=== PATIENT | male | born 1945 | race Caucasian/White ===

== ENCOUNTER → 2018-02-02 08:18 | Outpatient (CLI) | payer MEDICARE, SELFPAY ==
[2018-02-02 09:08] LABS: International Normalized Ratio 1.4
== END ==
PROVIDERS: Family Provider Internal Medicine; PCP Internal Medicine; Visit Provider Internal Medicine
DX: Z51.81 Encounter for therapeutic drug level monitoring (principal); Z79.01 Long term (current) use of anticoagulants
CPT/HCPCS: 85610

== ENCOUNTER 2018-06-13 05:01 | Emergency (ER) | payer MEDICARE, SELFPAY ==
[2018-06-13 05:02] VITALS: BP 161/75; PULSE 83; RESP 17; TEMP 36.6; O2SAT 91; BMI 34.9
[2018-06-13] MEDS: diazePAM 5 MG Tablet PO (05:38)
--- NOTE | 2018-06-13 05:38 | ED.VIS.GEN ---
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 They gave him morphine 5 mg, it helped some with the pain when it occurs but he is still having spasms. They are across his low back, bilaterally. There is no radiation down his legs. He has had tingling in both legs intermittently, not tonight. No bowel or bladder dysfunction or saddle anesthesias. No weakness in his legs or falls. No recent injuries. He states that it has been off and on this past day, just worse tonight, and there was no clear etiologic event that caused him to get worse. No recent illnesses otherwise. No abdominal pain. No nausea/vomiting. - Past Medical History (1) Benign essential hypertension Status: Chronic (2) Dyslipidemia Status: Chronic (3) Hemochromatosis Status: Chronic (4) History of DVT of lower extremity Status: Chronic (5) History of coronary artery stent placement Status: Chronic (6) History of pulmonary embolism Status: Chronic (7) Hx of CABG Status: Chronic Comment: 1995 Past Medical History - Allergies and Home Meds Allergies/Adverse Reactions: Allergies Penicillins Allergy (Verified 06/13/18 05:05) Hives celecoxib [From Celebrex] Adverse Reaction (Verified 06/13/18 05:05) Chest tightness nitroglycerin [From Nitrostat] Adverse Reaction (Verified 12/18/15 11:59) Other Primary Care Physician: Maria Mccoy MD [Primary Care Provider] - Lives: Spouse/ Significant Other Smoking Status: Never smoker Review of Systems General: Denies: Chills, Fever, Sweats Eyes: Denies: Visual changes - bilaterally, Diplopia Cardiovascular: Denies: Chest pain, Palpitations Respiratory: Denies: Dyspnea, Cough Gastrointestinal: Denies: Abdominal pain, Nausea, Vomiting, Diarrhea Genitourinary: Denies: Dysuria, Hematuria, Frequency Musculoskeletal: Reports: Back pain. Denies: Neck pain, Extremity Pain Neurological: Reports: Parasthesia - off and on, not now. Denies: Headache, Weakness, Numbness Physical Exam Vital Signs/Narrative: Vital Signs Temp Pulse Resp BP Pulse Ox 06/13/18 05:02 97.9 F 83 17 161/75 H 91 Inital Vital Signs reviewed: Yes General: Well nourished, Well developed Head: Normocephalic, Atraumatic Abdomen: Soft, Nontender, Nondistended, Normal bowel sounds Back: - - tender in bilat lumbar paraspinal musculature, triggering spasms. Negative for: Spinal tenderness Extremities: Nontender, No edema Neurological: Alert, Oriented x3, Cranial nerves II-XII grossly intact, Normal Strength, Normal Sensation, - - hyporeflexic BLE, symmetric. downgoing toes bilat. no clonus. Psychological: Normal affect Diagnostic/Tx/Re-eval - Medical Decision Making Patient was treated with oral Valium 5 mg and since he had an IV and had received morphine from EMS, Norflex 30 mg IV. On reevaluation, he was able to rollover and move around in bed, feeling much better although the spasms were present, much less prominent. He was able to stand with nursing assistance, and walk back and forth to and from the door of the room, although he did have some painful spasms, was able to do so. He and are comfortable going home with a prescription and advised to follow-up or return if worse. I do not think any further testing is indicated emergently at this time. ED Disposition - Plan for ED Patient: Disposition: Home or Assisted Living Chief Complaint: Back Diagnosis: Spasm of lumbar paraspinous muscle Instructions: ED Spasm Back No Trauma Prescriptions: Diazepam [Valium] 5 mg PO Q8 PRN 4 Days #12 tab PRN Reason: Muscle Spasm Referrals: Maria Mccoy MD [Primary Care Provider] - 3-5 Days if not improving
[2018-06-13] MEDS: Orphenadrine 60 MG/2 ML Ampul 30 MG IV (05:39)
[2018-06-13 07:24] VITALS: BP 135/81; PULSE 72; RESP 15; O2SAT 97
== END 2018-06-13 07:25 | disposition home or self-care (01) ==
PROVIDERS: Emergency Provider Emergency Medicine; Family Provider Internal Medicine; PCP Internal Medicine
DX: M62.830 Muscle spasm of back (principal); M54.5 Low back pain; I10 Essential (primary) hypertension; Z86.718 Personal history of other venous thrombosis and embolism; Z86.711 Personal history of pulmonary embolism; Z95.1 Presence of aortocoronary bypass graft; Z79.01 Long term (current) use of anticoagulants; Z79.899 Other long term (current) drug therapy
CPT/HCPCS: 96374; 99285

== ENCOUNTER 2018-11-19 17:24 | Observation (INO) | payer MEDICARE, SELFPAY ==
[2018-11-19] VITALS (14 sets, daily range): BP systolic 120–184; BP diastolic 42–90; PULSE 59–74; RESP 12–20; TEMP 36.6–36.8; O2SAT 90–98; BMI 33.3; BMI 33.4; BMI 32.3
--- NOTE | 2018-11-19 18:11 | EKG12_ITS ---
Test Reason : SOB Blood Pressure : / mmHG Vent. Rate : 065 BPM Atrial Rate : 065 BPM P-R Int : 150 ms QRS Dur : 086 ms QT Int : 418 ms P-R-T Axes : 038 045 078 degrees QTc Int : 434 ms Normal sinus rhythm Nonspecific ST abnormality Abnormal ECG Confirmed by DANO BLACKMON, CARLEE ([id number]), photography editor BLAYNE BRICE ([id number]) on 11/22/2018 10:53:29 AM Referred By: Tristan Clancy Confirmed By:CARLEE MATSON MD
--- NOTE | 2018-11-19 18:14 | ED.DCSUM_ITS ---
- ER Visit Summary Date of Service: 11/19/18 Chief Complaint: Shortness of breath History of Present Illness: The patient is a 73 M presenting with shortness of breath. Patient states it started yesterday. He has had shortness of breath and chest pain which is worsened with exertion. He has had a productive cough. He denies fever. He has chills. He states this is worsened with exertion and has a pulse ox monitor at home. It has been in the high 70s with ambulation. He does not have home O2. History of hypertension, pulmonary fibrosis, coronary disease. History of PE, he has an IVC filter and is on Coumadin. He is on prednisone. Physical Examination: Vitals are stable. Patient is afebrile. Alert no acute distress. HEENT exam is unremarkable. Neck is supple. Lungs are diminished bilaterally. Heart is regular rate and rhythm. Abdomen is soft nontender nondistended. Extremities are unremarkable. Skin is warm and dry. No focal neurologic deficit. Remainder of exam is unremarkable. Emergency Department Course and Treatment: Patient is given albuterol, Atrovent aerosols. He was given aspirin. EKG is sinus rate of 65 with no acute ischemic changes. Chest x-ray shows no acute process. CBC, chemistries unremarkable. Troponin is negative. INR 3.2. Influenza negative. With ambulation his pulse ox dropped to 87% on room air. He does not have home O2 available. Discussed with the hospitalist for admission. Disposition: Admission Impression: Dyspnea, pulmonary fibrosis, hypoxia, chest pain This note was generated with [employer] dictation software. It may contain incorrect words, spelling, and punctuation that were not noted in review of the chart prior to signing ED Disposition - Plan for ED Patient: Referrals: Maria Mccoy MD [Primary Care Provider] -
[2018-11-19] MEDS: Ipratropium/Albuterol Sulfate 3 ML AMPUL.NEB INHALATION ×2 (18:24→22:45)
--- NOTE | 2018-11-19 18:27 | RAD_ITS ---
STUDY: X-RAY CHEST REASON FOR EXAM: Male, 73 years old. Worsening shortness of breath TECHNIQUE: Single AP portable view of the chest. COMPARISON: 2010 FINDINGS: EKG leads overlie the chest There are interstitial fibrotic changes of the lungs. There may be superimposed interstitial edema as well but there are no recent studies available for comparison. There is no demonstrated pleural abnormality. Sternal cerclage wires and vascular clips are present from a prior sternotomy and coronary artery bypass graft procedure (CABG). Normal mediastinum and denise. Normal visualized pulmonary arteries. Normal visualized aortic arch and descending thoracic aorta. Normal visualized thoracic spine. Normal visualized ribs, clavicles, and shoulders. There is no demonstrated abnormality of the visualized soft tissue structures of the upper abdomen. RAD/Chest 1 View (Portable) IMPRESSION: Degenerative changes, as described above. No demonstrated acute cardiopulmonary process. Electronically Signed: Maxx Raza MD at 19:11 EDT , Service support ,
[2018-11-19 18:32] LABS: Absolute Lymphocyte Count 2.55 X10^3/ul (0.83-4.51); Absolute Neutrophil Count 5.8 X10^3/uL (2.0-7.7); Basophil# 0.04 X10^3/uL; Basophil% 0.4 % (0-1); Eosinophil# 0.06 X10^3/uL; Eosinophils% 0.7 % (0-5); Hematocrit 34.6 % (40-54); Hemoglobin 10.4 g/dl (13.0-16.5); Lymphocyte # 2.55 X10^3/ul (4.0); Lymphocyte % 28.2 % (19-41); Mean Corp Hgb Conc 30.1 g/gl (32-36); Mean Corpuscular Hgb 24.8 pg (27.0-32.0); Mean Corpuscular Volume 82.4 fL (80-94); Mean Platelet Vol. 9.6 fl (6.2-12.0); Monocyte# 0.58 X10^3/uL; Monocyte% 6.4 % (0-10); Neutrophil # 5.79 X10^3/uL (2.7-7.7); Neutrophil % 64.1 % (47-70); Platelet Count 332 K/mm3 (150-450); RBC Distribution Width CV 17.2 % (11.6-14.6); RBC Distribution Width SD 52.4 fl (35.1-43.9)
[2018-11-19 18:33] LABS: POSITIVE COUNT NO; POSITIVE DIFFERENTIAL NO; POSITIVE MORPHOLOGY NO
[2018-11-19 18:44] LABS: International Normalized Ratio 3.2; Prothrombin Time (Protime)PT. 33.1 SECONDS (11.7-14.9)
[2018-11-19 18:50] LABS: Anion Gap 6 (5-15); BUN 12 mg/dL (7-18); BUN/Creat Ratio 12.3 RATIO (10-20); Calcium,Total 8.4 mg/dL (8.5-10.1); Chloride 106 mmol/L (98-107); Creatinine, Serum 0.97 mg/dL (0.70-1.30); EST Glomerular Filtration Rate 80 mL/min (>60); Est Glom Filt Rate - Afr Amer 97 mL/min (>60); Estimated Creatinine Clearance 61.21 ml/min; Glucose 93 mg/dL (74-106); Potassium 3.9 mmol/L (3.5-5.1); Sodium Level 139 mmol/L (136-145)
--- NOTE | 2018-11-19 19:25 | PCM.HP.STD ---
Problem List (1) Acute hypoxemic respiratory failure Status: Acute (2) Idiopathic pulmonary fibrosis Status: Acute History of Present Illness Date of Admission: 11/19/18 Chief Complaint: shortness of breath The patient is a 73 year old M with a significant history of DVT and PE status post IVC filter and on Coumadin therapy; idiopathic pulmonary fibrosis on pirfenidone and prednisone; CAD status post CABG; and GERD who presented with a 2-day history of progressively worsening shortness of breath. Reportedly his shortness of breath started at [employer] when he smelt strong perfume from somebody. The next day to at his office he again smelt a strong perfume also worsen his symptoms. Associated with her symptoms is a chest tightness for which reason he was given aspirin 325 mg at emergency department. He is not on home oxygen but he has a home pulse oximeter. At home his oxygen saturation was in the 70s with ambulation. At the emergency department his oxygen was 87% on ambulation. Past Medical History Past Medical History (Chronic Problems): Chronic Problems History of coronary artery stent placement (Chronic) History of pulmonary embolism (Chronic) Hx of CABG (Chronic) 1996 Hemochromatosis (Chronic) Dyslipidemia (Chronic) History of DVT of lower extremity (Chronic) Benign essential hypertension (Chronic) On anticoagulant therapy (Chronic) Allergies Penicillins Allergy (Verified 11/19/18 17:29) Hives celecoxib [From Celebrex] Adverse Reaction (Verified 11/19/18 17:29) Chest tightness nitroglycerin [From Nitrostat] Adverse Reaction (Verified 11/19/18 17:29) Other Home Medications: Ambulatory Orders Medication Instructions Recorded Prednisone 10 mg PO DAILY 04/06/17 Warfarin [Coumadin ([facility])] 7.5 mg PO DAILY 04/06/17 Ascorbic Acid 500 mg PO DAILY 11/19/18 Aspirin [Aspirin, Baby] 81 mg PO DAILY@0800 11/19/18 Benzonatate 100 mg PO DAILY 11/19/18 Fish Oil/Borage/Flax/Om3,6,9 1 1,200 mg PO DAILY 11/19/18 [[place] 3-6-9 1,200 mg Softgel] Flaxseed Oil 1,000 mg PO DAILY 11/19/18 Multivitamin with Minerals 1 tab PO DAILY 11/19/18 [Multiple Vitamin] Pantoprazole Sodium [Protonix] 40 mg PO DAILY 11/19/18 Pirfenidone [Esbriet] 801 mg PO TID 11/19/18 Verapamil HCl [Verapamil ER] 180 mg PO DAILY 11/19/18 Surgical History: coronary bypass surgery, - - IVC filter placement Lives: Spouse/ Significant Other Smoking Status: Former smoker Alcohol: None - *Family History Maternal History Items: Diabetes Paternal History Items: Diabetes, Heart Disease Review of Systems Constitutional: Denies: Chills, Fever, Weight Change HEENT: Denies: Head Aches, Sinus Congestion, Sinus Drainage Cardiovascular: Reports: Chest Tightness. Denies: Chest Pain, Palpitations Respiratory: Reports: Cough - Chronic, Shortness of Breath, Sputum production - grayish sputum, Chronic Gastrointestinal: Denies: Abdominal Pain, Nausea, Vomiting Genitourinary: Denies: Dysuria Musculoskeletal: Denies: Joint Pain, Joint Tenderness Skin: Denies: Rash, Wounds Neurological: Denies: Numbness, Tingling, Focal weakness Psychiatric: Denies: Anxiety, Depression, Homicidal Ideations, Suicidal Ideations Hematologic/ Lymphatic: Denies: Easy Bruising, Easy Bleeding VTE Information - Inpt Only VTE Present on Admission: Yes - History of DVT and PE. VTE Mechan Device Prophylaxis: None VTE Pharm Prophylaxis ordered?: No Reason prophylaxis not ordered:: Treatment Not Indicated - On Coumadin for history of DVT and PE. Coumadin continued with adjustment. Patient Problems: Active and Suspected Problems Acute hypoxemic respiratory failure (Acute) Idiopathic pulmonary fibrosis (Acute) - Physical Exam General: Alert, Oriented x3, Cooperative HEENT: Atraumatic, PERRLA, EOMI, Normocephalic Neck: Supple, Trachea Midline Lungs: Clear to auscultation, Normal air movement Cardiovascular: Regular rate, No murmurs Abdomen: Bowel Sounds Present, Soft, Non Tender Extremities: No edema, Capillary Refill Less than 3 Seconds Skin: No rashes, No breakdown Musculoskeletal: No Tenderness to Palpation of Joints or Extremities Neurological: Neuro grossly intact Psych/Mental Status: Normal Affect, Appropriate Vital Signs Temp Pulse Resp BP Pulse Ox 98.3 F 72 18 138/86 H 94 11/19/18 17:26 11/19/18 18:24 11/19/18 18:24 11/19/18 18:07 11/19/18 18:07 Oxygen Delivery Method Room Air Weight: 93.8 kg Body Mass Index (BMI) 33.3 Microbiology Past 72 Hours 11/19/18 18:25 Influenza Types A,B Direct FA (ARYA) - Final Mucosa - Nasopharyngeal Laboratory Tests Past 24 Hrs 11/19/18 11/19/18 11/19/18 18:22 18:22 18:22 WBC 9.0 RBC 4.20 L Hgb 10.4 L Hct 34.6 L MCV 82.4 MCH 24.8 L MCHC 30.1 L RDW 17.2 H RDW Differential 52.4 H Plt Count 332 MPV 9.6 Immature Gran % (Auto) 0.200 Neut % (Auto) 64.1 Lymph % (Auto) 28.2 [place] % (Auto) 6.4 Eos % (Auto) 0.7 Baso % (Auto) 0.4 Absolute Neuts (auto) 5.8 Absolute Lymphs (auto) 2.55 Total Counted Not Reportable PT 33.1 H INR 3.2 Sodium 139 Potassium 3.9 Chloride 106 Carbon Dioxide 27.0 Anion Gap 6 BUN 12 Creatinine 0.97 Estim Creat Clear Calc 61.21 Est GFR (MDRD) Af Amer 97 Est GFR (MDRD) Non-Af 80 BUN/Creatinine Ratio 12.3 Glucose 93 Calcium 8.4 L Troponin I < 0.015 Assessment/Plan All Active Problems Acute hypoxemic respiratory failure (Acute) Idiopathic pulmonary fibrosis (Acute) The patient is a 73 year old M with a significant history of DVT and PE status post IVC filter and on Coumadin therapy; idiopathic pulmonary fibrosis on pirfenidone and prednisone; CAD status post CABG; and GERD who presented with a 2-day history of progressively worsening shortness of breath associated with chest tightness. Acute hypoxemic respiratory failure Likely from a flare of his idiopathic pulmonary fibrosis Rapid influenza screen was unremarkable. Comprehensive respiratory pathogen panel. Consider 6 minutes walking test. Scheduled DuoNeb and albuterol. Consider discussed the case with pulmonology. History of DVT and PE with IVC filter On admission his INR was 3.2. He is on daily Coumadin 7.5 mg. Will order Coumadin 7 mg x1 Repeat INR. Dose Coumadin per INR Hypertension On presentation his blood pressure was not within goal. He had highest systolic blood pressure of 184. And highest diastolic blood pressure of 90. Patient on verapamil. But he is unsure why he is on verapamil. He thinks that he takes verapamil for some dysrhythmia or pulmonary embolism. Verapamil continued As needed hydralazine ordered. Trend blood pressure and adjust blood pressure medication. CAD status post CABG Aspirin continued DVT Prophylaxis Patient with supratherapeutic INR. We will dose adjust his Coumadin which he takes for DVT and PE.. Code Visit OBSV E&M: 92254 Initial observation care L3
[2018-11-19] MEDS: Aspirin 325 MG Tablet PO (19:37)
--- NOTE | 2018-11-19 20:21 | ED.RN ---
sepsis eval discontinued per dr mann order.
[2018-11-20 02:45] VITALS: BP 94/51; PULSE 74; RESP 16; TEMP 36.4; O2SAT 94
[2018-11-20 04:37] LABS: International Normalized Ratio 3.2; Prothrombin Time (Protime)PT. 32.6 SECONDS (11.7-14.9)
[2018-11-20 07:09] VITALS: PULSE 75; RESP 18; O2SAT 93
[2018-11-20] MEDS: Ipratropium/Albuterol Sulfate 3 ML AMPUL.NEB INHALATION ×2 (07:09→11:12)
[2018-11-20 08:00] VITALS: BP 149/72; PULSE 76; RESP 20; TEMP 36.7; O2SAT 93; O2SAT 96; O2SAT 97
[2018-11-20 09:11] VITALS: BP 137/85; PULSE 85; RESP 18; TEMP 36.6; O2SAT 95
[2018-11-20] MEDS: Ascorbic Acid 500 MG Tablet PO (09:20)
[2018-11-20] MEDS: predniSONE 10 MG Tablet PO (09:20)
[2018-11-20] MEDS: Verapamil SR 180 MG CAPSULE PO (09:20)
[2018-11-20] MEDS: Pantoprazole Sodium 40 MG Tablet PO (09:20)
[2018-11-20] MEDS: Omega-3 Acid Ethyl Esters 1 GM Capsule PO (09:20)
[2018-11-20] MEDS: Aspirin 81 MG TAB.CHEW PO (09:20)
[2018-11-20] MEDS: Multivitamins,Ther W-Minerals Tablet 1 TABLET PO (09:20)
[2018-11-20] MEDS: 0.9% NaCl Peripheral Flush Adult/Peds IV (09:24)
[2018-11-20 11:12] VITALS: PULSE 78; RESP 16
[2018-11-20 11:35] VITALS: BP 131/78; PULSE 78; RESP 18; TEMP 36.6; O2SAT 96
--- NOTE | 2018-11-20 11:35 | DCINST_ITS ---
- Discharge Diagnoses Current Active Problems: Current Active and Chronic Problems Acute hypoxemic respiratory failure (Acute) Idiopathic pulmonary fibrosis (Acute) You will use the following diet at home:: Cardiac Your food should be the consistency of: Regular Your liquids should be the consistency of: Regular/Thin Discharge Activity: Return to Normal Activity Weight Bearing Status: Weight bearing as tolerated Call your doctor if you observe: Shortness of breath Instructions: Pulmonary Fibrosis Allergies/Adverse Reactions: Allergies Penicillins Allergy (Verified 11/19/18 17:29) Hives celecoxib [From Celebrex] Adverse Reaction (Verified 11/19/18 17:29) Chest tightness nitroglycerin [From Nitrostat] Adverse Reaction (Verified 11/19/18 20:05) severe migraine Medications to take at Discharge Prednisone 10 mg PO DAILY 04/06/17 Warfarin [Coumadin] 7.5 mg PO DAILY 04/06/17 Ascorbic Acid 500 mg PO DAILY 11/19/18 Aspirin [Aspirin, Baby] 81 mg PO DAILY@0800 11/19/18 Benzonatate 100 mg PO DAILY 11/19/18 Fish Oil/Borage/Flax/Om3,6,9 1 [[place] 3-6-9 1,200 mg Softgel] 1,200 mg PO DAILY 11/19/18 Flaxseed Oil 1,000 mg PO DAILY 11/19/18 Multivitamin with Minerals [Multiple Vitamin] 1 tab PO DAILY 11/19/18 Pantoprazole Sodium [Protonix] 40 mg PO DAILY 11/19/18 Pirfenidone [Esbriet] 801 mg PO TID 11/19/18 Verapamil HCl [Verapamil ER] 180 mg PO DAILY 11/19/18 Primary Care Physician: Maria Mccoy MD [Primary Care Provider] - Please follow up with your Primary Care Physician in: ONE WEEK Test Results: Test results from this visit will be discussed in further detail at your follow- up appointment, if applicable. When: f/u with your geropsychologist in one week Proposed Discharge Date: 11/20/18
--- NOTE | 2018-11-20 11:35 | PCM.DC.SUM ---
Discharge Date and Diagnosis Date of Admission: 11/19/18 Date of Discharge: 11/20/18 - Primary Discharge Diagnosis Active and Suspected Problems Acute hypoxemic respiratory failure (Acute) Idiopathic pulmonary fibrosis (Acute) - Secondary Discharge Diagnosis Chronic Problems History of coronary artery stent placement (Chronic) History of pulmonary embolism (Chronic) Hx of CABG (Chronic) 1995 Hemochromatosis (Chronic) Dyslipidemia (Chronic) History of DVT of lower extremity (Chronic) Benign essential hypertension (Chronic) On anticoagulant therapy (Chronic) Hospital Course and Treatment Imaging Results: Diagnostic Data Chest X-Ray 11/19/18 18:27 IMPRESSION: Degenerative changes, as described above. No demonstrated acute cardiopulmonary process. Electronically Signed: Maxx Raza MD at 19:11 EDT , Service support , Operations: None Procedures: None Summary of Care Provided: The patient is a 73 year old M with a PMH of DVT and PE s/p IVC filter and idiopathic pulmonary fibrosis, and CAD s/p CABG as well as GERD. Admitted with a complaint of a 2-day history of progressively worsening shortness of breath which has started a charge when he inhaled a strong perfume on someone. The next day in his office he also inhaled strong perfume and this worsened his symptoms. His oxygenation was in the 70s with ambulation at home and so he decided coming to the ED. In the ED his oxygenation was 87%. INR was therapeutic when he came in and EKG showed no acute ST changes. Blood pressure was also elevated when he came in. Upon enzymes they were all negative and symptoms resolved. He was managed for possible flareup with idiopathic pulmonary fibrosis. Symptoms did not recur throughout his admission and he felt totally fine. Troponin x 3 were negative. He was saturating at 96% on room air. He remained stable and was discharged home on 11/20/2018. His follow-up with his primary care doctor and field sales specialist in 1 week. Patient seen and examined prior to discharge. He had no complaints and felt well. Review of systems otherwise negative. Labs and vitals reviewed. Review of systems is otherwise negative. Home medications reviewed and reconciled. o/e: Vital Signs Height 5 ft 6 in Weight: 200 lb Weight in Pounds 200.0 lbs Pulse Ox [AMBULATING on Room 93 Air] Pulse Ox 96 Temperature 97.9 F Pulse Rate 78 Respiratory Rate 18 Blood Pressure 131/78 Blood Pressure Position Sitting General: Alert, Oriented x3, Cooperative HEENT: Atraumatic, PERRLA, EOMI, Normocephalic Neck: Supple, Trachea Midline Lungs: Clear to auscultation, Normal air movement Cardiovascular: Regular rate, No murmurs, normal S1 and S2, no murmurs Abdomen: Bowel Sounds Present, Soft, Non Tender Extremities: No edema, Capillary Refill Less than 3 Seconds Skin: No rashes, No breakdown Musculoskeletal: No Tenderness to Palpation of Joints or Extremities Neurological: Neuro grossly intact Psych/Mental Status: Normal Affect, Appropriate Plan as above. - Physical Exam Vital Signs Temp Pulse Resp BP Pulse Ox 98 F 85 18 137/85 H 95 11/20/18 09:11 11/20/18 09:11 11/20/18 09:11 11/20/18 09:11 11/20/18 09:11 Oxygen Delivery Method Room Air Weight: 200 lb Body Mass Index (BMI) 32.3 Intake and Output for Last 24 Hours 11/18/18 11/19/18 11/20/18 23:59 23:59 23:59 Intake Total 220 / 220 90 / 90 Balance 220 / 220 90 / 90 Microbiology Past 72 Hours 11/19/18 18:25 Respiratory Panel (PCR) - Final Mucosa - Nasopharyngeal 11/19/18 18:25 Influenza Types A,B Direct FA (ARYA) - Final Mucosa - Nasopharyngeal Laboratory Tests Past 24 Hrs 11/19/18 11/19/18 11/19/18 18:22 18:22 18:22 WBC 9.0 RBC 4.20 L Hgb 10.4 L Hct 34.6 L MCV 82.4 MCH 24.8 L MCHC 30.1 L RDW 17.2 H RDW Differential 52.4 H Plt Count 332 MPV 9.6 Immature Gran % (Auto) 0.200 Neut % (Auto) 64.1 Lymph % (Auto) 28.2 [place] % (Auto) 6.4 Eos % (Auto) 0.7 Baso % (Auto) 0.4 Absolute Neuts (auto) 5.8 Absolute Lymphs (auto) 2.55 Total Counted Not Reportable PT 33.1 H INR 3.2 Sodium 139 Potassium 3.9 Chloride 106 Carbon Dioxide 27.0 Anion Gap 6 BUN 12 Creatinine 0.97 Estim Creat Clear Calc 61.21 Est GFR (MDRD) Af Amer 97 Est GFR (MDRD) Non-Af 80 BUN/Creatinine Ratio 12.3 Glucose 93 Calcium 8.4 L Troponin I < 0.015 11/19/18 11/20/18 11/20/18 23:15 02:35 03:55 WBC RBC Hgb Hct MCV MCH MCHC RDW RDW Differential Plt Count MPV Immature Gran % (Auto) Neut % (Auto) Lymph % (Auto) [place] % (Auto) Eos % (Auto) Baso % (Auto) Absolute Neuts (auto) Absolute Lymphs (auto) Total Counted PT 32.6 H INR 3.2 Sodium Potassium Chloride Carbon Dioxide Anion Gap BUN Creatinine Estim Creat Clear Calc Est GFR (MDRD) Af Amer Est GFR (MDRD) Non-Af BUN/Creatinine Ratio Glucose Calcium Troponin I < 0.015 < 0.015 Discharge Diet: Low fat/ Low Cholesterol Discharge Activity: Return to Normal Activity Weight Bearing Status: Weight bearing as tolerated Call your doctor if you observe: Shortness of breath Home Medications: Medications to take at Discharge Prednisone 10 mg PO DAILY 04/06/17 Warfarin [Coumadin] 7.5 mg PO DAILY 04/06/17 Ascorbic Acid 500 mg PO DAILY 11/19/18 Aspirin [Aspirin, Baby] 81 mg PO DAILY@0800 11/19/18 Benzonatate 100 mg PO DAILY 11/19/18 Fish Oil/Borage/Flax/Om3,6,9 1 [[place] 3-6-9 1,200 mg Softgel] 1,200 mg PO DAILY 11/19/18 Flaxseed Oil 1,000 mg PO DAILY 11/19/18 Multivitamin with Minerals [Multiple Vitamin] 1 tab PO DAILY 11/19/18 Pantoprazole Sodium [Protonix] 40 mg PO DAILY 11/19/18 Pirfenidone [Esbriet] 801 mg PO TID 11/19/18 Verapamil HCl [Verapamil ER] 180 mg PO DAILY 11/19/18 Primary Care Physician: Maria Mccoy MD [Primary Care Provider] - Please follow up with your Primary Care Physician in: ONE WEEK When: f/u with your field sales specialist in one week Patient Instructions: Resources for Chronic Lung Disease, Pulmonary Fibrosis Disposition: Home Minutes spent on discharge:: 40 Patient Condition:: Stable Medical Necessity - Tobacco Use Smoking Status: Former smoker Tobacco Use: Cigarettes Meaningful Use Info Meaningful Use Diagnoses (Choose all that apply): None applicable Code Visit Inpatient E&M: 45674 Disch Hosp
== END 2018-11-20 13:09 | disposition home or self-care (01) ==
LOC: ED 18:19 → ICU 21:02 → MS2 11-20 08:35
PROVIDERS: Admitting Provider Hospitalist; Emergency Provider Emergency Medicine; Family Provider Internal Medicine; PCP Internal Medicine; Referring Provider Hospitalist; Visit Provider Student in an Organized Health Care Education/Training Program
DX: J96.01 Acute respiratory failure with hypoxia (principal); J84.112 Idiopathic pulmonary fibrosis; E78.5 Hyperlipidemia, unspecified; I10 Essential (primary) hypertension; E83.119 Hemochromatosis, unspecified; K21.9 Gastro-esophageal reflux disease without esophagitis; I25.10 Atherosclerotic heart disease of native coronary artery without angina pectoris; Z86.711 Personal history of pulmonary embolism; Z79.01 Long term (current) use of anticoagulants; Z79.82 Long term (current) use of aspirin; Z79.52 Long term (current) use of systemic steroids; Z95.1 Presence of aortocoronary bypass graft; Z87.891 Personal history of nicotine dependence; R94.31 Abnormal electrocardiogram [ECG] [EKG]
CPT/HCPCS: 71045; 80048; 84484; 85025; 85610; 87633; 87804; 93005; 94640; 99218; 99282; A4216; G0378

== ENCOUNTER 2018-12-14 15:00 | Outpatient (RCR) | payer OTHER, SELFPAY ==
--- NOTE | 2018-10-19 15:44 | HP.PTEVAL_ITS ---
Patient's Visit Information GRUPO TAM is a 73 year old M referred to Physical Therapy by Cristiano Cummins MD with a diagnosis of LBP. Date of Evaluation: 10/19/18 Physical Therapist: Vincent Soto PT, ATC - Visit Plan Frequency: 2-3x /Week Duration: 4-6 Weeks Plan: B LE strengthening, balance/proprio, core stab ex's, nustep, and HEP - Subjective Findings: Pt reports he had surgery on LB 08/06/18. Pt reports he has not had any PT or strengthening up to this point. 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 Pt reports after his surgery, while at work he slipped and fell causing further pain to his LB on 09/05/18. Pt reports he has been sore ever since. Pt reports he is here in order to strengthen his LB and be able to RTW witnout limitation. Pt has tingling and numb ness in L/S that extends to his toes. Pain is intermittent in nature. No sleep difficulty secondary to pain. Pt reports forward bending, heavy lifting, and ascending stairs increase his pain. 7/10 pain at rest, 10/10 at worst (painting) - Pain LBP Pain Intensity (Out of 10): 7 Pain Intensity Range: 10 - Objective Neuro: B LE sensation is WNL to light touch. B patellar reflex= 2/3. MMT: B LE's are rated at 4+/5 throughout. Gait: Pt was able to ambulate 680' with a slow cadance until having to rest. Posture: Pt sits and stands with a decreased lordotic curve - Goals Goal 1:: Increase core stability x 1 grade to aid with decreasing LBP Goal Time Frame: 4-6 Weeks Goal 2:: Decrease LBP x 1 grade to aid with work requirements Goal Time Frame: 2-4 Weeks Goal 3:: Pt will be able to ambulate greater than 1000' to aid with community ambulation Goal Time Frame: 4-6 Weeks Goal 4:: I with HEP Goal Time Frame: 4-6 Weeks - Rehabilitation Potential Physical Therapy Diagnosis: Pt has LBP, core weakness, and difficulty with his work requirements secondary to being s/p low back surgery Rehabilitation Potential: Good - Anticipated Interventions Patient/Client Instruction: Educate patient on: Condition, Plan of Care For the Purpose of:: To improve self management Therapeutic Exercise to Include: Strength training, Endurance training, Balance training, Postural training, Gait and locomotor training, Dynamic Lumbar Stabilization For the Purpose of:: To decrease pain, To increase ROM, To improve muscle perfor mary and motor function Cryotherapy (ice pack, ice massage): Yes For the Purpose of:: To decrease pain Thank you for the opportunity to evaluate your patient. For Medicare and Medicare HMO plans, please review the plan of care and approve it. It will need to be FAXED BACK to us at [phone] for Medicare purposes. For Medicare only, by signing this I certify the plan of care. Please let me know if there are questions or concerns regarding this plan of care. Physician Signature: Date:
--- NOTE | 2018-12-14 15:33 | HP.PTDCSUM ---
HP - PT D/C Summary It has been my pleasure to treat GRUPO TAM under orders from Cristiano Cummins MD, for the diagnosis of LBP for a total of 16 visit(s). Discharge Date: Please see the following information for a summary of their discharge status. - Subjective Subjective: No pain this date - Pain LBP Pain Intensity (Out of 10): 0 LUNGS Pain Intensity (Out of 10): Unrated - Overall Improvement % Improvement: 95 - Objective Objective/Function: B hip pain now 0-09/20. Pt is able to ambulate greater than 680' until running out of breath. Pt has increased core strength x 50%. I with HEP. Rx goals achieved - Goals Goal 1:: Increase core stability x 1 grade to aid with decreasing LBP Goal Progress: Goal Met Goal 2:: Decrease LBP x 1 grade to aid with work requirements Goal Progress: Goal Met Goal 3:: Pt will be able to ambulate greater than 1000' to aid with community ambulation Goal Progress: Progressing Goal 4:: I with HEP Goal Progress: Goal Met - Plan Plan: Discharge - D/C Information If there are questions or concerns regarding this patient's physical therapy, please feel free to call me at [phone]. Thank you for the referral of this patient. Sincerely, Vincent Soto, PT, ATC
== END 2018-12-14 19:00 | disposition home or self-care (01) ==
LOC: PT 15:00
PROVIDERS: Family Provider Internal Medicine; PCP Internal Medicine; Visit Provider Orthopaedic Surgery
DX: S33.5XXD Sprain of ligaments of lumbar spine, subsequent encounter (principal)
CPT/HCPCS: 97110; 97161; 97530

== ENCOUNTER 2018-12-30 10:14 | Observation (INO) | payer MEDICARE, SELFPAY ==
[2018-11-19 21:28] VITALS: BMI 32.3
[2018-12-30] VITALS (19 sets, daily range): BP systolic 118–176; BP diastolic 60–86; PULSE 55–85; RESP 12–18; TEMP 36.6–36.9; O2SAT 91–99; BMI 31.7; BMI 31.6
--- NOTE | 2018-12-30 10:30 | EKG12_ITS ---
Test Reason : REPEAT CP Blood Pressure : / mmHG Vent. Rate : 057 BPM Atrial Rate : 057 BPM P-R Int : 124 ms QRS Dur : 082 ms QT Int : 422 ms P-R-T Axes : 023 013 037 degrees QTc Int : 410 ms Sinus bradycardia Otherwise normal ECG Confirmed by MICHELLE BLACKMON, GORDO ([id number]), news assignment editor BLAYNE BRICE ([id number]) on 01/02/2019 1:21:24 PM Referred By: Arpan Alexander Confirmed By:GORDO MARTINEZ MD
--- NOTE | 2018-12-30 10:35 | ED.DCSUM_ITS ---
- ER Visit Summary Date of Service: 12/30/18 Chief Complaint: Shortness of breath and chest pain History of Present Illness: The patient is a 73 M with history of coronary artery disease status post CABG, pulmonary fibrosis (due to agent orange exposure in [place]), and history of venous thromboembolism on Coumadin and with IVC filter in place who presents for less than 1 hour of shortness of breath and chest discomfort. Patient was sitting in cheondoism when he began coughing. The coughing progressed until he felt significantly short of breath. Patient then developed chest heaviness that feels like an elephant sitting on my chest. Patient has associated lightheadedness. EMS gave him 3 baby aspirin, patient had taken 1 this morning at home. He was given 1 nitroglycerin that it improved his pain. Patient's pain is currently 5 out of 10. He has had prior similar symptoms requiring hospitalization. Patient recently began using breathing treatments for his pulmonary fibrosis and shortness of breath. Patient denies any radiation of his chest discomfort. No abdominal pain, nausea, vomiting, fever or other symptoms. Physical Examination: Vital signs: afebrile, hemodynamically stable, 91% O2 saturation on room air, hypoxia on room air, 96% on 2 L nasal cannula General: well nourished, well developed, in no distress Skin: warm, dry, no rash, no pallor HEENT: normocephalic and atraumatic; PERRL, EOMI, moist mucous membranes Cardiovascular: regular rate and rhythm with split S1/S2 varying with respiration, no peripheral edema, 2+ pulses all distal extremities Respiratory: Mild increased work of breathing, lungs show diffuse crackles, worse in the bilateral bases, respirations are shallow Abdominal: Abdomen is soft, nontender with normoactive bowel sounds, no guarding or rebound, no masses MSK: Moves all extremities, no deformities, normal strength Neuro: Awake and alert, oriented ?4. No facial droop, sensation and motor function intact and symmetric Test Results: Abnormal Lab Results 12/30/18 12/30/18 12/30/18 10:20 10:20 10:20 WBC 13.9 H RBC 4.66 Hgb 11.2 L Hct 37.2 L MCV 79.8 L MCH 24.0 L MCHC 30.1 L RDW 18.8 H RDW Differential 54.1 H Plt Count 372 MPV 9.4 Immature Gran % (Auto) 1.100 H Neut % (Auto) 77.8 H Lymph % (Auto) 13.3 L [place] % (Auto) 7.6 Eos % (Auto) 0.1 Baso % (Auto) 0.1 Absolute Neuts (auto) 10.8 H Absolute Lymphs (auto) 1.84 Total Counted Not Reportable PT 54.8 H INR 6.0 H* APTT 38.9 H Sodium 139 Potassium 4.2 Chloride 106 Carbon Dioxide 28.0 Anion Gap 5 BUN 21 H Creatinine 0.92 Estim Creat Clear Calc 71.51 Est GFR (MDRD) Af Amer 103 Est GFR (MDRD) Non-Af 85 BUN/Creatinine Ratio 22.8 H Glucose 111 H Calcium 8.5 Troponin I < 0.015 Clinical Impression(s) from Imaging Studies Chest X-Ray 12/30/18 11:00 IMPRESSION: Hypoinflated lungs with interstitial prominence and bibasilar airspace disease Electronically Signed: Newton Fam DO at 11:45 EDT Tel , Service support , Medications Given Discontinued Medications Albuterol/Ipratropium (Duoneb) 3 ml INHALATION X1 ONE Stop: 12/30/18 10:31 Last Admin: 12/30/18 10:38 Dose: 3 ml Methylprednisolone (Solu-Medrol) 125 mg IV X1 ONE Stop: 12/30/18 11:44 Last Admin: 12/30/18 12:02 Dose: 125 mg Morphine Sulfate () 4 mg IV X1 ONE Stop: 12/30/18 11:09 Last Admin: 12/30/18 11:12 Dose: 4 mg Nitroglycerin (Nitrostat) 0.4 mg SUBLINGUAL Q5M NIC Stop: 12/30/18 10:41 Last Admin: 12/30/18 10:50 Dose: 0.4 mg Admin: 12/30/18 10:45 Dose: 0.4 mg Admin: 12/30/18 10:40 Dose: 0.4 mg Nitroglycerin (Nitrobid) 1 inch TRANSDERM. X1 ONE Stop: 12/30/18 11:48 Last Admin: 12/30/18 12:02 Dose: 1 inch Emergency Department Course and Treatment: Patient presents for shortness of breath and chest heaviness. Patient does have a history of significant pulmonary fibrosis as well as coronary artery disease. Patient had received aspirin and nitro by EMS and had improvement of his chest heaviness. Patient did have shallow respirations with diffuse crackles consistent with pulmonary fibrosis. EKG showed a sinus rhythm with no ischemic changes. Patient received additional nitro and had improvement of his chest heaviness. He was also given a DuoNeb treatment which did give him some relief with his shortness of breath but his symptoms persisted. Labs remarkable for leukocytosis. Patient states he is currently on the end of a prednisone taper and chronically takes 10 mg of prednisone daily. This explains the leukocytosis as patient has no other symptoms concerning for infection. Chest x-ray was consistent with pulmonary fibrosis and showed no focal infiltrates. Patient's troponin was negative. INR was supratherapeutic at 6.0. Patient had return of his chest heaviness and was given morphine with improvement. Patient was then placed on Nitropaste. Repeat EKG with the increase in chest heaviness showed no change from initial EKG and showed no ischemic changes. Patient was discussed with Dr. Rodríguez and Dr. Alexander. Patient admitted to the PCU for further workup of his chest heaviness and shortness of breath. Treatment Plan: [] Disposition: [] Impression: Chest pain, shortness of breath, history of pulmonary fibrosis, history of coronary artery disease This note was generated with iPositionation software. It may contain incorrect words, spelling, and punctuation that were not noted in review of the chart prior to signing ED Disposition - Plan for ED Patient: Referrals: Maria Mccoy MD [Primary Care Provider] -
[2018-12-30] MEDS: Ipratropium/Albuterol Sulfate 3 ML AMPUL.NEB INHALATION ×3 (10:38→19:50)
[2018-12-30 10:46] LABS: Absolute Lymphocyte Count 1.84 X10^3/ul (0.83-4.51); Absolute Neutrophil Count 10.8 X10^3/uL (2.0-7.7); Basophil# 0.01 X10^3/uL; Basophil% 0.1 % (0-1); Eosinophil# 0.01 X10^3/uL; Eosinophils% 0.1 % (0-5); Hematocrit 37.2 % (40-54); Hemoglobin 11.2 g/dl (13.0-16.5); Lymphocyte # 1.84 X10^3/ul (4.0); Lymphocyte % 13.3 % (19-41); Mean Corp Hgb Conc 30.1 g/gl (32-36); Mean Corpuscular Volume 79.8 fL (80-94); Mean Platelet Vol. 9.4 fl (6.2-12.0); Monocyte# 1.06 X10^3/uL; Monocyte% 7.6 % (0-10); Neutrophil # 10.79 X10^3/uL (2.7-7.7); Neutrophil % 77.8 % (47-70); Platelet Count 372 K/mm3 (150-450); RBC Distribution Width CV 18.8 % (11.6-14.6); RBC Distribution Width SD 54.1 fl (35.1-43.9); Red Blood Count 4.66 M/mm3 (4.6-6.2); White Blood Count 13.9 K/mm3 (4.4-11.0)
[2018-12-30 10:47] LABS: Prothrombin Time (Protime)PT. 54.8 SECONDS (11.7-14.9)
[2018-12-30 10:48] LABS: Partial Thromboplast Time 38.9 Seconds (24.1-36.2)
[2018-12-30 10:49] LABS: POSITIVE COUNT NO; POSITIVE DIFFERENTIAL NO; POSITIVE MORPHOLOGY NO
[2018-12-30 10:57] LABS: Anion Gap 5 (5-15); BUN 21 mg/dL (7-18); BUN/Creat Ratio 22.8 RATIO (10-20); Calcium,Total 8.5 mg/dL (8.5-10.1); Chloride 106 mmol/L (98-107); Creatinine, Serum 0.92 mg/dL (0.70-1.30); EST Glomerular Filtration Rate 85 mL/min (>60); Est Glom Filt Rate - Afr Amer 103 mL/min (>60); Estimated Creatinine Clearance 71.51 ml/min; Glucose 111 mg/dL (74-106); Potassium 4.2 mmol/L (3.5-5.1); Sodium Level 139 mmol/L (136-145)
--- NOTE | 2018-12-30 11:00 | RAD_ITS ---
STUDY: X-RAY CHEST REASON FOR EXAM: Male, 73 years old. Chest pain and shortness of breath TECHNIQUE: PA and lateral views of the chest. COMPARISON: November 19, 2018 FINDINGS: Lungs are mildly hypoinflated. Slight interstitial prominence throughout with bibasilar airspace disease. There is no demonstrated pleural abnormality. Normal size heart. Normal mediastinum and denise. Normal visualized pulmonary arteries. Normal visualized aortic arch and descending thoracic aorta. There are diffuse degenerative changes of the visualized thoracic spine. There is degenerative osteoarthritis of the bilateral shoulders. There is no demonstrated abnormality of the visualized soft tissue structures of the upper abdomen. RAD/Chest PA and Lateral IMPRESSION: Hypoinflated lungs with interstitial prominence and bibasilar airspace disease Electronically Signed: Newton Fam DO at 11:45 EDT Tel , Service support ,
--- NOTE | 2018-12-30 11:09 | NURSING ---
PT REPORTS CHEST PAIN RETURNED TO 5/10. ADVISED PHYSICIAN. MORPHINE ORDERED
[2018-12-30] MEDS: Morphine 4 MG/ML Syringe IV (11:12)
[2018-12-30] MEDS: MethylPREDNISolone 125 MG/2 ML Vial IV (12:02)
[2018-12-30] MEDS: Nitroglycerin Oint 1 INCH PACKET TRANSDERM. (12:02)
--- NOTE | 2018-12-30 12:02 | EKG12_ITS ---
Test Reason : CP Blood Pressure : / mmHG Vent. Rate : 065 BPM Atrial Rate : 065 BPM P-R Int : 132 ms QRS Dur : 086 ms QT Int : 382 ms P-R-T Axes : 005 027 050 degrees QTc Int : 397 ms Normal sinus rhythm Normal ECG Confirmed by MICHELLE BLACKMON, GORDO ([id number]), acquisitions editor BLAYNE BRICE ([id number]) on 01/02/2019 1:21:40 PM Referred By: Arpan Alexander Confirmed By:GORDO MARTINEZ MD
--- NOTE | 2018-12-30 12:29 | PCM.HP.STD ---
Problem List (1) History of coronary artery stent placement Status: Chronic (2) History of pulmonary embolism Status: Chronic (3) Hx of CABG Status: Chronic Comment: 1995 (4) Dyslipidemia Status: Chronic (5) History of DVT of lower extremity Status: Chronic (6) Benign essential hypertension Status: Chronic History of Present Illness Date of Admission: 12/30/18 Chief Complaint: Elevated blood pressure, shortness of breath, chest pressure. The patient is a 73 year old M with past medical history as mentioned above presented to the emergency room because of elevated blood pressure, shortness of breath and chest pressure. Patient's illness started today morning when he found that his blood pressure is very high which was 200/100 according to his and started having shortness of breath and chest pressure. He complained of shortness of breath at rest, aggravated by minimal exertion, minimally relieved with rest and associated with dry cough with minimal or no sputum. At the same time, he started having chest pain that described as chest pressure, across his chest on both sides, not radiating, started after the shortness of breath and without aggravating or relieving factors. He denies fever or chills. He saw his spot cleaner at [facility] who prescribed a tapering course of prednisone and currently, he is on prednisone 50 mg p.o. daily. He is on long-term prednisone 10 mg daily and he was requested to stay on 10 mg after he finishes the taper. Upon arrival to ER, patient was afebrile, blood pressure was 176/86, pulse ox was 91% on room air. His routine blood work was remarkable for mild leukocytosis, hemoglobin of 11.2, BMP was unremarkable. His INR was 6. EKG revealed normal sinus rhythm without evidence of acute ischemic changes. First troponin was negative. Chest x-ray revealed hyperinflated chest, no acute infiltrate, consolidation or effusion. He is being admitted for acute exacerbation of idiopathic pulmonary fibrosis with hypoxia and chest pressure for evaluation as well as Coumadin induced coagulopathy. Past Medical History Past Medical History (Chronic Problems): Chronic Problems History of coronary artery stent placement (Chronic) History of pulmonary embolism (Chronic) Hx of CABG (Chronic) 1995 Hemochromatosis (Chronic) Dyslipidemia (Chronic) History of DVT of lower extremity (Chronic) Benign essential hypertension (Chronic) On anticoagulant therapy (Chronic) Allergies Penicillins Allergy (Verified 12/30/18 10:15) Hives celecoxib [From Celebrex] Adverse Reaction (Verified 12/30/18 10:15) Chest tightness nitroglycerin [From Nitrostat] Adverse Reaction (Verified 12/30/18 10:15) severe migraine Home Medications: Ambulatory Orders Medication Instructions Recorded Prednisone 20 mg PO DAILY 04/06/17 Warfarin [Coumadin] 7.5 mg PO DAILY 04/06/17 Ascorbic Acid 500 mg PO DAILY 11/19/18 Aspirin [Aspirin, Baby] 81 mg PO DAILY@0800 11/19/18 Benzonatate 100 mg PO DAILY 11/19/18 Fish Oil/Borage/Flax/Om3,6,9 1 1,200 mg PO DAILY 11/19/18 [[place] 3-6-9 1,200 mg Softgel] Flaxseed Oil 1,000 mg PO DAILY 11/19/18 Multivitamin with Minerals 1 tab PO DAILY 11/19/18 [Multiple Vitamin] Pantoprazole Sodium [Protonix] 40 mg PO DAILY 11/19/18 Pirfenidone [Esbriet] 801 mg PO TID 11/19/18 Verapamil HCl [Verapamil ER] 180 mg PO DAILY 11/19/18 Magnesium 250 mg PO DAILY 12/30/18 Nitroglycerin 0.4 mg SL PRN PRN 12/30/18 Surgical History: coronary bypass surgery, - - IVC filter placement Lives: Spouse/ Significant Other Smoking Status: Never smoker Alcohol: None Drugs: None - *Family History Maternal History Items: Diabetes Paternal History Items: Diabetes, Heart Disease Review of Systems Constitutional: Denies: Anorexia, Chills, Fever, Weakness Eyes: Denies: Blurred vision, Double vision, Drainage, Redness HEENT: Denies: Difficulty Hearing, Ear Pain, Eye Pain, Nasal Congestion, Sore Throat Cardiovascular: Reports: Chest Pain, Chest Pressure. Denies: Heaviness, Light Headedness, Palpitations, Syncope Respiratory: Reports: Cough, Shortness of Breath, Shortness of breath at rest, Shortness of breath upon exertion. Denies: Sputum production, Wheezing Gastrointestinal: Denies: Abdominal Pain, Constipation, Diarrhea, Nausea, Vomiting Genitourinary: Denies: Dysuria, Frequency, Hematuria Musculoskeletal: Denies: Arm Pain, Back Pain, Foot Pain Skin: Denies: Dryness, Rash Neurological: Denies: Balance problems, Double vision, Change in Speech, Slurred speech, Confusion, Focal weakness, Incoordination Psychiatric: Denies: Anxiety, Depression Endocrine: Denies: Change in Body Habitus, Polydipsia VTE Information - Inpt Only VTE Present on Admission: No VTE Mechan Device Prophylaxis: None VTE Pharm Prophylaxis ordered?: No - Physical Exam General: Alert, Oriented x3, Cooperative, - - Minimally short of breath. HEENT: Atraumatic, PERRLA, EOMI, Normocephalic Oral: Moist Mucosa, No Gingival or Mucosal Lesions/ Ulcerations Neck: Supple, No JVD, Negative Carotid Bruits, Trachea Midline, Thyroid Normal Size and Texture Lungs: No rhonchi, No wheeze, Diminished, Rales, Short of Breath, - - Decreased breath sounds bilateral, bilateral fine basal crackles up to mid zones. Cardiovascular: Regular rate, Regular Rhythm, Normal S1, Normal S2, No murmurs, PMI Normal Abdomen: Bowel Sounds Present, Soft, Non Tender, Non-Distended, No Hepato-splenomegaly Extremities: No clubbing, No cyanosis, No edema Skin: No rashes, No breakdown Lymphatic: No Cervical, Supraclavicular, or Inguinal Adenopathy Neurological: Cranial nerves II-XII grossly intact, Motor Exam 5/5 strength throughout Psych/Mental Status: Normal Affect, Appropriate, Alert and oriented to time, place, person, mood and affect Vital Signs Temp Pulse Resp BP Pulse Ox 98.4 F 78 16 123/75 H 98 12/30/18 10:16 12/30/18 12:18 12/30/18 12:18 12/30/18 12:18 12/30/18 12:18 Oxygen Flow Rate (L/min) 2 Oxygen Delivery Method Room Air Weight: 214 lb 15.211 oz Body Mass Index (BMI) 31.7 Laboratory Tests Past 24 Hrs 12/30/18 12/30/18 12/30/18 10:20 10:20 10:20 WBC 13.9 H RBC 4.66 Hgb 11.2 L Hct 37.2 L MCV 79.8 L MCH 24.0 L MCHC 30.1 L RDW 18.8 H RDW Differential 54.1 H Plt Count 372 MPV 9.4 Immature Gran % (Auto) 1.100 H Neut % (Auto) 77.8 H Lymph % (Auto) 13.3 L [place] % (Auto) 7.6 Eos % (Auto) 0.1 Baso % (Auto) 0.1 Absolute Neuts (auto) 10.8 H Absolute Lymphs (auto) 1.84 Total Counted Not Reportable PT 54.8 H INR 6.0 H* APTT 38.9 H Sodium 139 Potassium 4.2 Chloride 106 Carbon Dioxide 28.0 Anion Gap 5 BUN 21 H Creatinine 0.92 Estim Creat Clear Calc 71.51 Est GFR (MDRD) Af Amer 103 Est GFR (MDRD) Non-Af 85 BUN/Creatinine Ratio 22.8 H Glucose 111 H Calcium 8.5 Troponin I < 0.015 Clinical Impression(s) from Imaging Studies Chest X-Ray 12/30/18 11:00 IMPRESSION: Hypoinflated lungs with interstitial prominence and bibasilar airspace disease Electronically Signed: Newton Fam DO at 11:45 EDT Tel , Service support , Assessment/Plan All Active Problems Acute hypoxemic respiratory failure (Acute) Idiopathic pulmonary fibrosis (Acute) This is a 73 years old male patient presented to the emergency room because of shortness of breath and chest pressure and he is being admitted for acute exacerbation of idiopathic pulmonary fibrosis with hypoxia, Coumadin induced coagulopathy and chest pressure for evaluation. #1 acute exacerbation of idiopathic pulmonary fibrosis/hypoxia: Chest x-ray showed no acute findings. Patient was on tapering course of prednisone and he has been on long-term steroids. He is afebrile, has mild leukocytosis secondary to steroids. He never been on oxygen and he is requiring oxygen at this time. Plan: Admit to PCU, cardiac monitoring, DuoNeb every 6 hours, albuterol as needed, respiratory panel for viruses, start IV site Medrol, incentive spirometer, chest physiotherapy, repeat CBC and BMP tomorrow morning, PT OT evaluation and treatment. #2 chest pressure/pain: His symptoms seem to be atypical and it is less likely to be cardiac in etiology. Patient does have a history of significant CAD status post CABG and stents. His EKG revealed no acute ischemic changes. Troponin is negative. Patient mentioned that he had stress test at Dr. Griffith's office around 1 year ago but is not sure. Plan: Cardiac monitoring, serial cardiac enzymes, repeat EKG tomorrow morning, obtain stress test report that was done around [address] Griffith's office. At this point if the stress test was done in the last 6-9 months, I do not think that we need to repeat stress test at this time. #3 Coumadin induced coagulopathy: Patient is on Coumadin for history of DVT and PE, INR 6. No evidence of active bleeding, H&H are stable. Plan to hold Coumadin, repeat INR tomorrow morning. #4 CAD status post CABG and stents: Plan as above, continue aspirin. Patient is not on beta-blockers or ELIDA inhibitors. #5 history of PE/DVT: Hold Coumadin, INR supratherapeutic, plan as above. #6 hypertension: According to the patient, blood pressure was 200/100 at home. At this time, it is stable. He is only on verapamil which will be continued. #7 hyperlipidemia: He is not on statins. #8 DVT prophylaxis: INR 6. This note was generated with mmCHANNELation software. It may contain incorrect words, spelling, and punctuation that were not noted in checking the note before signing. Code Visit Inpatient E&M: 63475 Init Hosp L3
--- NOTE | 2018-12-30 12:35 | HP.PCM_ITS ---
Problem List (1) History of coronary artery stent placement Status: Chronic (2) History of pulmonary embolism Status: Chronic (3) Hx of CABG Status: Chronic Comment: 1995 (4) Dyslipidemia Status: Chronic (5) History of DVT of lower extremity Status: Chronic (6) Benign essential hypertension Status: Chronic History of Present Illness Date of Admission: 12/30/18 Chief Complaint: Elevated blood pressure, shortness of breath, chest pressure. The patient is a 73 year old M with past medical history as mentioned above presented to the emergency room because of elevated blood pressure, shortness of breath and chest pressure. Patient's illness started today morning when he found that his blood pressure is very high which was 200/100 according to his and started having shortness of breath and chest pressure. He complained of shortness of breath at rest, aggravated by minimal exertion, minimally relieved with rest and associated with dry cough with minimal or no sputum. At the same time, he started having chest pain that described as chest pressure, across his chest on both sides, not radiating, started after the shortness of breath and without aggravating or relieving factors. He denies fever or chills. He saw his business excellence leader at [facility] who prescribed a tapering course of prednisone and currently, he is on prednisone 50 mg p.o. daily. He is on long- term prednisone 10 mg daily and he was requested to stay on 10 mg after he finishes the taper. Upon arrival to ER, patient was afebrile, blood pressure was 176/86, pulse ox was 91% on room air. His routine blood work was remarkable for mild leukocytosis, hemoglobin of 11.2, BMP was unremarkable. His INR was 6. EKG revealed normal sinus rhythm without evidence of acute ischemic changes. First troponin was negative. Chest x-ray revealed hyperinflated chest, no acute infiltrate, consolidation or effusion. He is being admitted for acute exacerbation of idiopathic pulmonary fibrosis with hypoxia and chest pressure for evaluation as well as Coumadin induced coagulopathy. Past Medical History Past Medical History (Chronic Problems): Chronic Problems History of coronary artery stent placement (Chronic) History of pulmonary embolism (Chronic) Hx of CABG (Chronic) 1995 Hemochromatosis (Chronic) Dyslipidemia (Chronic) History of DVT of lower extremity (Chronic) Benign essential hypertension (Chronic) On anticoagulant therapy (Chronic) Allergies Penicillins Allergy (Verified 12/30/18 10:15) Hives celecoxib [From Celebrex] Adverse Reaction (Verified 12/30/18 10:15) Chest tightness nitroglycerin [From Nitrostat] Adverse Reaction (Verified 12/30/18 10:15) severe migraine Home Medications: Ambulatory Orders Medication Instructions Recorded Prednisone 20 mg PO DAILY 04/06/17 Warfarin [Coumadin] 7.5 mg PO DAILY 04/06/17 Ascorbic Acid 500 mg PO DAILY 11/19/18 Aspirin [Aspirin, Baby] 81 mg PO DAILY@0800 11/19/18 Benzonatate 100 mg PO DAILY 11/19/18 Fish Oil/Borage/Flax/Om3,6,9 1 1,200 mg PO DAILY 11/19/18 [[place] 3-6-9 1,200 mg Softgel] Flaxseed Oil 1,000 mg PO DAILY 11/19/18 Multivitamin with Minerals 1 tab PO DAILY 11/19/18 [Multiple Vitamin] Pantoprazole Sodium [Protonix] 40 mg PO DAILY 11/19/18 Pirfenidone [Esbriet] 801 mg PO TID 11/19/18 Verapamil HCl [Verapamil ER] 180 mg PO DAILY 11/19/18 Magnesium 250 mg PO DAILY 12/30/18 Nitroglycerin 0.4 mg SL PRN PRN 12/30/18 Surgical History: coronary bypass surgery, - - IVC filter placement Lives: Spouse/ Significant Other Smoking Status: Never smoker Alcohol: None Drugs: None - *Family History Maternal History Items: Diabetes Paternal History Items: Diabetes, Heart Disease Review of Systems Constitutional: Denies: Anorexia, Chills, Fever, Weakness Eyes: Denies: Blurred vision, Double vision, Drainage, Redness HEENT: Denies: Difficulty Hearing, Ear Pain, Eye Pain, Nasal Congestion, Sore Throat Cardiovascular: Reports: Chest Pain, Chest Pressure. Denies: Heaviness, Light Headedness, Palpitations, Syncope Respiratory: Reports: Cough, Shortness of Breath, Shortness of breath at rest, Shortness of breath upon exertion. Denies: Sputum production, Wheezing Gastrointestinal: Denies: Abdominal Pain, Constipation, Diarrhea, Nausea, Vomiting Genitourinary: Denies: Dysuria, Frequency, Hematuria Musculoskeletal: Denies: Arm Pain, Back Pain, Foot Pain Skin: Denies: Dryness, Rash Neurological: Denies: Balance problems, Double vision, Change in Speech, Slurred speech, Confusion, Focal weakness, Incoordination Psychiatric: Denies: Anxiety, Depression Endocrine: Denies: Change in Body Habitus, Polydipsia VTE Information - Inpt Only VTE Present on Admission: No VTE Mechan Device Prophylaxis: None VTE Pharm Prophylaxis ordered?: No - Physical Exam General: Alert, Oriented x3, Cooperative, - - Minimally short of breath. HEENT: Atraumatic, PERRLA, EOMI, Normocephalic Oral: Moist Mucosa, No Gingival or Mucosal Lesions/ Ulcerations Neck: Supple, No JVD, Negative Carotid Bruits, Trachea Midline, Thyroid Normal Size and Texture Lungs: No rhonchi, No wheeze, Diminished, Rales, Short of Breath, - - Decreased breath sounds bilateral, bilateral fine basal crackles up to mid zones. Cardiovascular: Regular rate, Regular Rhythm, Normal S1, Normal S2, No murmurs, PMI Normal Abdomen: Bowel Sounds Present, Soft, Non Tender, Non-Distended, No Hepato- splenomegaly Extremities: No clubbing, No cyanosis, No edema Skin: No rashes, No breakdown Lymphatic: No Cervical, Supraclavicular, or Inguinal Adenopathy Neurological: Cranial nerves II-XII grossly intact, Motor Exam 5/5 strength throughout Psych/Mental Status: Normal Affect, Appropriate, Alert and oriented to time, place, person, mood and affect Vital Signs Temp Pulse Resp BP Pulse Ox 98.4 F 78 16 123/75 H 98 12/30/18 10:16 12/30/18 12:18 12/30/18 12:18 12/30/18 12:18 12/30/18 12:18 Oxygen Flow Rate (L/min) 2 Oxygen Delivery Method Room Air Weight: 214 lb 15.211 oz Body Mass Index (BMI) 31.7 Laboratory Tests Past 24 Hrs 12/30/18 12/30/18 12/30/18 10:20 10:20 10:20 WBC 13.9 H RBC 4.66 Hgb 11.2 L Hct 37.2 L MCV 79.8 L MCH 24.0 L MCHC 30.1 L RDW 18.8 H RDW Differential 54.1 H Plt Count 372 MPV 9.4 Immature Gran % (Auto) 1.100 H Neut % (Auto) 77.8 H Lymph % (Auto) 13.3 L [place] % (Auto) 7.6 Eos % (Auto) 0.1 Baso % (Auto) 0.1 Absolute Neuts (auto) 10.8 H Absolute Lymphs (auto) 1.84 Total Counted Not Reportable PT 54.8 H INR 6.0 H* APTT 38.9 H Sodium 139 Potassium 4.2 Chloride 106 Carbon Dioxide 28.0 Anion Gap 5 BUN 21 H Creatinine 0.92 Estim Creat Clear Calc 71.51 Est GFR (MDRD) Af Amer 103 Est GFR (MDRD) Non-Af 85 BUN/Creatinine Ratio 22.8 H Glucose 111 H Calcium 8.5 Troponin I < 0.015 Clinical Impression(s) from Imaging Studies Chest X-Ray 12/30/18 11:00 IMPRESSION: Hypoinflated lungs with interstitial prominence and bibasilar airspace disease Electronically Signed: Newton Fam DO at 11:45 EDT Tel , Service support , Assessment/Plan All Active Problems Acute hypoxemic respiratory failure (Acute) Idiopathic pulmonary fibrosis (Acute) This is a 73 years old male patient presented to the emergency room because of shortness of breath and chest pressure and he is being admitted for acute exacerbation of idiopathic pulmonary fibrosis with hypoxia, Coumadin induced coagulopathy and chest pressure for evaluation. #1 acute exacerbation of idiopathic pulmonary fibrosis/hypoxia: Chest x-ray showed no acute findings. Patient was on tapering course of prednisone and he has been on long-term steroids. He is afebrile, has mild leukocytosis secondary to steroids. He never been on oxygen and he is requiring oxygen at this time. Plan: Admit to PCU, cardiac monitoring, DuoNeb every 6 hours, albuterol as needed, respiratory panel for viruses, start IV site Medrol, incentive spirometer, chest physiotherapy, repeat CBC and BMP tomorrow morning, PT OT evaluation and treatment. #2 chest pressure/pain: His symptoms seem to be atypical and it is less likely to be cardiac in etiology. Patient does have a history of significant CAD status post CABG and stents. His EKG revealed no acute ischemic changes. Troponin is negative. Patient mentioned that he had stress test at Dr. Griffith's office around 1 year ago but is not sure. Plan: Cardiac monitoring, serial cardiac enzymes, repeat EKG tomorrow morning, obtain stress test report that was done around [address] Griffith's office. At this point if the stress test was done in the last 6-9 months, I do not think that we need to repeat stress test at this time. #3 Coumadin induced coagulopathy: Patient is on Coumadin for history of DVT and PE, INR 6. No evidence of active bleeding, H&H are stable. Plan to hold Coumadin, repeat INR tomorrow morning. #4 CAD status post CABG and stents: Plan as above, continue aspirin. Patient is not on beta-blockers or ELIDA inhibitors. #5 history of PE/DVT: Hold Coumadin, INR supratherapeutic, plan as above. #6 hypertension: According to the patient, blood pressure was 200/100 at home. At this time, it is stable. He is only on verapamil which will be continued. #7 hyperlipidemia: He is not on statins. #8 DVT prophylaxis: INR 6. This note was generated with Daioation software. It may contain incorrect words, spelling, and punctuation that were not noted in checking the note before signing. Code Visit Inpatient E&M: 06184 Init Hosp L3
--- NOTE | 2018-12-30 13:20 | EKG12_ITS ---
Test Reason : ADMISSION-CP Blood Pressure : / mmHG Vent. Rate : 054 BPM Atrial Rate : 054 BPM P-R Int : 122 ms QRS Dur : 088 ms QT Int : 444 ms P-R-T Axes : 046 029 042 degrees QTc Int : 421 ms Sinus bradycardia Otherwise normal ECG When compared with ECG of 19-NOV-2018 18:22, No significant change was found Confirmed by FLORA HAAS [id number]), script editor BLAYNE BRICE ([id number]) on 01/03/2019 11:09:17 AM Referred By: Arpan Alexander Confirmed By:FLORA HAAS
--- NOTE | 2018-12-30 13:44 | CT_ITS ---
STUDY: CT BRAIN WITHOUT CONTRAST REASON FOR EXAM: Male, 73 years old. Headache and vertigo. Elevated INR RADIATION DOSAGE (If Supplied By Facility): CTDIvol = ( 44.99 ) mGy, DLP = ( 796.11 ) mGycm TECHNIQUE: Transaxial CT imaging of the brain was performed without administration of intravenous contrast material. Individualized dose optimization techniques were used for this CT. COMPARISON: No relevant priors. FINDINGS: Normal soft tissue structures. Normal calvarium. There is mild cerebral atrophy with widening of the extra-axial spaces and ventricular dilatation. There are areas of decreased attenuation within the white matter tracts of the supratentorial brain, consistent with microvascular disease changes. Normal basal ganglia and thalami. Normal brainstem. There is mild cerebellar atrophy. There is no intracranial hemorrhage. There are no findings of an acute ischemic infarction. Normal visualized paranasal sinuses. CT/Brain/Head without Contrast IMPRESSION: Chronic involutional changes of the brain. Electronically Signed: Newton Fam DO at 14:45 EDT Tel , Service support ,
--- NOTE | 2018-12-30 14:05 | CPS ---
PEP Therapy in room, patient talking with visitors currently. Requested instruction on PEP therapy 'later.'
[2018-12-30] MEDS: Acetaminophen 325 MG Tablet 650 MG PO (14:56)
[2018-12-30] MEDS: Phytonadione (Vit K) 10 MG/ML Ampul 5 MG PO (16:40)
[2018-12-30] MEDS: PIRFENIDONE 801 MG PO (18:44)
[2018-12-30] MEDS: guaiFENesin 1,200 MG Tablet 1200 MG PO (22:40)
[2018-12-30] MEDS: 0.9% NaCl Peripheral Flush Adult/Peds IV (22:42)
[2018-12-31] VITALS (14 sets, daily range): BP systolic 110–137; BP diastolic 59–78; PULSE 69–86; RESP 16–20; TEMP 36.7–37.2; O2SAT 92–100
[2018-12-31] MEDS: Ipratropium/Albuterol Sulfate 3 ML AMPUL.NEB INHALATION ×4 (01:20→19:17)
[2018-12-31] MEDS: 0.9% NaCl Peripheral Flush Adult/Peds IV ×5 (05:06→21:28)
--- NOTE | 2018-12-31 05:55 | EKG12_ITS ---
Test Reason : AM EKG Blood Pressure : / mmHG Vent. Rate : 067 BPM Atrial Rate : 067 BPM P-R Int : 124 ms QRS Dur : 088 ms QT Int : 402 ms P-R-T Axes : 015 011 033 degrees QTc Int : 424 ms Normal sinus rhythm Normal ECG When compared with ECG of 30-DEC-2018 13:25, MANUAL COMPARISON REQUIRED, DATA IS UNCONFIRMED Confirmed by FLORA HAAS ([id number]), editor magazine BLAYNE BRICE ([id number]) on 01/03/2019 11:11:17 AM Referred By: Arpan Alexander Confirmed By:FLORA HAAS
[2018-12-31 06:21] LABS: Absolute Lymphocyte Count 0.96 X10^3/ul (0.83-4.51); Basophil# 0.01 X10^3/uL; Basophil% 0.1 % (0-1); Hematocrit 33.7 % (40-54); Hemoglobin 10.3 g/dl (13.0-16.5); Lymphocyte # 0.96 X10^3/ul (4.0); Lymphocyte % 6.6 % (19-41); Mean Corp Hgb Conc 30.6 g/gl (32-36); Mean Corpuscular Hgb 24.3 pg (27.0-32.0); Mean Corpuscular Volume 79.7 fL (80-94); Mean Platelet Vol. 9.5 fl (6.2-12.0); Monocyte# 0.54 X10^3/uL; Monocyte% 3.7 % (0-10); Neutrophil # 12.95 X10^3/uL (2.7-7.7); Platelet Count 354 K/mm3 (150-450); RBC Distribution Width CV 18.9 % (11.6-14.6); RBC Distribution Width SD 55.2 fl (35.1-43.9); Red Blood Count 4.23 M/mm3 (4.6-6.2); White Blood Count 14.5 K/mm3 (4.4-11.0)
[2018-12-31 06:29] LABS: International Normalized Ratio 1.6; Prothrombin Time (Protime)PT. 18.5 SECONDS (11.7-14.9)
[2018-12-31 06:30] LABS: POSITIVE COUNT NO; POSITIVE DIFFERENTIAL NO; POSITIVE MORPHOLOGY NO
[2018-12-31 06:41] LABS: Anion Gap 7 (5-15); BUN 18 mg/dL (7-18); BUN/Creat Ratio 18.4 RATIO (10-20); Calcium,Total 8.6 mg/dL (8.5-10.1); Chloride 104 mmol/L (98-107); Creatinine, Serum 0.98 mg/dL (0.70-1.30); EST Glomerular Filtration Rate 80 mL/min (>60); Est Glom Filt Rate - Afr Amer 96 mL/min (>60); Estimated Creatinine Clearance 60.58 ml/min; Glucose 142 mg/dL (74-106); Potassium 4.4 mmol/L (3.5-5.1); Sodium Level 140 mmol/L (136-145)
[2018-12-31] MEDS: Aspirin 81 MG TAB.CHEW PO (08:47)
[2018-12-31] MEDS: PIRFENIDONE 801 MG PO ×3 (08:47→16:55)
[2018-12-31] MEDS: Verapamil SR 180 MG CAPSULE PO (09:26)
[2018-12-31] MEDS: Pantoprazole Sodium 40 MG Tablet PO (09:26)
[2018-12-31] MEDS: guaiFENesin 1,200 MG Tablet 1200 MG PO ×2 (09:26→21:27)
[2018-12-31] MEDS: Benzonatate 100 MG Capsule PO (09:26)
[2018-12-31] MEDS: Magnesium Oxide 400 MG Tablet PO (09:26)
--- NOTE | 2018-12-31 12:00 | PN_ITS ---
Subjective: The patient is a 73-year-old male with a past medical history of hypertension, lipidemia, idiopathic pulmonary fibrosis, GERD, Antithrombin III deficiency, hereditary hemochromatosis, coronary artery disease with history of CABG and PCI, DVT of the lower extremity and pulmonary embolus with IVC filter and chronic anticoagulation with warfarin who presented to the emergency department because of elevated blood pressure, shortness of breath and chest pressure. His blood pressure at home was 200/100 according to his . 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 He is chronically on prednisone 10 mg daily. Vital signs in the emergency department were temp 98.4, pulse rate 65, blood pressure 176/86, respiratory rate 13 and he was 91% saturated on room air. White blood cell count was elevated at 13.9 with a left shift but he is on high-dose prednisone. Hemoglobin was 11.2 with an MCV of 79.7 and an RDW of 18.9. Platelets were within normal limits. INR was elevated at 6.0. BMP was remarkable for an elevated BUN at 21 with a creatinine of 0.92. Troponin was less than 0.015. Chest x-ray showed a poor inspiratory effort with interstitial prominence and bibasilar airspace disease. Last night he developed right upper and lower extremity tingling and an urgent CT of the brain was done which revealed no acute findings. He was admitted for shortness of breath and November 2018 as well and it was associated with chest tightness. He has never had a cardiac workup at [facility]. He is afebrile. Vital signs are stable. Current blood pressure is 137/68 and he is 94% saturated on room air. Discussed with Dr. Jorge and he relates that the pt was last studied in 2014 and at that time had a cath. This is his second admission for CP, SOB and elevated BP in [address] Jorge recommends a stress test. The pt tells me that he has CP/SOB at home but, although he has NTG at home he does not take it and it passes. He did not relate this to Dr. Jorge on his recent office visit in November. - Physical Exam General: Alert, Oriented x3, Cooperative, No apparent distress, - - sitting in a chair at the bedside HEENT: Atraumatic, PERRLA, EOMI Oral: Moist Mucosa Neck: Supple, No JVD Lungs: Diminished, Rales - scattered coarse crackles, no rhonchi and no wheezing. Not achypneic at rest and no conversational dyspnea. Cardiovascular: Regular rate, Regular Rhythm, Normal S1, Normal S2, No Gallop Abdomen: Bowel Sounds Present, Soft, Non Tender, Non-Distended Extremities: No clubbing, No cyanosis, No edema Psych/Mental Status: Normal Affect, Appropriate Vital Signs Temp Pulse Resp BP Pulse Ox 98.3 F 86 16 137/68 H 94 12/31/18 09:26 12/31/18 09:26 12/31/18 09:26 12/31/18 09:26 12/31/18 09:26 Oxygen Flow Rate (L/min) 2 Oxygen Delivery Method Room Air Weight: 196 lb 10.437 oz Body Mass Index (BMI) 31.6 Intake and Output for Last 24 Hours 12/29/18 12/30/18 12/31/18 23:59 23:59 23:59 Intake Total 300 / 300 360 / 360 Balance 300 / 300 360 / 360 Microbiology Past 72 Hours 12/30/18 13:25 Respiratory Panel (PCR) - Final Mucosa - Nose Laboratory Tests Past 24 Hrs 12/30/18 12/30/18 12/31/18 13:40 16:45 05:45 WBC 14.5 H RBC 4.23 L Hgb 10.3 L Hct 33.7 L MCV 79.7 L MCH 24.3 L MCHC 30.6 L RDW 18.9 H RDW Differential 55.2 H Plt Count 354 MPV 9.5 Immature Gran % (Auto) 0.600 Neut % (Auto) 89.0 H Lymph % (Auto) 6.6 L [place] % (Auto) 3.7 Eos % (Auto) 0.0 Baso % (Auto) 0.1 Absolute Neuts (auto) 13.0 H Absolute Lymphs (auto) 0.96 Total Counted Not Reportable PT INR Sodium Potassium Chloride Carbon Dioxide Anion Gap BUN Creatinine Estim Creat Clear Calc Est GFR (MDRD) Af Amer Est GFR (MDRD) Non-Af BUN/Creatinine Ratio Glucose Calcium Troponin I < 0.015 < 0.015 12/31/18 12/31/18 05:45 05:45 WBC RBC Hgb Hct MCV MCH MCHC RDW RDW Differential Plt Count MPV Immature Gran % (Auto) Neut % (Auto) Lymph % (Auto) [place] % (Auto) Eos % (Auto) Baso % (Auto) Absolute Neuts (auto) Absolute Lymphs (auto) Total Counted PT 18.5 H INR 1.6 Sodium 140 Potassium 4.4 Chloride 104 Carbon Dioxide 29.0 Anion Gap 7 BUN 18 Creatinine 0.98 Estim Creat Clear Calc 60.58 Est GFR (MDRD) Af Amer 96 Est GFR (MDRD) Non-Af 80 BUN/Creatinine Ratio 18.4 Glucose 142 H Calcium 8.6 Troponin I Medical Necessity - Tobacco Use Smoking Status: Never smoker Assessment/Plan All Active Problems Acute respiratory insufficiency (Acute) Supratherapeutic INR (Acute) Chest pain (Acute) Acute hypoxemic respiratory failure (Ruled-out) Impressions 1. intermittent CP and SOB, worse with exertion, cardiac? or due to pulmonary fibrosis? 2. CAD with hx of PTCA/stent in the past.......last studied in 2014 with a cardiac cath. Follows with Dr. Jorge 3. idiopathic pulmonary fibrosis 4. chronic steroid use chemical nuclear stress test in the AM - if this is negative DC home and have him follow up with Dr. Posada for SOB. Code Visit Inpatient E&M: 45300 Subs Hosp L2
[2018-12-31 12:25] LABS: AST(SGOT) 25 U/L (15-37); Alanine Aminotransfer ALT/SGPT 31 U/L (16-61); Albumin, Serum 3.1 g/dL (3.2-5.0); Alkaline Phosphatase 68 U/L (45-117); Bilirubin, Direct 0.07 mg/dL (0.00-0.30); Cholesterol 242 mg/dL (200); Globulin 3.3 g/dL (2.2-4.2); High Density Lipoprotein 52 mg/dL; Magnesium 2.5 mg/dL (1.6-2.6); Protein, Total 6.4 g/dL (6.4-8.2); Triglycerides 121 mg/dL; Very Low Density Lipoprotein 24 mg/dL (5-40)
--- NOTE | 2018-12-31 13:45 | CASEMGMT ---
RN CM BOARD CERTIFIED MUSIC THERAPIST CM to room to meet with patient for initial transition planning/care coordination assessment. KARINE HOLLINS introduced self and role at [facility]. Pt voices understanding and consents to assessment at this time. Pt resting in bed in no distress at this time. Pt is A/O at this time and answers all questions appropriately. Care providers, pharmacy, and demographics verified/updated at this time. PCP: Darius Specialists: Montez--policy writer typist, Ania--reading recovery teacher, Orville--oncologist. Preferred Pharmacy: [facility] Insurance: [employer] Prescription Benefit: Yes Living Will/HPOA: States does not have LW or HCPOA . Provided information on advanced directives. Pt does not want to talk to SW at this time, stating he would like to talk with his first. Pt given Social Service rac card with number to call if chooses in the future to utilize [facility] social work for advanced directive completion. LNOK: Living Arrangements: Lives in 2 story home with his . FFSU. 2 steps to enter. Independent w/ ADL's. Transportation: Pt states drives self and states no transportation concerns at this time. DME: has the following DME: Cane, nebulizer, and CPAP which he got from [facility]. He states he has transferred over to [place] now. Pt states he does not have home O2. He states he wonders sometimes if he should have oxygen @ home because he gets SOB at times. RN to complete home Oxygen qualification testing prior to discharge. Pt states if he does qualify for home O2, he would like to get through [facility]. HHC/SNF: No history of SNF. He did have HHC in the past in 1994 after open heart surgery. Does not remember the name of agency. Denies needs at this time. Pt wishes to return home and states has no concerns with going home at time of discharge. CM to follow for home oxygen needs and any further discharge planning/needs. Pt voices no further concerns/needs at this time. Advised pt to ask for CM if any further questions/concerns/needs arise. Voices understanding. PLAN: Home. Home Oxygen qualification testing to be completed prior to discharge. Johanna WALSH RN, CM
--- NOTE | 2018-12-31 15:00 | ECHOCS_ITS ---
Reason For Study: CP Procedure This was a 2D Doppler, Color Flow transthoracic echocardiogram. The study was technically difficult. Contrast injection was performed. Exam performed portable in patient room. Left Ventricle Normal LV size. Left ventricular systolic function is normal. The estimated ejection fraction is 70 %. Diastolic function is indeterminate. No regional wall motion abnormalities noted. Right Ventricle Normal RV size. Normal systolic function. Atria The left atrium is mildly enlarged. Normal right atrium. No doppler evidence for ASD. Mitral Valve There is no mitral annular calcification. Normal mitral valve. Trivial mitral valve insufficiency. Tricuspid Valve Normal tricuspid valve. Trivial tricuspid valve insufficiency. Unable to estimate RV systolic pressure/pulmonary artery pressure due to technically difficult study. Aortic Valve Trisinus/trileaflet aortic valve. Mild focal aortic valve calcification. Pulmonic Valve The pulmonic valve is not well visualized. Great Vessels Normal sized aortic root. Pericardium/Pleural No pericardial effusion. Medication Diluted definity 2ml given slow IV push to enhance endocardial definition. MMode/2D Measurements & Calculations LVIDd: 4.6 cm IVSd: 1.2 cm Ao root diam: 3.6 cm LVIDs: 2.8 cm LVPWd: 1.6 cm FS: 40.4 % LAV(MOD-sp4): 56.4 ml LA A4 area: 20.6 cm2 RA A4 area: 16.2 cm2 Time Measurements MV dec time: 0.30 sec Doppler Measurements & Calculations MV E max javi: 69.5 cm/sec Lat Peak E' Javi: 8.8 cm/sec Med Peak E' Javi: 7.9 cm/sec MV A max javi: 105.3 cm/sec E/E' lat: 7.9 E/E' med: 8.8 MV E/A: 0.66 MV V2 max: 114.2 cm/sec MV P1/2t max javi: 89.5 cm/sec Ao V2 max: 193.0 cm/sec MV max P.2 mmHg MV P1/2t: 76.2 msec Ao max P.9 mmHg MV V2 mean: 56.7 cm/sec MV dec slope: 343.7 cm/sec2 MV mean P.5 mmHg MV V2 VTI: 28.2 cm MVA(P1/2t): 2.9 cm2 LV V1 max: 140.5 cm/sec PA V2 max: 204.8 cm/sec LV V1 max P.9 mmHg Interpretation Summary The study was technically difficult. Contrast injection was performed. Left ventricular systolic function is normal. The estimated ejection fraction is 70 %. The left atrium is mildly enlarged. Trivial mitral valve insufficiency. Trivial tricuspid valve insufficiency. Mild focal aortic valve calcification. Unable to estimate RV systolic pressure/pulmonary artery pressure due to technically difficult study. Diastolic function is indeterminate. Ordering Physician: Amber Faustin Referring Physician: Arpan Alexander Performed By: Isaac Macias RCS
[2019-01-01] VITALS (9 sets, daily range): BP systolic 112–152; BP diastolic 59–77; PULSE 60–75; RESP 16–18; TEMP 36.4–36.7; O2SAT 94–96
[2019-01-01] MEDS: Ipratropium/Albuterol Sulfate 3 ML AMPUL.NEB INHALATION ×2 (01:18→13:10)
[2019-01-01] MEDS: Aspirin 81 MG TAB.CHEW PO (05:20)
[2019-01-01] MEDS: 0.9% NaCl Peripheral Flush Adult/Peds IV ×2 (05:20→13:45)
--- NOTE | 2019-01-01 05:55 | EKG12_ITS ---
Test Reason : AM EKG Blood Pressure : / mmHG Vent. Rate : 064 BPM Atrial Rate : 064 BPM P-R Int : 124 ms QRS Dur : 084 ms QT Int : 400 ms P-R-T Axes : 020 014 029 degrees QTc Int : 412 ms Normal sinus rhythm Normal ECG When compared with ECG of 31-DEC-2018 05:42, MANUAL COMPARISON REQUIRED, DATA IS UNCONFIRMED Confirmed by FLORA HAAS ([id number]), scientific editor BLAYNE BRICE ([id number]) on 01/03/2019 11:19:50 AM Referred By: Arpan Alexander Confirmed By:FLORA HAAS
[2019-01-01 06:29] LABS: International Normalized Ratio 1.1; Prothrombin Time (Protime)PT. 13.8 SECONDS (11.7-14.9)
[2019-01-01 06:31] LABS: Hemoglobin 10.6 g/dl (13.0-16.5); Mean Corp Hgb Conc 30.3 g/gl (32-36); Mean Corpuscular Hgb 24.1 pg (27.0-32.0); Mean Corpuscular Volume 79.7 fL (80-94); Mean Platelet Vol. 9.7 fl (6.2-12.0); Platelet Count 375 K/mm3 (150-450); RBC Distribution Width CV 19.1 % (11.6-14.6); RBC Distribution Width SD 55.1 fl (35.1-43.9); Red Blood Count 4.39 M/mm3 (4.6-6.2); White Blood Count 17.5 K/mm3 (4.4-11.0)
[2019-01-01 06:32] LABS: Scan Indicated on CBC? Y/N NO
[2019-01-01 06:39] LABS: Anion Gap 7 (5-15); BUN 24 mg/dL (7-18); BUN/Creat Ratio 20.7 RATIO (10-20); Calcium,Total 8.5 mg/dL (8.5-10.1); Chloride 103 mmol/L (98-107); Creatinine, Serum 1.16 mg/dL (0.70-1.30); EST Glomerular Filtration Rate 66 mL/min (>60); Est Glom Filt Rate - Afr Amer 79 mL/min (>60); Estimated Creatinine Clearance 51.18 ml/min; Glucose 122 mg/dL (74-106); Potassium 4.5 mmol/L (3.5-5.1); Sodium Level 140 mmol/L (136-145)
[2019-01-01] MEDS: guaiFENesin 1,200 MG Tablet 1200 MG PO (09:33)
[2019-01-01] MEDS: Verapamil SR 180 MG CAPSULE PO (09:33)
[2019-01-01] MEDS: Pantoprazole Sodium 40 MG Tablet PO (09:33)
[2019-01-01] MEDS: Benzonatate 100 MG Capsule PO (09:33)
[2019-01-01] MEDS: Magnesium Oxide 400 MG Tablet PO (09:33)
--- NOTE | 2019-01-01 12:30 | STRESSREP_ITS ---
Stress Test Report Date: 01-01-19 Procedure: Pharmacologic stress nuclear imaging study Indications: Chest pain; shortness of breath/dyspnea; CAD; PCI; CABG; DVT/PE Consent: Per the patient Procedure: The patient underwent pharmacologic (Regadenoson) evaluation with a peak heart rate of 92 to beats per minute (62 %predicted maximal heart rate) and a peak blood pressure of 158/84 mmHg. The baseline ECG demonstrated normal sinus rhythm. The peak pharmacologic ECG demonstrated no obvious ECG changes. There were no cardiac dysrhythmias pretest, during pharmacologic infusion, or recovery. There was no complaint of chest discomfort during pharmacologic infusion or recovery. The examination was discontinued secondary to completion of protocol. Impression: 1. Pharmacologic (Regadenoson) evaluation 2. Peak pharmacologic ECG with no obvious ECG changes. 3. There were no cardiac dysrhythmias pretest, during pharmacologic infusion, or recovery. 4. Nuclear images pending Myocardial perfusion imaging study: Technique: The patient was injected with 11.9 millicuries of technetium 99m Cardiolite and subsequently rest SPECT Cardiolite nuclear imaging was obtained in the horizontal long, vertical long, and short axis views. The patient underwent pharmacologic (Regadenoson) evaluation with a peak heart rate of 92 beats per minute (62 % percent predicted maximal heart rate) and a peak blood pressure of 158/84 mmHg. The patient was injected with 34.2 millicuries of technetium 99m Cardiolite and subsequently stress SPECT Cardiolite nuclear imaging was obtained in the horizontal long, vertical long, and short axis views. A gated Cardiolite study at peak stress was obtained. Interpretation: Rest and stress SPECT Cardiolite nuclear imaging status post realignment, normalization, and attenuation correction demonstrate relative uniform tracer uptake and myocardial perfusion appearing within normal limits. There is end systolic thickening and brightening. The gated Cardiolite study demonstrates myocardial thickening and inward wall motion. The reported LVEF is 73 %. Impression: 1. Rest and stress SPECT Cardiolite nuclear imaging demonstrate relative uniform tracer uptake and myocardial perfusion appearing within normal limits. 2. The gated Cardiolite study reports an LVEF of 73 %. This note was generated with [employer] software. It may contain incorrect words, spelling, and punctuation that were not noted in checking the note before signing.
[2019-01-01] MEDS: PIRFENIDONE 801 MG PO (13:45)
--- NOTE | 2019-01-01 15:45 | PCM.DC ---
You will use the following diet at home:: Cardiac Your food should be the consistency of: Regular Your liquids should be the consistency of: Regular/Thin Discharge Activity: - - Avoid exposure to any strong smells such as bleach, cleaning products, strong colognes or perfumes, paint fumes and smoke of any kind. Avoid sudden exposure to cold air because this can cause bronchospasm. You may want to cover your mouth when you go outside in the winter. Avoid exposure to anyone who is sick with a cough or sore throat. Call your doctor if you observe: Fever of 101 or Higher, Fainting spells, Chest pain, Increased palpitations (irregular heartbeat), Calf discomfort Additional Instructions: 1. The stress test was negative. You had no abnormal heart rhthym while you were monitored. 2. I would use the nebulizer 2-3 times a day while on vaction to prevent acute shortness of breath. 3. continue the prednisone taper as instructed by Dr. Posada. 4. Take 10 mg of coumadin on 01/02 and then on start 5 mg daily. Allergies/Adverse Reactions: Allergies Penicillins Allergy (Verified 12/30/18 10:15) Hives celecoxib [From Celebrex] Adverse Reaction (Verified 12/30/18 10:15) Chest tightness nitroglycerin [From Nitrostat] Adverse Reaction (Verified 12/30/18 10:15) severe migraine Medications to take at Discharge Prednisone 20 mg PO DAILY 04/06/17 Ascorbic Acid 500 mg PO DAILY 11/19/18 Aspirin [Aspirin, Baby] 81 mg PO DAILY@0800 11/19/18 Benzonatate 100 mg PO DAILY 11/19/18 Fish Oil/Borage/Flax/Om3,6,9 1 [[place] 3-6-9 1,200 mg Softgel] 1,200 mg PO DAILY 11/19/18 Flaxseed Oil 1,000 mg PO DAILY 11/19/18 Multivitamin with Minerals [Multiple Vitamin] 1 tab PO DAILY 11/19/18 Pantoprazole Sodium [Protonix] 40 mg PO DAILY 11/19/18 Pirfenidone [Esbriet] 801 mg PO TID 11/19/18 Verapamil HCl [Verapamil ER] 180 mg PO DAILY 11/19/18 Magnesium 250 mg PO DAILY 12/30/18 Nitroglycerin 0.4 mg SL PRN PRN 12/30/18 Warfarin [Coumadin] 5 mg PO DAILY #0 01/01/19 Primary Care Physician: Maria Mccoy MD [Primary Care Provider] - Please follow up with your Primary Care Physician in: as needed Test Results: Test results from this visit will be discussed in further detail at your follow-up appointment, if applicable. Please Follow Up With: Charlie Ryder MD When: 4-6 weeks Please Follow Up With: Albino When: as previously scheduled Proposed Discharge Date: 01/01/19
--- NOTE | 2019-01-01 15:50 | DCINST_ITS ---
You will use the following diet at home:: Cardiac Your food should be the consistency of: Regular Your liquids should be the consistency of: Regular/Thin Discharge Activity: - - Avoid exposure to any strong smells such as bleach, cleaning products, strong colognes or perfumes, paint fumes and smoke of any kind. Avoid sudden exposure to cold air because this can cause bronchospasm. You may want to cover your mouth when you go outside in the winter. Avoid exposure to anyone who is sick with a cough or sore throat. Call your doctor if you observe: Fever of 101 or Higher, Fainting spells, Chest pain, Increased palpitations (irregular heartbeat), Calf discomfort Additional Instructions: 1. The stress test was negative. You had no abnormal heart rhthym while you were monitored. 2. I would use the nebulizer 2-3 times a day while on vaction to prevent acute shortness of breath. 3. continue the prednisone taper as instructed by Dr. Posada. 4. Take 10 mg of coumadin on 01/02 and then on start 5 mg daily. Allergies/Adverse Reactions: Allergies Penicillins Allergy (Verified 12/30/18 10:15) Hives celecoxib [From Celebrex] Adverse Reaction (Verified 12/30/18 10:15) Chest tightness nitroglycerin [From Nitrostat] Adverse Reaction (Verified 12/30/18 10:15) severe migraine Medications to take at Discharge Prednisone 20 mg PO DAILY 04/06/17 Ascorbic Acid 500 mg PO DAILY 11/19/18 Aspirin [Aspirin, Baby] 81 mg PO DAILY@0800 11/19/18 Benzonatate 100 mg PO DAILY 11/19/18 Fish Oil/Borage/Flax/Om3,6,9 1 [[place] 3-6-9 1,200 mg Softgel] 1,200 mg PO DAILY 11/19/18 Flaxseed Oil 1,000 mg PO DAILY 11/19/18 Multivitamin with Minerals [Multiple Vitamin] 1 tab PO DAILY 11/19/18 Pantoprazole Sodium [Protonix] 40 mg PO DAILY 11/19/18 Pirfenidone [Esbriet] 801 mg PO TID 11/19/18 Verapamil HCl [Verapamil ER] 180 mg PO DAILY 11/19/18 Magnesium 250 mg PO DAILY 12/30/18 Nitroglycerin 0.4 mg SL PRN PRN 12/30/18 Warfarin [Coumadin] 5 mg PO DAILY #0 01/01/19 Primary Care Physician: Maria Mccoy MD [Primary Care Provider] - Please follow up with your Primary Care Physician in: as needed Test Results: Test results from this visit will be discussed in further detail at your follow- up appointment, if applicable. Please Follow Up With: Charlie Ryder MD When: 4-6 weeks Please Follow Up With: Albino When: as previously scheduled Proposed Discharge Date: 01/01/19
--- NOTE | 2019-01-01 15:57 | DS.PCM_ITS ---
Discharge Date and Diagnosis Date of Admission: 12/30/18 Date of Discharge: 01/01/19 - Primary Discharge Diagnosis Active and Suspected Problems Acute respiratory insufficiency (Acute) Supratherapeutic INR (Acute) Chest pain (Acute) - Secondary Discharge Diagnosis Chronic Problems Idiopathic pulmonary fibrosis (Chronic) History of coronary artery stent placement (Chronic) History of pulmonary embolism (Chronic) Hx of CABG (Chronic) 1995 Hemochromatosis (Chronic) Dyslipidemia (Chronic) History of DVT of lower extremity (Chronic) Benign essential hypertension (Chronic) On anticoagulant therapy (Chronic) Hospital Course and Treatment Imaging Results: Clinical Impression(s) from Imaging Studies Chest X-Ray 12/30/18 11:00 IMPRESSION: Hypoinflated lungs with interstitial prominence and bibasilar airspace disease Electronically Signed: Newton Fam DO at 11:45 EDT Tel , Service support , Brain CT 12/30/18 13:44 IMPRESSION: Chronic involutional changes of the brain. 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 The SOB and chest pressure started after he had checked his BP that morning and found it to be high. He had recently been placed on a steroid taper by Dr. Posada's office. EKG in the ED showed no acute ST or T wave changes. CXR showed no infiltrates but showed air space disease in the bases BL. INR was increased at 6 and since his BP was high a CTB was obtained and showed no bleeding. He was admitted to a monitored bed on PCU and serial CE's were negative. The SOB and CP resolved. I contacted Dr. Jon Jorge who is his MrKendall Parra's post office manager and he felt that the pt had not been studied since 2014 and he now had had 2 hospital admissions in 2 months for CP and SOB that a stress should be done. A pharmacologic nuclear stress test was done and was negative for ischemia. The EF was WNL. He was discharged home and given instructions on how to manage his warfarin over the next few days. He will continue the prednisone taper as outlined by Dr. Posada. - Physical Exam General: Alert, Oriented x3, Cooperative, No apparent distress Lungs: Rales - unchanged from admission, coarse Cardiovascular: Regular rate, Regular Rhythm, Normal S1, Normal S2, No Gallop Abdomen: Bowel Sounds Present, Soft, Non Tender, Non-Distended Extremities: No clubbing, No cyanosis, No edema Neurological: Cranial nerves II-XII grossly intact, Neuro grossly intact Psych/Mental Status: Normal Affect, Appropriate Vital Signs Temp Pulse Resp BP Pulse Ox 97.6 F L 75 16 129/77 H 94 01/01/19 15:20 01/01/19 15:20 01/01/19 15:20 01/01/19 15:20 01/01/19 15:20 Oxygen Flow Rate (L/min) 2 Oxygen Delivery Method Room Air Weight: 196 lb 10.437 oz Body Mass Index (BMI) 31.6 Intake and Output for Last 24 Hours 12/30/18 12/31/18 01/01/19 23:59 23:59 23:59 Intake Total 300 / 300 2140 / 2140 360 / 360 Output Total 1500 / 1500 Balance 300 / 300 640 / 640 360 / 360 Microbiology Past 72 Hours 12/30/18 13:25 Respiratory Panel (PCR) - Final Mucosa - Nose Laboratory Tests Past 24 Hrs 01/01/19 01/01/19 01/01/19 06:00 06:00 06:00 WBC 17.5 H RBC 4.39 L Hgb 10.6 L Hct 35.0 L MCV 79.7 L MCH 24.1 L MCHC 30.3 L RDW 19.1 H RDW Differential 55.1 H Plt Count 375 MPV 9.7 PT 13.8 INR 1.1 APTT 22.0 L Sodium 140 Potassium 4.5 Chloride 103 Carbon Dioxide 30.0 Anion Gap 7 BUN 24 H Creatinine 1.16 Estim Creat Clear Calc 51.18 Est GFR (MDRD) Af Amer 79 Est GFR (MDRD) Non-Af 66 BUN/Creatinine Ratio 20.7 H Glucose 122 H Calcium 8.5 Discharge Activity: - - Avoid exposure to any strong smells such as bleach, cleaning products, strong colognes or perfumes, paint fumes and smoke of any kind. Avoid sudden exposure to cold air because this can cause bronchospasm. You may want to cover your mouth when you go outside in the winter. Avoid exposure to anyone who is sick with a cough or sore throat. Call your doctor if you observe: Fever of 101 or Higher, Fainting spells, Chest pain, Increased palpitations (irregular heartbeat), Calf discomfort Home Medications: Medications to take at Discharge Prednisone 20 mg PO DAILY 04/06/17 Ascorbic Acid 500 mg PO DAILY 11/19/18 Aspirin [Aspirin, Baby] 81 mg PO DAILY@0800 11/19/18 Benzonatate 100 mg PO DAILY 11/19/18 Fish Oil/Borage/Flax/Om3,6,9 1 [[place] 3-6-9 1,200 mg Softgel] 1,200 mg PO DAILY 11/19/18 Flaxseed Oil 1,000 mg PO DAILY 11/19/18 Multivitamin with Minerals [Multiple Vitamin] 1 tab PO DAILY 11/19/18 Pantoprazole Sodium [Protonix] 40 mg PO DAILY 11/19/18 Pirfenidone [Esbriet] 801 mg PO TID 11/19/18 Verapamil HCl [Verapamil ER] 180 mg PO DAILY 11/19/18 Magnesium 250 mg PO DAILY 12/30/18 Nitroglycerin 0.4 mg SL PRN PRN 12/30/18 Warfarin [Coumadin] 5 mg PO DAILY #0 01/01/19 Primary Care Physician: Maria Mccoy MD [Primary Care Provider] - Please follow up with your Primary Care Physician in: as needed Please Follow Up With: Charlie Ryder MD When: 4-6 weeks Please Follow Up With: Albino When: as previously scheduled Disposition: Home Minutes spent on discharge:: 30 Medical Necessity - Tobacco Use Smoking Status: Never smoker Meaningful Use Info Meaningful Use Diagnoses (Choose all that apply): None applicable Code Visit OBSV E&M: 23806 Observation care discharge
== END 2019-01-01 15:56 | disposition home or self-care (01) ==
LOC: ED 10:38 → PCU 12-31 07:18
PROVIDERS: Internal Medicine; Admitting Provider Hospitalist; Emergency Provider Emergency Medicine; Family Provider Internal Medicine; PCP Internal Medicine; Referring Provider Hospitalist; Visit Provider Hospitalist
DX: R07.89 Other chest pain (principal); R06.89 Other abnormalities of breathing; J84.112 Idiopathic pulmonary fibrosis; E78.5 Hyperlipidemia, unspecified; I10 Essential (primary) hypertension; K21.9 Gastro-esophageal reflux disease without esophagitis; D68.59 Other primary thrombophilia; E83.119 Hemochromatosis, unspecified; I25.10 Atherosclerotic heart disease of native coronary artery without angina pectoris; Z79.01 Long term (current) use of anticoagulants; Z86.718 Personal history of other venous thrombosis and embolism; Z95.1 Presence of aortocoronary bypass graft; Z86.711 Personal history of pulmonary embolism; Z79.899 Other long term (current) drug therapy; Z79.82 Long term (current) use of aspirin; Z79.52 Long term (current) use of systemic steroids
CPT/HCPCS: 36415; 70450; 71046; 78452; 80048; 80061; 80076; 83735; 84484; 85025; 85027; 85610; 85730; 87633; 93005; 93017; 93306; 94640; 94667; 94668; 96374; 96375; 96376; 99218; 99285; A9500; J7030; Q9957; A4216; C8929; G0378; J2785

== ENCOUNTER 2019-03-12 06:35 | Outpatient (RCR) | payer MEDICARE, SELFPAY ==
[2018-12-30 12:51] VITALS: BMI 31.6
--- NOTE | 2019-03-12 13:26 | PCM.PR.HP ---
History of Present Illness Arrival date:: 03/12/19 Arrival time:: 12:00 Date of Referral:: 03/07/19 Date of Evaluation: 03/12/19 Referring Physician: Dr. Anaya Primary Diagnosis: Pulmonary Fibrosis, Restrictive Lung Disease [facility] Breathless Scale: When is the patient short of breath? Y/N Grade: Description of Breathlessness: 0 I only get breathless with strenuous exercise. 1 I get short of breath when hurrying on level ground or walking up a slight hill. 2 On level ground, I walk slower than people of the same age because of breathless, or have to stop for breath when walking at my own pace. 3 I stop for breath after walking 100 yards or after a few minutes on level ground. 4 I am too breathless to leave the house or I am breathless when dressing. Respiratory Problems: Yes: Fatigue, Wheezing, Able to Speak in Full Sentences, Ankle Swelling, Dyspnea with Activity, Cough with Secretions No: Dyspnea Lying Down Flat Home Medications: Home Medications Prednisone 20 mg PO DAILY 04/06/17 Ascorbic Acid 500 mg PO DAILY 11/19/18 Aspirin [Aspirin, Baby] 81 mg PO DAILY@0800 11/19/18 Benzonatate 100 mg PO DAILY 11/19/18 Fish Oil/Borage/Flax/Om3,6,9 1 [Mcintosh 3-6-9 1,200 mg Softgel] 1,200 mg PO DAILY 11/19/18 Flaxseed Oil 1,000 mg PO DAILY 11/19/18 Multivitamin with Minerals [Multiple Vitamin] 1 tab PO DAILY 11/19/18 Pantoprazole Sodium [Protonix] 40 mg PO DAILY 11/19/18 Pirfenidone [Esbriet] 801 mg PO TID 11/19/18 Verapamil HCl [Verapamil ER] 180 mg PO DAILY 11/19/18 Magnesium 250 mg PO DAILY 12/30/18 Nitroglycerin 0.4 mg SL PRN PRN 12/30/18 Warfarin [Coumadin] 5 mg PO DAILY #0 01/01/19 Allergies/Adverse Reactions: Allergies Penicillins Allergy (Verified 12/30/18 10:15) Hives celecoxib [From Celebrex] Adverse Reaction (Verified 12/30/18 10:15) Chest tightness nitroglycerin [From Nitrostat] Adverse Reaction (Verified 12/30/18 10:15) severe migraine - Secretions Normal Color:: grayish white color Thin:: Yes Cough:: Yes A.T.C.: Yes Hx of Sleep Apnea: Yes Do you snore loudly (louder than talking or can be heard through closed doors)?: Yes - CPAP at HS nightly History of Hypertension (for STOP score): Yes Medical Utilization Do you use a peak flow meter at home?: No Do you use a spacer device with your inhalers?: No Number of hospital visits in the last year?: 3 Number of emergency room visits in the last year?: 1 Do you see your physician on a regular schedule?: Yes How often?: 3 months Advanced Directives - Advanced Directives Power of Plastic Worker: No Living Will: No Advance Directives Information Provided: Yes Advance Directives on File: No DNR Order?:: No - MOLST See MOLST form: No Past Medical History Medical History: Past Medical History (Last Updated 03/12/19 @ 13:30 by Tre Junior, [employer], ASSEMBLER [employer]ING [employer], BS) Idiopathic pulmonary fibrosis J84.112 Lower back pain M54.5 Lumbar arthropathy M47.816 - Current/ Previous Services Pulmonary Rehab:: No Social History - Smoking History Smoking Status: Former smoker Hx Tobacco Use: No Hx Smoking Exposure: No - Alcohol Use Alcohol Usage: No - Substance Abuse Hx Substance Use: No - Occupation Occupation (List type of work in comments):: Employed Hours worked per day:: 8 - working 32 hours week - Hobbies, Recreation, Social Activities Hobbies: Woodworking, Other Recreational Activities: I am able to engage in a few activities Functioning ADL/IADL - Current Ability Current Ability: Independent Self-Care (e.g.,grooming, dressing, & bathing), Independent Ambulation, Independent Transfer, Independent Household tasks (e.g., light meal prep, laundry, shopping) - Pt Functioning Prior to Problem Prior Functioning: Self-Care (e.g.,grooming, dressing, & bathing): Independent, Ambulation: Independent, Transfer: Independent, Household tasks (e.g., light meal prep, laundry, shopping): Independent Social Environment - Status Marital Status: - Current Living Arrangements Living Environment:: Spouse - Children How many children do you have?: 3 Do any of your children live nearby?: Yes - Safety Do you feel safe in your surroundings?: Yes - Assistance Do you need any assistance at home?: none Review of Systems Review of Systems: Right click = Denies (Slash). Left click = Reports ([place]) Respiratory: Reports: Cough, SOB upon Exertion, Appetite, Normal, Sleep, Normal. Denies: SOB at Rest, Sputum production, Dizziness/Lightheadedness Is Patient Pain Free?: No Pain Location: back, other - sciatic pain down leg Pain Level: 01/18 Risk Factor Assessment - Vital Signs Temperature: 98.7 F Pulse Rate: 68 Pulse Rhythm: Regular Respiratory Rate: 16 Pulse Ox: 94 - Diabetes Nutrition Referral for Diabetes: No - Obesity Height: 5 ft 6 in Weight:: 200 lb Weight in Pounds: 200.0 lbs Weight Source: Estimated by Patient Body Mass Index (BMI): 32.3 Nutritional Referral for Obesity: Yes - Physical Activity Physical Inactivity: Physically demanding job, Recreational activity - Risk Stratification Risk Guidelines: Lowest Risk: Risk Factor for Smoking, Risk Factor for Dyslipidemia, Risk Factor for Hypertension, Risk Factor for Sedentary Lifestyle, Risk Factor for Depression, Highest Risk: Risk Factor for Obesity - For Smoking Smoking Risk Guidelines: Smoking Low Risk: None or quit greater than 6 months ago. Smoking Moderate Risk: Smoker or quit 6 months or less ago. Smoking High Risk: Smoker - For Dyslipidemia Dyslipidemia Risk Guidelines: Low Risk: Moderate Risk: High Risk: 15-25% fat 25.1-29% fat >/= 30% fat. <7% sat fat 7-9% sat fat >9% sat fat. <150 mg chol 150-299 mg chol >/= 300 mg chol. LDL <100 LDL 100-129 LDL >/= 130. Chol/HDL ratio <5.0 Chol/HDL ratio 5.0-6.0 Chol/HDL ratio >6.0. Triglycerides <100 Triglycerides 100-149 Triglycerides >/= 150 - For Diabetes Mellitus Diabetes Risk Guidelines: Diabetes Low Risk: HgA1c <6.5% and/or FBG <120. Diabetes Moderate Risk: HgA1c 6.6-7.9% and/or FBG 120-180. Diabetes High Risk: HgA1c >/= 8% and/or FBG >180 - For Obesity/Overweight Obesity/Overweight Risk Guidelines: Obesity Low Risk: BMI <25.0. Obesity Moderate Risk: BMI 25-29.9. Obesity High Risk: BMI >/= 30.0 - For Hypertension Hypertension Risk Guidelines: Hypertension Low Risk: Systolic <120 and Diastolic <80. Hypertension Moderate Risk: Systolic 120-139 and Diastolic 80-89. Hypertension High Risk: Systolic >/= 140 and Diastolic >/= 90 - For Sedentary Lifestyle Sedentary Lifestyle Risk Guidelines: Sedentary Lifestyle Low Risk: >/= 1,500 kcal/week. Sedentary Lifestyle Moderate Risk: 700-1,499 kcal/week. Sedentary Lifestyle High Risk: < 700 kcal/week - For Depression Depression Risk Guidelines: Depression Low Risk: Not clinically depressed. Depression Moderate Risk: Mildly depressed. Depression High Risk: Clinically depressed Motivation - Motivation to Participate On a scale of 1 to 10, how prepared are you to commit to attending program?: 10 What do you see as barriers to successfully being able to complete the program?: schedule and employment conflicts What do you see as the benefits of succesfully completing the program? In other words, what do you hope to get out of participating in the program?: being able to Live! Breath better! Are there issues you are dealing with that will interfere with completing the program?: work Do you have a spouse or signficant other, family or friends who will help support you to complete the program?: Yes
[2019-03-12 13:35] VITALS: PULSE 68; RESP 16; TEMP 37.1; O2SAT 94; BMI 32.3
--- NOTE | 2019-03-12 13:55 | PCM.PR.TP ---
General Information - Education/Goals Patient Goals: Breathe better: Initial Assessment, Increase endurance/stamina: Initial Assessment, Return to work: Initial Assessment, Improve diet and nutrition: Initial Assessment, Symptom management: Initial Assessment, Take medications correctly: Initial Assessment, Improve weight: Initial Assessment Patient Health Questionnaire Initial Assessment 1. Little interest or pleasure in doing things: More than half the days 2. Feeling down, depressed, or hopeless: Nearly every day 3. Trouble falling or staying asleep, or sleeping too much: Nearly every day 4. Feeling tired or having little energy: Nearly every day 5. Poor appetite or overeating: More than half the days 6. Feeling bad about yourself -- or that you are a failure or have let yourself or your family down: Several days 7. Trouble concentrating on things, such as reading the newspaper or watching television: Nearly every day 8. Moving or speaking so slowly that other people could have noticed. Or the opposite - being so fidgety or restless that you have been moving around a lot more than usual: Several days 9. Thoughts that you would be better off , or of hurting yourself in some way: Not at all How difficult have these problems made it for you to do your work, take care of things at home, or get along with other people?: Somewhat difficult Total Score: 18 COPD Knowledge Test Initial COPD is a lung disease that:: Makes it hard to breathe & gets worse over time In the [place] the term COPD describes 2 main lung conditions:: Emphysema & chronic bronchitis The most common lung irritant that causes COPD is:: Cigarette smoke Common signs and symptoms of COPD include:: An ongoing cough/cough that produces a large amount of mucus, & SOB If you have COPD, what steps can you take?: All of the above Swelling of the ankles is common in COPD:: True Fatigue [tiredness] is common in COPD:: True Wheezing is common in COPD:: True Crushing chest pain is common in COPD:: False Rapid weight loss is common in COPD:: True Breathlessness is a normal response to exercise: True Exercise should be avoided if it makes you short of breath: True All bronchodilators act within 10 minutes: True A spacer device increases the medication to the lungs: False Annual flu vaccine is recommended for pts w/lung disease: True COPD Knowledge Test Total Score:: 10 COPD Assessment Test [CAT] - Questions Never cough = 0, Cough all the time = 5: 3 No phlegm = 0, Chest full of phlegm = 5: 2 No chest tightness = 0, Chest very tight = 5: 3 No breathless w/exertion = 0, Very breathless w/exertion = 5: 5 No limitations w/activity = 0, Very limited w/activity = 5: 1 Confident leaving home = 0, Not at all confident = 5: 5 Sleep soundly = 0, Don't sleep soundly = 5: 2 Lots of energy = 0, No energy at all = 5: 1 Total CAT score:: 22 Self-Efficacy Initial Assessment We would like to know how confident you are in doing certain activities. Please select your confidence level for:: Select your confidence level for the following using the scale 1-10 where 1 is not at all confident and 10 is totally confident. Your score is the average of all 6 responses. Fatigue: How confident are you that you can keep the fatigue caused by your disease from interfering with the things you want to do? Select Number: 5 Physical Discomfort or Pain: How confident are you that you can keep the physical discomfort or pain of your disease from interfering with the things you want to do? Select Number: 5 Emotional Distress: How confident are you that you can keep the emotional distress caused by your disease from interfering with the things you want to do? Select Number: 5 Other Symptoms or Health Problems: How confident are you that you can keep other symptoms or health problems from interfering with the things you want to do? Select Number: 5 Different Tasks and Activities: How confident are you that you can do the different tasks and activities needed to manage your health condition so as to reduce your need to see a doctor? Select Number: 4 Medication: How confident are you that you can do things other than just taking medication to reduce how much your illness affects your everyday life? Select Number: 4 Total Score:: 4 Nutrition Survey - Nutrition Survey Instructions Scoring Instructions: Scoring is as follows: Yes = 1 points. No = 0 point. Patient score that is >/=12 is considered to be at potential nutritional risk and could benefit from a referral to a registered dietitian. - Nutrition Survey Initial Have you lost >10 lbs over the past 2 months without trying?: No Are you following a special diet at home for diabetes, low fat, or low salt?: No Are you interested in meeting with a dietitian for help understanding your diet?: Yes Do you eat less than 3 meals a day?: No Do you eat fatty meats (valdez, sausage, ribs, etc), fried foods, desserts, large amounts of salad dressings, margarine, butter, or cheese most days?: Yes Do you have food allergies? [Enter types in comment field]: No Do you eat in restaurants more than 3 times a week?: No Do you season food with salt, seasoning salt, or garlic salt?: No Do you used canned, boxed, frozen meals, or soups, seasoning packets?: No Total Score:: 2
== END 2019-04-10 23:59 ==
LOC: PR 06:35
PROVIDERS: Family Provider Internal Medicine; PCP Internal Medicine; Referring Provider Internal Medicine Pulmonary Disease; Visit Provider Internal Medicine Pulmonary Disease
DX: J84.10 Pulmonary fibrosis, unspecified (principal); J98.4 Other disorders of lung; Z87.891 Personal history of nicotine dependence
CPT/HCPCS: 97150; G0239

== ENCOUNTER 2019-04-10 08:00 | Outpatient (RCR) | payer MEDICARE, SELFPAY | END 2019-04-10 23:59 | LOC: PR 08:00 | PROVIDERS: Family Provider Internal Medicine; PCP Internal Medicine; Visit Provider Internal Medicine Pulmonary Disease | DX: J84.112 Idiopathic pulmonary fibrosis (principal) | CPT/HCPCS: 97150; G0239 ==

== ENCOUNTER 2019-04-24 08:00 | Outpatient (RCR) | payer MEDICARE, SELFPAY ==
--- NOTE | 2019-04-12 07:35 | PCM.PR.TP ---
Exercise - 30-Day Assessment - Physician Prescribed Exercise Modalities: Treadmill, NuStep, SciFit Frequency (days/week): 3 Duration (Minutes):: 30-45 Intensity: 60-80% age predicted maximum heart rate reserve Aerobic Exercise [30-60 min 3-7x/week]:: Progressing Target heart rate: 96-124 w/max HR 101 Brodie-14 METs - Progression: 0.5-1.0 MET, RPE 11-14 WEEK: 2.5 - Home Exercise Home Exercise:: No Disease Management - 30-Day - Hypoxemia Reassessment: Demonstrates knowledge of O2 Rx at rest, Demonstrates knowledge of O2 Rx with exercise, Using O2 as prescribed, Uses port O2 as prescribed - Medications Medication list reviewed:: Yes Taking medications 100% of the time:: Met - patient does very well with medication compliance Medication reassessment: Yes Pt demonstrates correct technique timing for MDI, Yes Pt demonstrates correct technique timing for DPI, Yes Pt demonstrates correct technique timing for NEB, Yes Pt demonstrates correct technique timing for spacer - Bronchial Hygiene Bronchial Hygiene Plan: Yes Pt demo correct for improved hydration, Yes Pt demo correct for hand hygiene Psychosocial - 30-Day - Assessment Reassessment: Practicing interventions, COPD assessment w/ CAT, Geriatric depression screening, Self efficacy score Tobacco - 30-Day Assessment - Program Goals Tobacco Program Goals: Complete smoking cessation. Attend education classes. Improve Knowledge Test score - Stage of Change Stages of Change:: Action - Learning Barriers Learning Barriers: Participates in education - Family Support Do you have family support?: Yes - Tobacco Use Tobacco Use: Non-smoker Do you use smokeless tobacco?: No - Intervention Smoking Cessation Referral:: No Individual Education/Counseling:: No Education Schedule Given:: Yes - Education Gave Education Materials For:: Pulmonary Disease, Risk Factors, Breathing Techniques, Medical Compliance, Pulmonary A&P, Exacerbation Signs & Symptoms, Stress & Relaxation Nutrition/Wt Mgmt - 30-Day - Weight Management Weight Assessment:: Wt stable Weight:: 209 lb - down from 212 Weight Goals Progress:: Progressing Patient Health Questionnaire 30-Day Re-eval Assessment 2. Feeling down, depressed, or hopeless: Several days 3. Trouble falling or staying asleep, or sleeping too much: More than half the days 4. Feeling tired or having little energy: More than half the days 5. Poor appetite or overeating: More than half the days 6. Feeling bad about yourself -- or that you are a failure or have let yourself or your family down: Several days 7. Trouble concentrating on things, such as reading the newspaper or watching television: More than half the days 8. Moving or speaking so slowly that other people could have noticed. Or the opposite - being so fidgety or restless that you have been moving around a lot more than usual: Not at all 9. Thoughts that you would be better off , or of hurting yourself in some way: Not at all How difficult have these problems made it for you to do your work, take care of things at home, or get along with other people?: Somewhat difficult Total Score: 10 Self-Efficacy 30-Day Re-eval Assessment We would like to know how confident you are in doing certain activities. Please select your confidence level for:: Select your confidence level for the following using the scale 1-10 where 1 is not at all confident and 10 is totally confident. Your score is the average of all 6 responses. Fatigue: How confident are you that you can keep the fatigue caused by your disease from interfering with the things you want to do? Select Number: 6 Physical Discomfort or Pain: How confident are you that you can keep the physical discomfort or pain of your disease from interfering with the things you want to do? Select Number: 6 Emotional Distress: How confident are you that you can keep the emotional distress caused by your disease from interfering with the things you want to do? Select Number: 6 Other Symptoms or Health Problems: How confident are you that you can keep other symptoms or health problems from interfering with the things you want to do? Select Number: 6 Different Tasks and Activities: How confident are you that you can do the different tasks and activities needed to manage your health condition so as to reduce your need to see a doctor? Select Number: 6 Medication: How confident are you that you can do things other than just taking medication to reduce how much your illness affects your everyday life? Select Number: 7 Total Score:: 6
== END 2019-05-11 23:59 ==
LOC: PR 08:00
PROVIDERS: Family Provider Internal Medicine; PCP Internal Medicine; Referring Provider Internal Medicine Pulmonary Disease; Visit Provider Internal Medicine Pulmonary Disease
DX: J84.112 Idiopathic pulmonary fibrosis (principal)
CPT/HCPCS: 97150; G0239

== ENCOUNTER 2019-04-24 08:36 | Observation (INO) | payer MEDICARE, SELFPAY ==
[2019-04-24] VITALS (12 sets, daily range): BP systolic 120–158; BP diastolic 73–89; PULSE 57–83; RESP 16–22; TEMP 36.5–36.8; O2SAT 94–100; BMI 34.2; BMI 33.3; BMI 33.4
--- NOTE | 2019-04-24 08:38 | EKG12_ITS ---
Test Reason : CP Blood Pressure : / mmHG Vent. Rate : 077 BPM Atrial Rate : 077 BPM P-R Int : 168 ms QRS Dur : 092 ms QT Int : 378 ms P-R-T Axes : 008 038 041 degrees QTc Int : 427 ms Normal sinus rhythm Normal ECG Confirmed by FLORA HAAS ([id number]), movie editor BLAYNE BRICE ([id number]) on 04/25/2019 2:23:34 PM Referred By: Vik Anaya Confirmed By:FLORA HAAS
[2019-04-24] MEDS: Aspirin 81 MG TAB.CHEW 324 MG PO (08:46)
--- NOTE | 2019-04-24 08:50 | RAD_ITS ---
STUDY: X-RAY CHEST REASON FOR EXAM: Male, 73 years old. Chest pain. TECHNIQUE: Single AP portable view of the chest. COMPARISON: Comparison is made with prior study dated December 30, 2018. FINDINGS: EKG electrodes are seen. Since prior study, there has been progressive infiltrate in the left lung as well as in the right lower lobe. This may represent vascular congestion superimposed on chronic interstitial changes. There is no demonstrated pleural abnormality. Sternal cerclage wires and vascular clips are present from a prior sternotomy and coronary artery bypass graft procedure (CABG). Normal mediastinum and denise. Normal visualized pulmonary arteries. There is atherosclerotic calcification of the aortic arch with tortuosity. There are diffuse degenerative changes of the visualized thoracic spine. Normal visualized ribs, clavicles, and shoulders. There is no demonstrated abnormality of the visualized soft tissue structures of the upper abdomen. RAD/Chest 1 View (Portable) IMPRESSION: Progressive infiltration in the left lung and right lower lobe as described. This most likely represents CHF superimposed on chronic interstitial scarring. Electronically Signed: Raphael Roman, at 9:11 EDT , Service support ,
--- NOTE | 2019-04-24 08:54 | ED.VISSUMM ---
- ER Visit Summary Date of Service: 04/24/19 Chief Complaint: Chest pain History of Present Illness: The patient is a 73 M who single-vessel bypass in 1994 which she states is from general abnormality with also prior cardiac stent. 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 Today he was in cardiac rehab and was exercising and said he started getting mid lower sternal chest discomfort or shortness of breath. The rehab personnel brought him to the ER and states he became diaphoretic and pale. His blood pressure at that time was around 158/74. He states that he had a negative stress test around November or December of this year. But that he has had exertional chest pain the last several months. Physical Examination: Older male in no acute distress. States pain is basically gone. Initial blood pressure 158/83. Pulse ox 97% on room air no hypoxia. HEENT exam unremarkable. Neck nontender no lymphadenopathy. No JVD. Lungs clear to auscultation bilaterally. Heart regular rhythm no murmur rate about 77. Chest wall nontender. Abdomen soft nontender. Patient is moving all 4 extremities. Equal symmetrical radial pulses. Calves are nontender without edema or cords. Neurologically is awake and alert with no focal deficits. Test Results: EKG shows sinus rhythm rate of 77 with no acute change from prior EKG from December. Chest x-ray shows chronic changes of pulmonary fibrosis possible overlying pulmonary edema because there is a change in the left lower lobe compared to prior. Prior sternotomy. CBC shows a white count of 12. Hemoglobin 10.6 which is baseline anemia. Chemistries are normal with a normal creatinine gap. Troponin is normal. Patient had a second episode of chest pain while in the ER and a second EKG was done shows sinus rhythm of 70 with no acute signs of ischemia no acute change. Emergency Department Course and Treatment: Patient will undergo cardiac work-up and receive aspirin. Treatment Plan: Repeat exam is unchanged. He is pain-free with the Nitropaste. Patient is currently resting comfortably at oh 9:50 AM. Given that he has had multiple episodes of exertional chest pain over the last several weeks I do feel that he needs admitted for further evaluation of already spoken to the hospitalist about this. Disposition: Assigned observation to the PCU Impression: Acute chest pain of uncertain etiology. History of prior CAD with cardiac stent. History of prior bypass single-vessel 1994. This note was generated with [employer] dictation software. It may contain incorrect words, spelling, and punctuation that were not noted in review of the chart prior to signing ED Disposition - Plan for ED Patient: Referrals: Maria Mccoy MD [Primary Care Provider] -
[2019-04-24 08:58] LABS: Absolute Neutrophil Count 8.1 X10^3/uL (2.0-7.7); Basophil# 0.09 X10^3/uL; Basophil% 0.8 % (0-1); Eosinophil# 0.49 X10^3/uL; Eosinophils% 4.1 % (0-5); Hematocrit 35.2 % (40-54); Hemoglobin 10.6 g/dL (13.0-16.5); Lymphocyte % 19.2 % (19-41); Mean Corp Hgb Conc 30.1 g/dL (32-36); Mean Corpuscular Hgb 24.7 pg (27.0-32.0); Mean Corpuscular Volume 81.9 fL (80-94); Mean Platelet Vol. 9.6 fl (6.2-12.0); Monocyte# 0.95 X10^3/uL; Monocyte% 7.9 % (0-10); NRBC Flagged by Analyzer 0 % (0-5); Neutrophil # 8.13 X10^3/uL (2.7-7.7); Neutrophil % 67.7 % (47-70); Platelet Count 327 K/mm3 (150-450); RBC Distribution Width CV 18.2 % (11.6-14.6); RBC Distribution Width SD 54.4 fl (35.1-43.9)
--- NOTE | 2019-04-24 09:01 | EKG12_ITS ---
Test Reason : REPEAT-CP Blood Pressure : / mmHG Vent. Rate : 072 BPM Atrial Rate : 072 BPM P-R Int : 178 ms QRS Dur : 088 ms QT Int : 400 ms P-R-T Axes : -01 035 054 degrees QTc Int : 438 ms Normal sinus rhythm Normal ECG Confirmed by FLORA HAAS ([id number]), photographic editor BLAYNE BRICE ([id number]) on 04/25/2019 2:23:51 PM Referred By: Vik Anaya Confirmed By:FLORA HAAS
[2019-04-24] MEDS: Nitroglycerin Oint 1 INCH PACKET TRANSDERM. (09:04)
[2019-04-24 09:15] LABS: BUN 15 mg/dL (7-18); Creatinine, Serum 0.97 mg/dL (0.70-1.30); Glucose 91 mg/dL (74-106)
[2019-04-24 09:16] LABS: Anion Gap 4 (5-15); BUN/Creat Ratio 15.4 RATIO (10-20); Calcium,Total 8.6 mg/dL (8.5-10.1); Chloride 106 mmol/L (98-107); EST Glomerular Filtration Rate 80 mL/min (>60); Est Glom Filt Rate - Afr Amer 97 mL/min (>60); Estimated Creatinine Clearance 61.21 ml/min; Potassium 4.1 mmol/L (3.5-5.1); Sodium Level 139 mmol/L (136-145)
[2019-04-24 11:00] LABS: International Normalized Ratio 2.6; Partial Thromboplast Time 44.7 Seconds (24.1-36.2); Prothrombin Time (Protime)PT. 27.6 SECONDS (11.7-14.9)
--- NOTE | 2019-04-24 11:07 | EKG12_ITS ---
Test Reason : CP ADMISSION Blood Pressure : / mmHG Vent. Rate : 062 BPM Atrial Rate : 062 BPM P-R Int : 176 ms QRS Dur : 088 ms QT Int : 436 ms P-R-T Axes : 016 028 054 degrees QTc Int : 442 ms Normal sinus rhythm Normal ECG When compared with ECG of 01-JAN-2019 05:38, No significant change was found Confirmed by FLORA HAAS ([id number]), department editor BLAYNE BRICE ([id number]) on 04/25/2019 2:58:03 PM Referred By: Vik Anaya Confirmed By:FLORA HAAS
--- NOTE | 2019-04-24 12:05 | HP.PCM_ITS ---
Problem List (1) Unstable angina Status: Acute (2) Chronic respiratory failure with hypoxia Status: Chronic (3) Benign essential hypertension Status: Chronic (4) History of DVT of lower extremity Status: Chronic (5) Dyslipidemia Status: Chronic (6) Hemochromatosis Status: Chronic (7) Hx of CABG Status: Chronic Comment: 1995 (8) History of pulmonary embolism Status: Chronic (9) Idiopathic pulmonary fibrosis Status: Chronic History of Present Illness Date of Admission: 04/24/19 Chief Complaint: chest pain / SOB The patient is a 73 year old M with past medical history as above most notably for CAD with prior CABG, pulmonary fibrosis, chronic respiratory failure, who presented to the emergency room with complaints of shortness of breath and chest pain. This began this morning, and became worse when the patient was at pulmonary rehab today. The patient was using the exercise machine and with exertion became more more short of breath. He had associated lightheadedness. When he stopped he did not have any improvement. He has home oxygen and has had to use it more frequently lately. He was taken to the emergency room and developed chest pain while there. He describes this as a 2-3 out of 10 left sternal border squeezing. He has no radiation into the back neck or arm. He did however last week have an episode of left arm pain that radiated all the way down his arm into his fingers. He continues to have ongoing chest pain described as above. The patient currently does not have a electric powerline examiner, he used to follow with Dr. Griffith. He is also recently been started on immunologic therapy for pulmonary fibrosis. [] Past Medical History Past Medical History (Chronic Problems): Chronic Problems (Last Updated 03/12/19 @ 13:30 by Tre Junior CRT, CONTRACT MANAGEMENT SPECIALIST, BS) On anticoagulant therapy (Chronic) Benign essential hypertension (Chronic) History of DVT of lower extremity (Chronic) Dyslipidemia (Chronic) Hemochromatosis (Chronic) Hx of CABG (Chronic) 1995 History of pulmonary embolism (Chronic) History of coronary artery stent placement (Chronic) Idiopathic pulmonary fibrosis (Chronic) Chronic respiratory failure with hypoxia (Chronic) Medical History: Medical History (Last Updated 03/12/19 @ 13:30 by Tre Junior, BLANK, CONTRACT MANAGEMENT SPECIALIST, BS) Idiopathic pulmonary fibrosis J84.112 Lower back pain M54.5 Lumbar arthropathy M47.816 Allergies Penicillins Allergy (Verified 04/24/19 08:38) Hives celecoxib [From Celebrex] Adverse Reaction (Verified 04/24/19 08:38) Chest tightness nitroglycerin [From Nitrostat] Adverse Reaction (Verified 04/24/19 08:38) severe migraine Home Medications: Ambulatory Orders Medication Instructions Recorded Prednisone 5 mg PO DAILY 04/06/17 Ascorbic Acid 500 mg PO DAILY 11/19/18 Aspirin [Aspirin, Baby] 81 mg PO DAILY@0800 11/19/18 Benzonatate 100 mg PO DAILY PRN 11/19/18 Fish Oil/Borage/Flax/Om3,6,9 1 1,200 mg PO DAILY 11/19/18 [[place] 3-6-9 1,200 mg Softgel] Flaxseed Oil 1,000 mg PO DAILY 11/19/18 Multivitamin with Minerals 1 tab PO DAILY 11/19/18 [Multiple Vitamin] Pantoprazole Sodium [Protonix] 40 mg PO DAILY 11/19/18 Verapamil HCl [Verapamil ER] 180 mg PO DAILY 11/19/18 Magnesium 250 mg PO DAILY 12/30/18 Nitroglycerin 0.4 mg SL PRN PRN 12/30/18 Nintedanib Esylate [Ofev] 150 mg PO BID 04/24/19 Warfarin [Coumadin (PBKC)] 7.5 mg PO SUWETHFRSA 04/24/19 Warfarin [Coumadin] 10 mg PO MOTU 04/24/19 Surgical History: coronary bypass surgery, - - IVC filter placement Psychiatric History: No pertinent psych hx Lives: Spouse/ Significant Other Smoking Status: Former smoker Tobacco Use: Non-smoker Alcohol: None Drugs: None - *Family History Maternal History Items: Diabetes, Heart Disease Paternal History Items: Diabetes, Heart Disease Review of Systems Constitutional: Denies: Chills, Fever, Weight Change HEENT: Denies: Head Aches, Sinus Congestion, Sinus Drainage Cardiovascular: Reports: Chest Pain, Chest Tightness, Light Headedness. Denies: Edema, Palpitations, Syncope Respiratory: Reports: Shortness of Breath, Shortness of breath at rest, Shortness of breath upon exertion. Denies: Cough, Sputum production Gastrointestinal: Denies: Abdominal Pain, Nausea, Vomiting Genitourinary: Denies: Dysuria Musculoskeletal: Denies: Joint Pain, Joint Tenderness Skin: Denies: Rash, Wounds Neurological: Denies: Numbness, Tingling, Focal weakness Psychiatric: Denies: Anxiety, Depression, Homicidal Ideations, Suicidal Ideations Hematologic/ Lymphatic: Denies: Easy Bruising, Easy Bleeding VTE Information - Inpt Only VTE Present on Admission: No VTE Mechan Device Prophylaxis: None VTE Pharm Prophylaxis ordered?: Yes Patient Problems: Active and Suspected Problems (Last Updated 03/12/19 @ 13:30 by Tre Junior, YOUTH SERVICES SPECIALIST, CONTRACT MANAGEMENT SPECIALIST, BS) Unstable angina (Acute) - Physical Exam General: Alert, Oriented x3, Cooperative HEENT: Atraumatic, PERRLA, EOMI, Normocephalic Neck: Supple, No JVD, Negative Carotid Bruits Lungs: Normal air movement, Rales Cardiovascular: Regular rate, No murmurs Abdomen: Bowel Sounds Present, Soft, Non Tender Extremities: Capillary Refill Less than 3 Seconds, Edema - Trace Skin: No rashes, No breakdown Musculoskeletal: No Tenderness to Palpation of Joints or Extremities Neurological: Cranial nerves II-XII grossly intact Psych/Mental Status: Normal Affect, Appropriate, Alert and oriented to time, place, person, mood and affect Vital Signs Temp Pulse Resp BP Pulse Ox 98 F 65 22 H 124/89 H 100 04/24/19 08:36 04/24/19 09:55 04/24/19 09:55 04/24/19 09:55 04/24/19 10:45 Oxygen Flow Rate (L/min) 2.5 Oxygen Delivery Method Nasal Cannula Weight: 206 lb 12.697 oz Body Mass Index (BMI) 33.3 Laboratory Tests Past 24 Hrs 04/24/19 04/24/19 04/24/19 08:49 08:49 08:49 WBC 12.0 H RBC 4.30 L Hgb 10.6 L Hct 35.2 L MCV 81.9 MCH 24.7 L MCHC 30.1 L RDW Std Deviation 54.4 H RDW Coeff of [place] 18.2 H Plt Count 327 MPV 9.6 Immature Gran % (Auto) 0.300 Neut % (Auto) 67.7 Lymph % (Auto) 19.2 [place] % (Auto) 7.9 Eos % (Auto) 4.1 Baso % (Auto) 0.8 Absolute Neuts (auto) 8.1 H Absolute Lymphs (auto) 2.30 Nucleated RBC % 0 PT 27.6 H INR 2.6 APTT 44.7 H Sodium 139 Potassium 4.1 Chloride 106 Carbon Dioxide 29.0 Anion Gap 4 L BUN 15 Creatinine 0.97 Estim Creat Clear Calc 61.21 Est GFR (MDRD) Af Amer 97 Est GFR (MDRD) Non-Af 80 BUN/Creatinine Ratio 15.4 Glucose 91 Calcium 8.6 Troponin I < 0.015 Assessment/Plan All Active Problems (Last Updated 03/12/19 @ 13:30 by Tre Junior, YOUTH SERVICES SPECIALIST, CONTRACT MANAGEMENT SPECIALIST, BS) Acute hypoxemic respiratory failure (Ruled-out) Chest pain (Acute) Supratherapeutic INR (Acute) Acute respiratory insufficiency (Acute) Unstable angina (Acute) 1. Unstable angina-patient with history of coronary artery disease with prior CABG. Shortness of breath worse with exertion during pulmonary rehab today followed by development of chest pain in the emergency room. Chest pain continues 2-3 out of 10 left sternal border squeezing. First troponin negative. Consult cardiology. Cycle enzymes, repeat EKG in AM, prn nitro. Chest x-ray shows possible consolidation however this could also be due to his underlying pulmonary fibrosis 2. History of DVT/PE-patient on warfarin which is therapeutic. He also has a Shruthi filter in place. 3. Pulmonary fibrosis and chronic hypoxic respiratory failure-patient of Dr. Anaya, reportedly recently started on immunologic therapy. 4. History of hemochromatosis 5. Leukocytosis - on chronic prednisone, doubt infectious process. No fever/ CXR findings likely 2/2 #3 DVT prophylaxis: Warfarin Discharge planning: PT OT This patient was seen by Shayan Mueller PA-C under the supervision of Doctor Ramin.
[2019-04-24] MEDS: Acetaminophen 325 MG Tablet 650 MG PO (13:01)
--- NOTE | 2019-04-24 14:46 | CHAPLAIN ---
Type of Pastoral Visit _x__ Initial Visit ___ Follow-up Visit ___ On-call Visit ___ General Patient Visit ___ Spiritual Assessment ___ Family Conference ___ Bereavement ___ Rapid Response ___ Code Blue ___ Other (describe below) Pastoral Care Referral From _x__ Patient ___ Family ___ Nurse ___ Physician ___ Educational Consultant ___ Singing Telegram Performer ___ Other (describe below) Sacrament/Intervention _x__ Active listening ___ Anointing ___ Sabianism ___ Bereavement ___ Communion ___ Rebeca exploration ___ ___ Life review ___ Prayer ___ Reconciliation ___ Sacrament of Sick _x__ Supportive presence ___ Wedding ___ Other (describe below) Pastoral Comments
--- NOTE | 2019-04-24 15:43 | PCM.CONS.C ---
Problem List (1) On anticoagulant therapy Status: Chronic (2) History of DVT of lower extremity Status: Chronic (3) Dyslipidemia Status: Chronic (4) Hx of CABG Status: Chronic Comment: 1995 (5) History of pulmonary embolism Status: Chronic (6) History of coronary artery stent placement Status: Chronic Reason for Consult Date of Consultation: 04/24/19 Reason for Consultation: Coronary artery disease, chest pain, idiopathic pulmonary fibrosis, hypertension, hypercholesterolemia, coronary bypass surgery History of Present Illness: The patient is a 73 year old M with a history of hypertension, hyperlipidemia, nondiabetic, coronary disease status post single-vessel bypass surgery at age 50, with subsequent angioplasty and stenting in 2005 and 2008, both of which were at the [facility]. In addition he has a history of idiopathic pulmonary fibrosis, and pulmonary embolism in 2010 status post DVT filter. The patient used to smoke about 30 years ago, after a 3 to 4 pack/day for 10-year smoking duration. Patient has never had a heart catheterization here at [facility]. In December 2018 the patient underwent a Lexiscan/MPI which was read as negative for inducible ischemia. In order to improve his pulmonary function, he was referred to pulmonary rehab. At his first session of pulmonary rehab today the patient became diaphoretic, had shortness of breath, and nauseated as well as chest pain. Patient's blood pressure was in the 150s. His pulmonary rehab was terminated and he came to the emergency room for further evaluation. In the emergency room he underwent an EKG which demonstrated normal sinus rhythm, no acute changes. His initial troponin was negative. Patient is on chronic Coumadin therapy and his INR was found to be 2.6. Patient was placed on nitroglycerin paste, and his symptoms completely resolved. Additional history the patient denies any substernal chest pressure, chest pain, lower extremity edema, presyncope or syncope prior to his event today. He does have oxygen at home and uses it intermittently. Patient underwent an echocardiogram on 12/22/2018 with the following results: The study was technically difficult. Contrast injection was performed. Left ventricular systolic function is normal. The estimated ejection fraction is 70 %. The left atrium is mildly enlarged. Trivial mitral valve insufficiency. Trivial tricuspid valve insufficiency. Mild focal aortic valve calcification. Unable to estimate RV systolic pressure/pulmonary artery pressure due to technically difficult study. Diastolic function is indeterminate. Patient is currently resting comfortably, at his bedside. [] Past Medical History Allergies/Adverse Reactions: Allergies Penicillins Allergy (Verified 04/24/19 08:38) Hives celecoxib [From Celebrex] Adverse Reaction (Verified 04/24/19 08:38) Chest tightness nitroglycerin [From Nitrostat] Adverse Reaction (Verified 04/24/19 08:38) severe migraine Home Medications: Ambulatory Orders Medication Instructions Recorded Prednisone 5 mg PO DAILY 04/06/17 Ascorbic Acid 500 mg PO DAILY 11/19/18 Aspirin [Aspirin, Baby] 81 mg PO DAILY@0800 11/19/18 Benzonatate 100 mg PO DAILY PRN 11/19/18 Fish Oil/Borage/Flax/Om3,6,9 1 1,200 mg PO DAILY 11/19/18 [[place] 3-6-9 1,200 mg Softgel] Flaxseed Oil 1,000 mg PO DAILY 11/19/18 Multivitamin with Minerals 1 tab PO DAILY 11/19/18 [Multiple Vitamin] Pantoprazole Sodium [Protonix] 40 mg PO DAILY 11/19/18 Verapamil HCl [Verapamil ER] 180 mg PO DAILY 11/19/18 Magnesium 250 mg PO DAILY 12/30/18 Nitroglycerin 0.4 mg SL PRN PRN 12/30/18 Nintedanib Esylate [Ofev] 150 mg PO BID 04/24/19 Warfarin [Coumadin (PBKC)] 7.5 mg PO SUWETHFRSA 04/24/19 Warfarin [Coumadin] 10 mg PO MOTU 04/24/19 Past Medical History (Chronic Problems): Chronic Problems (Last Updated 03/12/19 @ 13:30 by Tre Junior, CAPTION WRITER, CABLE STRETCHER AND TESTER, BS) On anticoagulant therapy (Chronic) Benign essential hypertension (Chronic) History of DVT of lower extremity (Chronic) Dyslipidemia (Chronic) Hemochromatosis (Chronic) Hx of CABG (Chronic) 1995 History of pulmonary embolism (Chronic) History of coronary artery stent placement (Chronic) Idiopathic pulmonary fibrosis (Chronic) Chronic respiratory failure with hypoxia (Chronic) Surgical History: coronary bypass surgery, - - IVC filter placement Psychiatric History: No pertinent psych hx - *Family History Maternal History Items: Diabetes, Heart Disease Paternal History Items: Diabetes, Heart Disease Lives: Spouse/ Significant Other Smoking Status: Former smoker Tobacco Use: Non-smoker Alcohol: None Drugs: None Review of Systems - Review of Systems General: Denies: Fever, Night Sweats, Fatigue Cardiovascular: Reports: Chest Heaviness, Shortness of Breath, Shortness of Breath with Exertion, Lightheadedness. Denies: Chest Discomfort, Orthopnea, PND, Peripheral Edema, Palpitations, Dizziness, Near Syncope, Syncope Respiratory: Denies: Cough, Sputum Production, Hemoptysis Gastrointestinal: Denies: Hematemesis, Hematochezia, Melena Genitourinary: Denies: Dysuria, Hematuria Skin: Denies: Rash Subjectve: Patient resting comfortable, no acute distress. Objective: Vital Signs Temp Pulse Resp BP Pulse Ox 97.8 F 64 18 120/79 100 04/24/19 10:50 04/24/19 11:02 04/24/19 10:50 04/24/19 10:50 04/24/19 10:50 Oxygen Flow Rate (L/min) 2.5 Oxygen Delivery Method Nasal Cannula Weight: 206 lb 12.697 oz Body Mass Index (BMI) 33.3 General: Awake, Alert, Oriented x 3 HEENT: PERRL, EOMI, Sclera Non Icteric Neck: Supple, Good ROM, No Lymph Node Enlargement Lungs: Rhonchi Cardiovascular: Regular Rhythm, Normal S1, Normal S2, No Murmurs, No Rubs, No Gallops Vascular: No Carotid Bruits, Normal Femoral Pulses, Normal Radial Pulses, Normal Dorsalis Pedal Pulse, Normal Posterior Tibial Pulses Abdomen: Bowel Sounds Present, Soft, Non Tender, No HSM, No Organomegaly Extremities: No Cyanosis, No Clubbing, No edema Neurological: No Focal Motor or Sensory Deficit 04/24/19 08:49: WBC 12.0 H, RBC 4.30 L, Hgb 10.6 L, Hct 35.2 L, MCV 81.9, MCH 24.7 L, MCHC 30.1 L, Plt Count 327, MPV 9.6, Immature Gran % (Auto) 0.300, Neut % (Auto) 67.7, Lymph % (Auto) 19.2, Day % (Auto) 7.9, Eos % (Auto) 4.1, Baso % (Auto) 0.8, Absolute Neuts (auto) 8.1 H, Nucleated RBC % 0 04/24/19 08:49: Sodium 139, Potassium 4.1, Chloride 106, Carbon Dioxide 29.0, Anion Gap 4 L, BUN 15, Creatinine 0.97, Est GFR (MDRD) Af Amer 97, Est GFR (MDRD) Non-Af 80, BUN/Creatinine Ratio 15.4, Glucose 91, Calcium 8.6, Troponin I < 0.015 04/24/19 08:49: PT 27.6 H, INR 2.6, APTT 44.7 H 04/24/19 11:55: Troponin I < 0.015 04/24/19 14:40: Troponin I < 0.015 Rhythm: EKG: ECHO: Stress Test: Cardiac Cath: PCI: CT Surgery: Holter monitor: EPS: PPM: CXR: Chest CT Scan: Assessment/Plan 1. Coronary artery disease: The patient presents with substernal chest pressure, diaphoresis, shortness of breath and dizziness, which may be anginal equivalents. He has had an extensive cardiac work-up done in December 2018 which was essentially negative. His EF was hyperdynamic at 70%, and his nuclear stress test was negative for inducible ischemia. Patient has a known history of coronary artery disease status post single-vessel bypass surgery, followed by stenting in 2005 and 2008 at the [facility]. The patient used to see Dr. Griffith and I have requested records to be sent to us from his office to identify his coronary anatomy and previous stenting. Patient's INR is 2.6 today. His troponins are negative x2. I believe the patient would benefit for a relook of his coronary anatomy to assess his possible coronary source of his symptoms. In anticipation of his catheterization I would recommend he undergo loading with Plavix 3 to milligrams x1 now followed by 75 mg a day. Once his INR is less than 1.6, we will proceed with left heart catheterization. Patient does not appear to be in atrial fibrillation but does have a history of DVT and pulmonary embolism for which he has a DVT filter. Would not recommend right heart catheterization at this time. I would recommend initiation of Lovenox 1 mg/kg subcu twice daily once his INR drops below 2.0. We will hold his Lovenox on the day of his catheterization. I would not recommend vitamin K at this time as this may induce a hypercoagulable situation given his history of DVT and pulmonary embolism. The risks/benefits of the procedure were thoroughly explained the patient and his , with specific attention to lack of on-site surgical back-up, the patient agrees to proceed. The meantime will continue his baby aspirin, nitroglycerin paste, and verapamil. Would not recommend beta-blockers given his reactive airway disease and idiopathic pulmonary fibrosis. 2. Hyperlipidemia: Recommend obtaining a fasting lipid profile. His LDL should be less than 70. Would recommend starting Lipitor 40 mg p.o. nightly given his history of coronary disease. I am not sure why he is not on a statin. 3. Thank you very much for the opportunity to participate in the cardiac care of your patient. Consultation time took place between 230 and 3 PM. Code Visit Inpatient E&M: 43044 Init Hosp L2
[2019-04-24 16:11] LABS: Cholesterol 186 mg/dL (200); High Density Lipoprotein 36 mg/dL; Triglycerides 150 mg/dL; Very Low Density Lipoprotein 30 mg/dL (5-40)
[2019-04-24] MEDS: Clopidogrel Bisulfate 300 MG Tablet PO (16:39)
[2019-04-24 17:54] LABS: Ferritin 9 ng/mL (26-388); Iron 14 ug/dL (65-175); Iron Binding Capacity,Total 238 ug/dL (250-450); PERCENT IRON SATURATION 5.9 % (15.0-55.0)
[2019-04-24 18:13] LABS: BNP,B-Type NATRIURETIC PEPTIDE 39.2 pg/mL (0-100)
[2019-04-24] MEDS: Ipratropium/Albuterol Sulfate 3 ML AMPUL.NEB INHALATION (20:30)
[2019-04-25] VITALS (10 sets, daily range): BP systolic 115–141; BP diastolic 69–80; PULSE 58–78; RESP 12–20; TEMP 36.5–36.8; O2SAT 93–98
[2019-04-25] MEDS: Acetaminophen 325 MG Tablet 650 MG PO (00:12)
[2019-04-25 05:34] LABS: International Normalized Ratio 2.6; Prothrombin Time (Protime)PT. 28.3 SECONDS (11.7-14.9)
[2019-04-25] MEDS: Ipratropium/Albuterol Sulfate 3 ML AMPUL.NEB INHALATION (07:10)
--- NOTE | 2019-04-25 07:27 | PCM.PROGNOTE ---
Patient Problems: Active and Suspected Problems (Last Updated 03/12/19 @ 13:30 by Tre Junior, FACTORY REPRESENTATIVE, BUFFING AND POLISHING WHEEL REPAIRER, BS) Unstable angina (Acute) Subjective: 73-year-old male with a past medical history of coronary artery disease with single-vessel CABG in 1995 and stents in 2005 in 2008, severe pulmonary fibrosis, chronic respiratory failure with hypoxia, former smoking history, hypertension, DVT and pulmonary emboli, IVC filter placement, hyperlipidemia, hemochromatosis, obesity and chronic anticoagulation with warfarin admitted to [facility] on 04/24/2019 complaining of chest pain associated with shortness of breath, lightheadedness and diaphoresis. Seen by Dr. Almonte and cath is planned when the INR is less than 1.6. Coumadin is on hold. All events of the past 24 hours been reviewed. Afebrile, vital signs stable, 98% on a 2 L nasal cannula currently. INR is still 2.6 today and Coumadin is on hold. Serum iron is low at 14 and the TIBC is 238. Iron saturation is low at 5.9 and the ferritin is very low at 9. LDL is 120 and the HDL is 36 and patient has an intolerance of statins due to joint pain. Chest x-ray at admission showed increasing pulmonary fibrosis, especially in the left lung and right base. BNP was 39. Echocardiogram in December 2018 showed an ejection fraction of 70% with mild left atrial enlargement and no significant valvular heart disease. He is currently on a prednisone taper.....has been on Prednisone for 10 years and states that his breathing is worse and he has less energy since the steroids have been tapered. It is being tapered fairly rapidly....He was to go from 5 mg a day to 5 mg every 48 H X 5 days and then he was to DC. Too fast. - Physical Exam General: Alert, Oriented x3, Cooperative, No apparent distress, Well developed, Well nourished HEENT: PERRLA Oral: Moist Mucosa Neck: No Nodes, Trachea Midline Lungs: Rales - coarse rales posteriorly in both lungs about 1/2 way up - no wheezes., - - Not tachypnea, no conversational dyspnea, no accessory muscle use, symmetric chest expansion Cardiovascular: Regular rate, Regular Rhythm, Normal S1, Normal S2, No Gallop Abdomen: Bowel Sounds Present, Soft, Non Tender, Non-Distended Extremities: No edema Skin: No rashes, No breakdown Neurological: Cranial nerves II-XII grossly intact, Neuro grossly intact Vital Signs Temp Pulse Resp BP Pulse Ox 98.3 F 58 L 18 141/71 H 98 04/25/19 04:00 04/25/19 04:00 04/25/19 04:00 04/25/19 04:00 04/25/19 04:00 Oxygen Flow Rate (L/min) 2 Oxygen Delivery Method Nasal Cannula Weight: 206 lb 12.697 oz Body Mass Index (BMI) 33.3 Intake and Output for Last 24 Hours 04/23/19 04/24/19 04/25/19 23:59 23:59 23:59 Intake Total 570 / 570 120 / 120 Balance 570 / 570 120 / 120 Laboratory Tests Past 24 Hrs 04/24/19 04/24/19 04/24/19 08:49 08:49 08:49 WBC 12.0 H RBC 4.30 L Hgb 10.6 L Hct 35.2 L MCV 81.9 MCH 24.7 L MCHC 30.1 L RDW Std Deviation 54.4 H RDW Coeff of Rossy 18.2 H Plt Count 327 MPV 9.6 Immature Gran % (Auto) 0.300 Neut % (Auto) 67.7 Lymph % (Auto) 19.2 [place] % (Auto) 7.9 Eos % (Auto) 4.1 Baso % (Auto) 0.8 Absolute Neuts (auto) 8.1 H Absolute Lymphs (auto) 2.30 Nucleated RBC % 0 PT 27.6 H INR 2.6 APTT 44.7 H Sodium 139 Potassium 4.1 Chloride 106 Carbon Dioxide 29.0 Anion Gap 4 L BUN 15 Creatinine 0.97 Estim Creat Clear Calc 61.21 Est GFR (MDRD) Af Amer 97 Est GFR (MDRD) Non-Af 80 BUN/Creatinine Ratio 15.4 Glucose 91 Calcium 8.6 Iron TIBC Iron Saturation Ferritin Troponin I < 0.015 B-Natriuretic Peptide Triglycerides Cholesterol LDL Cholesterol VLDL Cholesterol HDL Cholesterol 04/24/19 04/24/19 04/24/19 08:49 11:55 14:40 WBC RBC Hgb Hct MCV MCH MCHC RDW Std Deviation RDW Coeff of Rossy Plt Count MPV Immature Gran % (Auto) Neut % (Auto) Lymph % (Auto) [place] % (Auto) Eos % (Auto) Baso % (Auto) Absolute Neuts (auto) Absolute Lymphs (auto) Nucleated RBC % PT INR APTT Sodium Potassium Chloride Carbon Dioxide Anion Gap BUN Creatinine Estim Creat Clear Calc Est GFR (MDRD) Af Amer Est GFR (MDRD) Non-Af BUN/Creatinine Ratio Glucose Calcium Iron TIBC Iron Saturation Ferritin Troponin I < 0.015 < 0.015 B-Natriuretic Peptide 39.2 Triglycerides Cholesterol LDL Cholesterol VLDL Cholesterol HDL Cholesterol 04/24/19 04/24/19 04/25/19 14:40 14:40 05:10 WBC RBC Hgb Hct MCV MCH MCHC RDW Std Deviation RDW Coeff of Rossy Plt Count MPV Immature Gran % (Auto) Neut % (Auto) Lymph % (Auto) [place] % (Auto) Eos % (Auto) Baso % (Auto) Absolute Neuts (auto) Absolute Lymphs (auto) Nucleated RBC % PT 28.3 H INR 2.6 APTT Sodium Potassium Chloride Carbon Dioxide Anion Gap BUN Creatinine Estim Creat Clear Calc Est GFR (MDRD) Af Amer Est GFR (MDRD) Non-Af BUN/Creatinine Ratio Glucose Calcium Iron 14 L TIBC 238 L Iron Saturation 5.9 L Ferritin 9 L Troponin I B-Natriuretic Peptide Triglycerides 150 Cholesterol 186 LDL Cholesterol 120 VLDL Cholesterol 30 HDL Cholesterol 36 L Medical Necessity - Tobacco Use Smoking Status: Former smoker Tobacco Use: Non-smoker Assessment/Plan All Active Problems (Last Updated 03/12/19 @ 13:30 by Tre Junior, FACTORY REPRESENTATIVE, BUFFING AND POLISHING WHEEL REPAIRER, BS) Acute hypoxemic respiratory failure (Ruled-out) Chest pain (Acute) Supratherapeutic INR (Acute) Acute respiratory insufficiency (Acute) Unstable angina (Acute) Impressions 1. Chest pain/unstable angina with deep breathing associated with lightheadedness, diaphoresis and exertion....the Chest pain also happens at rest with deep breathing and it is stabbing. Therapeutic on Warfarin. Negative stress test in January 2019. Seen by Dr. Almonte who will perform cardiac catheterization and the INR is 1.6 or less. If the cath is negative then more likely than not the pain is related to pulmonary fibrosis. 2. Idiopathic pulmonary fibrosis-follows with Dr. Anaya 3. History of coronary artery disease with CABG in 1995 4. Hemochromatosis - follows with Dr. Ragsdale. Has been getting phlebotomy about every 2 months but, recently has been anemic and the ferritin is only 9 with a serum iron of 14 and an iron saturation of 5.9%. 5. Hyperlipidemia-intolerant of statins due to joint pains. Started on Lopid 600 mg twice daily by Dr. Almonte. 6. Hypertension 7. Chronic anticoagulation with warfarin with history of DVT/PE 8. Presence of IVC filter 9. Atrial fibrillation OFEV is on hold due to the side effect of thrombosis High-resolution CT chest.....the Left lung appears to have increased scarring since his last admission Recheck PT/INR in the a.m. and if the INR is 1.6 or less we will proceed with cardiac catheterization Continue prednisone at 5 mg daily with no further taper......I feel the steroids are being tapered to quickly. Will check a cortisol in the AM and if it is low he will need a Cortrosyn stim test to see if the adrenal gland is able to adequately respond.....has been on steroids for 10 years CODE STATUS: Discussed code status at length with Mr. Goldberg and his including the difference between FULL CODE, DNR CCA and DNR CC status. All questions were answered. An order for full code was entered into the computer. A total of 20 minutes face to face time was devoted to advanced care planning. Code Visit Inpatient E&M: 29234 Subs Hosp L2 Procedures: 46604 Advncd Care Plan 30 Min
--- NOTE | 2019-04-25 08:27 | PN.CARD_ITS ---
Subjectve: Patient doing well this morning did have an episode of substernal chest pain last evening. INR is 2.6 today. Telemetry showed normal sinus rhythm, no ventricular ectopy. Objective: Vital Signs Temp Pulse Resp BP Pulse Ox 98.3 F 61 12 141/71 H 93 04/25/19 04:00 04/25/19 07:10 04/25/19 07:10 04/25/19 04:00 04/25/19 07:10 Oxygen Flow Rate (L/min) 2 Oxygen Delivery Method Nasal Cannula Weight: 206 lb 12.697 oz Body Mass Index (BMI) 33.3 Intake and Output for Last 24 Hours 04/23/19 04/24/19 04/25/19 23:59 23:59 23:59 Intake Total 570 / 570 120 / 120 Balance 570 / 570 120 / 120 General: Awake, Alert, Oriented x 3 HEENT: PERRL, EOMI, Sclera Non Icteric Neck: Supple, Good ROM, No Lymph Node Enlargement Lungs: Clear to auscultation Cardiovascular: Regular Rhythm, Normal S1, Normal S2, No Murmurs, No Rubs, No Gallops Vascular: No Carotid Bruits, Normal Femoral Pulses, Normal Radial Pulses, Normal Dorsalis Pedal Pulse, Normal Posterior Tibial Pulses Abdomen: Bowel Sounds Present, Soft, Non Tender, No HSM, No Organomegaly Extremities: No Cyanosis, No Clubbing, No edema Neurological: No Focal Motor or Sensory Deficit 04/24/19 08:49: WBC 12.0 H, RBC 4.30 L, Hgb 10.6 L, Hct 35.2 L, MCV 81.9, MCH 24.7 L, MCHC 30.1 L, Plt Count 327, MPV 9.6, Immature Gran % (Auto) 0.300, Neut % (Auto) 67.7, Lymph % (Auto) 19.2, [place] % (Auto) 7.9, Eos % (Auto) 4.1, Baso % (Auto) 0.8, Absolute Neuts (auto) 8.1 H, Nucleated RBC % 0 04/24/19 08:49: Sodium 139, Potassium 4.1, Chloride 106, Carbon Dioxide 29.0, Anion Gap 4 L, BUN 15, Creatinine 0.97, Est GFR (MDRD) Af Amer 97, Est GFR (MDRD) Non-Af 80, BUN/Creatinine Ratio 15.4, Glucose 91, Calcium 8.6, Troponin I < 0.015 04/24/19 08:49: PT 27.6 H, INR 2.6, APTT 44.7 H 04/24/19 08:49: B-Natriuretic Peptide 39.2 04/24/19 11:55: Troponin I < 0.015 04/24/19 14:40: Troponin I < 0.015 04/24/19 14:40: Triglycerides 150, Cholesterol 186, LDL Cholesterol 120, VLDL Cholesterol 30, HDL Cholesterol 36 L 04/24/19 14:40: Iron 14 L, TIBC 238 L, Iron Saturation 5.9 L, Ferritin 9 L 04/25/19 05:10: PT 28.3 H, INR 2.6 Rhythm: EKG: ECHO: Stress Test: Cardiac Cath: PCI: CT Surgery: Holter monitor: EPS: PPM: CXR: Chest CT Scan: Medical Necessity - Tobacco Use Smoking Status: Former smoker Tobacco Use: Non-smoker Assessment/Plan 1. Coronary artery disease: The patient presents with substernal chest pressure, diaphoresis, shortness of breath and dizziness, which may be anginal equivalents. He has had an extensive cardiac work-up done in December 2018 which was essentially negative. His EF was hyperdynamic at 70%, and his nuclear stress test was negative for inducible ischemia. Patient has a known history of coronary artery disease status post single-vessel bypass surgery, followed by stenting in 2005 and 2008 at the [facility]. The patient used to see Dr. Griffith and I have requested records to be sent to us from his office to identify his coronary anatomy and previous stenting. Patient's INR is 2.6 today. His troponins are negative x2. I believe the patient would benefit for a relook of his coronary anatomy to assess his possible coronary source of his symptoms. In anticipation of his catheterization I would recommend he undergo loading with Plavix 3 to milligrams x1 now followed by 75 mg a day. Once his INR is less than 1.8, we will proceed with left heart catheterization. Patient does not appear to be in atrial fibrillation but does have a history of DVT and pulmonary embolism for which he has a DVT filter. Would not recommend right heart catheterization at this time. I would recommend initiation of Lovenox 1 mg/kg subcu twice daily once his INR drops below 2.0. We will hold his Lovenox on the day of his catheterization. Commend the patient receive vitamin K 2.5 mg p.o. x1 now in order to reduce his INR for tomorrow's catheterization. The risks/benefits of the procedure were thoroughly explained the patient and his , with specific attention to lack of on-site surgical back-up, the patient agrees to proceed. The meantime will continue his baby aspirin, nitroglycerin paste, and verapamil. Would not recommend beta-blockers given his reactive airway disease and idiopathic pulmonary fibrosis. 2. Hyperlipidemia: Recommend obtaining a fasting lipid profile. His LDL should be less than 70. Patient apparently has side effects to statins. His LDL and his fasting lipid profile was 120. Recommend starting gemfibrozil 600 mrem p.o. twice daily and repeating lipid profile in 6 weeks time. 3. Thank you very much for the opportunity to participate in the cardiac care of your patient. Plan for left heart catheterization tomorrow morning if INR is less than 1.8. Code Visit Inpatient E&M: 82540 Subs Hosp L2
[2019-04-25] MEDS: Phytonadione (Vit K) 10 MG/ML Ampul 2.5 MG PO (09:31)
[2019-04-25] MEDS: Aspirin 81 MG TAB.CHEW PO (09:32)
[2019-04-25] MEDS: Multivitamins,Ther W-Minerals Tablet 1 TABLET PO (09:32)
[2019-04-25] MEDS: predniSONE 5 MG Tablet PO (09:33)
[2019-04-25] MEDS: Verapamil SR 180 MG CAPSULE PO (09:33)
[2019-04-25] MEDS: Magnesium Oxide 400 MG Tablet PO (09:35)
[2019-04-25 09:36] LABS: International Normalized Ratio 2.7; Prothrombin Time (Protime)PT. 28.6 SECONDS (11.7-14.9)
[2019-04-25] MEDS: Pantoprazole Sodium 40 MG Tablet PO (09:36)
[2019-04-25] MEDS: Ascorbic Acid 500 MG Tablet PO (09:36)
[2019-04-25] MEDS: Clopidogrel Bisulfate 75 MG Tablet PO (09:40)
--- NOTE | 2019-04-25 10:09 | CASEMGMT ---
According to the [facility] website, the following are in-network tertiary facilities: [facility], [facility], [facility], [facility], [facility], [facility], [facility], [facility], and . Annabel MILTON CM
--- NOTE | 2019-04-25 15:35 | CT_ITS ---
STUDY: CT CHEST WITHOUT CONTRAST REASON FOR EXAM: Male, 73 years old. High-resolution chest RADIATION DOSAGE (If Supplied By Facility): DLP = ( 717.72 ) mGycm TECHNIQUE: Transaxial imaging was performed without the administration of intravenous contrast material. Coronal and sagittal reformatted images were created. Individualized dose optimization techniques were used for this CT. COMPARISON: CT chest MayApril 06, 2017 FINDINGS: There are groundglass opacities and increased interstitial markings in the lung peripheries bilaterally, increased since the comparison evaluation. There is mild bronchiectasis most prominent in the bilateral lower lobes. Coronary artery calcifications are present. The heart is normal in size. There is no pericardial effusion. There is mild mediastinal lymphadenopathy. A pretracheal node measures 1.3 cm in short axis. A subcarinal node measures 1.1 cm in short axis. There is no evidence of thoracic aortic aneurysm. There is increased diameter of the main pulmonary artery which measures 4.8 cm in diameter. Images through the upper abdomen demonstrate no significant abnormality. There are no destructive osseous lesions. There is a midthoracic vertebral body compression fracture of indeterminate age. CT/Chest without Contrast IMPRESSION: Peripheral groundglass opacities and increased interstitial markings bilaterally, increased since the comparison evaluation, as well as predominantly bilateral lower lobe bronchiectasis. Findings suggest interstitial lung disease. Clinical correlation is suggested. Mild mediastinal lymphadenopathy, nonspecific. Increased diameter of the main pulmonary artery suggesting pulmonary arterial hypertension. Coronary artery calcifications. Midthoracic vertebral body compression fracture of indeterminate age. Electronically Signed: Tom Sabrina, at 16:45 EDT Tel , Service support ,
--- NOTE | 2019-04-25 15:35 | CASEMGMT ---
Intro role of CM to patient and PARK form explained re: Observation status for treatment of chest pain, shortness of breath. Explained hospitalization will be paid per? insurance policy for Outpatient billing?and condition will continue to be evaluated for Inpt necessity. Also let pt know that [facility] sends paper in the billing packet with their phone number if questions arise. Discussed Pharmacy section of PARK form and self administered medication guideline.? Pt verbalizes understanding and does not have further questions. Form signed and placed in chart, copy to pt. JULIAN MILTON BSN CM
[2019-04-25] MEDS: Gemfibrozil 600 MG Tablet PO (16:45)
[2019-04-26] VITALS (13 sets, daily range): BP systolic 121–175; BP diastolic 55–88; PULSE 59–73; RESP 12–20; TEMP 36.5–36.8; O2SAT 94–100
--- NOTE | 2019-04-26 05:00 | EKG12_ITS ---
Test Reason : AM EKG Blood Pressure : / mmHG Vent. Rate : 071 BPM Atrial Rate : 071 BPM P-R Int : 160 ms QRS Dur : 090 ms QT Int : 408 ms P-R-T Axes : 011 026 038 degrees QTc Int : 443 ms Normal sinus rhythm Normal ECG When compared with ECG of 24-APR-2019 10:42, No significant change was found Confirmed by PIERRE BLACKMON, RANJEET ([id number]), assistant production editor BLAYNE BRICE ([id number]) on 04/30/2019 1:50:54 PM Referred By: TATIANA Confirmed By:NATALIIA JAY MD
[2019-04-26 05:51] LABS: International Normalized Ratio 1.6; Prothrombin Time (Protime)PT. 18.6 SECONDS (11.7-14.9)
[2019-04-26] MEDS: Aspirin 81 MG TAB.CHEW PO (06:30)
[2019-04-26] MEDS: Clopidogrel Bisulfate 75 MG Tablet PO (06:31)
[2019-04-26] MEDS: Verapamil SR 180 MG CAPSULE PO (06:31)
[2019-04-26] MEDS: 0.9% Normal Saline 1,000 ML 15 ML IV (06:32)
[2019-04-26] MEDS: DiphenhydrAMINE 25 MG Capsule 50 MG PO (07:04)
--- NOTE | 2019-04-26 07:26 | CON.PCM_ITS ---
Problem List (1) Hemochromatosis Status: Chronic Qualifiers: Hemochromatosis type: hereditary Qualified Code(s): E83.110 - Hereditary hemochromatosis - Consult Date of Consult: 04/26/[address] Faustin regarding patient known to me with hereditary hemochromatosis receiving therapeutic phlebotomy with iron deficiency. Final recommendation will be communicated by electronic medical records. - Reason for Consult Iron deficiency anemia Hereditary hemochromatosis History of Present Illness Date of Admission: 04/24/19 Chief Complaint: chest pain / SOB The patient is a 73 year old M with past medical history as above most notably for CAD with prior CABG, pulmonary fibrosis, chronic respiratory failure, hereditary hemochromatosis who presented emergency room yesterday with unstable angina. The patient was using the exercise machine and with exertion became more more short of breath. He had associated lightheadedness. He was taken to the emergency room and developed chest pain while there. He describes this as a 2-3 out of 10 left sternal border squeezing. He has no radiation into the back neck or arm. He is also recently been started on immunologic therapy for pulmonary fibrosis. He has a history of hereditary hemochromatosis receiving therapeutic phlebotomy in my office. Last phlebotomy was in the spring, had phlebotomy every 3 to 6- months with a hematocrit greater than 36%. His last ferritin level was < 50, and no evidence of liver function abnormality. Except for mild fatigue, he had no other symptoms of anemia. He also takes Coumadin for pulmonary embolism. Past Medical History Past Medical History (Chronic Problems): Chronic Problems (Last Updated 03/12/19 @ 13:30 by Tre Junior, BLANK, PULMONARY FUNCTION TECHNOLOGIST, BS) On anticoagulant therapy (Chronic) Benign essential hypertension (Chronic) History of DVT of lower extremity (Chronic) Dyslipidemia (Chronic) Hemochromatosis (Chronic) Hx of CABG (Chronic) 1995 History of pulmonary embolism (Chronic) History of coronary artery stent placement (Chronic) Idiopathic pulmonary fibrosis (Chronic) Chronic respiratory failure with hypoxia (Chronic) Medical History: Medical History (Last Updated 03/12/19 @ 13:30 by Tre Junior, BLANK, PULMONARY FUNCTION TECHNOLOGIST, BS) Idiopathic pulmonary fibrosis J84.112 Lower back pain M54.5 Lumbar arthropathy M47.816 Allergies Penicillins Allergy (Verified 04/24/19 08:38) Hives celecoxib [From Celebrex] Adverse Reaction (Verified 04/24/19 08:38) Chest tightness nitroglycerin [From Nitrostat] Adverse Reaction (Verified 04/24/19 08:38) severe migraine Home Medications: Ambulatory Orders Medication Instructions Recorded Prednisone 5 mg PO DAILY 04/06/17 Ascorbic Acid 500 mg PO DAILY 11/19/18 Aspirin [Aspirin, Baby] 81 mg PO DAILY@0800 11/19/18 Benzonatate 100 mg PO DAILY PRN 11/19/18 Fish Oil/Borage/Flax/Om3,6,9 1 1,200 mg PO DAILY 11/19/18 [[place] 3-6-9 1,200 mg Softgel] Flaxseed Oil 1,000 mg PO DAILY 11/19/18 Multivitamin with Minerals 1 tab PO DAILY 11/19/18 [Multiple Vitamin] Pantoprazole Sodium [Protonix] 40 mg PO DAILY 11/19/18 Verapamil HCl [Verapamil ER] 180 mg PO DAILY 11/19/18 Magnesium 250 mg PO DAILY 12/30/18 Nitroglycerin 0.4 mg SL PRN PRN 12/30/18 Nintedanib Esylate [Ofev] 150 mg PO BID 04/24/19 Warfarin [Coumadin ([facility])] 7.5 mg PO SUWETHFRSA 04/24/19 Warfarin [Coumadin] 10 mg PO MOTU 04/24/19 Surgical History: coronary bypass surgery, - - IVC filter placement Psychiatric History: No pertinent psych hx Lives: Spouse/ Significant Other Smoking Status: Former smoker Tobacco Use: Non-smoker Alcohol: None Drugs: None - *Family History Maternal History Items: Diabetes, Heart Disease Paternal History Items: Diabetes, Heart Disease Review of Systems Constitutional: Denies: Chills, Fever, Weight Change HEENT: Denies: Head Aches, Sinus Congestion, Sinus Drainage Cardiovascular: Reports: Chest Pain, Chest Tightness, Light Headedness. Denies: Edema, Palpitations, Syncope Respiratory: Reports: Shortness of Breath, Shortness of breath at rest, Shortness of breath upon exertion. Denies: Cough, Sputum production Gastrointestinal: Denies: Abdominal Pain, Nausea, Vomiting Genitourinary: Denies: Dysuria Musculoskeletal: Denies: Joint Pain, Joint Tenderness Skin: Denies: Rash, Wounds Neurological: Denies: Numbness, Tingling, Focal weakness Psychiatric: Denies: Anxiety, Depression, Homicidal Ideations, Suicidal Ideations Hematologic/ Lymphatic: Denies: Easy Bruising, Easy Bleeding VTE Information - Inpt Only VTE Present on Admission: No VTE Mechan Device Prophylaxis: None VTE Pharm Prophylaxis ordered?: Yes Patient Problems: Active and Suspected Problems (Last Updated 03/12/19 @ 13:30 by Tre Junior, JIGSAWYER, PULMONARY FUNCTION TECHNOLOGIST, BS) Unstable angina (Acute) - Physical Exam General: Alert, Oriented x3, Cooperative HEENT: Atraumatic, PERRLA, EOMI, Normocephalic Neck: Supple, No JVD, Negative Carotid Bruits Lungs: Normal air movement, Rales Cardiovascular: Regular rate, No murmurs Abdomen: Bowel Sounds Present, Soft, Non Tender Extremities: Capillary Refill Less than 3 Seconds, Edema - Trace Skin: No rashes, No breakdown Musculoskeletal: No Tenderness to Palpation of Joints or Extremities Neurological: Cranial nerves II-XII grossly intact Psych/Mental Status: Normal Affect, Appropriate, Alert and oriented to time, place, person, mood and affect Vital Signs Temp Pulse Resp BP Pulse Ox 98 F 65 22 H 124/89 H 100 04/24/19 08:36 04/24/19 09:55 04/24/19 09:55 04/24/19 09:55 04/24/19 10:45 Oxygen Flow Rate (L/min) 2.5 Oxygen Delivery Method Nasal Cannula Weight: 206 lb 12.697 oz Body Mass Index (BMI) 33.3 Laboratory Tests Past 24 Hrs 04/24/19 04/24/19 04/24/19 08:49 08:49 08:49 WBC 12.0 H RBC 4.30 L Hgb 10.6 L Hct 35.2 L MCV 81.9 MCH 24.7 L MCHC 30.1 L RDW Std Deviation 54.4 H RDW Coeff of Rossy 18.2 H Plt Count 327 MPV 9.6 Immature Gran % (Auto) 0.300 Neut % (Auto) 67.7 Lymph % (Auto) 19.2 [place] % (Auto) 7.9 Eos % (Auto) 4.1 Baso % (Auto) 0.8 Absolute Neuts (auto) 8.1 H Absolute Lymphs (auto) 2.30 Nucleated RBC % 0 PT 27.6 H INR 2.6 APTT 44.7 H Sodium 139 Potassium 4.1 Chloride 106 Carbon Dioxide 29.0 Anion Gap 4 L BUN 15 Creatinine 0.97 Estim Creat Clear Calc 61.21 Est GFR (MDRD) Af Amer 97 Est GFR (MDRD) Non-Af 80 BUN/Creatinine Ratio 15.4 Glucose 91 Calcium 8.6 Troponin I < 0.015 Assessment/Plan All Active Problems 1) unstable angina -currently having cardiac catheterization for early evaluation by cardiology 2) permanent fibrosis and history of pulmonary embolism -continue warfarin and follow-up with pulmonary rehab. 3) hereditary hemochromatosis -stable; iron deficiency anemia secondary to therapeutic phlebotomy/ -His hemoglobin hematocrit has not changed significantly in the last 6 months. -Chest pain and shortness of breath unrelated to anemia. -He had recent GI work-up for anemia including colonoscopy in the last 5-year. Recommendations: 1) continue folic acid and Protonix daily. 2) we will hold his phlebotomy for the next 6 months. 3) resume phlebotomy next year for hematocrit > 38% 4) repeat liver function, iron study and AFP as an outpatient next year. cc: Isaias Jacinto MD; Maria Mccoy MD; Amber Faustin MD; Andrea Almonte MD.
--- NOTE | 2019-04-26 08:40 | NURSING ---
Report called to Sylvia SECOND OFFICER.
[2019-04-26 08:46] LABS: ACT Activated Clotting Time 213 sec (74-137)
--- NOTE | 2019-04-26 08:50 | CL.D_ITS ---
Patient Name: GRUPO TAM Study Date: 04/26/2019 Performing: Andrea Almonte MD Ht: 66.14 inches 168 cm : 1945 Wt: 207.23 lbs 94 kg Age: 73 Gender: male BSA: 2.03 PROCEDURE(S) PERFORMED OM88-NOG/COR/LV/CABG DC11-AO ROOT ANGIO WITH HEART CATH AT49-FSO, CORONARY OR GRAFT, INITIAL VESSEL CLINICAL PROFILE AND INDICATIONS Indications: Worsening Angina, Stable Known CAD Heart Failure: None Stress/Imaging Stress Test w/SPECT MPI: Yes Result: NegativeStress Test with SPECT MPI: Negative Angina Classification Anginal Classification w/in 2 Weeks: CCS IV Comorbidities/Risk Factors: Hypertension Dyslipidemia Prior PCI Prior CABG Chronic Lung Disease CONCLUSIONS Normal Left Ventricular systolic function LVEF: by LV gram 65 % Normal Left Ventricular End Diastolic Pressure RECOMMENDATIONS Staged percutaneous intervention vs. Surgical Intervention Risk factor modification ASA Indefinitely Management as per referring Business Sales Consultant Transfer to [facility] for either PCI of LM/LAD/LCX vs redo high risk CABG to LAD and LCX. 6Fr sheath sutured into place DESCRIPTION OF PROCEDURE The patient arrived to the procedure lab. The risks and benefits of the procedure as well as a full d escription of our services here and current unavailability of surgical backup were fully explained to the patient and/or their significant other prior to the catheterization. The Timeout was completed, verifying the correct patient and procedure. The patient's procedural site was prepped and draped in the usual fashion. Local anesthetic was given subcutaneously to right groin region with Lidocaine 2%. Using a modified Seldinger technique, arterial access was obtained via the right femoral artery, a 4 Fr sheath was inserted Left Coronary Artery selective angiography was performed in multiple views us ing a 4 Fr. JL5 catheter. Radial graft to the RCA selective angiography was performed in multiple vie ws using a 4 Fr. 3DRC catheter. Left Ventriculography was performed in ARROYO projection using a 4 Fr. P igtail catheter. LV to AO pullback pressures were then recorded. Ascending (root) aorta selective angiography was then performed in single view. Ascending (root) aorta selective angiography was then performed in single view.The arterial sheath was sutured in place with heparinized normal s brinda under pressure CORONARY ANGIOGRAPHY DOMINANCE: Right Dominant LEFT HEART ASSESSMENT Left Ventricular Ejection Fraction: by LV Gram 65 % Normal LV wall motion Normal Left Ventricular systolic function LEFT MAIN: 75 % Stenosis LEFT ANTERIOR DESCENDING ARTERY: PROX LAD: Moderate luminal irregularities up to 50% MID LAD: Previously placed stent has an instent 30 % restenosis CIRCUMFLEX ARTERY: Mild luminal irregularities less than 30% OM 1: Proximal - Mild luminal irregularities less than 30% RIGHT CORONARY ARTERY: is occluded GRAFTS: Radial graft to the RCA is patent COMPLICATIONS No Complications PROCEDURE MEDICATIONS Oxygen: 3 L/min via nasal cannula Adenosine drip for FFR 25.8 ml IV @ 04/26/2019 08:16:21 Heparin 6000 unit(s) IV 04/26/2019 08:11:02 Nitro 200 mcg IC 04/26/2019 08:12:34 IV Bolus: .9 NaCl 400 ml total 04/26/2019 08:24:47 SUMMARY OF HEMODYNAMIC DATA Time AIR REST ECG 07:23:50 AO 118/58 (81) SA 07:52:50 LV 124/-17, 6 08:05:10 LV 134/-17, 5 08:05:16 LVp 133/-17, 5 08:05:22 AOp 124/51 (76) 08:05:27 RM AIR REST 08:39:26 Signed By Andrea Almonte MD On 04/26/2019 08:49:42 Andrea Almonte MD
[2019-04-26] MEDS: 0.9% Normal Saline 1,000 ML 150 ML IV (09:00)
[2019-04-26] MEDS: Ondansetron 4 MG/2 ML Vial IV (10:15)
[2019-04-26] MEDS: Morphine 2 MG/ML Syringe IV (10:17)
--- NOTE | 2019-04-26 11:12 | DS.PCM_ITS ---
Discharge Date and Diagnosis - Problem List Patient Problems: Active and Suspected Problems (Last Updated 03/12/19 @ 13:30 by Tre Junior CRT, RCP, BS) Unstable angina (Acute) Date of Admission: 04/24/19 Date of Discharge: 04/26/19 - Primary Discharge Diagnosis Active and Suspected Problems (Last Updated 03/12/19 @ 13:30 by Tre Junior CRT, RCP, AMIRAH) Unstable angina (Acute) - Secondary Discharge Diagnosis Chronic Problems (Last Updated 03/12/19 @ 13:30 by Tre Junior CRT, RCP, AMIRAH) On anticoagulant therapy (Chronic) Benign essential hypertension (Chronic) History of DVT of lower extremity (Chronic) Dyslipidemia (Chronic) Hemochromatosis (Chronic) Hx of CABG (Chronic) 1995 History of pulmonary embolism (Chronic) History of coronary artery stent placement (Chronic) Idiopathic pulmonary fibrosis (Chronic) Chronic respiratory failure with hypoxia (Chronic) Hospital Course and Treatment Imaging Results: CXR: IMPRESSION: Progressive infiltration in the left lung and right lower lobe as described. This most likely represents CHF superimposed on chronic interstitial scarring. CT Chest: IMPRESSION: Peripheral groundglass opacities and increased interstitial markings bilaterally, increased since the comparison evaluation, as well as predominantly bilateral lower lobe bronchiectasis. Findings suggest interstitial lung disease. Clinical correlation is suggested. Mild mediastinal lymphadenopathy, nonspecific. Increased diameter of the main pulmonary artery suggesting pulmonary arterial hypertension. Coronary artery calcifications. Midthoracic vertebral body compression fracture of indeterminate age. Cardiac Cath: CORONARY ANGIOGRAPHY DOMINANCE: Right Dominant LEFT HEART ASSESSMENT Left Ventricular Ejection Fraction: by LV Gram 65 % Normal LV wall motion Normal Left Ventricular systolic function LEFT MAIN: 75 % Stenosis LEFT ANTERIOR DESCENDING ARTERY: PROX LAD: Moderate luminal irregularities up to 50% MID LAD: Previously placed stent has an instent 30 % restenosis CIRCUMFLEX ARTERY: Mild luminal irregularities less than 30% OM 1: Proximal - Mild luminal irregularities less than 30% RIGHT CORONARY ARTERY: is occluded GRAFTS: Radial graft to the RCA is patent CONCLUSIONS Normal Left Ventricular systolic function LVEF: by LV gram 65 % Normal Left Ventricular End Diastolic Pressure RECOMMENDATIONS Staged percutaneous intervention vs. Surgical Intervention Risk factor modification ASA Indefinitely Management as per referring Fresh Foods Clerk Transfer to [facility] for either PCI of LM/LAD/LCX vs redo high risk CABG to LAD and LCX. 6Fr sheath sutured into place Operations: None Procedures: Cardiac catheterization Summary of Care Provided: Per HPI: The patient is a 73 year old M with past medical history as above most notably for CAD with prior CABG, pulmonary fibrosis, chronic respiratory failure, who presented to the emergency room with complaints of shortness of breath and chest pain. This began this morning, and became worse when the patient was at pulmonary rehab today. The patient was using the exercise machine and with exertion became more more short of breath. He had associated lightheadedness. When he stopped he did not have any improvement. He has home oxygen and has had to use it more frequently lately. He was taken to the emergency room and developed chest pain while there. He describes this as a 2-3 out of 10 left sternal border squeezing. He has no radiation into the back neck or arm. He did however last week have an episode of left arm pain that radiated all the way down his arm into his fingers. He continues to have ongoing chest pain described as above. The patient currently does not have a kelp cutter, he used to follow with Dr. Griffith. He is also recently been started on immunologic therapy for pulmonary fibrosis. Hospital Course: 1. Unstable angina/CAD status post CABG/HTN/[id number]-lnbk-old male with a history of a prior CABG and stents presented with shortness of breath worse with exertion at pulmonary rehab on the day of admission. All troponins initially were negative, however he underwent a cardiac cath given his previous coronary artery disease, and there was a left main lesion that was concerning for cardiology and they felt that any intervention would be high risk and therefore recommended transfer to [facility]. A kelp cutter at [facility] accepted the patient and he will be transferred there today. Blood pressure has been stable in the 130s to 140s, however he is intolerant of statins secondary to joint pain and is therefore on Lopid. 2. History of DVT/PE/hemochromatosis-he is on Coumadin for his history of DVT and PE and we had to delay the cardiac cath because his INR was therapeutic, he did have his INR today at 1.6 and was able to proceed with the cath. He is to restart his Coumadin when deemed appropriate by [facility]. He has been getting phlebotomy for his hemochromatosis and recently he has been more anemic and his iron saturations have been lower therefore oncology was consulted and recommended that they hold his phlebotomy for the next 6 months and can resume phlebotomy if his hematocrit gets above 38% next year. 3. Idiopathic pulmonary fibrosis-follows with Dr. Anaya at the [facility], he is on 05 which has been held secondary to its side effect of thrombosis given the fact that his Coumadin is being held for possible cardiac intervention. Also he has been on steroids for 10 years and he has been tapered fairly quickly and is been complaining of fatigue and worsening shortness of breath. A cortisol is pending currently to evaluate whether or not this weaning has been too rapid. Patient Problems: Active and Suspected Problems (Last Updated 03/12/19 @ 13:30 by Tre Junior, ASSISTANT MANAGER RETAIL, ABLE SEAMAN, BS) Unstable angina (Acute) - Physical Exam General: Alert, Oriented x3, Cooperative, No apparent distress HEENT: Atraumatic, PERRLA, EOMI, Normocephalic Oral: Moist Mucosa Neck: Supple, No JVD Lungs: Normal air movement, No rhonchi, No wheeze, Rales Cardiovascular: Regular rate, Regular Rhythm, Normal S1, Normal S2, No murmurs Abdomen: Soft, Non Tender, Non-Distended, No Hepato-splenomegaly Extremities: No edema, Capillary Refill Less than 3 Seconds Skin: No rashes, No breakdown, Incision - Dressing from cardiac cath is C/D/I Neurological: Neuro grossly intact, Sensory exam intact to light touch and pain Psych/Mental Status: Normal Affect, Appropriate Vital Signs Temp Pulse Resp BP Pulse Ox 97.7 F L 61 16 136/62 H 99 04/26/19 09:12 04/26/19 11:00 04/26/19 11:00 04/26/19 11:00 04/26/19 11:00 Oxygen Flow Rate (L/min) 2 Oxygen Delivery Method Nasal Cannula Weight: 203 lb 0.732 oz Body Mass Index (BMI) 33.3 Intake and Output for Last 24 Hours 04/24/19 04/25/19 04/26/19 23:59 23:59 23:59 Intake Total 570 / 570 1370 / 1370 0 / 0 Balance 570 / 570 1370 / 1370 0 / 0 Laboratory Tests Past 24 Hrs 04/26/19 04/26/19 04/26/19 05:15 05:15 08:33 PT 18.6 H INR 1.6 Activated Clotting Time 213 H Cortisol 5.90 Home Medications: Medications to take at Discharge Prednisone 5 mg PO DAILY 04/06/17 Ascorbic Acid 500 mg PO DAILY 11/19/18 Aspirin [Aspirin, Baby] 81 mg PO DAILY@0800 11/19/18 Benzonatate 100 mg PO DAILY PRN 11/19/18 Fish Oil/Borage/Flax/Om3,6,9 1 [[place] 3-6-9 1,200 mg Softgel] 1,200 mg PO DAILY 11/19/18 Flaxseed Oil 1,000 mg PO DAILY 11/19/18 Multivitamin with Minerals [Multiple Vitamin] 1 tab PO DAILY 11/19/18 Pantoprazole Sodium [Protonix] 40 mg PO DAILY 11/19/18 Verapamil HCl [Verapamil ER] 180 mg PO DAILY 11/19/18 Magnesium 250 mg PO DAILY 12/30/18 Nitroglycerin 0.4 mg SL PRN PRN 12/30/18 Albuterol Aerosols [Ventolin Aerosols] 2.5 mg INHALATION 4X/DAY 04/24/19 Nintedanib Esylate [Ofev] 150 mg PO BID 04/24/19 Warfarin [Coumadin] 7.5 mg PO SUWETHFRSA 04/24/19 Warfarin [Coumadin] 10 mg PO MOTU 04/24/19 Clopidogrel Bisulfate [Plavix] 75 mg PO DAILY tab 04/26/19 Primary Care Physician: Maria Mccoy MD [Primary Care Provider] - Please follow up with your Primary Care Physician in: 3-5 days Disposition: Acute care Hospital Minutes spent on discharge:: 35 Patient Condition:: Stable Medical Necessity - Tobacco Use Smoking Status: Former smoker Tobacco Use: Non-smoker Meaningful Use Info Meaningful Use Diagnoses (Choose all that apply): None applicable Code Visit Inpatient E&M: 29398 Disch Hosp
== END 2019-04-26 11:15 | disposition short-term general hospital (02) ==
LOC: ED 09:19 → PCU 10:33 → ICU 04-26 08:51
PROVIDERS: Internal Medicine Cardiovascular Disease; Admitting Provider Internal Medicine; Emergency Provider Emergency Medicine; Family Provider Internal Medicine; PCP Internal Medicine; Visit Provider Family Medicine
DX: I25.110 Atherosclerotic heart disease of native coronary artery with unstable angina pectoris (principal); J96.11 Chronic respiratory failure with hypoxia; E78.5 Hyperlipidemia, unspecified; I10 Essential (primary) hypertension; I25.2 Old myocardial infarction; I48.91 Unspecified atrial fibrillation; J84.112 Idiopathic pulmonary fibrosis; E83.110 Hereditary hemochromatosis; I25.82 Chronic total occlusion of coronary artery; T82.855A Stenosis of coronary artery stent, initial encounter; I70.0 Atherosclerosis of aorta; I08.3 Combined rheumatic disorders of mitral, aortic and tricuspid valves; R93.1 Abnormal findings on diagnostic imaging of heart and coronary circulation; Y71.8 Miscellaneous cardiovascular devices associated with adverse incidents, not elsewhere classified; Z79.899 Other long term (current) drug therapy; Z86.718 Personal history of other venous thrombosis and embolism; Z79.01 Long term (current) use of anticoagulants; Z79.52 Long term (current) use of systemic steroids; Z79.82 Long term (current) use of aspirin; Z95.1 Presence of aortocoronary bypass graft; Z87.891 Personal history of nicotine dependence; Z86.711 Personal history of pulmonary embolism
CPT/HCPCS: 36415; 71045; 71250; 80048; 80061; 82533; 82728; 83540; 83550; 83880; 84484; 85025; 85347; 85610; 85730; 93005; 93459; 93567; 93571; 94640; 96374; 96375; 97150; 99218; 99285; J0153; J7030; Q9967; A4216; C1769; C1887; C1894; G0239; G0378; J2405

== ENCOUNTER → 2019-05-09 | Outpatient (CLI) | payer MEDICARE, SELFPAY ==
[2019-04-24 10:37] VITALS: BMI 33.3
--- NOTE | 2019-05-09 12:06 | CR.ITP_ITS ---
General Information - General Information Admitting Diagnosis: PCI w/ coronary stent in the LAD and kink in the coronary vessel. Oxygen: 2 - Education/Goals Barriers to Learning: Hearing Impairment, Vision Impairment Individual Counseling: Initial Assessment: Abnormal Cholesterol Levels, High Blood Pressure, Overweight/Obesity Cardiac Rehabilitation Goals: 1. Maintain the individual as the primary focus of care. 2. To improve the patient's quality of life. 3. Identification of cardiac risk factors and provide cardiac risk factor management. 4. Enhance the psychosocial status of the patient. 5. Reconditioning enough to allow the patient to resume customary activities. 6. Control symptoms of cardiac disease Scale for measuring improvement of personal goals: Enter appropriate number in Comments. 2 = Unchanged. 3 = Slightly Better. 4 = Moderate Improvement. 5 = Met my Goal Personal Goals: Initial Assessment: Improve management of stress and emotions, Improve energy level, Participate in home exercise program, Get back to work, or to resume activities faster, Improve knowledge of cardiac disease, Improve muscle strength and endurance, Improve diet and eating habits (eat healthier), Control risk factors (learn risk factor modification) Exercise - Initial Assessment - Visit Date of Eval: 05/09/19 - Stages of Change Stages of Change:: Action - Physician Prescribed Exercise Modalities: Treadmill, Airdyne, NuStep Frequency (days/week): 3x/week for 12 weeks [36 sessions] Duration (Minutes):: 30-45 Intensity: 60-80% age predicted maximum heart rate reserve - Hypertension Do any of the following apply?: Yes Resting Blood Pressure:: 136/62 - Intervention Home Exercise/Activity Goal:: Sitting Time <3 hrs/day - Education Goals:: Warm-up, RPE ELAINE Scale, S/S, Safe Exercise, Self-Monitoring - Exercise Program Goals Exercise Program Goals: Aerobic Activity >30 min Nutrition - Initial Assessment - Program Goals Nutrition Program Goals: LDL <70. Total Cholesterol <200. HDL >45. Triglycerides <150. HgbA1C <7%. BMI <25 - Visit Date of Assessment:: 05/09/19 - Stages of Change Stages of Change:: Action - Lipids Total Cholesterol (mg/dL) Goal = less than 200 mg/dL: 186 HDL Cholesterol (mg/dL) Goal = less than 45 mg/dL: 36 LDL Cholesterol (mg/dL) Goal = less than 70 mg/dL: 120 Triglycerides (mg/dL) Goal = less than 150 mg/dL: 150 - Diabetes Diabetes:: No Insulin: No Non-Insulin Dependent?: No Do you monitor your blood sugar at home?: No - Weight Management Height: 5 ft 6 in Weight:: 207 lb Weight Goal (kg):: 195 lb - Intervention Referral to dietitian:: Yes - Why Weight Program consult Referral to Diabetic Clinic:: No Will attend diet classes:: Yes - Education Gave educational materials for:: Healthy eating Tobacco - Initial Assessment - Program Goals Tobacco Program Goals: Complete smoking cessation. Attend education classes. Improve Knowledge Test score - Stage of Change Stages of Change:: Action - Learning Barriers Learning Barriers: Hearing, Vision, Ready to Learn - Tobacco Use Tobacco Use: Non-smoker Do you use smokeless tobacco?: No - Intervention Smoking Cessation Referral:: No Individual Education/Counseling:: No Education Schedule Given:: Yes - Education Attended class for:: Treating Heart Disease, How The Heart Works, What it means to have Heart Disease, How Coronary Artery Disease is Diagnosed, Heart Procedures, What Heart Medications Do, Risk Factors & Modifications, Living an Active Life, Nutrition, Emotions & Heart Disease, Stress Management & Relaxation, Sleep Disorders & Heart Disease Psychosocial - Initial Assess - Target Goals Target Goals: Assess presence or absence of depression. Using a valid screening tool, maximizes coping skills. Positive support system - Stages of Change Stages of Change:: Action - Psychosocial Test Tool Used:: HANDS Depression Questionnaire - Intervention PS - Interventions: Yes Attend Stress Management Classes, No Referral to Mental Health, No Referral to [facility] Case Management, No Referral to Physician, No Uses Stress Management Skills - Education Gave educational materials for:: Coping techniques, Signs & symptoms of depression, Stress management, Relaxation techniques - Patient/Program Goal Preventative Medication(s):: Aspirin, ELIDA inhibitor, Clopidogrel, Beta osmin, Statin/lipid - Assistive Devices Assistive Devices:: None Fall Risk Assessed:: Yes Patient Health Questionnaire Initial Assessment 1. Little interest or pleasure in doing things: Several days 2. Feeling down, depressed, or hopeless: Nearly every day 3. Trouble falling or staying asleep, or sleeping too much: Nearly every day 4. Feeling tired or having little energy: Nearly every day 5. Poor appetite or overeating: Not at all 6. Feeling bad about yourself -- or that you are a failure or have let yourself or your family down: Several days 7. Trouble concentrating on things, such as reading the newspaper or watching television: Several days 8. Moving or speaking so slowly that other people could have noticed. Or the opposite - being so fidgety or restless that you have been moving around a lot more than usual: Several days 9. Thoughts that you would be better off , or of hurting yourself in some way: Not at all Total Score: 13 SARINA-Q SV Test - Statements CAD is a disease of the arteries in the heart: False Examples of risk factors for heart disease: True Angina is chest pain or discomfort: True The benefits of resistance training include: True Eating more meat and dairy products: True Anti-platelet medications such as aspirin are important: True The only effective way to manage stress: False An exercise warm-up slowly increases heart rate: False Prepared, processed foods usually have high sodium: True Depression is common after a heart attack: True The statin medications lower cholesterol: True To control blood pressure, lower the amount of sodium: True If someone gets chest discomfort during walking: False Transfats are partially hydrogenated vegetable oils: False Sleep apnea that is not treated increases the risk: True To control cholesterol, one should become a vegetarian: False Someone knows if he/she is exercising at the right level: True Diabetes cannot be prevented with exercise & health eating: True Stress is a large risk for heart attack: True A diet that can help lower blood pressure is rich in: True - Total Score Total Correct Responses: 15 Self-Efficacy Initial Assessment We would like to know how confident you are in doing certain activities. Please select your confidence level for:: Select your confidence level for the following using the scale 1-10 where 1 is not at all confident and 10 is totally confident. Your score is the average of all 6 responses. Fatigue: How confident are you that you can keep the fatigue caused by your disease from interfering with the things you want to do? Select Number: 4 Physical Discomfort or Pain: How confident are you that you can keep the physical discomfort or pain of your disease from interfering with the things you want to do? Select Number: 4 Emotional Distress: How confident are you that you can keep the emotional distress caused by your disease from interfering with the things you want to do? Select Number: 4 Other Symptoms or Health Problems: How confident are you that you can keep other symptoms or health problems from interfering with the things you want to do? Select Number: 4 Different Tasks and Activities: How confident are you that you can do the different tasks and activities needed to manage your health condition so as to reduce your need to see a doctor? Select Number: 5 Medication: How confident are you that you can do things other than just taking medication to reduce how much your illness affects your everyday life? Select Number: 4 Total Score:: 4 Nutrition Survey - Nutrition Survey Instructions Scoring Instructions: Scoring is as follows: Yes = 1 points. No = 0 point. Patient score that is >/=12 is considered to be at potential nutritional risk and could benefit from a referral to a registered dietitian. - Nutrition Survey Initial Have you lost >10 lbs over the past 2 months without trying?: No Are you following a special diet at home for diabetes, low fat, or low salt?: No Are you interested in meeting with a dietitian for help understanding your diet?: No Do you eat less than 3 meals a day?: No Do you eat fatty meats (valdez, sausage, ribs, etc), fried foods, desserts, large amounts of salad dressings, margarine, butter, or cheese most days?: Yes Do you have food allergies? [Enter types in comment field]: No Do you eat in restaurants more than 3 times a week?: No Do you season food with salt, seasoning salt, or garlic salt?: No Do you used canned, boxed, frozen meals, or soups, seasoning packets?: No Total Score:: 1
--- NOTE | 2019-05-09 12:06 | CR.HP_ITS ---
CR - History & Physical - General Arrival date:: 05/09/19 Arrival time:: 12:00 Date of Referral:: 05/02/19 Date of CR Evaluation:: 05/09/19 Referring Physician: DR. FLORA ALMONTE Primary Diagnosis: PCI W/CORONARY STENT - History of Present Cardiac Event Onset Date: Enter Onset Date of cardiac illnesses in Comment field below PTCA or coronary stenting:: Yes - 04/26/2019; 2 stents in the LAD Type of Symptoms:: CHEST PAIN, SHORTNESS OF BREATH Interventions with present event:: Taken to Emergency from [place] after c/o chest pain, heart cath transfer [facility] Were there any complications?: none - Medications Home Medications: Ambulatory Orders Medication Instructions Recorded Prednisone 5 mg PO DAILY 04/06/17 Ascorbic Acid 500 mg PO DAILY 11/19/18 Aspirin [Aspirin, Baby] 81 mg PO DAILY@0800 11/19/18 Benzonatate 100 mg PO DAILY PRN 11/19/18 Fish Oil/Borage/Flax/Om3,6,9 1 1,200 mg PO DAILY 11/19/18 [Veteran 3-6-9 1,200 mg Softgel] Flaxseed Oil 1,000 mg PO DAILY 11/19/18 Multivitamin with Minerals 1 tab PO DAILY 11/19/18 [Multiple Vitamin] Pantoprazole Sodium [Protonix] 40 mg PO DAILY 11/19/18 Verapamil HCl [Verapamil ER] 180 mg PO DAILY 11/19/18 Magnesium 250 mg PO DAILY 12/30/18 Nitroglycerin 0.4 mg SL PRN PRN 12/30/18 Albuterol Aerosols [Ventolin 2.5 mg INHALATION 4X/DAY 04/24/19 Aerosols] Nintedanib Esylate [Ofev] 150 mg PO BID 04/24/19 Warfarin [Coumadin] 7.5 mg PO SUWETHFRSA 04/24/19 Warfarin [Coumadin] 10 mg PO MOTU 04/24/19 Clopidogrel Bisulfate [Plavix] 75 mg PO DAILY tab 04/26/19 Oxygen, Home [Home Oxygen] 2 - 4 lpm NASAL 05/09/19 - Allergies Allergies/Adverse Reactions: Allergies Penicillins Allergy (Verified 05/08/19 13:29) Hives celecoxib [From Celebrex] Adverse Reaction (Verified 05/08/19 13:29) Chest tightness nitroglycerin [From Nitrostat] Adverse Reaction (Verified 05/08/19 13:29) severe migraine Ltintwu-Nnm-Ufn Reductase Inhibitor Adverse Reaction (Verified 05/08/19 13:29) Pain in joints - Sleep Disorder Evaluation Hx of Sleep Apnea: Yes Do you snore loudly (louder than talking or can be heard through closed doors)?: Yes - has CPAP every night at home Do you often feel tired/ fatigued/ sleepy during daytime?: Yes Has anyone observed you stop breathing during sleep?: No History of Hypertension (for STOP score): Yes STOP Results: Positive Advanced Directives - Advanced Directives Power of Engineer Specialist: No Living Will: No Advance Directives Information Provided: Yes Advance Directives on File: No DNR Order?:: No - MOLST See MOLST form: No Past Medical History - Past Medical Illness Medical History: Past Medical History (Last Updated 05/09/19 @ 12:32 by Tre Junior, NURSE RN BSN, CAN REFORMING MACHINE OPERATOR, BS) Atherosclerosis of coronary artery without angina pectoris (Chronic) I25.10 Hyperlipidemia (Chronic) E78.5 Obstructive sleep apnea (Chronic) G47.33 Atrial fibrillation I48.91 H/O deep venous thrombosis Z86.718 chronic steroid dependece severe pulmonary fibrosis Idiopathic pulmonary fibrosis J84.112 Lower back pain M54.5 Lumbar arthropathy M47.816 - Past Surgical History Surgical History: Past Surgical History (Last Updated 05/08/19 @ 14:34 by Payton Traylor) History of left heart catheterization (Chronic) Z98.890 04/26/2019 per SAHRA @ [facility], tsfer to Dr. Vitale @ [facility]. 03/27/2015 @ [facility] per Dr. Joby Arreguin; 10/24/[address] Marshall Knight @ [facility]; 08/09/[address] Jude Espana [facility] S/P CABG x 1 (Chronic) Onset Date: ~1994 Z95.[address] 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 Radial artery graft to the RCA. Stented coronary artery (Chronic) Onset Date: 04/26/19 Z95.5 12/23/2008: 3.5 X 15 mm vision BMS so mid LAD pr Dr. Rodríguez Hemphill, [facility]. 04/26/2019: Per Dr. Vitale @ [facility] ( after transferred from [facility] per Dr. Almonte): 5.0 X 16 Synergy stent from left main into the LAD ; a second 5.0 X 12 mm Synergy stent from left main into LCX and kissing balloon angioplasty performed. IVUS revealed 70-80% ostial LAD and 60% ostial CX stenosis with severe eccentric calcified disease in the distal left main. Surgical History: coronary bypass surgery, - - IVC filter placement Social History - Smoking History Smoking Status: Former smoker Hx Tobacco Use: No Hx Smoking Exposure: No - Alcohol Use Alcohol Usage: No - Substance Abuse Hx Substance Use: No - Occupation Occupation (List type of work in comments):: Retired - Hobbies, Recreation, Social Activities Hobbies: Woodworking, Other - sea glass parking meter collector, building things (woodworking) Recreational Activities: I am able to engage in a few activities Social Environment - Status Marital Status: - Current Living Arrangements Living Environment:: Spouse - Children How many children do you have?: 3 Do any of your children live nearby?: Yes - Safety Do you feel safe in your surroundings?: Yes - Assistance Do you need any assistance at home?: none Review of Systems - Review of Systems Hints: Right click = Denies (Slash). Left click = Reports ([place]) Review of Present Symptoms: Reports: Shortness of Breath with Exertion - Idiopathic Pulmonary Fibrosis, Angina - has had some chest pain since recent stents per patinet which has not required any notroglycerine., Dizziness/Lightheadedness - occasionally, Fatigue, Heart Arrhythmia/Irregularities - h/o atrial fibrillation, Appetite - Normal. Denies: Sleep - Normal - awake about half-the night even with the CPAP up 3-4 times a night and early in the mornings., Sexual Changes - Pain Is Patient Pain Free?: Yes Pain Location: none Pain Level: 0/10 Risk Factor Assessment - Chief Complaint Chief Complaint: Patient is a very pleasant 73 male who was enrolled in pulmonary rehab for hsi idiopathic pulmonary fibrosis. During exercise he developed chest pain which did not resolve with rest. The patient was taken to emergency room for evaluation and Dr. Almonte elected to perform a heart cath for possible intervention. He was subsequently transfered to [facility] for back up surgery team based on previous CABG history. - Vital Signs Temperature: 97.8 F Respiratory Rate: 16 Pulse Ox: 99 - on 3 liters Blood Pressure: 136/62 Nailbeds:: pink color - Pulse Pulse Rate: 60 Pulse Rhythm: Regular - Hypertension How long have you been treated?: before CABG in 1994 On medication(s)?: yes Blood Pressure Sitting - Right Arm: 136/62 - Stress Stress: Recent - Blood Cholesterol/Lipids Total Cholesterol (mg/dL) Goal = less than 200 mg/dL: 186 HDL Cholesterol (mg/dL) Goal = less than 40 mg/dL: 36 LDL Cholesterol (mg/dL) Goal = less than 70 mg/dL: 120 Triglycerides (mg/dL) Goal = less than 150 mg/dL: 150 - Diabetes Nutrition Referral for Diabetes: No - Obesity Height: 5 ft 6 in Weight:: 207 lb Weight in Pounds: 207.0 lbs Weight Source: Standing Scale Body Mass Index (BMI): 33.4 Realistic Weight Goal (Loss of 1-2 lbs/week): 195 Nutritional Referral for Obesity: Yes - Physical Inactivity Physical Inactivity: Physically demanding job, Recreational activity - Risk Stratification Risk Guidelines: Lowest Risk: Risk Factor for Smoking, Risk Factor for Diabetes, Risk Factor for Sedentary Lifestyle, Risk Factor for Depression, Moderate Risk: Risk Factor for Dyslipidemia, Risk Factor for Hypertension, Highest Risk: Risk Factor for Obesity - For Smoking Smoking Risk Guidelines: Smoking Low Risk: None or quit greater than 6 months ago. Smoking Moderate Risk: Smoker or quit 6 months or less ago. Smoking High Risk: Smoker - For Dyslipidemia Dyslipidemia Risk Guidelines: Low Risk: Moderate Risk: High Risk: 15-25% fat 25.1-29% fat >/= 30% fat. <7% sat fat 7-9% sat fat >9% sat fat. <150 mg chol 150-299 mg chol >/= 300 mg chol. LDL <100 LDL 100-129 LDL >/= 130. Chol/HDL ratio <5.0 Chol/HDL ratio 5.0-6.0 Chol/HDL ratio >6.0. Triglycerides <100 Triglycerides 100-149 Triglycerides >/= 150 - For Diabetes Mellitus Diabetes Risk Guidelines: Diabetes Low Risk: HgA1c <6.5% and/or FBG <120. Diabetes Moderate Risk: HgA1c 6.6-7.9% and/or FBG 120-180. Diabetes High Risk: HgA1c >/= 8% and/or FBG >180 - For Obesity/Overweight Obesity/Overweight Risk Guidelines: Obesity Low Risk: BMI <25.0. Obesity Moderate Risk: BMI 25-29.9. Obesity High Risk: BMI >/= 30.0 - For Hypertension Hypertension Risk Guidelines: Hypertension Low Risk: Systolic <120 and Diastolic <80. Hypertension Moderate Risk: Systolic 120-139 and Diastolic 80-89. Hypertension High Risk: Systolic >/= 140 and Diastolic >/= 90 - For Sedentary Lifestyle Sedentary Lifestyle Risk Guidelines: Sedentary Lifestyle Low Risk: >/= 1,500 kcal/week. Sedentary Lifestyle Moderate Risk: 700-1,499 kcal/week. Sedentary Lifestyle High Risk: < 700 kcal/week - For Depression Depression Risk Guidelines: Depression Low Risk: Not clinically depress ed. Depression Moderate Risk: Mildly depressed. Depression High Risk: Clinically depressed Motivation - Motivation to Participate On a scale of 1 to 10, how prepared are you to commit to attending program?: 10 What do you see as barriers to successfully being able to complete the program?: shortness of breath from fannie pulmonary fibrosis What do you see as the benefits of succesfully completing the program? In other words, what do you hope to get out of participating in the program?: healthier, more active, learning about disease Are there issues you are dealing with that will interfere with completing the program?: none Do you have a spouse or signficant other, family or friends who will help support you to complete the program?: yes
[2019-05-09 12:34] VITALS: BP 136/62; PULSE 60; RESP 16; TEMP 36.6; O2SAT 99; BMI 33.4
[2019-05-09 12:49] VITALS: BP 136/62
== END | disposition home or self-care (01) ==
LOC: CR 11:44
PROVIDERS: Family Provider Internal Medicine; PCP Internal Medicine; Referring Provider Internal Medicine Cardiovascular Disease; Visit Provider Internal Medicine Cardiovascular Disease
DX: I25.10 Atherosclerotic heart disease of native coronary artery without angina pectoris (principal); E78.5 Hyperlipidemia, unspecified; G47.33 Obstructive sleep apnea (adult) (pediatric); I48.91 Unspecified atrial fibrillation; Z86.718 Personal history of other venous thrombosis and embolism; J84.112 Idiopathic pulmonary fibrosis; M47.816 Spondylosis without myelopathy or radiculopathy, lumbar region; Z95.1 Presence of aortocoronary bypass graft; Z79.01 Long term (current) use of anticoagulants; Z79.82 Long term (current) use of aspirin; Z79.02 Long term (current) use of antithrombotics/antiplatelets; Z79.899 Other long term (current) drug therapy; Z99.81 Dependence on supplemental oxygen; Z87.891 Personal history of nicotine dependence

== ENCOUNTER 2019-05-15 08:22 | Outpatient (RCR) | payer MEDICARE, SELFPAY ==
[2019-05-09 12:34] VITALS: BMI 33.4
[2019-05-10 11:10] VITALS: BMI 33.7
--- NOTE | 2019-05-15 09:18 | RAD_ITS ---
STUDY: X-RAY CHEST REASON FOR EXAM: Male, 73 years old. Hematochezia TECHNIQUE: PA and lateral views of the chest. COMPARISON: 04/24/2019 FINDINGS: Status post median sternotomy/CABG. There are increased infiltrates in the right mid and lower lobe. There are persistent infiltrates at the left mid and lower lung field. This is superimposed on coarse lung markings in keeping with chronic lung disease. As There is no demonstrated pleural abnormality. Normal size heart. Normal mediastinum and denise. Normal visualized pulmonary arteries. Normal visualized aortic arch and descending thoracic aorta. There is L1 vertebral body kyphoplasty. There is multilevel degenerative disc disease. Normal visualized ribs, clavicles, and shoulders. IVC filter to the right of L3. RAD/Chest PA and Lateral IMPRESSION: Increased infiltrates in the right mid and lower lobe. There are persistent infiltrates at the left mid and lower lung field. Electronically Signed: Amita Fitch, at 10:00 EDT Tel , Service support ,
--- NOTE | 2019-05-15 09:43 | EKG12_ITS ---
Test Reason : SOB Blood Pressure : / mmHG Vent. Rate : 105 BPM Atrial Rate : 105 BPM P-R Int : 148 ms QRS Dur : 078 ms QT Int : 308 ms P-R-T Axes : 039 046 096 degrees QTc Int : 407 ms Sinus tachycardia Nonspecific ST and T wave abnormality Abnormal ECG Confirmed by FLORA ALMONTE ([id number]), acquisition editor MAU STONE ([id number]) on 05/20/2019 2:33:26 PM Referred By: Flora Almonte Confirmed By:FLORA ALMONTE
== END 2019-06-10 23:59 ==
LOC: CR 08:22
PROVIDERS: Family Provider Internal Medicine; PCP Internal Medicine; Referring Provider Internal Medicine Cardiovascular Disease; Visit Provider Internal Medicine Cardiovascular Disease
DX: I25.10 Atherosclerotic heart disease of native coronary artery without angina pectoris (principal); R04.2 Hemoptysis; Z95.5 Presence of coronary angioplasty implant and graft
CPT/HCPCS: 71046; 93005; 93798

== ENCOUNTER → 2019-05-15 | Outpatient (CLI) | payer MEDICARE, SELFPAY ==
[2019-05-10 11:10] VITALS: BMI 33.7
[2019-05-15 10:44] LABS: Hematocrit 34.9 % (40-54); Hemoglobin 10.3 g/dL (13.0-16.5); Mean Corp Hgb Conc 29.5 g/dL (32-36); Mean Corpuscular Hgb 24.2 pg (27.0-32.0); Mean Corpuscular Volume 82.1 fL (80-94); Mean Platelet Vol. 9.8 fl (6.2-12.0); Platelet Count 352 K/mm3 (150-450); Red Blood Count 4.25 M/mm3 (4.6-6.2)
[2019-05-15 10:57] LABS: Anion Gap 5 (5-15); BUN 16 mg/dL (7-18); BUN/Creat Ratio 15.7 RATIO (10-20); Calcium,Total 8.9 mg/dL (8.5-10.1); Chloride 105 mmol/L (98-107); Creatinine, Serum 1.02 mg/dL (0.70-1.30); EST Glomerular Filtration Rate 76 mL/min (>60); Est Glom Filt Rate - Afr Amer 92 mL/min (>60); Glucose 90 mg/dL (74-106); Potassium 4.3 mmol/L (3.5-5.1); Sodium Level 137 mmol/L (136-145)
[2019-05-15 10:57] LABS: Prothrombin Time (Protime)PT. 48.5 SECONDS (11.7-14.9)
[2019-05-15 10:58] LABS: International Normalized Ratio 5.2
== END | disposition home or self-care (01) ==
PROVIDERS: Family Provider Internal Medicine; PCP Internal Medicine; Referring Provider Internal Medicine Cardiovascular Disease; Visit Provider Internal Medicine Cardiovascular Disease
DX: R04.2 Hemoptysis (principal); I25.10 Atherosclerotic heart disease of native coronary artery without angina pectoris; Z95.5 Presence of coronary angioplasty implant and graft
CPT/HCPCS: 36415; 71046; 80048; 85027; 85610; 93005

== ENCOUNTER 2019-05-17 00:18 | Inpatient (IN) | payer MEDICARE, SELFPAY ==
[2019-05-10 11:10] VITALS: BMI 33.7
[2019-05-17] VITALS (56 sets, daily range): BP systolic 89–137; BP diastolic 57–78; PULSE 59–111; RESP 12–40; TEMP 36.3–39.4; O2SAT 82–99; BMI 33.0; BMI 32.1
--- NOTE | 2019-05-17 00:20 | ED.RN ---
CALLED FOR EKG PER RN REQUEST, PULLED OLD EKGS FOR
--- NOTE | 2019-05-17 00:22 | EKG12_ITS ---
Test Reason : SOB Blood Pressure : / mmHG Vent. Rate : 081 BPM Atrial Rate : 081 BPM P-R Int : 150 ms QRS Dur : 078 ms QT Int : 380 ms P-R-T Axes : 025 037 055 degrees QTc Int : 441 ms Sinus rhythm with occasional Premature ventricular complexes and Premature atrial complexes Otherwise normal ECG When compared with ECG of 26-APR-2019 09:00, Premature ventricular complexes are now Present Premature atrial complexes are now Present Confirmed by PIERRE BLACKMON, RANJEET ([id number]), editor greeting card MAU STONE ([id number]) on 05/20/2019 3:13:08 PM Referred By: Andrea Almonte Confirmed By:NATALIIA JAY MD
--- NOTE | 2019-05-17 00:23 | CT_ITS ---
HISTORY:PT FELL AND HIT HEAD ON TOILET, TAKING COUMADIN PT FELL AND HIT HEAD ON TOILET, TAKING COUMADIN TECHNIQUE: Multiple axial images were obtained of the brain without intravenous contrast. A radiation dose optimization technique was used for this scan. IV Contrast dosage and agent: None. COMPARISON: December 30, 2018 FINDINGS: # of images incl. paperwork: 249 INFARCT: None HEMORRHAGE: None PARENCHYMAL ATTENUATION:Mild periventricular white matter low density compatible with chronic small vessel ischemic change. There is also mild cortical atrophy and mild cerebellar atrophy these changes are similar to prior study. These changes are similar to prior study MASS: None MIDLINE SHIFT: None BASAL CISTERNS: Patent VENTRICLES: Normal in size and configuration for age PARANASAL SINUSES:Clear MASTOID AIR CELLS: Clear ORBITS:No acute pathology CALVARIUM: No acute pathology OTHER TISSUES: No acute pathology ASPECTS Score for Acute Strokes: 10 CT/Brain/Head without Contrast IMPRESSION: No acute intracranial pathology. Chronic changes as discussed similar to prior study Individualized dose optimization techniques were used for this CT. at 0122 Reported and signed by: Marina Castillo DO Electronically Signed: Marina Castillo DO at 1:21 EDT Tel , Service support ,
[2019-05-17 00:36] LABS: Absolute Neutrophil Count 13.1 X10^3/uL (2.0-7.7); Basophil# 0.05 X10^3/uL; Basophil% 0.3 % (0-1); Eosinophil# 0.02 X10^3/uL; Eosinophils% 0.1 % (0-5); Hematocrit 32.2 % (40-54); Lymphocyte % 17.4 % (19-41); Mean Corp Hgb Conc 31.1 g/dL (32-36); Mean Corpuscular Hgb 24.9 pg (27.0-32.0); Mean Corpuscular Volume 80.1 fL (80-94); Mean Platelet Vol. 9.6 fl (6.2-12.0); Monocyte# 1.42 X10^3/uL; NRBC Flagged by Analyzer 0 % (0-5); Neutrophil # 13.11 X10^3/uL (2.7-7.7); Neutrophil % 73.8 % (47-70); Platelet Count 324 K/mm3 (150-450); RBC Distribution Width CV 18.9 % (11.6-14.6); RBC Distribution Width SD 54.8 fl (35.1-43.9); Red Blood Count 4.02 M/mm3 (4.6-6.2); White Blood Count 17.8 K/mm3 (4.4-11.0)
[2019-05-17 00:40] LABS: Allen Test POS; Base Excess -3 mmol/L (-2 to +2); Bicarbonate 21.4 mmol/L (22-26); Blood Gas Specimen Type ART; O2 Delivery Device NRB Mask; PO2 56 mmHG (75-100); SITE L Radial; SO2 90 % (95-99); Time Given 32; Total Carbon Dioxide 22 mmol/L; pCO2 31.8 mmHg (35-45); pH 7.44 (7.35-7.45)
--- NOTE | 2019-05-17 00:40 | ED.VIS.GEN ---
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 He struck his head. He is on Coumadin. He reports his INR was 5.2. He does complain of headache. He denies change in vision. He does report shortness of breath. History is limited secondary to patient's condition. Prior similar symptoms: No Recent Illness/Hospitalization: Yes - Unstable angina April 24, 2019 - Past Medical History (1) Benign essential hypertension Status: Chronic (2) Chronic respiratory failure with hypoxia Status: Chronic (3) Hemochromatosis Status: Chronic (4) History of DVT of lower extremity Status: Chronic (5) History of pulmonary embolism Status: Chronic (6) Hyperlipidemia Status: Chronic (7) Idiopathic pulmonary fibrosis Status: Chronic (8) Obstructive sleep apnea Status: Chronic (9) On anticoagulant therapy Status: Chronic (10) S/P CABG x 1 Status: Chronic Comment: [address] 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 Radial artery graft to the RCA. (11) Stented coronary artery Status: Chronic Comment: 12/23/2008: 3.5 X 15 mm vision BMS so mid LAD pr Dr. Rodríguez Hemphill, [facility]. 04/26/2019: Per Dr. Viatle @ [facility] ( after transferred from [facility] per Dr. Almonte): 5.0 X 16 Synergy stent from left main into the LAD ; a second 5.0 X 12 mm Synergy stent from left main into LCX and kissing balloon angioplasty performed. IVUS revealed 70-80% ostial LAD and 60% ostial CX stenosis with severe eccentric calcified disease in the distal left main. Past Medical History - Allergies and Home Meds Allergies/Adverse Reactions: Allergies Penicillins Allergy (Verified 05/17/19 00:27) Hives celecoxib [From Celebrex] Adverse Reaction (Verified 05/17/19 00:27) Chest tightness nitroglycerin [From Nitrostat] Adverse Reaction (Verified 05/17/19 00:27) severe migraine Jbfzsmg-Kwb-Mrh Reductase Inhibitor Adverse Reaction (Verified 05/17/19 00:27) Pain in joints Primary Care Physician: Maria Mccoy MD [Primary Care Provider] - Prior records reviewed: Yes Surgical History: coronary bypass surgery, - - IVC filter placement Lives: Spouse/ Significant Other Smoking Status: Former smoker Alcohol: None Drugs: None - Family History Maternal Family History: Reports: Diabetes, Heart Disease Paternal Family History: Reports: Diabetes, Heart Disease Review of Systems ROS: Unable to Obtain - She is a poor informant. He is in respiratory distress. General: Reports: Fever - Nods yes to fever Eyes: Denies: Visual changes - bilaterally, Blurred Vision - bilaterally ENT: Denies: Bilateral ear pain, Rhinorrhea, Sore throat Cardiovascular: Denies: Chest pain, Palpitations Respiratory: Reports: Dyspnea, Cough, Dyspnea on exertion Gastrointestinal: Denies: Abdominal pain, Nausea, Vomiting, Diarrhea, Melena, Hematochezia Genitourinary: Denies: Dysuria, Hematuria, Frequency Musculoskeletal: Denies: Myalgias, Arthralgias, Neck pain, Back pain, Swelling, Extremity Pain, -, - Skin: Denies: Rash, Wounds Neurological: Reports: Headache. Denies: Weakness, Parasthesia, Numbness, -, - Hematologic: Reports: Easy bruising Allergy: Denies: Uticaria, Swelling of the mouth, Swelling of the tongue Physical Exam Vital Signs/Narrative: Vital Signs Temp Pulse Resp BP Pulse Ox 05/17/19 00:19 101.6 F H 104 H 40 H 126/71 H 82 Inital Vital Signs reviewed: Yes General: Well nourished, Well developed, Acute Distress Head: Normocephalic, Atraumatic, Tenderness - Numbness left parietal area. There is no palpable depression. There is no clinical findings of basilar skull fracture. Eyes: Perrl, EOMI. Negative for: Pale conjunctiva, Scleral icterus ENT: No rhinorrhea, TM's clear Neck: Supple, Nontender, No lymphadenopathy, No JVD Cardiovascular: Regular rhythm, Normal S1, Normal S2, Tachycardia Respiratory: Chest nontender, Rales, Decreased Air Movement, Retractions, - - There is evidence of paradoxical breathing Abdomen: Soft, Nontender, Nondistended, Normal bowel sounds Back: Nontender, Normal Inspection. Negative for: CVA tenderness Extremities: Nontender, Edema Skin: No rash, Cyanosis, No Trauma, Pallor. Negative for: Normal color, Diaphoresis, Jaundice Neurological: Cranial nerves II-XII grossly intact, Normal Sensation, Normal DTR - There is no clonus or Babinski sign.. Negative for: Alert, Oriented x3 Psychological: - - Unable to determine Diagnostic/Tx/Re-eval Chest X-Ray - ED: 1 View - Critical care time 36 minutes, Read by ED Physician, Heart, Bony Structures, - - Chest x-ray is underpenetrated compared to prior. Inspiratory volume is limited. There are increased interstitial markings. Uncertain whether this is secondary to technique. Sternal wires are noted. There is evidence of kyphoplasty. There is no effusion. There is no evidence of pneumothorax. 05/17/19 00:23 Brain/Head without Contrast [CT] Stat 05/17/19 00:45 Chest 1 View (Portable) [RAD] Stat Laboratory Results 05/17/19 05/17/19 05/17/19 00:25 00:25 00:25 WBC 17.8 H RBC 4.02 L Hgb 10.0 L Hct 32.2 L MCV 80.1 MCH 24.9 L MCHC 31.1 L RDW Std Deviation 54.8 H RDW Coeff of Rossy 18.9 H Plt Count 324 MPV 9.6 Immature Gran % (Auto) 0.400 Neut % (Auto) 73.8 H Lymph % (Auto) 17.4 L [place] % (Auto) 8.0 Eos % (Auto) 0.1 Baso % (Auto) 0.3 Absolute Neuts (auto) 13.1 H Absolute Lymphs (auto) 3.10 Nucleated RBC % 0 PT 35.3 H INR 3.5 H* APTT 96.9 H* Specimen Type Sample Site pH Bicarbonate Actual POC Total CO2 Base Excess O2 Saturation ABG pCO2 ABG pO2 Rakan Test O2 Delivery Device Liter Flow Blood Gas Notified Whom Blood Gas Notified Time Sodium 134 L Potassium 4.7 Chloride 102 Carbon Dioxide 26.0 Anion Gap 6 BUN 19 H Creatinine 1.36 H Estim Creat Clear Calc 43.65 Est GFR (MDRD) Af Amer 66 Est GFR (MDRD) Non-Af 54 L BUN/Creatinine Ratio 14.0 Glucose 122 H Lactic Acid Calcium 8.6 Total Bilirubin 0.70 AST 32 ALT 19 Alkaline Phosphatase 99 Total Protein 8.5 H Albumin 3.2 Globulin 5.3 H Albumin/Globulin Ratio 0.6 L Urine Color Urine Clarity Urine pH Ur Specific [place] Urine Protein Urine Glucose (UA) Urine Ketones Urine Occult Blood Urine Nitrite Urine Bilirubin Urine Urobilinogen Ur Leukocyte Esterase Urine RBC Urine WBC Ur Squamous Epith Cells Ur Transition Epith Cell Urine Bacteria Hyaline Casts Urine Mucus 05/17/19 05/17/19 05/17/19 00:25 00:35 00:44 WBC RBC Hgb Hct MCV MCH MCHC RDW Std Deviation RDW Coeff of Rossy Plt Count MPV Immature Gran % (Auto) Neut % (Auto) Lymph % (Auto) [place] % (Auto) Eos % (Auto) Baso % (Auto) Absolute Neuts (auto) Absolute Lymphs (auto) Nucleated RBC % PT INR APTT Specimen Type ART Sample Site L Radial pH 7.44 Bicarbonate Actual 21.4 L POC Total CO2 22 Base Excess -3 L O2 Saturation 90 L ABG pCO2 31.8 L ABG pO2 56 L Rakan Test POS O2 Delivery Device NRB Mask Liter Flow 15.0 Blood Gas Notified Whom ED MD Blood Gas Notified Time 32 Sodium Potassium Chloride Carbon Dioxide Anion Gap BUN Creatinine Estim Creat Clear Calc Est GFR (MDRD) Af Amer Est GFR (MDRD) Non-Af BUN/Creatinine Ratio Glucose Lactic Acid 1.3 Calcium Total Bilirubin AST ALT Alkaline Phosphatase Total Protein Albumin Globulin Albumin/Globulin Ratio Urine Color Yellow Urine Clarity Sl. Cloudy Urine pH 6.0 Ur Specific [place] 1.015 Urine Protein 30 H Urine Glucose (UA) Normal Urine Ketones 5 H Urine Occult Blood 10 H Urine Nitrite Negative Urine Bilirubin Negative Urine Urobilinogen Normal Ur Leukocyte Esterase Negative Urine RBC 0 SEEN Urine WBC 0-5 SEEN Ur Squamous Epith Cells 0-5 SEEN Ur Transition Epith Cell 0-5 SEEN Urine Bacteria RARE Hyaline Casts 0-5 SEEN Urine Mucus 2+ CT of the head was reviewed by me. There is no evidence of intracranial bleed. Awaiting formal read by radiologist. Patient has an elevated white count. Chest x-ray is concerning for pneumonia. There are limitations to the x-ray since its portable, penetrations is different than chest x-ray obtained 2 days ago. However with elevated temperature greater 103, white count respiratory failure will treat for community-acquired pneumonia. Will require admission to stepdown versus ICU. - Rhythm Strip Rhythm Strip: Sinus Tach Rate: 122 Ectopy: None - EKG Initial EKG Interpretation: Sinus Tachycardia - Ventricular rate is 105. PA interval is 148 ms. QRS duration is 78 ms. QT duration is 308 ms. [place] is normal. There is no ossific anterior changes noted. Will need prior for comparison. Especially since patient has known history of coronary disease. EKG dated April [address] the [address]-T wave changes noted. We will add troponin to evaluate for ischemia. This may be secondary to the fact the patient was hypoxic with a saturation of 80% on nonrebreather mask. - Medical Decision Making With temperature 101.6, respiratory distress with pursed rate of 40 and heart rate of greater than 100 concern for sepsis. Sepsis work-up was initiated. Since he fell hit his head and INR is reported to be 5.[address] of the head was obtained to evaluate for intracranial bleed. Will need to review patient's allergies prior to starting antibiotics. BG reveals a pH of 7.43, PCO2 of 31.8, PaO2 of 56 with a base excess of -3 and bicarb of 21.4. Saturation is 90% which does not correlate with pulse ox. The blood gas was obtained when patient was on nonrebreather mask at 15 L. Concern patient has pneumonia. He had a recent 2-day stay. He was treated for community acquired pneumonia. Lactate is normal at 1.3 however patient is on BiPAP requiring significant amount of oxygen. This would indicate acute respiratory failure, severe sepsis T of the head was read by radiologist as no acute abnormality. Furthermore radiologist interpretation of x-ray is in agreement with my that there is bilateral infiltrates. 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
[2019-05-17 00:44] LABS: International Normalized Ratio 3.5; Prothrombin Time (Protime)PT. 35.3 SECONDS (11.7-14.9)
--- NOTE | 2019-05-17 00:45 | RAD_ITS ---
HISTORY:pt fell tonight, SOB, recent diagnosis of pneumonia. Hx of CAD, HTN, stents pt fell tonight, SOB, recent diagnosis of pneumonia. Hx of CAD, HTN, stents EXAM: XR Chest 1 View: COMPARISON: May 15, 2019 FINDINGS: # of images incl. paperwork: 1 LINES/DEVICES: Midline sternotomy wires LUNGS: Patchy infiltrates are seen about both lungs. This is increased in the left and the right lung apices when compared to the prior study. No consolidation, edema or effusion. No pneumothorax. MEDIASTINUM AND CARDIOVASCULAR STRUCTURES: Cardiac silhouette not enlarged. BONES AND SOFT TISSUES: Unremarkable. RAD/Chest 1 View (Portable) IMPRESSION: Bilateral pulmonary infiltrates. These have increased in the lung apices when compared to the prior study at 0118 Reported and signed by: Marina Castillo DO Electronically Signed: Marina Castillo DO at 1:17 EDT Tel , Service support ,
[2019-05-17 00:46] LABS: Red Blood Cells-Urine 0 SEEN /hpf (0-5)
[2019-05-17 00:46] LABS: Partial Thromboplast Time 96.9 Seconds (24.1-36.2)
--- NOTE | 2019-05-17 00:53 | ED.RN ---
DR KAUFFMAN NOTIFIED OF INR AND PTT RESULTS
[2019-05-17 00:54] LABS: ALB/GLOB Ratio 0.6 RATIO (0.9-2.4); AST(SGOT) 32 U/L (15-37); Alanine Aminotransfer ALT/SGPT 19 U/L (16-61); Albumin, Serum 3.2 g/dL (3.2-5.0); Alkaline Phosphatase 99 U/L (45-117); Anion Gap 6 (5-15); BUN 19 mg/dL (7-18); Calcium,Total 8.6 mg/dL (8.5-10.1); Chloride 102 mmol/L (98-107); Creatinine, Serum 1.36 mg/dL (0.70-1.30); EST Glomerular Filtration Rate 54 mL/min (>60); Est Glom Filt Rate - Afr Amer 66 mL/min (>60); Estimated Creatinine Clearance 43.65 ml/min; Globulin 5.3 g/dL (2.2-4.2); Glucose 122 mg/dL (74-106); Potassium 4.7 mmol/L (3.5-5.1); Protein, Total 8.5 g/dL (6.4-8.2); Sodium Level 134 mmol/L (136-145)
[2019-05-17 00:55] LABS: Color, Urine Yellow (Yellow); Glucose, Dipstick Normal (Normal); Ketone-Dipstick 5 mg/dl (Negative); Leukocyte Esterase-Dipstick Negative /ul (Negative); Nitrite-Dipstick Negative (Negative); Occult Blood-Urine 10 /ul (Negative); Protein-Dipstick 30 mg/dl (Negative); Specific Gravity, Urine 1.015 (1.002-1.030); Urine Bilirubin Dipstick Negative (Negative); Urine Clarity Sl. Cloudy (Clear); Urine Urobilinogen Normal (Normal)
[2019-05-17 00:59] LABS: Lactic Acid 1.3 mmol/L (0.4-2.0)
[2019-05-17 01:02] LABS: Bacteria RARE /hpf (None Seen); Mucous, Urine 2+ /hpf (<or=2+); Squamous Epithelial Cells - UA 0-5 SEEN /hpf (0-5); White Blood Cells 0-5 SEEN /hpf (0-5)
[2019-05-17 01:03] LABS: Hyaline Cast 0-5 SEEN /lpf (0-5); Transitional Epithelial - Ur 0-5 SEEN /hpf (0-5)
[2019-05-17] MEDS: Acetaminophen 650 MG Suppository RECTAL (01:13)
--- NOTE | 2019-05-17 01:20 | ED.RN ---
DR KAUFFMAN NOTIFIED PT STARTED THE LEVA.ELIAN PO AND PT DID GET 1 DOSE AT 12 NOON. MD FRANCISCO TO GIVE IV LEVAQUIN
[2019-05-17] MEDS: levoFLOXacin IV 750 MG/150 ML BAG 100 MG IV (01:21)
--- NOTE | 2019-05-17 01:38 | HP.PCM_ITS ---
Problem List (1) History of DVT of lower extremity Status: Chronic (2) Idiopathic pulmonary fibrosis Status: Chronic (3) Severe sepsis Status: Acute (4) Community acquired bacterial pneumonia Status: Acute (5) Contusion of scalp, initial encounter Status: Inactive History of Present Illness Date of Admission: 05/17/19 Chief Complaint: syncope The patient is a 73 year old M with a significant history of paroxysmal Afib; DVT with IVC filter; IPF with home oxygen use; ALFRED on CPAP; CAD S/P CABG and coronary stents placed x3 times (1 stent, 1 stent and then 2 stents about 2 weeks ago) presenting to the ED with syncope. Patient was returning from the bathroom to the kitchen to use his routine night time inhaler. He passed out, fell and hit the wall. Patient was at our Hospital 2 weeks ago and was sent by Dr. Almonte, tire fabric impregnating range tender to [facility] for a stent. After the stent patient was to begin Cardiac rehab on Monday05/15/2019. However, he was found to have pneumonia and he was prescribed Levaquin. Before this presentation patient has taken two doses of the levaquin (2 days of levaquin). Also patient has been having hemoptysis and he was advised to stop his Coumadin momentarily in the setting of an outpatient INR of 5.2. Associated with his symptoms is increased shortness of breath above his baseline; chills ; poor appetite and left sided chest and left sided abdominal pain that he describes as burning. Although routinely he uses oxygen at two and a half to three liters when he exert himself, in the week of presentation his oxygen requirement had gone up to 4 L continuously even at rest. Patient received breathing treatment from paramedics and was placed on nonrebreather mask. At the emergency department patient was transitioned onto BiPAP. His His blood gas was remarkable for PO2 of 56 and PCO2 of 31.8 with base excess of -3. However his oxygen saturation on 65% of BiPAP was about 95% reportedly with a good waveform.. Patient was noted to have a fever with highest temperature of 102.4, he had tachycardia and tachypnea. Chest x-ray was interpreted as bilateral pulmonary infiltrates which has increased in the lung apices compared to prior study. Lactic acid was 1.3. Guzmán catheter was placed at the emergency department. Urinary culture and blood culture were taken and patient was started on broad- spectrum antibiotics of Levaquin. Of note his last hospitalization at our hospital was on 04/24/2019. And he was transferred to [facility] on 04/26/2019 because of left main lesion that cardiology felt it was of high risk and needed to be managed at a tertiary institution. Past Medical History Past Medical History (Chronic Problems): Chronic Problems (Last Reviewed 05/17/19 @ 03:55 by Tristan Clancy MD) On anticoagulant therapy (Chronic) Benign essential hypertension (Chronic) History of DVT of lower extremity (Chronic) Hemochromatosis (Chronic) History of pulmonary embolism (Chronic) Idiopathic pulmonary fibrosis (Chronic) Chronic respiratory failure with hypoxia (Chronic) History of left heart catheterization (Chronic) 04/26/2019 per SAHRA @ [facility], tsfer to Dr. Vitale @ [facility]. 03/27/2015 @ [facility] per Dr. Joby Arreguin; 10/24/[address] Marshall Knight @ [facility]; 08/09/[address] Jude Espana [facility] Main Atherosclerosis of coronary artery without angina pectoris (Chronic) S/P CABG x 1 (Chronic ~1994) [address] 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 Radial artery graft to the RCA. Stented coronary artery (Chronic 04/26/19) 12/23/2008: 3.5 X 15 mm vision BMS so mid LAD pr Dr. Rodríguez Hemphill, [facility]. 04/26/2019: Per Dr. Vitale @ [facility] ( after transferred from [facility] per Dr. Almonte): 5.0 X 16 Synergy stent from left main into the LAD ; a second 5.0 X 12 mm Synergy stent from left main into LCX and kissing balloon angioplasty performed. IVUS revealed 70-80% ostial LAD and 60% ostial CX stenosis with severe eccentric calcified disease in the distal left main. Hyperlipidemia (Chronic) Obstructive sleep apnea (Chronic) Medical History: Medical History (Last Reviewed 05/17/19 @ 03:55 by Tristan Clancy MD) Atherosclerosis of coronary artery without angina pectoris (Chronic) I25.10 Hyperlipidemia (Chronic) E78.5 Obstructive sleep apnea (Chronic) G47.33 Idiopathic pulmonary fibrosis J84.112 Atrial fibrillation I48.91 H/O deep venous thrombosis Z86.718 Lower back pain M54.5 Lumbar arthropathy M47.816 chronic steroid dependece severe pulmonary fibrosis Allergies Penicillins Allergy (Verified 05/17/19 00:27) Hives celecoxib [From Celebrex] Adverse Reaction (Verified 05/17/19 00:27) Chest tightness nitroglycerin [From Nitrostat] Adverse Reaction (Verified 05/17/19 00:27) severe migraine Izkhfus-Qrd-Gnl Reductase Inhibitor Adverse Reaction (Verified 05/17/19 00:27) Pain in joints Home Medications: Ambulatory Orders Medication Instructions Recorded Ascorbic Acid 500 mg PO DAILY 11/19/18 Aspirin [Aspirin, Baby] 81 mg PO DAILY@0800 11/19/18 Benzonatate 100 mg PO TID PRN 11/19/18 Fish Oil/Borage/Flax/Om3,6,9 1 1,200 mg PO DAILY 11/19/18 [Wyatt 3-6-9 1,200 mg Softgel] Flaxseed Oil 1,000 mg PO DAILY 11/19/18 Multivitamin with Minerals 1 tab PO DAILY 11/19/18 [Multiple Vitamin] Pantoprazole Sodium [Protonix] 40 mg PO DAILY 11/19/18 Verapamil HCl [Verapamil ER] 180 mg PO DAILY 11/19/18 Magnesium 250 mg PO DAILY 12/30/18 Nitroglycerin 0.4 mg SL PRN PRN 12/30/18 Albuterol Aerosols [Ventolin 2.5 mg INHALATION 4X/DAY 04/24/19 Aerosols] Nintedanib Esylate [Ofev] 150 mg PO BID 04/24/19 Warfarin [Coumadin] 7.5 mg PO SUWETHFRSA 04/24/19 Warfarin [Coumadin] 10 mg PO MOTU 04/24/19 Clopidogrel Bisulfate [Plavix] 75 mg PO DAILY tab 04/26/19 Oxygen, Home [Home Oxygen] 2 - 4 lpm NASAL PRN 05/09/19 calcium carbonate 600 mg(1,500 1 tab PO BID 05/10/19 mg)-vitamin D3 800 unit chewable tablet gemfibrozil 600 mg tablet 600 mg PO BID #60 tab 05/10/19 prednisone 10 mg tablet 5 mg PO Q OTHER DAY tab 05/10/19 levofloxacin 750 mg tablet 750 mg PO DAILY #5 tab 05/15/19 Surgical History: Surgical History (Last Reviewed 05/17/19 @ 03:55 by Tristan Clancy MD) History of left heart catheterization (Chronic) Z98.890 04/26/2019 per SAHRA @ [facility], tsfer to Dr. Vitale @ [facility]. 03/27/[address] [facility] per Dr. Joby Arreguin; 10/24/[address] Marshall Knight @ [facility]; 08/09/[address] [facility] S/P CABG x 1 (Chronic) Onset Date: ~1994 Z95.[address] 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 Radial artery graft to the RCA. Stented coronary artery (Chronic) Onset Date: 04/26/19 Z95.5 12/23/2008: 3.5 X 15 mm vision BMS so mid LAD pr Dr. Rodríguez Hemphill, [facility]. 04/26/2019: Per Dr. Vitale @ [facility] ( after transferred from [facility] per Dr. Almonte): 5.0 X 16 Synergy stent from left main into the LAD ; a second 5.0 X 12 mm Synergy stent from left main into LCX and kissing balloon angioplasty performed. IVUS revealed 70-80% ostial LAD and 60% ostial CX stenosis with severe eccentric calcified disease in the distal left main. Surgical History: coronary bypass surgery, - - IVC filter placement Psychiatric History: No pertinent psych hx Lives: Spouse/ Significant Other Smoking Status: Former smoker Alcohol: None Drugs: None - *Family History Maternal History Items: Diabetes, Heart Disease Paternal History Items: Diabetes, Heart Disease Review of Systems Constitutional: Reports: Chills. Denies: Weight Change HEENT: Denies: Head Aches, Sinus Congestion, Sinus Drainage Cardiovascular: Reports: Chest Pain. Denies: Palpitations Respiratory: Reports: Cough, Hemoptysis, Shortness of Breath Gastrointestinal: Denies: Abdominal Pain, Nausea, Vomiting Genitourinary: Denies: Dysuria Musculoskeletal: Denies: Joint Pain, Joint Tenderness Skin: Denies: Rash, Wounds Neurological: Denies: Numbness, Tingling, Focal weakness Psychiatric: Denies: Anxiety, Depression, Homicidal Ideations, Suicidal Ideations Hematologic/ Lymphatic: Denies: Easy Bruising, Easy Bleeding VTE Information - Inpt Only VTE Present on Admission: No VTE Mechan Device Prophylaxis: SCD's VTE Pharm Prophylaxis ordered?: No Patient Problems: Active and Suspected Problems (Last Reviewed 05/17/19 @ 03:55 by Tristan Clancy MD) Acute respiratory failure with hypoxia (Acute) Community acquired pneumonia, bilateral (Acute) Severe sepsis (Acute) Anticoagulated on Coumadin (Acute) Sinus tachycardia by electrocardiogram (Acute) HCAP (healthcare-associated pneumonia) (Acute) Community acquired bacterial pneumonia (Acute) - Physical Exam General: Alert, Oriented x3, Cooperative HEENT: Atraumatic, PERRLA, EOMI, Normocephalic Neck: Supple, No JVD, Negative Carotid Bruits Lungs: Rales - Diffuse, Tachypneic, Using Accessory Muscles, - - Patient noted to have conversational dyspnea and on BiPAP at the time of examination Cardiovascular: Gallops, Tachycardic Abdomen: Bowel Sounds Present, Soft, Non Tender Extremities: No edema, Capillary Refill Less than 3 Seconds Skin: No rashes, No breakdown Musculoskeletal: No Tenderness to Palpation of Joints or Extremities Neurological: Cranial nerves II-XII grossly intact Psych/Mental Status: Normal Affect, Appropriate Vital Signs Temp Pulse Resp BP Pulse Ox 102.9 F H 95 24 H 111/65 94 05/17/19 01:23 05/17/19 01:23 05/17/19 01:23 05/17/19 01:23 05/17/19 01:23 Oxygen Flow Rate (L/min) 100 Oxygen Delivery Method Bi-pap Weight: 93 kg Body Mass Index (BMI) 33.0 Laboratory Tests Past 24 Hrs 05/17/19 05/17/19 05/17/19 00:25 00:25 00:25 WBC 17.8 H RBC 4.02 L Hgb 10.0 L Hct 32.2 L MCV 80.1 MCH 24.9 L MCHC 31.1 L RDW Std Deviation 54.8 H RDW Coeff of Rossy 18.9 H Plt Count 324 MPV 9.6 Immature Gran % (Auto) 0.400 Neut % (Auto) 73.8 H Lymph % (Auto) 17.4 L Crockett % (Auto) 8.0 Eos % (Auto) 0.1 Baso % (Auto) 0.3 Absolute Neuts (auto) 13.1 H Absolute Lymphs (auto) 3.10 Nucleated RBC % 0 PT 35.3 H INR 3.5 H* APTT 96.9 H* Specimen Type Sample Site pH Bicarbonate Actual POC Total CO2 Base Excess O2 Saturation ABG pCO2 ABG pO2 Rakan Test O2 Delivery Device Liter Flow Blood Gas Notified Whom Blood Gas Notified Time Sodium 134 L Potassium 4.7 Chloride 102 Carbon Dioxide 26.0 Anion Gap 6 BUN 19 H Creatinine 1.36 H Estim Creat Clear Calc 43.65 Est GFR (MDRD) Af Amer 66 Est GFR (MDRD) Non-Af 54 L BUN/Creatinine Ratio 14.0 Glucose 122 H Lactic Acid Calcium 8.6 Total Bilirubin 0.70 AST 32 ALT 19 Alkaline Phosphatase 99 Troponin I Total Protein 8.5 H Albumin 3.2 Globulin 5.3 H Albumin/Globulin Ratio 0.6 L Urine Color Urine Clarity Urine pH Ur Specific Colp Urine Protein Urine Glucose (UA) Urine Ketones Urine Occult Blood Urine Nitrite Urine Bilirubin Urine Urobilinogen Ur Leukocyte Esterase Urine RBC Urine WBC Ur Squamous Epith Cells Ur Transition Epith Cell Urine Bacteria Hyaline Casts Urine Mucus 05/17/19 05/17/19 05/17/19 00:25 00:25 00:35 WBC RBC Hgb Hct MCV MCH MCHC RDW Std Deviation RDW Coeff of Rossy Plt Count MPV Immature Gran % (Auto) Neut % (Auto) Lymph % (Auto) Crockett % (Auto) Eos % (Auto) Baso % (Auto) Absolute Neuts (auto) Absolute Lymphs (auto) Nucleated RBC % PT INR APTT Specimen Type ART Sample Site L Radial pH 7.44 Bicarbonate Actual 21.4 L POC Total CO2 22 Base Excess -3 L O2 Saturation 90 L ABG pCO2 31.8 L ABG pO2 56 L Rakan Test POS O2 Delivery Device NRB Mask Liter Flow 15.0 Blood Gas Notified Whom ED Blood Gas Notified Time 32 Sodium Potassium Chloride Carbon Dioxide Anion Gap BUN Creatinine Estim Creat Clear Calc Est GFR (MDRD) Af Amer Est GFR (MDRD) Non-Af BUN/Creatinine Ratio Glucose Lactic Acid 1.3 Calcium Total Bilirubin AST ALT Alkaline Phosphatase Troponin I < 0.015 Total Protein Albumin Globulin Albumin/Globulin Ratio Urine Color Urine Clarity Urine pH Ur Specific Colp Urine Protein Urine Glucose (UA) Urine Ketones Urine Occult Blood Urine Nitrite Urine Bilirubin Urine Urobilinogen Ur Leukocyte Esterase Urine RBC Urine WBC Ur Squamous Epith Cells Ur Transition Epith Cell Urine Bacteria Hyaline Casts Urine Mucus 05/17/19 00:44 WBC RBC Hgb Hct MCV MCH MCHC RDW Std Deviation RDW Coeff of Rossy Plt Count MPV Immature Gran % (Auto) Neut % (Auto) Lymph % (Auto) Crockett % (Auto) Eos % (Auto) Baso % (Auto) Absolute Neuts (auto) Absolute Lymphs (auto) Nucleated RBC % PT INR APTT Specimen Type Sample Site pH Bicarbonate Actual POC Total CO2 Base Excess O2 Saturation ABG pCO2 ABG pO2 Rakan Test O2 Delivery Device Liter Flow Blood Gas Notified Whom Blood Gas Notified Time Sodium Potassium Chloride Carbon Dioxide Anion Gap BUN Creatinine Estim Creat Clear Calc Est GFR (MDRD) Af Amer Est GFR (MDRD) Non-Af BUN/Creatinine Ratio Glucose Lactic Acid Calcium Total Bilirubin AST ALT Alkaline Phosphatase Troponin I Total Protein Albumin Globulin Albumin/Globulin Ratio Urine Color Yellow Urine Clarity Sl. Cloudy Urine pH 6.0 Ur Specific Colp 1.015 Urine Protein 30 H Urine Glucose (UA) Normal Urine Ketones 5 H Urine Occult Blood 10 H Urine Nitrite Negative Urine Bilirubin Negative Urine Urobilinogen Normal Ur Leukocyte Esterase Negative Urine RBC 0 SEEN Urine WBC 0-5 SEEN Ur Squamous Epith Cells 0-5 SEEN Ur Transition Epith Cell 0-5 SEEN Urine Bacteria RARE Hyaline Casts 0-5 SEEN Urine Mucus 2+ Assessment/Plan All Active Problems (Last Reviewed 05/17/19 @ 03:55 by Tristan Clancy MD) Acute respiratory failure with hypoxia (Acute) Community acquired pneumonia, bilateral (Acute) Severe sepsis (Acute) Anticoagulated on Coumadin (Acute) Sinus tachycardia by electrocardiogram (Acute) HCAP (healthcare-associated pneumonia) (Acute) Community acquired bacterial pneumonia (Acute) Acute hypoxemic respiratory failure (Resolved) Acute respiratory insufficiency (Resolved) Chest pain (Resolved) Supratherapeutic INR (Resolved) Unstable angina (Resolved) The patient is a 73 year old M with a significant history of paroxysmal Afib; DVT with IVC filter; IPF with home oxygen use; ALFRED on CPAP; cad S/P CABG and coronary stents placed x3 times (1 stent, 1 stent and then 2 stents about 2 weeks ago) presenting to the ED with syncope; after an outpatient diagnosis of pneumonia for which reason he was started on Levaquin; who was found to be severely hypoxic requiring nonrebreather mask and BiPAP and with tachycardia; tachypnea; fever; and radiographic evidence of increased bilateral pulmonary infiltrates consistent with severe sepsis secondary to community-acquired pneumonia. Severe sepsis secondary to community acquired pneumonia T-max of 102.4; highest respiratory rate of 35; heart rate between 92-96 Radiographic evidence of bilateral pulmonary infiltrates: Increase in the lung apices when compared to the previous study. Chest x-ray was independently reviewed and agree with radiologist interpretation. End of organ damage: Lung- Required nonrebreather mask and BiPAP. Lactic acid: 1.3. Blood culture ?2 is pending; follow Respiratory Gram stain and culture pending; follow Antibiotics: Patient received 2 doses of Levaquin p.o. at home before presentation. At the emergency department patient was given Levaquin IV. Because his creatinine clearance is less than 50 we will make Levaquin every 48 hours. If his kidney function improves consider Levaquin daily. Patient reports that when he takes penicillin his skin looks like strawberry. Will shy away from penicillins at this time. Because patient presented with a syncopal episode that could be due to his pneumonia and he had received 2 doses of Levaquin before presentation will escalate therapy by adding ertapenem. We will give one-time dose of vancomycin and check MRSA of his nares. If MRSA of his nares is negative vancomycin can be discontinued. IV hydration: Does not meet criteria for sepsis criteria for IV bolus. However because of concomitant VAN will give maintenance IV hydration. DuoNeb scheduled. Albuterol as needed Legionella antigen screen and Strep antigen ordered Steroid therapy: Patient stated that he has been on steroid taper for about 1 year. His steroid dose was started from prednisone 60 mg daily and it has slowly been tapered. At the time of presentation he was on 5 mg of prednisone every other day and he had 4 days to complete therapy. We will give a one-time dose of Solu-Medrol 40 mg IV x1. Will consult mascara molder to make further recommendations on steroid therapy; and to optimize management of his critical condition. Discussed with emergency department doctor to admit patient to the intensive care unit. Trend CBC Trend BMP. BiPAP was started in emergency department; continued. EKG showed sinus tach at the emergency department. Because of concomitant chest pain we will trend troponin. Initial troponin at the emergency department was unremarkable. Mucinex ordered. Home Tessalon Perles continued. Acute on chronic hypoxemic respiratory failure Multifactorial from pneumonia and possible flareup of his IPF. Patient was on nonrebreather mask and was transitioned onto BiPAP. Although he uses oxygen at 2 1/2 to 3 L at home this requirement is above his baseline. His reported that in the week of presentation his oxygen requirement had gone up to 4 L and although he used to use his oxygen only on exertion now he has been using his oxygen all the time. VAN On presentation his creatinine was 1.36 His baseline creatinine is about 1. BUN is 19. BUN over creatinine is 14 which points to intrinsic renal failure probably from toxic effects of sepsis.. However cannot rule out prerenal from hypovolemia secondary to increase perspiration from increased work of breathing. Will put patient on maintenance IV hydration. Trend BMP Avoid nephrotoxic's. Syncope with collapse. Although his syncope could be due to acute hypoxemic respiratory failure can not rule out other causes of syncope includes cardiac dysrhythmia; valvular heart disease; vasovagal syncope and at this. At this time patient is on BiPAP and orthostatic blood pressure can not be done. Cardiac catheterization on 04/26/2019 showed an ejection fraction of 65%; with normal left ventricular end- diastolic pressure. Echocardiogram on 01/01/2019 showed ejection fraction of 70%. Diastolic function was indeterminate. There was trivial mitral valve insufficiency; and mild focal aortic valve calcification. With his gallop on examination we will obtain another echocardiogram. Obtain records from [facility] including echocardiogram. Hyponatremia On presentation his sodium was 134; mild. Likely due to pulmonary infection. IV fluids for VAN. Trend BMP. IPF On home nintedanib; continued. Was on a steroid taper as above. One-time dose of Solu-Medrol ordered CAD status post CABG and stent In the setting of recent coronary stent about 2 weeks ago we will continue aspirin and Plavix even in the setting of hemoptysis. Obstructive sleep apnea Patient uses home CPAP. Now on BiPAP. Atrial fibrillation Patient was in sinus tach on presentation. And his Coumadin was held from home because of elevated INR and hemoptysis. At home his INR was 5.2. On presentation his INR was still elevated at 3.4. Hold Coumadin. Repeat INR. DVT prophylaxis Patient is supratherapeutic on his INR. Also patient reportedly has an IVC filter. In any case we will order SCD. Code Visit Inpatient E&M: 78409 Init Hosp L3
--- NOTE | 2019-05-17 02:14 | SEPSIS_ITS ---
Sepsis Note - Physical Exam/Vitals Objective: Brain CT 05/17/19 00:23 IMPRESSION: No acute intracranial pathology. Chronic changes as discussed similar to prior study Individualized dose optimization techniques were used for this CT. at 0122 Reported and signed by: Marina Castillo DO Electronically Signed: Marina Castillo DO at 1:21 EDT Tel , Service support , Chest X-Ray 05/17/19 00:45 IMPRESSION: Bilateral pulmonary infiltrates. These have increased in the lung apices when compared to the prior study at 0118 Reported and signed by: Marina Castillo DO Electronically Signed: Marina Castillo DO at 1:17 EDT Tel , Service support , Temp Pulse Resp BP Pulse Ox 102.6 F H 98 35 H 116/78 97 05/17/19 02:02 05/17/19 02:02 05/17/19 02:02 05/17/19 02:02 05/17/19 02:02 05/17/19 05/17/19 05/17/19 00:44 00:35 00:25 WBC RBC Hgb Hct MCV MCH MCHC RDW Std Deviation RDW Coeff of Rossy Plt Count MPV Immature Gran % (Auto) Neut % (Auto) Lymph % (Auto) [place] % (Auto) Eos % (Auto) Baso % (Auto) Absolute Neuts (auto) Absolute Lymphs (auto) Nucleated RBC % PT INR APTT Specimen Type ART Sample Site L Radial pH 7.44 Bicarbonate Actual 21.4 L POC Total CO2 22 Base Excess -3 L O2 Saturation 90 L ABG pCO2 31.8 L ABG pO2 56 L Rakan Test POS O2 Delivery Device NRB Mask Liter Flow 15.0 Blood Gas Notified Whom ED Blood Gas Notified Time 32 Sodium Potassium Chloride Carbon Dioxide Anion Gap BUN Creatinine Estim Creat Clear Calc Est GFR (MDRD) Af Amer Est GFR (MDRD) Non-Af BUN/Creatinine Ratio Glucose Lactic Acid Calcium Total Bilirubin AST ALT Alkaline Phosphatase Troponin I < 0.015 Total Protein Albumin Globulin Albumin/Globulin Ratio Urine Color Yellow Urine Clarity Sl. Cloudy Urine pH 6.0 Ur Specific [place] 1.015 Urine Protein 30 H Urine Glucose (UA) Normal Urine Ketones 5 H Urine Occult Blood 10 H Urine Nitrite Negative Urine Bilirubin Negative Urine Urobilinogen Normal Ur Leukocyte Esterase Negative Urine RBC 0 SEEN Urine WBC 0-5 SEEN Ur Squamous Epith Cells 0-5 SEEN Ur Transition Epith Cell 0-5 SEEN Urine Bacteria RARE Hyaline Casts 0-5 SEEN Urine Mucus 2+ 05/17/19 05/17/19 05/17/19 00:25 00:25 00:25 WBC RBC Hgb Hct MCV MCH MCHC RDW Std Deviation RDW Coeff of Rossy Plt Count MPV Immature Gran % (Auto) Neut % (Auto) Lymph % (Auto) [place] % (Auto) Eos % (Auto) Baso % (Auto) Absolute Neuts (auto) Absolute Lymphs (auto) Nucleated RBC % PT 35.3 H INR 3.5 H* APTT 96.9 H* Specimen Type Sample Site pH Bicarbonate Actual POC Total CO2 Base Excess O2 Saturation ABG pCO2 ABG pO2 Rakan Test O2 Delivery Device Liter Flow Blood Gas Notified Whom Blood Gas Notified Time Sodium 134 L Potassium 4.7 Chloride 102 Carbon Dioxide 26.0 Anion Gap 6 BUN 19 H Creatinine 1.36 H Estim Creat Clear Calc 43.65 Est GFR (MDRD) Af Amer 66 Est GFR (MDRD) Non-Af 54 L BUN/Creatinine Ratio 14.0 Glucose 122 H Lactic Acid 1.3 Calcium 8.6 Total Bilirubin 0.70 AST 32 ALT 19 Alkaline Phosphatase 99 Troponin I Total Protein 8.5 H Albumin 3.2 Globulin 5.3 H Albumin/Globulin Ratio 0.6 L Urine Color Urine Clarity Urine pH Ur Specific [place] Urine Protein Urine Glucose (UA) Urine Ketones Urine Occult Blood Urine Nitrite Urine Bilirubin Urine Urobilinogen Ur Leukocyte Esterase Urine RBC Urine WBC Ur Squamous Epith Cells Ur Transition Epith Cell Urine Bacteria Hyaline Casts Urine Mucus 05/17/19 00:25 WBC 17.8 H RBC 4.02 L Hgb 10.0 L Hct 32.2 L MCV 80.1 MCH 24.9 L MCHC 31.1 L RDW Std Deviation 54.8 H RDW Coeff of Rossy 18.9 H Plt Count 324 MPV 9.6 Immature Gran % (Auto) 0.400 Neut % (Auto) 73.8 H Lymph % (Auto) 17.4 L [place] % (Auto) 8.0 Eos % (Auto) 0.1 Baso % (Auto) 0.3 Absolute Neuts (auto) 13.1 H Absolute Lymphs (auto) 3.10 Nucleated RBC % 0 PT INR APTT Specimen Type Sample Site pH Bicarbonate Actual POC Total CO2 Base Excess O2 Saturation ABG pCO2 ABG pO2 Rakan Test O2 Delivery Device Liter Flow Blood Gas Notified Whom Blood Gas Notified Time Sodium Potassium Chloride Carbon Dioxide Anion Gap BUN Creatinine Estim Creat Clear Calc Est GFR (MDRD) Af Amer Est GFR (MDRD) Non-Af BUN/Creatinine Ratio Glucose Lactic Acid Calcium Total Bilirubin AST ALT Alkaline Phosphatase Troponin I Total Protein Albumin Globulin Albumin/Globulin Ratio Urine Color Urine Clarity Urine pH Ur Specific [place] Urine Protein Urine Glucose (UA) Urine Ketones Urine Occult Blood Urine Nitrite Urine Bilirubin Urine Urobilinogen Ur Leukocyte Esterase Urine RBC Urine WBC Ur Squamous Epith Cells Ur Transition Epith Cell Urine Bacteria Hyaline Casts Urine Mucus General: Alert, Oriented x3, Cooperative Lungs: Rales - Inspiratory Cardiovascular: Gallops, Tachycardic Capillary Refill: <3 seconds Peripheral Pulses: Normal Skin Color: [place] - Assessment/Plan Severe sepsis secondary to pneumonia Patient with tachycardia; tachypnea; and on BiPAP. Blood culture and urine culture was obtained at the emergency department; follow Lactic acid was unremarkable Started on broad-spectrum antibiotics of Levaquin from the ED. Continue Levaquin. Aztreonam ordered. Vancomycin x1 already ordered. MRSA nasal screen ordered. Bolus IV fluids not given since patient is not in septic shock and lactic acid is less than 4.
[2019-05-17] MEDS: 0.9% Normal Saline 1,000 ML 75 ML IV (03:17)
[2019-05-17] MEDS: 0.9% NaCl IVPB Med Flush (250 mL) 15 ML IV (03:19)
[2019-05-17] MEDS: 0.9% NaCl Peripheral Flush Adult/Peds IV ×3 (03:46→21:35)
--- NOTE | 2019-05-17 03:51 | ECHOCS_ITS ---
Reason For Study: Syncope Procedure This was a 2D Doppler, Color Flow transthoracic echocardiogram. The study was technically difficult. Contrast injection was performed. Exam performed portable in ICU/CCU. Left Ventricle Normal size and thickness. The estimated ejection fraction is 65 %. Stage 1 diastolic dysfunction. No regional wall motion abnormalities noted. Right Ventricle Mildly dilated right ventricle. Normal systolic function. Atria Normal left atrium. Normal right atrium. Probable chiari network. Normal atrial septum. Mitral Valve The mitral valve is structurally normal. No prolapse or stenosis seen. Tricuspid Valve Normal tricuspid valve. Trivial tricuspid valve insufficiency. Right ventricular systolic pressure estimated to be 42 mmHg. Mild pulmonary hypertension. Aortic Valve Trisinus/trileaflet aortic valve. Aortic sclerosis, no stenosis. Pulmonic Valve Normal pulmonic valve. Great Vessels Normal aortic root. Normal arch. Normal inferior vena cava. Inferior vena cava collapse with sniff. Pericardium/Pleural No pericardial effusion. Medication Diluted definity 2ml given slow IV push to enhance endocardial definition. MMode/2D Measurements & Calculations LVIDd: 4.0 cm IVSd: 1.3 cm LAV(MOD-bp): 62.1 ml LVIDs: 2.5 cm LVPWd: 0.80 cm FS: 37.4 % LAV(MOD-bp) Indexed: 31.2 ml/m2 LAV(MOD-sp2): 57.0 ml LAV(MOD-sp4): 62.8 ml LA A4 area: 20.7 cm2 RA A4 area: 13.0 cm2 Time Measurements MV dec time: 0.31 sec Doppler Measurements & Calculations MV E max javi: 64.2 cm/sec Lat Peak E' Javi: 10.9 cm/sec Med Peak E' Javi: 8.1 cm/sec MV A max javi: 84.7 cm/sec E/E' lat: 5.9 E/E' med: 8.0 MV E/A: 0.76 MV V2 max: 96.4 cm/sec MV P1/2t max javi: 65.4 cm/sec Ao V2 max: 105.2 cm/sec MV max P.7 mmHg MV P1/2t: 65.7 msec Ao max P.4 mmHg MV V2 mean: 49.4 cm/sec Ao V2 mean: 63.9 cm/sec MV mean P.2 mmHg MV dec slope: 291.2 cm/sec2 Ao mean P.0 mmHg MV V2 VTI: 22.1 cm MVA(P1/2t): 3.3 cm2 Ao V2 VTI: 20.0 cm LV V1 max: 112.0 cm/sec PA V2 max: 186.2 cm/sec TR max javi: 305.5 cm/sec LV V1 max P.0 mmHg TR max P.3 mmHg LV V1 mean P.1 mmHg LV V1 mean: 66.4 cm/sec LV V1 VTI: 23.3 cm Interpretation Summary The estimated ejection fraction is 65 %. Stage 1 diastolic dysfunction. Mildly dilated right ventricle. Trivial tricuspid valve insufficiency. Right ventricular systolic pressure estimated to be 42 mmHg. Compared to echo report dated 01/01/2019, no appreciable changes noted. RVSP not obtained at that time. The study was technically difficult. Contrast injection was performed. Ordering Physician: Tristan Clancy Referring Physician: Maria Mccoy M.D. Performed By: Isaac Macias RCS
[2019-05-17 04:36] LABS: M R Staph aureus DNA By PCR Negative (Negative); Probe Check PASS; Specimen Processing Control PASS
[2019-05-17] MEDS: Ipratropium/Albuterol Sulfate 3 ML AMPUL.NEB INHALATION ×3 (07:26→18:46)
--- NOTE | 2019-05-17 09:23 | CASEMGMT ---
RN CM Note: participated in ICU rounds,. Pt r;emains on Bipap, IV antibiotics, aersols. Plan is to remain in ICU today. RN CM assessment deferred as pt remains on Bipap and not able to participate at this time. Rishabh MACARION RN ACM
[2019-05-17] MEDS: Verapamil SR 180 MG CAPSULE PO (10:39)
[2019-05-17] MEDS: Pantoprazole Sodium 40 MG Tablet PO (10:39)
[2019-05-17] MEDS: Clopidogrel Bisulfate 75 MG Tablet PO (10:39)
--- NOTE | 2019-05-17 10:49 | NURSING ---
Pt taken off of bipap to 6L for pills. Pt desaturated to mid 70s within a couple minutes and symptomatic. Bipap placed back on pt at current settings. SPO2 now 93% after a few minutes.
--- NOTE | 2019-05-17 12:18 | CON.PCM_ITS ---
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 Vitale @ [facility]. 03/27/2015 @ [facility] per Dr. Joby Arreguin; 10/24/[address] Marshall Knight @ [facility]; 08/09/[address] Jude Espana [facility] (11) Atherosclerosis of coronary artery without angina pectoris Status: Chronic (12) S/P CABG x 1 Status: Chronic Comment: [address] 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 Radial artery graft to the RCA. (13) Hyperlipidemia Status: Chronic (14) Obstructive sleep apnea Status: Chronic Reason for Consult Date of Consultation: 05/17/19 - Late entry Reason for Consultation: Respiratory failure History of Present Illness: The patient is a 73 year old M, with past medical history listed below, who presented [facility] on 05/17/2019 following a fall with syncopal event. Patient was reportedly returning from the bathroom to the kitchen after getting his albuterol. Patient reportedly had passed out, fell and hit the wall. Patient was on Coumadin therapy at baseline secondary to history of DVT. Patient had reported that he was seen by cardiac rehab and was diagnosed with pneumonia. Patient had been prescribed Levaquin, but had noted increased shortness of breath, chills, poor appetite and left-sided chest pain over the previous 2 days. Patient does use 2-1/2 to 3 L at baseline on exertion, but had increased to 4 L continuously at rest. On arrival, paramedics had placed the patient on a nonrebreather mask. In the ER, patient was noted to have significant respiratory distress and was placed on BiPAP therapy. Patient was placed on 65% FiO2 with BiPAP with improvement to 95%. Patient was also noted to have a fever of 102.4, tachycardia and tachypnea. Chest x-ray showed bilateral infiltrates, left greater than right. Patient also had a lactic acid of 1.3 and had a Guzmán placed. Patient was started on broad-spectrum antibiotics and transferred to the intensive care unit for further monitoring. In the intensive care unit, patient continued to have some shortness of breath. Initially on evaluation this morning, patient had reported that he felt subjectively improved, but had to be transition to AVAPS secondary to decreased tidal volumes. Patient has persistently kept his respiratory rate in the 20s to 30s with 60% FiO2. Patient denies any chest pain. Patient did desaturate quickly with attempts to take Plavix by mouth. Patient reportedly has a past medical history significant for IPF with chronic respiratory failure. Patient recently had stents placed at [facility]. Patient reportedly has obstructive sleep apnea, but is unaware of his home settings. Patient states he does take steroids chronically secondary to his IPF. Patient is currently taking 5 mg of prednisone every other day. Review of systems otherwise negative x10 systems. Past Medical History Past Medical History (Chronic Problems): Chronic Problems (Last Reviewed 05/17/19 @ 03:55 by Tristan Clancy MD) On anticoagulant therapy (Chronic) Benign essential hypertension (Chronic) History of DVT of lower extremity (Chronic) Hemochromatosis (Chronic) History of pulmonary embolism (Chronic) Idiopathic pulmonary fibrosis (Chronic) Chronic respiratory failure with hypoxia (Chronic) History of left heart catheterization (Chronic) 04/26/2019 per SAHRA @ [facility], tsfer to Dr. Vitale @ [facility]. 03/27/2015 @ [facility] per Dr. Joby Arreguin; 10/24/[address] Marshall Knight @ [facility]; 08/09/[address] Jude Espana [facility] Atherosclerosis of coronary artery without angina pectoris (Chronic) S/P CABG x 1 (Chronic ~1994) [address] 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 Radial artery graft to the RCA. Stented coronary artery (Chronic 04/26/19) 12/23/2008: 3.5 X 15 mm vision BMS so mid LAD pr Dr. Rodríguez Hemphill, [facility]. 04/26/2019: Per Dr. Vitale @ [facility] ( after transferred from [facility] per Dr. Almonte): 5.0 X 16 Synergy stent from left main into the LAD ; a second 5.0 X 12 mm Synergy stent from left main into LCX and kissing balloon angioplasty performed. IVUS revealed 70-80% ostial LAD and 60% ostial CX stenosis with severe eccentric calcified disease in the distal left main. Hyperlipidemia (Chronic) Obstructive sleep apnea (Chronic) Medical History: Medical History (Last Reviewed 05/17/19 @ 03:55 by Tristan Clancy MD) Atherosclerosis of coronary artery without angina pectoris (Chronic) I25.10 Hyperlipidemia (Chronic) E78.5 Obstructive sleep apnea (Chronic) G47.33 Idiopathic pulmonary fibrosis J84.112 Atrial fibrillation I48.91 H/O deep venous thrombosis Z86.718 Lower back pain M54.5 Lumbar arthropathy M47.816 chronic steroid dependece severe pulmonary fibrosis Allergies Penicillins Allergy (Verified 05/17/19 00:27) Hives celecoxib [From Celebrex] Adverse Reaction (Verified 05/17/19 00:27) Chest tightness nitroglycerin [From Nitrostat] Adverse Reaction (Verified 05/17/19 00:27) severe migraine Jvqubhk-Aoo-Eir Reductase Inhibitor Adverse Reaction (Verified 05/17/19 00:27) Pain in joints Home Medications: Ambulatory Orders Medication Instructions Recorded Ascorbic Acid 500 mg PO DAILY 11/19/18 Aspirin [Aspirin, Baby] 81 mg PO DAILY@0800 11/19/18 Benzonatate 100 mg PO TID PRN 11/19/18 Fish Oil/Borage/Flax/Om3,6,9 1 1,200 mg PO DAILY 11/19/18 [[place] 3-6-9 1,200 mg Softgel] Flaxseed Oil 1,000 mg PO DAILY 11/19/18 Multivitamin with Minerals 1 tab PO DAILY 11/19/18 [Multiple Vitamin] Pantoprazole Sodium [Protonix] 40 mg PO DAILY 11/19/18 Verapamil HCl [Verapamil ER] 180 mg PO DAILY 11/19/18 Magnesium 250 mg PO DAILY 12/30/18 Nitroglycerin 0.4 mg SL PRN PRN 12/30/18 Albuterol Aerosols [Ventolin 2.5 mg INHALATION 4X/DAY 04/24/19 Aerosols] Nintedanib Esylate [Ofev] 100 mg PO BID 04/24/19 Warfarin [Coumadin] 7.5 mg PO SUWETHFRSA 04/24/19 Warfarin [Coumadin] 10 mg PO MOTU 04/24/19 Clopidogrel Bisulfate [Plavix] 75 mg PO DAILY tab 04/26/19 Oxygen, Home [Home Oxygen] 2 - 4 lpm NASAL PRN 05/09/19 calcium carbonate 600 mg(1,500 1 tab PO BID 05/10/19 mg)-vitamin D3 800 unit chewable tablet gemfibrozil 600 mg tablet 600 mg PO BID #60 tab 05/10/19 prednisone 10 mg tablet 5 mg PO Q OTHER DAY tab 05/10/19 levofloxacin 750 mg tablet 750 mg PO DAILY #5 tab 05/15/19 Surgical History: Surgical History (Last Reviewed 05/17/19 @ 03:55 by Tristan Clancy MD) History of left heart catheterization (Chronic) Z98.890 04/26/2019 per SAHRA @ [facility], tsfer to Dr. Vitale @ [facility]. 03/27/2015 @ [facility] per Dr. Joby Arreguin; 10/24/[address] Marshall Knight @ [facility]; 08/09/[address] Jude Espana [facility] S/P CABG x 1 (Chronic) Onset Date: ~1994 Z95.[address] 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 Radial artery graft to the RCA. Stented coronary artery (Chronic) Onset Date: 04/26/19 Z95.5 12/23/2008: 3.5 X 15 mm vision BMS so mid LAD pr Dr. Rodríguez Hemphill, [facility]. 04/26/2019: Per Dr. Vitale @ [facility] ( after transferred from [facility] per Dr. Almonte): 5.0 X 16 Synergy stent from left main into the LAD ; a second 5.0 X 12 mm Synergy stent from left main into LCX and kissing balloon angioplasty performed. IVUS revealed 70-80% ostial LAD and 60% ostial CX stenosis with severe eccentric calcified disease in the distal left main. Surgical History: coronary bypass surgery, - - IVC filter placement Psychiatric History: No pertinent psych hx Lives: Spouse/ Significant Other Smoking Status: Former smoker Alcohol: None Drugs: None - *Family History Maternal History Items: Diabetes, Heart Disease Paternal History Items: Diabetes, Heart Disease Review of Systems Comment: See HPI Patient Problems: Active and Suspected Problems (Last Reviewed 05/17/19 @ 03:55 by Tristan Clancy MD) Acute respiratory failure with hypoxia (Acute) Community acquired pneumonia, bilateral (Acute) Severe sepsis (Acute) Anticoagulated on Coumadin (Acute) Sinus tachycardia by electrocardiogram (Acute) HCAP (healthcare-associated pneumonia) (Acute) Community acquired bacterial pneumonia (Acute) Objective: Chest x-ray was personally reviewed and shows bilateral infiltrates. She has had an echocardiogram showing an EF of 65% with stage I diastolic dysfunction and elevated pulmonary artery pressures at 42 mmHg. No other significant valvular abnormalities were noted. - Physical Exam General: Alert, Cooperative, - - Mild to moderate respiratory distress. Good BiPAP synchrony noted. Appears stated age. Obese. HEENT: Atraumatic, PERRLA, EOMI, Normocephalic, - - Slight scleral injection without icterus Oral: No Gingival or Mucosal Lesions/ Ulcerations, Dry Mucosa Neck: Supple, No JVD, No Nodes, Trachea Midline Lungs: No wheeze, Diminished, Rhonchi - Bilateral, - - Symmetric expansion. No dullness to percussion. Cardiovascular: Normal S1, Normal S2, Irregular Rate, Murmur - Grade 1 out of 6 systolic ejection murmur at the left sternal border Abdomen: Bowel Sounds Present, Soft, Non Tender, Distended - Slightly Extremities: No clubbing, No cyanosis, No edema Skin: No rashes, No breakdown Musculoskeletal: No Tenderness to Palpation of Joints or Extremities Lymphatic: No Cervical, Supraclavicular, or Inguinal Adenopathy Neurological: Cranial nerves II-XII grossly intact, Neuro grossly intact, Motor Exam 5/5 strength throughout Psych/Mental Status: Anxious, Restless Vital Signs Temp Pulse Resp BP Pulse Ox 36.8 C 78 33 H 116/71 91 05/17/19 12:00 05/17/19 12:00 05/17/19 12:00 05/17/19 12:05/17/19 12:00 Oxygen Flow Rate (L/min) 100 Oxygen Delivery Method Bi-pap Weight: 90.1 kg Body Mass Index (BMI) 32.1 Intake and Output for Last 24 Hours 05/15/19 05/16/19 05/17/19 23:59 23:59 23:59 Intake Total 1200.50 / 1200.50 Output Total 1300 / 1300 Balance -99.50 / -99.50 Microbiology Past 72 Hours 05/17/19 00:45 Streptococcus pneumoniae Antigen (M - Final Urine Catheter - Catheter 05/17/19 00:45 Legionella Antigen - Final Urine Catheter - Catheter Laboratory Tests Past 24 Hrs 05/17/19 05/17/19 05/17/19 00:25 00:25 00:25 WBC 17.8 H RBC 4.02 L Hgb 10.0 L Hct 32.2 L MCV 80.1 MCH 24.9 L MCHC 31.1 L RDW Std Deviation 54.8 H RDW Coeff of Rossy 18.9 H Plt Count 324 MPV 9.6 Immature Gran % (Auto) 0.400 Neut % (Auto) 73.8 H Lymph % (Auto) 17.4 L Elliott % (Auto) 8.0 Eos % (Auto) 0.1 Baso % (Auto) 0.3 Absolute Neuts (auto) 13.1 H Absolute Lymphs (auto) 3.10 Nucleated RBC % 0 PT 35.3 H INR 3.5 H* APTT 96.9 H* Specimen Type Sample Site pH Bicarbonate Actual POC Total CO2 Base Excess O2 Saturation ABG pCO2 ABG pO2 Rakan Test O2 Delivery Device Liter Flow Blood Gas Notified Whom Blood Gas Notified Time Sodium 134 L Potassium 4.7 Chloride 102 Carbon Dioxide 26.0 Anion Gap 6 BUN 19 H Creatinine 1.36 H Estim Creat Clear Calc 43.65 Est GFR (MDRD) Af Amer 66 Est GFR (MDRD) Non-Af 54 L BUN/Creatinine Ratio 14.0 Glucose 122 H Lactic Acid Calcium 8.6 Total Bilirubin 0.70 AST 32 ALT 19 Alkaline Phosphatase 99 Troponin I Total Protein 8.5 H Albumin 3.2 Globulin 5.3 H Albumin/Globulin Ratio 0.6 L Urine Color Urine Clarity Urine pH Ur Specific Randall Urine Protein Urine Glucose (UA) Urine Ketones Urine Occult Blood Urine Nitrite Urine Bilirubin Urine Urobilinogen Ur Leukocyte Esterase Urine RBC Urine WBC Ur Squamous Epith Cells Ur Transition Epith Cell Urine Bacteria Hyaline Casts Urine Mucus MRSA (PCR) 05/17/19 05/17/19 05/17/19 00:25 00:25 00:35 WBC RBC Hgb Hct MCV MCH MCHC RDW Std Deviation RDW Coeff of Rossy Plt Count MPV Immature Gran % (Auto) Neut % (Auto) Lymph % (Auto) Elliott % (Auto) Eos % (Auto) Baso % (Auto) Absolute Neuts (auto) Absolute Lymphs (auto) Nucleated RBC % PT INR APTT Specimen Type ART Sample Site L Radial pH 7.44 Bicarbonate Actual 21.4 L POC Total CO2 22 Base Excess -3 L O2 Saturation 90 L ABG pCO2 31.8 L ABG pO2 56 L Rakan Test POS O2 Delivery Device NRB Mask Liter Flow 15.0 Blood Gas Notified Whom ED MD Blood Gas Notified Time 32 Sodium Potassium Chloride Carbon Dioxide Anion Gap BUN Creatinine Estim Creat Clear Calc Est GFR (MDRD) Af Amer Est GFR (MDRD) Non-Af BUN/Creatinine Ratio Glucose Lactic Acid 1.3 Calcium Total Bilirubin AST ALT Alkaline Phosphatase Troponin I < 0.015 Total Protein Albumin Globulin Albumin/Globulin Ratio Urine Color Urine Clarity Urine pH Ur Specific Randall Urine Protein Urine Glucose (UA) Urine Ketones Urine Occult Blood Urine Nitrite Urine Bilirubin Urine Urobilinogen Ur Leukocyte Esterase Urine RBC Urine WBC Ur Squamous Epith Cells Ur Transition Epith Cell Urine Bacteria Hyaline Casts Urine Mucus MRSA (PCR) 05/17/19 05/17/19 05/17/19 00:44 03:15 03:15 WBC RBC Hgb Hct MCV MCH MCHC RDW Std Deviation RDW Coeff of Rossy Plt Count MPV Immature Gran % (Auto) Neut % (Auto) Lymph % (Auto) Elliott % (Auto) Eos % (Auto) Baso % (Auto) Absolute Neuts (auto) Absolute Lymphs (auto) Nucleated RBC % PT INR APTT Specimen Type Sample Site pH Bicarbonate Actual POC Total CO2 Base Excess O2 Saturation ABG pCO2 ABG pO2 Rakan Test O2 Delivery Device Liter Flow Blood Gas Notified Whom Blood Gas Notified Time Sodium Potassium Chloride Carbon Dioxide Anion Gap BUN Creatinine Estim Creat Clear Calc Est GFR (MDRD) Af Amer Est GFR (MDRD) Non-Af BUN/Creatinine Ratio Glucose Lactic Acid Calcium Total Bilirubin AST ALT Alkaline Phosphatase Troponin I < 0.015 Total Protein Albumin Globulin Albumin/Globulin Ratio Urine Color Yellow Urine Clarity Sl. Cloudy Urine pH 6.0 Ur Specific Randall 1.015 Urine Protein 30 H Urine Glucose (UA) Normal Urine Ketones 5 H Urine Occult Blood 10 H Urine Nitrite Negative Urine Bilirubin Negative Urine Urobilinogen Normal Ur Leukocyte Esterase Negative Urine RBC 0 SEEN Urine WBC 0-5 SEEN Ur Squamous Epith Cells 0-5 SEEN Ur Transition Epith Cell 0-5 SEEN Urine Bacteria RARE Hyaline Casts 0-5 SEEN Urine Mucus 2+ MRSA (PCR) Negative 05/17/19 05:50 WBC RBC Hgb Hct MCV MCH MCHC RDW Std Deviation RDW Coeff of Rossy Plt Count MPV Immature Gran % (Auto) Neut % (Auto) Lymph % (Auto) Elliott % (Auto) Eos % (Auto) Baso % (Auto) Absolute Neuts (auto) Absolute Lymphs (auto) Nucleated RBC % PT INR APTT Specimen Type Sample Site pH Bicarbonate Actual POC Total CO2 Base Excess O2 Saturation ABG pCO2 ABG pO2 Rakan Test O2 Delivery Device Liter Flow Blood Gas Notified Whom Blood Gas Notified Time Sodium Potassium Chloride Carbon Dioxide Anion Gap BUN Creatinine Estim Creat Clear Calc Est GFR (MDRD) Af Amer Est GFR (MDRD) Non-Af BUN/Creatinine Ratio Glucose Lactic Acid Calcium Total Bilirubin AST ALT Alkaline Phosphatase Troponin I < 0.015 Total Protein Albumin Globulin Albumin/Globulin Ratio Urine Color Urine Clarity Urine pH Ur Specific Randall Urine Protein Urine Glucose (UA) Urine Ketones Urine Occult Blood Urine Nitrite Urine Bilirubin Urine Urobilinogen Ur Leukocyte Esterase Urine RBC Urine WBC Ur Squamous Epith Cells Ur Transition Epith Cell Urine Bacteria Hyaline Casts Urine Mucus MRSA (PCR) Clinical Impression(s) from Imaging Studies Brain CT 05/17/19 00:23 IMPRESSION: No acute intracranial pathology. Chronic changes as discussed similar to prior study Individualized dose optimization techniques were used for this CT. at 0122 Reported and signed by: Marina Castillo DO Electronically Signed: Marina Castillo DO at 1:21 EDT Tel , Service support , Chest X-Ray 05/17/19 00:45 IMPRESSION: Bilateral pulmonary infiltrates. These have increased in the lung apices when compared to the prior study at 0118 Reported and signed by: Marina Castillo DO Electronically Signed: Marina Castillo DO at 1:17 EDT Tel , Service support , Assessment/Plan Active and Suspected Problems (Last Reviewed 05/17/19 @ 03:55 by Tristan perez MD) Acute respiratory failure with hypoxia (Acute) Community acquired pneumonia, bilateral (Acute) Severe sepsis (Acute) Anticoagulated on Coumadin (Acute) Sinus tachycardia by electrocardiogram (Acute) HCAP (healthcare-associated pneumonia) (Acute) Community acquired bacterial pneumonia (Acute) RECOMMENDATIONS: 1. Continue Plavix 2. Wean oxygen as tolerated 3. Continue BiPAP. Cannot exclude the need for intubation 4. Agree with HCAP antibiotics until culture data is available 5. Would not recommend aggressive diuresis 6. Hold Coumadin. Possible FFP if develops bleeding complications 7. Okay to hold Ofev for now IMPRESSIONS: 1. Acute on chronic hypoxic respiratory failure secondary to probable healthcare associated pneumonia/severe sepsis Patient was treated with Levaquin previously, but appears to have a resistant organism versus progression of disease. Imaging is showing increased apical infiltrates, but interpretation difficult in the setting of reported IPF. Ofev can be held as this likely is not going to change acute outcomes. Will increase patient's steroids to therapeutic doses. MRSA of the nares is currently pending. Patient is getting duo nebs. Patient's respiratory status is marginal. Cannot exclude the need for intubation over the next 24 to 48 hours. 2. Acute kidney injury Patient's presentation creatinine is 1.36 compared to a baseline of 1. Clinical suspicion for prerenal etiology secondary to problem #1. We will continue to monitor. No indication for renal replacement therapy at this time. Will avoid nephrotoxic medications if possible. 3. Syncopal event Unclear etiology at this time. Patient did recently have a cardiac intervention, so malignant rhythm would be a possibility. Patient also was profoundly hypoxic on presentation and may have had decreased saturations with exertion leading to syncopal event. Patient is currently on telemetry. We will continue to monitor. Electrolytes will be optimized. 4. Reported IPF/CAD status post CABG and recent stent/A. fib/history of ALFRED Complicates care, management, recovery and prognosis. No documentation is available for confirmation of IPF diagnosis. Ofev can likely be held during the acute hospitalization. However, this will be reinitiated on discharge. Patient is currently on AVAPS, which is a step up in therapy from CPAP. Patient may require active reversal of Coumadin. Addendum 1405: At approximately 1345, patient started to complain of worsening shortness of breath. Discussed options with the patient and after review the risks, benefits and alternatives, patient was open to intubation. At approximately 1350, the patient was given 20 of etomidate and was successfully intubated using a size 8- 0 endotracheal tube at 25 cm at the lip with the assistance of a glide scope. Patient did have difficulty with sedation and vent synchrony immediately after intubation and had to be increased to a PEEP of 8. OG was also placed with the assistance of a glide scope. TIME: 52 minutes critical care time spent addressing patient's acute on chronic respiratory failure, acute kidney injury, syncopal event, review of all data and collaboration with care team (8 AM to 12:30 PM, 1:30 PM to 2:06 PM) Code Visit 9xxxx: [id number] Critical care first hour
--- NOTE | 2019-05-17 13:24 | NURSING ---
Pt w/ coughing spell, removed mask and desaturated to 60s rapidly. FIO2 increased to 80% and pt recovered. RT and Dr. Ulloa notified. Pt c/o fatigue r/t breathing at this time and soreness to face from bipap mask.
--- NOTE | 2019-05-17 13:33 | NURSING ---
Pt's Debbie notified of elective intubation for pt.
[2019-05-17] MEDS: Etomidate 20 MG/10 ML Vial IV (13:50)
[2019-05-17] MEDS: Etomidate 20 MG/10 ML Vial 10 MG IV (13:51)
--- NOTE | 2019-05-17 13:56 | RAD_ITS ---
STUDY: X-RAY CHEST REASON FOR EXAM: Male, 73 years old. Endotracheal tube and orogastric tube placement. TECHNIQUE: Single AP portable view of the chest. COMPARISON: Comparison is made with prior examination done at 12:47 AM. FINDINGS: The endotracheal tube is in situ. The tip is at 3.9 cm proximal to the marly. The tip of the orogastric tube is within the fundal portion of the stomach. EKG electrodes are seen. Stable bilateral patchy airspace disease in both lungs. Blunting of both costophrenic angles. Sternal cerclage wires and vascular clips are present from a prior sternotomy and coronary artery bypass graft procedure (CABG). Normal mediastinum and denise. Normal visualized pulmonary arteries. There is atherosclerotic calcification of the aortic arch with tortuosity. Evidence of vertebroplasty of the L1 vertebrae. Normal visualized ribs, clavicles, and shoulders. There is no demonstrated abnormality of the visualized soft tissue structures of the upper abdomen. RAD/Chest 1 View (Portable) IMPRESSION: Stable bilateral patchy airspace disease. The tip of the endotracheal tube is at 3.9 cm proximal to the marly. The tip of the orogastric tube is within the fundal portion of the stomach. Electronically Signed: Raphael Roman, at 14:37 EDT , Service support ,
[2019-05-17] MEDS: fentaNYL drip 100 ML 5 MCG IV (14:00)
[2019-05-17] MEDS: Propofol 10MG/Ml 1,000 MG/100 ML Bottle 5.4 MG IV (14:00)
--- NOTE | 2019-05-17 14:00 | NURSING ---
After intubation, PT attempting to pull at EET, unable to re-direct, bilateral soft wrist restraints applied for patient safety.
[2019-05-17 15:21] LABS: CPK Total, Creatine Kinase 101 U/L (39-308); Triglycerides 68 mg/dL
[2019-05-17 16:00] LABS: Base Excess -1 mmol/L (-2 to +2); Bicarbonate 24.8 mmol/L (22-26); Blood Gas Specimen Type ART; FI02 100; Mode A-C; O2 Delivery Device Vent; PEEP 8; PO2 234 mmHG (75-100); RR 14; SITE R Radial; SO2 100 % (95-99); Time Given 1556; Total Carbon Dioxide 26 mmol/L; Vt 450; pCO2 47.2 mmHg (35-45); pH 7.33 (7.35-7.45)
--- NOTE | 2019-05-17 16:09 | PCM.HOSP.N ---
Hospitalist Note Patient seen and examined in the ICU briefly today, he remains on BiPAP at this time, at the time of my examination is resting quietly. I discussed his care briefly with critical care today.
[2019-05-17] MEDS: Propofol 10MG/Ml 1,000 MG/100 ML Bottle 13.5 MG IV (18:17)
[2019-05-17] MEDS: fentaNYL drip 100 ML 15 MCG IV (19:59)
[2019-05-17 20:21] LABS: International Normalized Ratio 2.6; Prothrombin Time (Protime)PT. 27.5 SECONDS (11.7-14.9)
[2019-05-17] MEDS: Chlorhexidine 15 ML PO (21:28)
[2019-05-17] MEDS: guaiFENesin 10 ML UDC (200MG/10ML) 20 ML GT (21:30)
--- NOTE | 2019-05-17 22:20 | NURSING ---
O2 sats dropping to mid 80's, ETT suctioned with no secretions, 100% FiO2 given via vent, respiratory called and to floor, increased FiO2 to 70%, patient tolerated fair with sats increased to 92%
[2019-05-18] VITALS (38 sets, daily range): BP systolic 92–110; BP diastolic 56–68; PULSE 55–64; RESP 14–23; TEMP 35.9–36.9; O2SAT 88–98
--- NOTE | 2019-05-18 00:05 | NURSING ---
O2 sats dropped to high 70's, ETT suctioned with no secretions, LS remain the same, ETT tube remains at 24 cm at the lip, repositioned with no O2 improved, 100% FiO2 given via vent, respiratory therapist called, came to floor, and PEEP increased to 10.
[2019-05-18] MEDS: Ipratropium/Albuterol Sulfate 3 ML AMPUL.NEB INHALATION ×4 (01:13→18:28)
[2019-05-18] MEDS: fentaNYL drip 100 ML 15 MCG IV ×2 (02:27→09:31)
[2019-05-18] MEDS: Propofol 10MG/Ml 1,000 MG/100 ML Bottle 10.8 MG IV ×2 (02:35→11:46)
[2019-05-18] MEDS: guaiFENesin 10 ML UDC (200MG/10ML) 20 ML GT ×6 (02:40→21:13)
[2019-05-18 04:09] LABS: Absolute Lymphocyte Count 0.93 X10^3/uL (0.83-4.51); Absolute Neutrophil Count 9.9 X10^3/uL (2.0-7.7); Hematocrit 27.2 % (40-54); Hemoglobin 8.1 g/dL (13.0-16.5); Lymphocyte # 0.93 X10^3/ul (4.0); Lymphocyte % 8.2 % (19-41); Mean Corp Hgb Conc 29.8 g/dL (32-36); Mean Corpuscular Hgb 24.6 pg (27.0-32.0); Mean Corpuscular Volume 82.7 fL (80-94); Mean Platelet Vol. 9.9 fl (6.2-12.0); Monocyte# 0.36 X10^3/uL; Monocyte% 3.2 % (0-10); NRBC Flagged by Analyzer 0 % (0-5); Neutrophil # 9.94 X10^3/uL (2.7-7.7); Neutrophil % 87.9 % (47-70); Platelet Count 301 K/mm3 (150-450); RBC Distribution Width CV 19.1 % (11.6-14.6); RBC Distribution Width SD 57.2 fl (35.1-43.9); Red Blood Count 3.29 M/mm3 (4.6-6.2); White Blood Count 11.3 K/mm3 (4.4-11.0)
[2019-05-18 04:29] LABS: Anion Gap 7 (5-15); BUN 31 mg/dL (7-18); BUN/Creat Ratio 25.4 RATIO (10-20); Calcium,Total 8.6 mg/dL (8.5-10.1); Chloride 107 mmol/L (98-107); Creatinine, Serum 1.22 mg/dL (0.70-1.30); EST Glomerular Filtration Rate 62 mL/min (>60); Est Glom Filt Rate - Afr Amer 75 mL/min (>60); Estimated Creatinine Clearance 48.66 ml/min; Glucose 141 mg/dL (74-106); Potassium 4.9 mmol/L (3.5-5.1); Sodium Level 140 mmol/L (136-145)
[2019-05-18 04:30] LABS: Magnesium 3.1 mg/dL (1.6-2.6); Phosphorus 4.3 mg/dL (2.5-4.9)
[2019-05-18] MEDS: Albuterol 2.5 MG/3 ML VIAL.NEB. INHALATION (05:00)
--- NOTE | 2019-05-18 05:00 | RAD_ITS ---
STUDY: X-RAY CHEST REASON FOR EXAM: Male, 73 years old. SOB TECHNIQUE: Single frontal view of the chest. COMPARISON: 05/17/2019 FINDINGS: Median sternotomy wires. Left PICC line tip in right atrium without pneumothorax. Other support devices are stable. Stable diffuse alveolar disease. There is no demonstrated pleural abnormality. Stable cardiomediastinal silhouette. Normal mediastinum and denise. Normal visualized pulmonary arteries. Normal visualized aortic arch and descending thoracic aorta. Normal visualized thoracic spine. Normal visualized ribs, clavicles, and shoulders. There is no demonstrated abnormality of the visualized soft tissue structures of the upper abdomen. RAD/Chest 1 View (Portable) IMPRESSION: Left PICC line tip in right atrium without pneumothorax. Stable diffuse alveolar disease. Electronically Signed: Gerson Porter MD at 5:21 EDT Tel , Service support ,
[2019-05-18] MEDS: 0.9% NaCl Peripheral Flush Adult/Peds IV ×3 (05:13→21:21)
--- NOTE | 2019-05-18 05:25 | NURSING ---
O2 sats continuing to drop despite ETT suction and increase in FiO2, bagged patient for approximately 30 seconds, met resistance, placed back on mechanical ventilator and O2 sats increased to 97% after approximately three minutes.
--- NOTE | 2019-05-18 06:57 | PCM.PN.INT ---
Subjective: Patient did okay overnight. There were some issues with oxygenation requiring increase of PEEP to 10. Patient did have some suctioning of bloody secretions and did receive bag valve mask ventilation for brief intervals. Objective: Chest x-ray this morning shows an endotracheal tube has migrated cephalad. Bilateral infiltrates persist. General: - - Intubated and sedated. Good vent synchrony. Appears stated age. HEENT: Atraumatic, PERRLA, EOMI, Normocephalic, - - No scleral icterus or injection noted Oral: Moist Mucosa, No Gingival or Mucosal Lesions/ Ulcerations Neck: Supple, No JVD, No Nodes, Trachea Midline Lungs: No wheeze, No rales, Diminished, Rhonchi - Bilateral, - - Symmetric expansion. Mild improvement in rhonchi after suctioning Cardiovascular: Normal S1, Normal S2, Irregular Rate, Murmur, No rub noted, No Gallop Abdomen: Bowel Sounds Present, Soft, Non Tender, Non-Distended Extremities: No clubbing, No cyanosis, No edema Skin: No rashes, No breakdown Musculoskeletal: No Tenderness to Palpation of Joints or Extremities Lymphatic: No Cervical, Supraclavicular, or Inguinal Adenopathy Neurological: Cranial nerves II-XII grossly intact, Neuro grossly intact, Motor Exam 5/5 strength throughout Psych/Mental Status: Flat Affect Vital Signs Temp Pulse Resp BP Pulse Ox 35.9 C L 56 L 16 99/62 97 05/18/19 05:00 05/18/19 06:00 05/18/19 06:00 05/18/19 06:00 05/18/19 06:00 Oxygen Flow Rate (L/min) 100 Oxygen Delivery Method Mechanical Ventilator Weight: 90.5 kg Body Mass Index (BMI) 32.1 Intake and Output for Last 24 Hours 05/16/19 05/17/19 05/18/19 23:59 23:59 23:59 Intake Total 2329.16 / 2380.76 244.50 / 244.50 Output Total 1950 / 1950 150 / 150 Balance 379.16 / 430.76 94.50 / 94.50 Labs (Last 48 Hours) 05/17/19 05/17/19 05/17/19 00:25 00:25 00:25 WBC 17.8 H RBC 4.02 L Hgb 10.0 L Hct 32.2 L MCV 80.1 MCH 24.9 L MCHC 31.1 L RDW Std Deviation 54.8 H RDW Coeff of Rossy 18.9 H Plt Count 324 MPV 9.6 Immature Gran % (Auto) 0.400 Neut % (Auto) 73.8 H Lymph % (Auto) 17.4 L [place] % (Auto) 8.0 Eos % (Auto) 0.1 Baso % (Auto) 0.3 Absolute Neuts (auto) 13.1 H Absolute Lymphs (auto) 3.10 Nucleated RBC % 0 PT 35.3 H INR 3.5 H* APTT 96.9 H* Specimen Type Sample Site pH Bicarbonate Actual POC Total CO2 Base Excess O2 Saturation O2 % ABG pCO2 ABG pO2 Rakan Test Respiration Rate O2 Delivery Device Liter Flow Vent Mode Tidal Volume POC PEEP Blood Gas Notified Whom Blood Gas Notified Time Sodium 134 L Potassium 4.7 Chloride 102 Carbon Dioxide 26.0 Anion Gap 6 BUN 19 H Creatinine 1.36 H Estim Creat Clear Calc 43.65 Est GFR (MDRD) Af Amer 66 Est GFR (MDRD) Non-Af 54 L BUN/Creatinine Ratio 14.0 Glucose 122 H Lactic Acid Calcium 8.6 Phosphorus Magnesium Total Bilirubin 0.70 AST 32 ALT 19 Alkaline Phosphatase 99 Total Creatine Kinase Troponin I Total Protein 8.5 H Albumin 3.2 Globulin 5.3 H Albumin/Globulin Ratio 0.6 L Triglycerides Urine Color Urine Clarity Urine pH Ur Specific [place] Urine Protein Urine Glucose (UA) Urine Ketones Urine Occult Blood Urine Nitrite Urine Bilirubin Urine Urobilinogen Ur Leukocyte Esterase Urine RBC Urine WBC Ur Squamous Epith Cells Ur Transition Epith Cell Urine Bacteria Hyaline Casts Urine Mucus MRSA (PCR) Blood Type 05/17/19 05/17/19 05/17/19 00:25 00:25 00:35 WBC RBC Hgb Hct MCV MCH MCHC RDW Std Deviation RDW Coeff of Rossy Plt Count MPV Immature Gran % (Auto) Neut % (Auto) Lymph % (Auto) [place] % (Auto) Eos % (Auto) Baso % (Auto) Absolute Neuts (auto) Absolute Lymphs (auto) Nucleated RBC % PT INR APTT Specimen Type ART Sample Site L Radial pH 7.44 Bicarbonate Actual 21.4 L POC Total CO2 22 Base Excess -3 L O2 Saturation 90 L O2 % ABG pCO2 31.8 L ABG pO2 56 L Rakan Test POS Respiration Rate O2 Delivery Device NRB Mask Liter Flow 15.0 Vent Mode Tidal Volume POC PEEP Blood Gas Notified Whom ED MD Blood Gas Notified Time 32 Sodium Potassium Chloride Carbon Dioxide Anion Gap BUN Creatinine Estim Creat Clear Calc Est GFR (MDRD) Af Amer Est GFR (MDRD) Non-Af BUN/Creatinine Ratio Glucose Lactic Acid 1.3 Calcium Phosphorus Magnesium Total Bilirubin AST ALT Alkaline Phosphatase Total Creatine Kinase Troponin I < 0.015 Total Protein Albumin Globulin Albumin/Globulin Ratio Triglycerides Urine Color Urine Clarity Urine pH Ur Specific [place] Urine Protein Urine Glucose (UA) Urine Ketones Urine Occult Blood Urine Nitrite Urine Bilirubin Urine Urobilinogen Ur Leukocyte Esterase Urine RBC Urine WBC Ur Squamous Epith Cells Ur Transition Epith Cell Urine Bacteria Hyaline Casts Urine Mucus MRSA (PCR) Blood Type 05/17/19 05/17/19 05/17/19 00:44 03:15 03:15 WBC RBC Hgb Hct MCV MCH MCHC RDW Std Deviation RDW Coeff of Rossy Plt Count MPV Immature Gran % (Auto) Neut % (Auto) Lymph % (Auto) [place] % (Auto) Eos % (Auto) Baso % (Auto) Absolute Neuts (auto) Absolute Lymphs (auto) Nucleated RBC % PT INR APTT Specimen Type Sample Site pH Bicarbonate Actual POC Total CO2 Base Excess O2 Saturation O2 % ABG pCO2 ABG pO2 Rakan Test Respiration Rate O2 Delivery Device Liter Flow Vent Mode Tidal Volume POC PEEP Blood Gas Notified Whom Blood Gas Notified Time Sodium Potassium Chloride Carbon Dioxide Anion Gap BUN Creatinine Estim Creat Clear Calc Est GFR (MDRD) Af Amer Est GFR (MDRD) Non-Af BUN/Creatinine Ratio Glucose Lactic Acid Calcium Phosphorus Magnesium Total Bilirubin AST ALT Alkaline Phosphatase Total Creatine Kinase Troponin I < 0.015 Total Protein Albumin Globulin Albumin/Globulin Ratio Triglycerides Urine Color Yellow Urine Clarity Sl. Cloudy Urine pH 6.0 Ur Specific [place] 1.015 Urine Protein 30 H Urine Glucose (UA) Normal Urine Ketones 5 H Urine Occult Blood 10 H Urine Nitrite Negative Urine Bilirubin Negative Urine Urobilinogen Normal Ur Leukocyte Esterase Negative Urine RBC 0 SEEN Urine WBC 0-5 SEEN Ur Squamous Epith Cells 0-5 SEEN Ur Transition Epith Cell 0-5 SEEN Urine Bacteria RARE Hyaline Casts 0-5 SEEN Urine Mucus 2+ MRSA (PCR) Negative Blood Type 05/17/19 05/17/19 05/17/19 05:50 05:50 14:40 WBC RBC Hgb Hct MCV MCH MCHC RDW Std Deviation RDW Coeff of Rossy Plt Count MPV Immature Gran % (Auto) Neut % (Auto) Lymph % (Auto) [place] % (Auto) Eos % (Auto) Baso % (Auto) Absolute Neuts (auto) Absolute Lymphs (auto) Nucleated RBC % PT INR APTT Specimen Type Sample Site pH Bicarbonate Actual POC Total CO2 Base Excess O2 Saturation O2 % ABG pCO2 ABG pO2 Rakan Test Respiration Rate O2 Delivery Device Liter Flow Vent Mode Tidal Volume POC PEEP Blood Gas Notified Whom Blood Gas Notified Time Sodium Potassium Chloride Carbon Dioxide Anion Gap BUN Creatinine Estim Creat Clear Calc Est GFR (MDRD) Af Amer Est GFR (MDRD) Non-Af BUN/Creatinine Ratio Glucose Lactic Acid Calcium Phosphorus Magnesium Total Bilirubin AST ALT Alkaline Phosphatase Total Creatine Kinase 101 Troponin I < 0.015 Total Protein Albumin Globulin Albumin/Globulin Ratio Triglycerides 68 Urine Color Urine Clarity Urine pH Ur Specific [place] Urine Protein Urine Glucose (UA) Urine Ketones Urine Occult Blood Urine Nitrite Urine Bilirubin Urine Urobilinogen Ur Leukocyte Esterase Urine RBC Urine WBC Ur Squamous Epith Cells Ur Transition Epith Cell Urine Bacteria Hyaline Casts Urine Mucus MRSA (PCR) Blood Type TN 05/17/19 05/17/19 05/17/19 14:40 15:57 19:50 WBC RBC Hgb Hct MCV MCH MCHC RDW Std Deviation RDW Coeff of Rossy Plt Count MPV Immature Gran % (Auto) Neut % (Auto) Lymph % (Auto) [place] % (Auto) Eos % (Auto) Baso % (Auto) Absolute Neuts (auto) Absolute Lymphs (auto) Nucleated RBC % PT 27.5 H INR 2.6 APTT Specimen Type ART Sample Site R Radial pH 7.33 L Bicarbonate Actual 24.8 POC Total CO2 26 Base Excess -1 O2 Saturation 100 H O2 % 100 ABG pCO2 47.2 H ABG pO2 234 H Rakan Test Respiration Rate 14 O2 Delivery Device Vent Liter Flow Vent Mode A-C Tidal Volume 450 POC PEEP 8 Blood Gas Notified Whom ICU Blood Gas Notified Time 1556 Sodium Potassium Chloride Carbon Dioxide Anion Gap BUN Creatinine Estim Creat Clear Calc Est GFR (MDRD) Af Amer Est GFR (MDRD) Non-Af BUN/Creatinine Ratio Glucose Lactic Acid Calcium Phosphorus Magnesium Total Bilirubin AST ALT Alkaline Phosphatase Total Creatine Kinase Troponin I Total Protein Albumin Globulin Albumin/Globulin Ratio Triglycerides Urine Color Urine Clarity Urine pH Ur Specific [place] Urine Protein Urine Glucose (UA) Urine Ketones Urine Occult Blood Urine Nitrite Urine Bilirubin Urine Urobilinogen Ur Leukocyte Esterase Urine RBC Urine WBC Ur Squamous Epith Cells Ur Transition Epith Cell Urine Bacteria Hyaline Casts Urine Mucus MRSA (PCR) Blood Type O POSITIVE 05/18/19 05/18/19 05/18/19 04:00 04:00 04:00 WBC 11.3 H RBC 3.29 L Hgb 8.1 L Hct 27.2 L MCV 82.7 MCH 24.6 L MCHC 29.8 L RDW Std Deviation 57.2 H RDW Coeff of Rossy 19.1 H Plt Count 301 MPV 9.9 Immature Gran % (Auto) 0.700 Neut % (Auto) 87.9 H Lymph % (Auto) 8.2 L [place] % (Auto) 3.2 Eos % (Auto) 0.0 Baso % (Auto) 0.0 Absolute Neuts (auto) 9.9 H Absolute Lymphs (auto) 0.93 Nucleated RBC % 0 PT INR APTT Specimen Type Sample Site pH Bicarbonate Actual POC Total CO2 Base Excess O2 Saturation O2 % ABG pCO2 ABG pO2 Rakan Test Respiration Rate O2 Delivery Device Liter Flow Vent Mode Tidal Volume POC PEEP Blood Gas Notified Whom Blood Gas Notified Time Sodium 140 Potassium 4.9 Chloride 107 Carbon Dioxide 26.0 Anion Gap 7 BUN 31 H Creatinine 1.22 Estim Creat Clear Calc 48.66 Est GFR (MDRD) Af Amer 75 Est GFR (MDRD) Non-Af 62 BUN/Creatinine Ratio 25.4 H Glucose 141 H Lactic Acid Calcium 8.6 Phosphorus 4.3 Magnesium 3.1 H Total Bilirubin AST ALT Alkaline Phosphatase Total Creatine Kinase Troponin I Total Protein Albumin Globulin Albumin/Globulin Ratio Triglycerides Urine Color Urine Clarity Urine pH Ur Specific [place] Urine Protein Urine Glucose (UA) Urine Ketones Urine Occult Blood Urine Nitrite Urine Bilirubin Urine Urobilinogen Ur Leukocyte Esterase Urine RBC Urine WBC Ur Squamous Epith Cells Ur Transition Epith Cell Urine Bacteria Hyaline Casts Urine Mucus MRSA (PCR) Blood Type Microbiology 05/17/19 11:20 Sputum, Expectorated/Coughed Gram Stain - Final 05/17/19 00:45 Urine Catheter - Catheter Streptococcus pneumoniae Antigen (M - Final 05/17/19 00:45 Urine Catheter - Catheter Legionella Antigen - Final Clinical Impression(s) from Imaging Studies Chest X-Ray 05/17/19 13:56 IMPRESSION: Stable bilateral patchy airspace disease. The tip of the endotracheal tube is at 3.9 cm proximal to the marly. The tip of the orogastric tube is within the fundal portion of the stomach. Electronically Signed: Raphael Albertyuridiadavide, at 14:37 EDT , Service support , Chest X-Ray 05/18/19 05:00 IMPRESSION: Left PICC line tip in right atrium without pneumothorax. Stable diffuse alveolar disease. Electronically Signed: Gerson Porter MD at 5:21 EDT Tel , Service support , Medical Necessity - Tobacco Use Smoking Status: Former smoker Assessment/Plan All Active Problems (Last Reviewed 05/17/19 @ 03:55 by Tristan Clancy MD) Acute respiratory failure with hypoxia (Acute) Community acquired pneumonia, bilateral (Acute) Severe sepsis (Acute) Anticoagulated on Coumadin (Acute) Sinus tachycardia by electrocardiogram (Acute) HCAP (healthcare-associated pneumonia) (Acute) Community acquired bacterial pneumonia (Acute) Acute hypoxemic respiratory failure (Resolved) Acute respiratory insufficiency (Resolved) Chest pain (Resolved) Supratherapeutic INR (Resolved) Unstable angina (Resolved) RECOMMENDATIONS: 1. Continue Plavix given recent stent 2. Wean oxygen as tolerated 3. Decrease PEEP once patient tolerating 50% FiO2 4. Continue with HCAP antibiotics until culture data is available 5. Would not recommend aggressive diuresis 6. To need to hold Coumadin. No FFP for now 7. Okay to hold Ofev for now IMPRESSIONS: 1. Acute on chronic hypoxic respiratory failure secondary to probable healthcare associated pneumonia/severe sepsis Patient was treated with Levaquin previously, but appears to have a resistant organism versus progression of disease. Imaging is showing increased apical infiltrates, but interpretation difficult in the setting of reported IPF. Ofev can be held as this likely is not going to change acute outcomes. Will increase patient's steroids to therapeutic doses. MRSA of the nares is negative, so vancomycin is likely not indicated. Patient is getting duo nebs. Patient appears to have stabilized after intubation. Continue steroid therapy. Spontaneous breathing and awakening trials per protocol 2. Acute kidney injury Mildly improved. Patient's presentation creatinine is 1.36 compared to a baseline of 1. Clinical suspicion for prerenal etiology secondary to problem #1. We will continue to monitor. No indication for renal replacement therapy at this time. Will avoid nephrotoxic medications if possible. 3. Syncopal event Unclear etiology at this time. Patient did recently have a cardiac intervention, so malignant rhythm would be a possibility. Patient also was profoundly hypoxic on presentation and may have had decreased saturations with exertion leading to syncopal event. Patient is currently on telemetry. We will continue to monitor. Electrolytes will be optimized. 4. Reported IPF/CAD status post CABG and recent stent/A. fib/history of ALFRED Complicates care, management, recovery and prognosis. No documentation is available for confirmation of IPF diagnosis. Ofev can likely be held during the acute hospitalization. However, this will be reinitiated on discharge. Patient does use CPAP therapy for sleep apnea at baseline. This will have to be reinitiated following extubation. Patient was very clear that he is a full code. TIME: 32 minutes critical care time spent addressing patient's acute on chronic respiratory failure, acute kidney injury, syncopal event, review of all data and collaboration with care team (6 AM to 7 AM) Code Visit [id number]: [id number] Critical care first hour
[2019-05-18 07:29] LABS: International Normalized Ratio 2.9; Prothrombin Time (Protime)PT. 30.1 SECONDS (11.7-14.9)
--- NOTE | 2019-05-18 09:28 | RAD_ITS ---
STUDY: X-RAY CHEST REASON FOR EXAM: Male, 73 years old. ET tube placement TECHNIQUE: Single AP portable view of the chest. COMPARISON: May 18, 2019 4:56 AM FINDINGS: The endotracheal tube is present 3.5 cm above the marly in satisfactory position. There is a left-sided PICC line the tip is in the atriocaval junction/right atrium. An NG tube is present the tip is partially visualized within the fundus of the stomach. There is a pattern of diffuse infiltrates. There is no demonstrated pleural abnormality. Sternal cerclage wires are present from a prior sternotomy. Normal mediastinum and denise. Normal visualized pulmonary arteries. Normal visualized aortic arch and descending thoracic aorta. There are diffuse degenerative changes of the visualized thoracic spine. Normal visualized ribs, clavicles, and shoulders. There is no demonstrated abnormality of the visualized soft tissue structures of the upper abdomen. RAD/Chest 1 View (Portable) IMPRESSION: Endotracheal tube in satisfactory position. Left-sided PICC line tip in the atriocaval junction/right atrium. NG tube in satisfactory position. Diffuse infiltrates consider diffuse pulmonary edema and/or pneumonia. Status post sternotomy. Electronically Signed: Marina Manning MD at 10:23 EDT Tel , Service support ,
--- NOTE | 2019-05-18 09:28 | CM.UR ---
Participated in interdisciplinary rounds. No family present at this time. Patient remains on vent. PICC placed. Sees Dr. Anaya, general magistrate, on OP basis. DC plan TBD. Shankar Lima RN, [facility].
[2019-05-18] MEDS: Lansoprazole 15 MG Capsule.DR 30 MG GT (09:29)
[2019-05-18] MEDS: Aspirin 81 MG TAB.CHEW GT (09:29)
[2019-05-18] MEDS: Chlorhexidine 15 ML PO ×2 (09:29→21:32)
[2019-05-18] MEDS: Clopidogrel Bisulfate 75 MG Tablet GT (09:29)
[2019-05-18] MEDS: CHLORHEXIDINE GLUC 2% CLOTH 1 EACH TOWELETTE TOPICAL (09:30)
[2019-05-18] MEDS: Senna/Docusate Sodium 1 Tablet 2 TABLET GT ×2 (09:47→21:13)
[2019-05-18] MEDS: Vital AF 1.2 Cal Liquid 1,000 ML 20 ML GT (14:05)
--- NOTE | 2019-05-18 15:28 | PN_ITS ---
Patient Problems: Active and Suspected Problems (Last Reviewed 05/17/19 @ 03:55 by Tristan Clancy MD) Acute respiratory failure with hypoxia (Acute) Community acquired pneumonia, bilateral (Acute) Severe sepsis (Acute) Anticoagulated on Coumadin (Acute) Sinus tachycardia by electrocardiogram (Acute) HCAP (healthcare-associated pneumonia) (Acute) Community acquired bacterial pneumonia (Acute) Subjective: Patient was seen and examined today in the ICU, he remains sedated and on the ventilator at this time. Patient is white blood cell count today was 11.3, hemoglobin fell to 8.1. Sputum culture preliminary showed normal respiratory leigh. Chest x-ray showed diffuse infiltrates. - Physical Exam General: - - Patient is sedated on the ventilator HEENT: Atraumatic, PERRLA, Normocephalic Neck: No JVD, Trachea Midline, Thyroid Normal Size and Texture Lungs: Normal air movement, No wheeze, Rhonchi - Expiratory rhonchi bilaterally Cardiovascular: Regular rate, Regular Rhythm, Normal S1, Normal S2, No murmurs, PMI Normal Abdomen: Bowel Sounds Present, Soft, Non Tender, Non-Distended Extremities: No edema, Capillary Refill Less than 3 Seconds Skin: No rashes, No breakdown Neurological: - - Patient is sedated and on the ventilator Psych/Mental Status: - - Patient is sedated on the ventilator Vital Signs Temp Pulse Resp BP Pulse Ox 97.3 F L 58 L 14 99/59 L 97 05/18/19 14:00 05/18/19 15:03 05/18/19 15:03 05/18/19 15:00 05/18/19 15:03 Oxygen Flow Rate (L/min) 100 Oxygen Delivery Method Mechanical Ventilator Weight: 90.5 kg Body Mass Index (BMI) 32.1 Intake and Output for Last 24 Hours 05/16/19 05/17/19 05/18/19 23:59 23:59 23:59 Intake Total 2329.16 / 2380.76 988.57 / 988.57 Output Total 1950 / 1950 350 / 350 Balance 379.16 / 430.76 638.57 / 638.57 Microbiology Past 72 Hours 05/17/19 11:20 Gram Stain - Final Sputum, Expectorated/Coughed Respiratory Culture - Preliminary Appears to be normal respiratory leigh. Further studies to follow. 05/17/19 00:45 Streptococcus pneumoniae Antigen (M - Final Urine Catheter - Catheter 05/17/19 00:45 Legionella Antigen - Final Urine Catheter - Catheter Laboratory Tests Past 24 Hrs 05/17/19 05/17/19 05/18/19 15:57 19:50 04:00 WBC RBC Hgb Hct MCV MCH MCHC RDW Std Deviation RDW Coeff of Rossy Plt Count MPV Immature Gran % (Auto) Neut % (Auto) Lymph % (Auto) [place] % (Auto) Eos % (Auto) Baso % (Auto) Absolute Neuts (auto) Absolute Lymphs (auto) Nucleated RBC % PT 27.5 H INR 2.6 Specimen Type ART Sample Site R Radial pH 7.33 L Bicarbonate Actual 24.8 POC Total CO2 26 Base Excess -1 O2 Saturation 100 H O2 % 100 ABG pCO2 47.2 H ABG pO2 234 H Respiration Rate 14 O2 Delivery Device Vent Vent Mode A-C Tidal Volume 450 POC PEEP 8 Blood Gas Notified Whom ICU MD Blood Gas Notified Time 1556 Sodium 140 Potassium 4.9 Chloride 107 Carbon Dioxide 26.0 Anion Gap 7 BUN 31 H Creatinine 1.22 Estim Creat Clear Calc 48.66 Est GFR (MDRD) Af Amer 75 Est GFR (MDRD) Non-Af 62 BUN/Creatinine Ratio 25.4 H Glucose 141 H Calcium 8.6 Phosphorus Magnesium 05/18/19 05/18/19 05/18/19 04:00 04:00 07:05 WBC 11.3 H RBC 3.29 L Hgb 8.1 L Hct 27.2 L MCV 82.7 MCH 24.6 L MCHC 29.8 L RDW Std Deviation 57.2 H RDW Coeff of Rossy 19.1 H Plt Count 301 MPV 9.9 Immature Gran % (Auto) 0.700 Neut % (Auto) 87.9 H Lymph % (Auto) 8.2 L [place] % (Auto) 3.2 Eos % (Auto) 0.0 Baso % (Auto) 0.0 Absolute Neuts (auto) 9.9 H Absolute Lymphs (auto) 0.93 Nucleated RBC % 0 PT 30.1 H INR 2.9 Specimen Type Sample Site pH Bicarbonate Actual POC Total CO2 Base Excess O2 Saturation O2 % ABG pCO2 ABG pO2 Respiration Rate O2 Delivery Device Vent Mode Tidal Volume POC PEEP Blood Gas Notified Whom Blood Gas Notified Time Sodium Potassium Chloride Carbon Dioxide Anion Gap BUN Creatinine Estim Creat Clear Calc Est GFR (MDRD) Af Amer Est GFR (MDRD) Non-Af BUN/Creatinine Ratio Glucose Calcium Phosphorus 4.3 Magnesium 3.1 H Medical Necessity - Tobacco Use Smoking Status: Former smoker Assessment/Plan All Active Problems (Last Reviewed 05/17/19 @ 03:55 by Tristan Clancy MD) Acute respiratory failure with hypoxia (Acute) Community acquired pneumonia, bilateral (Acute) Severe sepsis (Acute) Anticoagulated on Coumadin (Acute) Sinus tachycardia by electrocardiogram (Acute) HCAP (healthcare-associated pneumonia) (Acute) Community acquired bacterial pneumonia (Acute) Acute hypoxemic respiratory failure (Resolved) Acute respiratory insufficiency (Resolved) Chest pain (Resolved) Supratherapeutic INR (Resolved) Unstable angina (Resolved) #1 severe sepsis secondary to healthcare associated pneumonia-patient remains on the ventilator at this time remains on his current antibiotic coverage, cultures have not been positive for any organism yet #2 acute on chronic hypoxic respiratory failure secondary to bilateral healthcare associated pneumonia-pulmonary medicine is adjusting ventilator #3 coronary artery disease with recent stent placement #4 acute kidney injury #5 pulmonary hypertension #6 history of idiopathic pulmonary fibrosis Code Visit Inpatient E&M: [id number] Subs Hosp L2
[2019-05-18] MEDS: fentaNYL drip 100 ML 17.5 MCG IV ×2 (16:08→21:51)
[2019-05-18] MEDS: Propofol 10MG/Ml 1,000 MG/100 ML Bottle 10.9 MG IV (19:22)
[2019-05-18] MEDS: 0.9% NaCl IVPB Med Flush (250 mL) 15 ML IV (21:17)
[2019-05-18] MEDS: levoFLOXacin IV 750 MG/150 ML BAG 100 MG IV (22:08)
[2019-05-19] VITALS (38 sets, daily range): BP systolic 101–122; BP diastolic 56–66; PULSE 52–77; RESP 13–20; TEMP 37–37.4; O2SAT 88–97
[2019-05-19] MEDS: Ipratropium/Albuterol Sulfate 3 ML AMPUL.NEB INHALATION ×4 (01:25→18:47)
[2019-05-19] MEDS: guaiFENesin 10 ML UDC (200MG/10ML) 20 ML GT ×6 (01:54→21:44)
[2019-05-19 02:06] LABS: Bedside Glucose 148 mg/dL (70-110)
[2019-05-19] MEDS: CHLORHEXIDINE GLUC 2% CLOTH 1 EACH TOWELETTE TOPICAL (03:29)
[2019-05-19] MEDS: fentaNYL drip 100 ML 15 MCG IV (03:35)
[2019-05-19] MEDS: Propofol 10MG/Ml 1,000 MG/100 ML Bottle 10.9 MG IV ×2 (03:40→13:00)
[2019-05-19 04:20] LABS: Absolute Lymphocyte Count 0.74 X10^3/uL (0.83-4.51); Absolute Neutrophil Count 12.4 X10^3/uL (2.0-7.7); Basophil# 0.01 X10^3/uL; Basophil% 0.1 % (0-1); Hematocrit 25.8 % (40-54); Hemoglobin 7.8 g/dL (13.0-16.5); Lymphocyte # 0.74 X10^3/ul (4.0); Lymphocyte % 5.4 % (19-41); Mean Corp Hgb Conc 30.2 g/dL (32-36); Mean Corpuscular Hgb 25.4 pg (27.0-32.0); Mean Platelet Vol. 10.4 fl (6.2-12.0); Monocyte# 0.61 X10^3/uL; Monocyte% 4.4 % (0-10); NRBC Flagged by Analyzer 0.1 % (0-5); Neutrophil # 12.36 X10^3/uL (2.7-7.7); Neutrophil % 89.6 % (47-70); POSITIVE MORPHOLOGY YES; Platelet Count 320 K/mm3 (150-450); RBC Distribution Width CV 19.2 % (11.6-14.6); RBC Distribution Width SD 57.7 fl (35.1-43.9); Red Blood Count 3.07 M/mm3 (4.6-6.2); White Blood Count 13.8 K/mm3 (4.4-11.0)
[2019-05-19 04:27] LABS: International Normalized Ratio 2.6; Prothrombin Time (Protime)PT. 27.9 SECONDS (11.7-14.9)
[2019-05-19 04:33] LABS: Anion Gap 7 (5-15); BUN 50 mg/dL (7-18); BUN/Creat Ratio 41.3 RATIO (10-20); Calcium,Total 8.1 mg/dL (8.5-10.1); Chloride 105 mmol/L (98-107); Creatinine, Serum 1.21 mg/dL (0.70-1.30); EST Glomerular Filtration Rate 62 mL/min (>60); Est Glom Filt Rate - Afr Amer 75 mL/min (>60); Estimated Creatinine Clearance 49.07 ml/min; Glucose 147 mg/dL (74-106); Magnesium 3.2 mg/dL (1.6-2.6); Phosphorus 3.8 mg/dL (2.5-4.9); Potassium 5.1 mmol/L (3.5-5.1); Sodium Level 137 mmol/L (136-145)
[2019-05-19 04:51] LABS: Differential Indicated SCAN CRITERIA MET
--- NOTE | 2019-05-19 04:52 | NURSING ---
Vent weaning safety screen passed, fentanyl and propofol shut off at 0400. From 0400 to 0415 patient had continuous coughing with vent dyssynchrony and pulse ox decreased to the low 80's with extended recovery time.
[2019-05-19] MEDS: 0.9% NaCl Peripheral Flush Adult/Peds IV ×3 (05:13→21:41)
[2019-05-19 05:46] LABS: Crenated RBC 2+; Differential Comment SCANNED; Hypochromasia 2+
--- NOTE | 2019-05-19 07:14 | PN_ITS ---
Subjective: Patient did okay overnight. Patient remains on a PEEP of 10 to maintain saturations. Patient became significantly hypertensive and coughing with s pontaneous awakening trial this morning. Tube feeds are currently at goal. No significant bleeding is been reported. General: No apparent distress, Well developed, Well nourished, - - RASS -2. Good vent synchrony. HEENT: Atraumatic, PERRLA, EOMI, Normocephalic, - - No scleral icterus or injection Oral: Moist Mucosa, No Gingival or Mucosal Lesions/ Ulcerations Neck: Supple, No Nodes, Trachea Midline, JVD, Right Lungs: No wheeze, Diminished, Rales, - - Symmetric expansion. Cardiovascular: Regular rate, Regular Rhythm, Normal S1, Normal S2, Murmur, No rub noted, No Gallop Abdomen: Bowel Sounds Present, Soft, Non Tender, Distended - Slightly Extremities: No cyanosis, Capillary Refill Less than 3 Seconds, Clubbing, Edema Skin: No rashes, No breakdown Musculoskeletal: No Tenderness to Palpation of Joints or Extremities Lymphatic: No Cervical, Supraclavicular, or Inguinal Adenopathy Neurological: Cranial nerves II-XII grossly intact, Neuro grossly intact, Motor Exam 5/5 strength throughout Psych/Mental Status: Flat Affect Vital Signs Temp Pulse Resp BP Pulse Ox 37.2 C 60 20 H 109/62 95 05/19/19 07:00 05/19/19 07:00 05/19/19 07:00 05/19/19 07:00 05/19/19 07:00 Oxygen Flow Rate (L/min) 100 Oxygen Delivery Method Mechanical Ventilator Weight: 91 kg Body Mass Index (BMI) 32.1 Intake and Output for Last 24 Hours 05/17/19 05/18/19 05/19/19 23:59 23:59 23:59 Intake Total 2329.16 / 2380.76 1835.19 / 2185.59 1082.43 / 1082.43 Output Total 1950 / 1950 550 / 850 550 / 550 Balance 379.16 / 430.76 1285.19 / 1335.59 532.43 / 532.43 Labs (Last 48 Hours) 05/17/19 05/17/19 05/17/19 05:50 14:40 14:40 WBC RBC Hgb Hct MCV MCH MCHC RDW Std Deviation RDW Coeff of Rossy Plt Count MPV Immature Gran % (Auto) Neut % (Auto) Lymph % (Auto) [place] % (Auto) Eos % (Auto) Baso % (Auto) Absolute Neuts (auto) Absolute Lymphs (auto) Nucleated RBC % Differential Comment Hypochromasia Crenated Cell PT INR Specimen Type Sample Site pH Bicarbonate Actual POC Total CO2 Base Excess O2 Saturation O2 % ABG pCO2 ABG pO2 Respiration Rate O2 Delivery Device Vent Mode Tidal Volume POC PEEP Blood Gas Notified Whom Blood Gas Notified Time Sodium Potassium Chloride Carbon Dioxide Anion Gap BUN Creatinine Estim Creat Clear Calc Est GFR (MDRD) Af Amer Est GFR (MDRD) Non-Af BUN/Creatinine Ratio Glucose Calcium Phosphorus Magnesium Total Creatine Kinase 101 Triglycerides 68 POC Glucose Blood Type TNP O POSITIVE 05/17/19 05/17/19 05/18/19 15:57 19:50 04:00 WBC RBC Hgb Hct MCV MCH MCHC RDW Std Deviation RDW Coeff of Rossy Plt Count MPV Immature Gran % (Auto) Neut % (Auto) Lymph % (Auto) [place] % (Auto) Eos % (Auto) Baso % (Auto) Absolute Neuts (auto) Absolute Lymphs (auto) Nucleated RBC % Differential Comment Hypochromasia Crenated Cell PT 27.5 H INR 2.6 Specimen Type ART Sample Site R Radial pH 7.33 L Bicarbonate Actual 24.8 POC Total CO2 26 Base Excess -1 O2 Saturation 100 H O2 % 100 ABG pCO2 47.2 H ABG pO2 234 H Respiration Rate 14 O2 Delivery Device Vent Vent Mode A-C Tidal Volume 450 POC PEEP 8 Blood Gas Notified Whom ICU Blood Gas Notified Time 1556 Sodium 140 Potassium 4.9 Chloride 107 Carbon Dioxide 26.0 Anion Gap 7 BUN 31 H Creatinine 1.22 Estim Creat Clear Calc 48.66 Est GFR (MDRD) Af Amer 75 Est GFR (MDRD) Non-Af 62 BUN/Creatinine Ratio 25.4 H Glucose 141 H Calcium 8.6 Phosphorus Magnesium Total Creatine Kinase Triglycerides POC Glucose Blood Type 05/18/19 05/18/19 05/18/19 04:00 04:00 07:05 WBC 11.3 H RBC 3.29 L Hgb 8.1 L Hct 27.2 L MCV 82.7 MCH 24.6 L MCHC 29.8 L RDW Std Deviation 57.2 H RDW Coeff of Rossy 19.1 H Plt Count 301 MPV 9.9 Immature Gran % (Auto) 0.700 Neut % (Auto) 87.9 H Lymph % (Auto) 8.2 L [place] % (Auto) 3.2 Eos % (Auto) 0.0 Baso % (Auto) 0.0 Absolute Neuts (auto) 9.9 H Absolute Lymphs (auto) 0.93 Nucleated RBC % 0 Differential Comment Hypochromasia Crenated Cell PT 30.1 H INR 2.9 Specimen Type Sample Site pH Bicarbonate Actual POC Total CO2 Base Excess O2 Saturation O2 % ABG pCO2 ABG pO2 Respiration Rate O2 Delivery Device Vent Mode Tidal Volume POC PEEP Blood Gas Notified Whom Blood Gas Notified Time Sodium Potassium Chloride Carbon Dioxide Anion Gap BUN Creatinine Estim Creat Clear Calc Est GFR (MDRD) Af Amer Est GFR (MDRD) Non-Af BUN/Creatinine Ratio Glucose Calcium Phosphorus 4.3 Magnesium 3.1 H Total Creatine Kinase Triglycerides POC Glucose Blood Type 05/19/19 05/19/19 05/19/19 01:56 04:10 04:10 WBC 13.8 H RBC 3.07 L Hgb 7.8 L Hct 25.8 L MCV 84.0 MCH 25.4 L MCHC 30.2 L RDW Std Deviation 57.7 H RDW Coeff of Rossy 19.2 H Plt Count 320 MPV 10.4 Immature Gran % (Auto) 0.500 Neut % (Auto) 89.6 H Lymph % (Auto) 5.4 L [place] % (Auto) 4.4 Eos % (Auto) 0.0 Baso % (Auto) 0.1 Absolute Neuts (auto) 12.4 H Absolute Lymphs (auto) 0.74 L Nucleated RBC % 0.1 Differential Comment SCANNED Hypochromasia 2+ Crenated Cell 2+ PT 27.9 H INR 2.6 Specimen Type Sample Site pH Bicarbonate Actual POC Total CO2 Base Excess O2 Saturation O2 % ABG pCO2 ABG pO2 Respiration Rate O2 Delivery Device Vent Mode Tidal Volume POC PEEP Blood Gas Notified Whom Blood Gas Notified Time Sodium Potassium Chloride Carbon Dioxide Anion Gap BUN Creatinine Estim Creat Clear Calc Est GFR (MDRD) Af Amer Est GFR (MDRD) Non-Af BUN/Creatinine Ratio Glucose Calcium Phosphorus Magnesium Total Creatine Kinase Triglycerides POC Glucose 148 H Blood Type 05/19/19 04:10 WBC RBC Hgb Hct MCV MCH MCHC RDW Std Deviation RDW Coeff of Rossy Plt Count MPV Immature Gran % (Auto) Neut % (Auto) Lymph % (Auto) [place] % (Auto) Eos % (Auto) Baso % (Auto) Absolute Neuts (auto) Absolute Lymphs (auto) Nucleated RBC % Differential Comment Hypochromasia Crenated Cell PT INR Specimen Type Sample Site pH Bicarbonate Actual POC Total CO2 Base Excess O2 Saturation O2 % ABG pCO2 ABG pO2 Respiration Rate O2 Delivery Device Vent Mode Tidal Volume POC PEEP Blood Gas Notified Whom Blood Gas Notified Time Sodium 137 Potassium 5.1 Chloride 105 Carbon Dioxide 25.0 Anion Gap 7 BUN 50 H Creatinine 1.21 Estim Creat Clear Calc 49.07 Est GFR (MDRD) Af Amer 75 Est GFR (MDRD) Non-Af 62 BUN/Creatinine Ratio 41.3 H Glucose 147 H Calcium 8.1 L Phosphorus 3.8 Magnesium 3.2 H Total Creatine Kinase Triglycerides POC Glucose Blood Type Microbiology 05/17/19 11:20 Sputum, Expectorated/Coughed Gram Stain - Final 05/17/19 11:20 Sputum, Expectorated/Coughed Respiratory Culture - Preliminary Appears to be normal respiratory leigh. Further studies to follow. 05/17/19 00:45 Urine Catheter - Catheter Streptococcus pneumoniae Antigen (M - Final 05/17/19 00:45 Urine Catheter - Catheter Legionella Antigen - Final Clinical Impression(s) from Imaging Studies Chest X-Ray 05/18/19 09:28 IMPRESSION: Endotracheal tube in satisfactory position. Left-sided PICC line tip in the atriocaval junction/right atrium. NG tube in satisfactory position. Diffuse infiltrates consider diffuse pulmonary edema and/or pneumonia. Status post sternotomy. Electronically Signed: Marina Manning MD at 10:23 EDT Tel , Service support , Medical Necessity - Tobacco Use Smoking Status: Former smoker Assessment/Plan All Active Problems (Last Reviewed 05/17/19 @ 03:55 by Tristan Clancy MD) Acute respiratory failure with hypoxia (Acute) Community acquired pneumonia, bilateral (Acute) Severe sepsis (Acute) Anticoagulated on Coumadin (Acute) Sinus tachycardia by electrocardiogram (Acute) HCAP (healthcare-associated pneumonia) (Acute) Community acquired bacterial pneumonia (Acute) Acute hypoxemic respiratory failure (Resolved) Acute respiratory insufficiency (Resolved) Chest pain (Resolved) Supratherapeutic INR (Resolved) Unstable angina (Resolved) RECOMMENDATIONS: 1. Continue Plavix given recent stent 2. Wean oxygen as tolerated 3. Decrease PEEP once patient tolerating 50% FiO2 4. Continue with HCAP antibiotics until culture data is available 5. Would not recommend aggressive diuresis 6. To need to hold Coumadin. No FFP for now 7. May need to transition to Precedex once oxygenation improves IMPRESSIONS: 1. Acute on chronic hypoxic respiratory failure secondary to probable healthcare associated pneumonia/severe sepsis Patient was treated with Levaquin previously, but appears to have a resistant organism versus progression of disease. Imaging is showing increased apical infiltrates, but interpretation difficult in the setting of reported IPF. Ofev can be held as this likely is not going to change acute outcomes. Patient on therapeutic doses of steroid therapy at this time. MRSA of the nares is negative, so vancomycin is likely not indicated. Patient is getting duo nebs. Patient appears to have stabilized after intubation. Continue steroid therapy. Spontaneous breathing and awakening trials per protocol. Patient may need to be transition to Precedex therapy to facilitate extubation given coughing, but PEEP is still relatively high, so we will continue propofol. 2. Acute kidney injury Mildly improved. Patient's presentation creatinine is 1.36 compared to a baseline of 1. Clinical suspicion for prerenal etiology secondary to problem #1. We will continue to monitor. No indication for renal replacement therapy at this time. Will avoid nephrotoxic medications if possible. 3. Syncopal event Unclear etiology at this time. Patient did recently have a cardiac intervention, so malignant rhythm would be a possibility. Patient also was profoundly hypoxic on presentation and may have had decreased saturations with exertion leading to syncopal event. Patient is currently on telemetry. We will continue to monitor. Electrolytes will be optimized. 4. Reported IPF/CAD status post CABG and recent stent/A. fib/history of ALFRED Complicates care, management, recovery and prognosis. No documentation is available for confirmation of IPF diagnosis. Ofev can likely be held during the acute hospitalization. However, this will be reinitiated on discharge. Patient does use CPAP therapy for sleep apnea at baseline. This will have to be reinitiated following extubation. Patient was very clear that he is a full code. TIME: 33 minutes critical care time spent addressing patient's acute on chronic respiratory failure, acute kidney injury, syncopal event, review of all data and collaboration with care team (6:20 AM to 7:20 AM) Code Visit [id number]: [id number] Critical care first hour
[2019-05-19] MEDS: Clopidogrel Bisulfate 75 MG Tablet GT (09:22)
[2019-05-19] MEDS: Lansoprazole 15 MG Capsule.DR 30 MG GT (09:22)
[2019-05-19] MEDS: Chlorhexidine 15 ML PO ×2 (09:22→21:41)
[2019-05-19] MEDS: Senna/Docusate Sodium 1 Tablet 2 TABLET GT ×2 (09:22→21:40)
[2019-05-19] MEDS: Aspirin 81 MG TAB.CHEW GT (09:22)
[2019-05-19] MEDS: Polyethylene Glycol 3350 17 GM PACKET GT (09:25)
[2019-05-19] MEDS: fentaNYL drip 100 ML 17.5 MCG IV ×3 (11:19→23:15)
[2019-05-19] MEDS: Insulin Lispro 100 UNIT/ML INSULN.PEN SC ×2 (11:24→17:12)
[2019-05-19 11:25] LABS: Bedside Glucose 152 mg/dL (70-110)
--- NOTE | 2019-05-19 12:14 | PCM.PROGNOTE ---
Patient Problems: Active and Suspected Problems (Last Reviewed 05/17/19 @ 03:55 by Tristan Clancy MD) Acute respiratory failure with hypoxia (Acute) Community acquired pneumonia, bilateral (Acute) Severe sepsis (Acute) Anticoagulated on Coumadin (Acute) Sinus tachycardia by electrocardiogram (Acute) HCAP (healthcare-associated pneumonia) (Acute) Community acquired bacterial pneumonia (Acute) Subjective: Patient was seen and examined today, he remains sedated and on the ventilator. Talked briefly with critical care about his care today. Patient's hemoglobin today was 7.8, white blood cell count was 13.8. Patient's temp this morning was 99.2 Objective: General: - - Patient is sedated on the ventilator HEENT: Atraumatic, PERRLA, Normocephalic Neck: No JVD, Trachea Midline, Thyroid Normal Size and Texture Lungs: Normal air movement, No wheeze, Rhonchi - Expiratory rhonchi bilaterally Cardiovascular: Regular rate, Regular Rhythm, Normal S1, Normal S2, No murmurs, PMI Normal Abdomen: Bowel Sounds Present, Soft, Non Tender, Non-Distended Extremities: No edema, Capillary Refill Less than 3 Seconds Skin: No rashes, No breakdown Neurological: - - Patient is sedated and on the ventilator Psych/Mental Status: - - Patient is sedated on the ventilator - Physical Exam Vital Signs Temp Pulse Resp BP Pulse Ox 99.2 F H 61 14 101/56 L 88 05/19/19 11:00 05/19/19 11:34 05/19/19 11:00 05/19/19 11:00 05/19/19 11:00 Oxygen Flow Rate (L/min) 100 Oxygen Delivery Method Mechanical Ventilator Weight: 91 kg Body Mass Index (BMI) 32.1 Intake and Output for Last 24 Hours 05/17/19 05/18/19 05/19/19 23:59 23:59 23:59 Intake Total 2354.96 / 2380.86 1810.09 / 2160.49 1719.53 / 1719.53 Output Total 1950 / 1950 550 / 850 1000 / 1000 Balance 404.96 / 430.86 1260.09 / 1310.49 719.53 / 719.53 Microbiology Past 72 Hours 05/17/19 00:45 Urine Culture - Final Urine Catheter - Guzmán Culture exhibits no growth. 05/17/19 00:25 Blood Culture - Preliminary Blood Culture (Wb) - Right Hand No growth in 48 hours. 05/17/19 00:45 Blood Culture - Preliminary Blood Culture (Wb) - Left Hand No growth in 48 hours. 05/17/19 11:20 Gram Stain - Final Sputum, Expectorated/Coughed Respiratory Culture - Preliminary Appears to be normal respiratory leigh. Further studies to follow. 05/17/19 00:45 Streptococcus pneumoniae Antigen (M - Final Urine Catheter - Catheter 05/17/19 00:45 Legionella Antigen - Final Urine Catheter - Catheter Laboratory Tests Past 24 Hrs 05/19/19 05/19/19 05/19/19 04:10 04:10 04:10 WBC 13.8 H RBC 3.07 L Hgb 7.8 L Hct 25.8 L MCV 84.0 MCH 25.4 L MCHC 30.2 L RDW Std Deviation 57.7 H RDW Coeff of Rossy 19.2 H Plt Count 320 MPV 10.4 Immature Gran % (Auto) 0.500 Neut % (Auto) 89.6 H Lymph % (Auto) 5.[address] [place] % (Auto) 4.4 Eos % (Auto) 0.0 Baso % (Auto) 0.1 Absolute Neuts (auto) 12.4 H Absolute Lymphs (auto) 0.74 L Nucleated RBC % 0.1 Differential Comment SCANNED Hypochromasia 2+ Crenated Cell 2+ PT 27.9 H INR 2.6 Sodium 137 Potassium 5.1 Chloride 105 Carbon Dioxide 25.0 Anion Gap 7 BUN 50 H Creatinine 1.21 Estim Creat Clear Calc 49.07 Est GFR (MDRD) Af Amer 75 Est GFR (MDRD) Non-Af 62 BUN/Creatinine Ratio 41.3 H Glucose 147 H Calcium 8.1 L Phosphorus 3.8 Magnesium 3.2 H POC Glucose 05/19/19 05/19/19 11:14 01:56 POC Glucose 152 H 148 H Medical Necessity - Tobacco Use Smoking Status: Former smoker Assessment/Plan All Active Problems (Last Reviewed 05/17/19 @ 03:55 by Tristan Clancy MD) Acute respiratory failure with hypoxia (Acute) Community acquired pneumonia, bilateral (Acute) Severe sepsis (Acute) Anticoagulated on Coumadin (Acute) Sinus tachycardia by electrocardiogram (Acute) HCAP (healthcare-associated pneumonia) (Acute) Community acquired bacterial pneumonia (Acute) Acute hypoxemic respiratory failure (Resolved) Acute respiratory insufficiency (Resolved) Chest pain (Resolved) Supratherapeutic INR (Resolved) Unstable angina (Resolved) #1 severe sepsis secondary to healthcare associated pneumonia-patient remains on the ventilator at this time, he remains on his current antibiotic coverage, cultures have not been positive for any organism yet which would narrow antibiotic spectrum #2 acute on chronic hypoxic respiratory failure secondary to bilateral healthcare associated pneumonia-pulmonary medicine is adjusting ventilator #3 coronary artery disease with recent stent placement #4 acute kidney injury #5 pulmonary hypertension #6 history of idiopathic pulmonary fibrosis #7 acute anemia-etiology unclear at this point, critical care is aware and did not order any packed red blood cells. Blood pressure stable at this time Code Visit Inpatient E&M: 42199 Subs Hosp L2
[2019-05-19] MEDS: Vital AF 1.2 Cal Liquid 1,000 ML 60 ML GT (17:12)
[2019-05-19 17:26] LABS: Bedside Glucose 157 mg/dL (70-110)
[2019-05-19] MEDS: Propofol 10MG/Ml 1,000 MG/100 ML Bottle 8.2 MG IV (22:16)
[2019-05-19] MEDS: 0.9% NaCl IVPB Med Flush (250 mL) 15 ML IV (23:16)
[2019-05-19 23:25] LABS: Bedside Glucose 145 mg/dL (70-110)
[2019-05-20] VITALS (40 sets, daily range): BP systolic 105–147; BP diastolic 55–69; PULSE 50–83; RESP 14–28; TEMP 37.4–37.7; O2SAT 90–97
[2019-05-20] MEDS: Ipratropium/Albuterol Sulfate 3 ML AMPUL.NEB INHALATION ×4 (01:10→19:14)
[2019-05-20] MEDS: guaiFENesin 10 ML UDC (200MG/10ML) 20 ML GT ×6 (02:00→21:33)
[2019-05-20] MEDS: CHLORHEXIDINE GLUC 2% CLOTH 1 EACH TOWELETTE TOPICAL (02:00)
[2019-05-20 04:19] LABS: Absolute Lymphocyte Count 0.89 X10^3/uL (0.83-4.51); Absolute Neutrophil Count 8.7 X10^3/uL (2.0-7.7); Hematocrit 25.1 % (40-54); Hemoglobin 7.3 g/dL (13.0-16.5); Lymphocyte # 0.89 X10^3/ul (4.0); Lymphocyte % 8.7 % (19-41); Mean Corp Hgb Conc 29.1 g/dL (32-36); Mean Corpuscular Hgb 24.5 pg (27.0-32.0); Mean Corpuscular Volume 84.2 fL (80-94); Mean Platelet Vol. 9.8 fl (6.2-12.0); Monocyte# 0.53 X10^3/uL; Monocyte% 5.2 % (0-10); NRBC Flagged by Analyzer 0.5 % (0-5); Neutrophil # 8.71 X10^3/uL (2.7-7.7); Neutrophil % 85.2 % (47-70); Platelet Count 311 K/mm3 (150-450); RBC Distribution Width CV 19.1 % (11.6-14.6); RBC Distribution Width SD 58.6 fl (35.1-43.9); Red Blood Count 2.98 M/mm3 (4.6-6.2); White Blood Count 10.2 K/mm3 (4.4-11.0)
[2019-05-20 04:30] LABS: International Normalized Ratio 1.8; Prothrombin Time (Protime)PT. 20.4 SECONDS (11.7-14.9)
[2019-05-20 04:36] LABS: Anion Gap 4 (5-15); BUN 46 mg/dL (7-18); BUN/Creat Ratio 48.1 RATIO (10-20); Calcium,Total 8.1 mg/dL (8.5-10.1); Chloride 109 mmol/L (98-107); Creatinine, Serum 0.96 mg/dL (0.70-1.30); EST Glomerular Filtration Rate 82 mL/min (>60); Est Glom Filt Rate - Afr Amer 99 mL/min (>60); Estimated Creatinine Clearance 61.84 ml/min; Glucose 155 mg/dL (74-106); Potassium 5.3 mmol/L (3.5-5.1); Sodium Level 143 mmol/L (136-145)
[2019-05-20] MEDS: 0.9% NaCl Peripheral Flush Adult/Peds IV ×4 (05:36→21:46)
[2019-05-20 05:41] LABS: Bedside Glucose 133 mg/dL (70-110)
[2019-05-20] MEDS: fentaNYL drip 100 ML 12.5 MCG IV (06:41)
--- NOTE | 2019-05-20 06:42 | PN_ITS ---
Subjective: The patient was seen and examined at the bedside this morning. Events from the last 24 hours have been reviewed. The patient continues to have a low-grade fever. Although a spontaneous awakening trial was performed this morning, the patient was unable to be placed on a spontaneous breathing trial due to ventilator dyssynchrony and hypoxemia. Nursing staff also reported that the patient had a large amount of thick brown secretions. FiO2 requirement remains consistent at 45% with a PEEP of 8. Hemoglobin was noted to be 7.3 g/dL this morning. INR was 1.8. The patient is currently documented to be overall net +3.5 L for the admission. Objective: The patient's most recent lab work, culture data and imaging studies have all been personally reviewed. Surface echocardiogram revealed evidence of stage I diastolic dysfunction with an ejection fraction of 65%. The RV was mildly dilated with normal systolic function. Right ventricular systolic pressure was estimated to be 42 mmHg. Strep and urine Legionella antigens were both negative. Blood, urine and sputum cultures have not shown any growth to date. General: - - Remains intubated, sedated mechanically ventilated. HEENT: Atraumatic, PERRLA, Normocephalic Oral: No Gingival or Mucosal Lesions/ Ulcerations, - - Endotracheal and OG tubes currently in place Neck: Supple, No Nodes, Trachea Midline Lungs: No rhonchi, No wheeze, Diminished, Rales Cardiovascular: Normal S1, Normal S2, Bradycardic, Murmur Abdomen: Bowel Sounds Present, Soft, Non Tender Extremities: No cyanosis, Edema Skin: No breakdown Musculoskeletal: No Tenderness to Palpation of Joints or Extremities Lymphatic: No Cervical, Supraclavicular, or Inguinal Adenopathy Neurological: - - No focal deficits. Vital Signs Temp Pulse Resp BP Pulse Ox 99.5 F H 58 L 14 111/59 L 95 05/20/19 06:00 05/20/19 06:21 05/20/19 06:21 05/20/19 06:00 05/20/19 06:21 Oxygen Flow Rate (L/min) 100 Oxygen Delivery Method Mechanical Ventilator Weight: 203 lb 11.314 oz Body Mass Index (BMI) 32.1 Intake and Output for Last 24 Hours 05/18/19 05/19/19 05/20/19 23:59 23:59 23:59 Intake Total 1810.09 / 2160.49 3162.43 / 3642.63 1207.96 / 1207.96 Output Total 550 / 850 1450 / 1950 1050 / 1050 Balance 1260.09 / 1310.49 1712.43 / 1692.63 157.96 / 157.96 Labs (Last 48 Hours) 05/18/19 05/19/19 05/19/19 07:05 01:56 04:10 WBC 13.8 H RBC 3.07 L Hgb 7.8 L Hct 25.8 L MCV 84.0 MCH 25.4 L MCHC 30.2 L RDW Std Deviation 57.7 H RDW Coeff of Rossy 19.2 H Plt Count 320 MPV 10.4 Immature Gran % (Auto) 0.500 Neut % (Auto) 89.6 H Lymph % (Auto) 5.4 L [place] % (Auto) 4.4 Eos % (Auto) 0.0 Baso % (Auto) 0.1 Absolute Neuts (auto) 12.4 H Absolute Lymphs (auto) 0.74 L Nucleated RBC % 0.1 Differential Comment SCANNED Hypochromasia 2+ Crenated Cell 2+ PT 30.1 H INR 2.9 Sodium Potassium Chloride Carbon Dioxide Anion Gap BUN Creatinine Estim Creat Clear Calc Est GFR (MDRD) Af Amer Est GFR (MDRD) Non-Af BUN/Creatinine Ratio Glucose Calcium Phosphorus Magnesium POC Glucose 148 H 05/19/19 05/19/19 05/19/19 04:10 04:10 11:14 WBC RBC Hgb Hct MCV MCH MCHC RDW Std Deviation RDW Coeff of Rossy Plt Count MPV Immature Gran % (Auto) Neut % (Auto) Lymph % (Auto) [place] % (Auto) Eos % (Auto) Baso % (Auto) Absolute Neuts (auto) Absolute Lymphs (auto) Nucleated RBC % Differential Comment Hypochromasia Crenated Cell PT 27.9 H INR 2.6 Sodium 137 Potassium 5.1 Chloride 105 Carbon Dioxide 25.0 Anion Gap 7 BUN 50 H Creatinine 1.21 Estim Creat Clear Calc 49.07 Est GFR (MDRD) Af Amer 75 Est GFR (MDRD) Non-Af 62 BUN/Creatinine Ratio 41.3 H Glucose 147 H Calcium 8.1 L Phosphorus 3.8 Magnesium 3.2 H POC Glucose 152 H 05/19/19 05/19/19 05/20/19 17:11 23:18 04:10 WBC 10.2 RBC 2.98 L Hgb 7.3 L Hct 25.1 L MCV 84.2 MCH 24.5 L MCHC 29.1 L RDW Std Deviation 58.6 H RDW Coeff of Rossy 19.1 H Plt Count 311 MPV 9.8 Immature Gran % (Auto) 0.900 Neut % (Auto) 85.2 H Lymph % (Auto) 8.7 L [place] % (Auto) 5.2 Eos % (Auto) 0.0 Baso % (Auto) 0.0 Absolute Neuts (auto) 8.7 H Absolute Lymphs (auto) 0.89 Nucleated RBC % 0.5 Differential Comment Hypochromasia Crenated Cell PT INR Sodium Potassium Chloride Carbon Dioxide Anion Gap BUN Creatinine Estim Creat Clear Calc Est GFR (MDRD) Af Amer Est GFR (MDRD) Non-Af BUN/Creatinine Ratio Glucose Calcium Phosphorus Magnesium POC Glucose 157 H 145 H 05/20/19 05/20/19 05/20/19 04:10 04:10 05:35 WBC RBC Hgb Hct MCV MCH MCHC RDW Std Deviation RDW Coeff of Rossy Plt Count MPV Immature Gran % (Auto) Neut % (Auto) Lymph % (Auto) [place] % (Auto) Eos % (Auto) Baso % (Auto) Absolute Neuts (auto) Absolute Lymphs (auto) Nucleated RBC % Differential Comment Hypochromasia Crenated Cell PT 20.4 H INR 1.8 Sodium 143 Potassium 5.3 H Chloride 109 H Carbon Dioxide 30.0 Anion Gap 4 L BUN 46 H Creatinine 0.96 Estim Creat Clear Calc 61.84 Est GFR (MDRD) Af Amer 99 Est GFR (MDRD) Non-Af 82 BUN/Creatinine Ratio 48.1 H Glucose 155 H Calcium 8.1 L Phosphorus Magnesium POC Glucose 133 H Microbiology 05/17/19 11:20 Sputum, Expectorated/Coughed Gram Stain - Final 05/17/19 11:20 Sputum, Expectorated/Coughed Respiratory Culture - Preliminary Appears to be normal respiratory leigh. Further studies to follow. 05/17/19 00:45 Urine Catheter - Guzmán Urine Culture - Final Culture exhibits no growth. 05/17/19 00:25 Blood Culture (Wb) - Right Hand Blood Culture - Preliminary No growth in 48 hours. 05/17/19 00:45 Blood Culture (Wb) - Left Hand Blood Culture - Preliminary No growth in 48 hours. Clinical Impression(s) from Imaging Studies Brain CT 05/17/19 00:23 IMPRESSION: No acute intracranial pathology. Chronic changes as discussed similar to prior study Individualized dose optimization techniques were used for this CT. at 0122 Reported and signed by: Marina Castillo DO Electronically Signed: Marina Castillo DO at 1:21 EDT Tel , Service support , Chest X-Ray 05/17/19 00:45 IMPRESSION: Bilateral pulmonary infiltrates. These have increased in the lung apices when compared to the prior study at 0118 Reported and signed by: Marina Castillo DO Electronically Signed: Marina Castillo DO at 1:17 EDT Tel , Service support , Chest X-Ray 05/17/19 13:56 IMPRESSION: Stable bilateral patchy airspace disease. The tip of the endotracheal tube is at 3.9 cm proximal to the marly. The tip of the orogastric tube is within the fundal portion of the stomach. Electronically Signed: Raphael Roman, at 14:37 EDT , Service support , Chest X-Ray 05/18/19 05:00 IMPRESSION: Left PICC line tip in right atrium without pneumothorax. Stable diffuse alveolar disease. Electronically Signed: Gerson Porter MD at 5:21 EDT Tel , Service support , Chest X-Ray 05/18/19 09:28 IMPRESSION: Endotracheal tube in satisfactory position. Left-sided PICC line tip in the atriocaval junction/right atrium. NG tube in satisfactory position. Diffuse infiltrates consider diffuse pulmonary edema and/or pneumonia. Status post sternotomy. Electronically Signed: Marina Manning MD at 10:23 EDT Tel , Service support , Medical Necessity - Tobacco Use Smoking Status: Former smoker Assessment/Plan All Active Problems (Last Reviewed 05/17/19 @ 03:55 by Tristan Clancy MD) Acute respiratory failure with hypoxia (Acute) Community acquired pneumonia, bilateral (Acute) Severe sepsis (Acute) Anticoagulated on Coumadin (Acute) Sinus tachycardia by electrocardiogram (Acute) HCAP (healthcare-associated pneumonia) (Acute) Community acquired bacterial pneumonia (Acute) Acute hypoxemic respiratory failure (Resolved) Acute respiratory insufficiency (Resolved) Chest pain (Resolved) Supratherapeutic INR (Resolved) Unstable angina (Resolved) RECOMMENDATIONS: 1. Continue antimicrobial therapy with plans to complete a full treatment course. 2. Continue bronchodilators. IV steroids can be transitioned to prednisone from my perspective. 3. Given the patient's history of coronary artery disease, recommend transfusion of 2 units of packed red blood cells. 4. Check CBC posttransfusion. 5. Continue tube feeds. 6. Continue appropriate GI prophylaxis. IMPRESSIONS: 1. Acute on chronic hypoxemic respiratory failure/personal history of idiopathic pulmonary fibrosis Likely secondary to underlying interstitial lung disease compounded by healthcare associated pneumonia. The patient remains on antimicrobial therapy, with plans to complete a full treatment course, despite negative cultures. Continue to wean FiO2 and PEEP. Plan to repeat a spontaneous awakening and breathing trial tomorrow. Continue tube feeds as ordered. Continue bronchodilators. IV steroids can be transitioned to prednisone from my perspective. 2. Anemia/personal history of hematochromatosis Hemoglobin has slowly trended down since May 17 to a karthikeyan of 7.3 g/dL this morning. Given the patient's history of coronary artery disease, recommend transfusion of 2 units of packed red blood cells. Check H&H posttransfusion. 3. Coronary artery disease Continue outpatient medication regimen. 4. History of venous thrombi embolic disease INR was initially supratherapeutic on presentation to the hospital. Coumadin has been on hold since that time with subsequent improvement in the patient's coagulopathy. 5. Hypertension/hyperlipidemia/obstructive sleep apnea/paroxysmal atrial fibrillation/obesity Complicates care, management, recovery and prognosis. Continue home medications as indicated. Physical therapy to work with the patient. TIME: 39 minutes of critical care time, independent of procedures, was spent addressing the patient's acute on chronic hypoxemic respiratory failure, history of idiopathic pulmonary fibrosis, anemia, coronary artery disease, review of all data and collaboration with the care team. ([id number]) Code Visit 9xxxx: [id number] Critical care first hour
--- NOTE | 2019-05-20 07:19 | PCM.PROGNOTE ---
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 2 Weeks prior to admission he had 2 stents placed at [facility]. He was diagnosed with PNA a few day prior to admission and was started on Levaquin. He had taken 2 doses. With the Levaquin his INR increased and was 5.2 and he had hemoptysis. Coumadin was held. Temp in the Ed was 102.4 and the HR was 104 with a respiratory rate of 40 and a pulse ox of 82% on a nonrebreather. He was transitioned to BiPAP. White blood cell count was elevated at 17.8 with a left shift. Hemoglobin was 10 and platelets were within normal limits. The MCV was 80.1 with an elevated RDW standard deviation of 54.8. On his last admission the serum iron was 14 and the ferritin was low at 9. Patient is known to have hemochromatosis. INR was 3.5. Sodium was mildly decreased at 134 and the BUN was 19 with a creatinine of 1.36 up from 0.97 on 04/24/2019. Troponin was less than 0.015. UA had 0-5 WBCs. MRSA nasal screen was negative. CT brain showed no acute intracranial pathology. Chest x-ray was reported as bilateral pulmonary infiltrates in the lung apices when compared to a prior study. He was admitted to the intensive care unit with a diagnosis of severe sepsis secondary to HCAP, acute on chronic hypoxic respiratory failure and ARF. He was intubated on 05/17/19andplaced on a ventilator. Day #4 on the ventilator Antibiotics day #4-Aztreonam and day #6 Levaquin All events of the past 24 hours of been reviewed. Core temp is 99.5 today. Heart rate and blood pressure are within normal limits. He failed a breathing trial this a.m. secondary to dyssynchrony and hypoxemia. Fluid balance on 05/19/2019 was +1712. Fluid balance since admission is +3500. All labs, imaging and cultures were reviewed. White blood cell count today is 10.2, HGB is 7.3 and the platelets are within normal limits. INR is 1.8 today. Potassium is 5.3 with a BUN of 46 and a creatinine of 0.96. Blood sugars are mildly elevated but no blood sugar greater than 160. Legionella and streptococcal antigens in the urine were negative. Blood cultures had no growth in 48 hours. Urine culture had no growth. Sputum Gram stain on 05/17/2019 showed 2+ white blood cells and the preliminary report shows what appears to be normal respiratory leigh. He was on Levaquin prior to admission No BM since 05/15...getting Miralax daily Echocardiogram showed a 65% ejection fraction with stage I diastolic dysfunction, mildly dilated right ventricle and trivial tricuspid insufficiency. The right ventricular systolic pressure was estimated to be 42. - Physical Exam General: - - he is sedated but arouses when I call his name. He was able to squeeze my hand on command. HEENT: PERRLA, EOMI Neck: No JVD, No Nodes, Trachea Midline Lungs: - - mostly CTA but on the right side anteriorly there is a very localized inspiratory wheeze. Cardiovascular: Regular rate, Regular Rhythm, Normal S1 - the S1 has a wide fixed split, Normal S2, No murmurs, Bradycardic, No rub noted, No Gallop, - - Telemetry shows normal sinus rhythm/sinus bradycardia with occasional PAC. No ventricular ectopy. Abdomen: Bowel Sounds Present, Soft, Non Tender, Non-Distended, - - No guarding with palpation Extremities: No clubbing, No cyanosis, No edema, Peripheral Pulses Normal Skin: No rashes Neurological: Cranial nerves II-XII grossly intact, Neuro grossly intact Vital Signs Temp Pulse Resp BP Pulse Ox 99.5 F H 58 L 14 111/59 L 95 05/20/19 06:00 05/20/19 06:21 05/20/19 06:21 05/20/19 06:00 05/20/19 06:21 Oxygen Flow Rate (L/min) 100 Oxygen Delivery Method Mechanical Ventilator Weight: 203 lb 11.314 oz Body Mass Index (BMI) 32.1 Intake and Output for Last 24 Hours 05/18/19 05/19/19 05/20/19 23:59 23:59 23:59 Intake Total 1810.09 / 2160.49 3162.43 / 3642.63 1207.96 / 1207.96 Output Total 550 / 850 1450 / 1950 1050 / 1050 Balance 1260.09 / 1310.49 1712.43 / 1692.63 157.96 / 157.96 Microbiology Past 72 Hours 05/17/19 11:20 Gram Stain - Final Sputum, Expectorated/Coughed Respiratory Culture - Preliminary Appears to be normal respiratory leigh. Further studies to follow. 05/17/19 00:45 Urine Culture - Final Urine Catheter - Guzmán Culture exhibits no growth. 05/17/19 00:25 Blood Culture - Preliminary Blood Culture (Wb) - Right Hand No growth in 48 hours. 05/17/19 00:45 Blood Culture - Preliminary Blood Culture (Wb) - Left Hand No growth in 48 hours. 05/17/19 00:45 Streptococcus pneumoniae Antigen (M - Final Urine Catheter - Catheter 05/17/19 00:45 Legionella Antigen - Final Urine Catheter - Catheter Laboratory Tests Past 24 Hrs 05/20/19 05/20/19 05/20/19 04:10 04:10 04:10 WBC 10.2 RBC 2.98 L Hgb 7.3 L Hct 25.1 L MCV 84.2 MCH 24.5 L MCHC 29.1 L RDW Std Deviation 58.6 H RDW Coeff of Rsosy 19.1 H Plt Count 311 MPV 9.8 Immature Gran % (Auto) 0.900 Neut % (Auto) 85.2 H Lymph % (Auto) 8.7 L [place] % (Auto) 5.2 Eos % (Auto) 0.0 Baso % (Auto) 0.0 Absolute Neuts (auto) 8.7 H Absolute Lymphs (auto) 0.89 Nucleated RBC % 0.5 PT 20.4 H INR 1.8 Sodium 143 Potassium 5.3 H Chloride 109 H Carbon Dioxide 30.0 Anion Gap 4 L BUN 46 H Creatinine 0.96 Estim Creat Clear Calc 61.84 Est GFR (MDRD) Af Amer 99 Est GFR (MDRD) Non-Af 82 BUN/Creatinine Ratio 48.1 H Glucose 155 H Calcium 8.1 L POC Glucose 05/20/19 05/19/19 05/19/19 05:35 23:18 17:11 POC Glucose 133 H 145 H 157 H 05/19/19 11:14 POC Glucose 152 H Medical Necessity - Tobacco Use Smoking Status: Former smoker Assessment/Plan All Active Problems (Last Reviewed 05/17/19 @ 03:55 by Tristan Clancy MD) Acute respiratory failure with hypoxia (Acute) Community acquired pneumonia, bilateral (Acute) Severe sepsis (Acute) Anticoagulated on Coumadin (Acute) Sinus tachycardia by electrocardiogram (Acute) HCAP (healthcare-associated pneumonia) (Acute) Community acquired bacterial pneumonia (Acute) Acute hypoxemic respiratory failure (Resolved) Acute respiratory insufficiency (Resolved) Chest pain (Resolved) Supratherapeutic INR (Resolved) Unstable angina (Resolved) Impressions 1. Severe sepsis with acute on chronic respiratory failure with hypoxemia secondary to HCAP 2. HCAP - all cultures are negative but, he had 2 days of Levaquin prior to admission and this is day 6 of Levaquin and Day 4 of Aztreonam. 3. acute on chronic respiratory failure with hypoxemia - failed weaning trial today 4. ARF - resolved 5. acute on chronic anemia - INR was supratherapeutic and he had hemoptysis and epistaxis. Known hx of hemochromatosis and ferritin in April was 9 with a HGB of 10. Recently had 2 stents placed and [facility] and he has significant Interstitial fibrosis 6. CAD with 2 stents at [facility] 2 weeks prior to admission. Has had 2 staents in the past after a 1 vessel bypass in the 7. 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 Hyperkalemia 9. Hemochromatosis 9. Hyperglycemia due to sepsis/stress and TF's. 10. HLD - not adequately controlled in April with a LDL of 120 11. HTN 12. ALFRED - on CPAP 13. PAF - in SR since admission 14. chronic anticoagulation with warfarin - supratherapeutic at admission, possibly due to the addition of Levaquin to his drug regimen. 15. chronic steroid use 16. obesity tolerating TF's at goal - will continue Continue the Levaquin and Aztreonam - today is day 6 of the Levaquin and day #4 of Aztreonam Transfuse 2 units of PRBC's today, give Lasix with the second unit. Recheck the lab in the AM send a sputum for GM stain and C&S today - sputum is brown Weaning trial again in the AM - may do better with a higher HGB Discussed with Dr. Miller Code Visit Inpatient E&M: [id number] Subs Hosp L3
--- NOTE | 2019-05-20 10:02 | CASEMGMT ---
RN CM Assessment Presentation: [place] Sepsis/CAP. Hx of Pulmonary Fibrosis Intro role of CM and purpose of RN CM assessment to patient's . Pt remains on ventilator, unable to participate @ this time. . Demographics, PCP and Pharmacy verified. Per , pt has been independent at home. KARINE HOLLINS discussed dc planning including following PT/OT and evaluations for safety to return home with family support. Pt has not had HHS in past and has not been to SNF. PCP: Dr. Mccoy Specialists: Dr. Almonte, cardiology Preferred Pharmacy: [facility] Insurance: [employer] Prescription Benefit: yes LNOK: , Debbie Goldberg Living Arrangements: Lives in 2 story home with 1st floor set up. Pt was independent prior to admission. Used cane at times. Transportation: Pt drives DME: cane, Oxygen through [employer]. Has concentrator, Cpap, portable tanks, nebulizer. 2L NC @ home. HHC/SNF: none Patient DC goals: Home DC PLAN: undetermined. CM will continue to follow PT/OT and pt's progress once extubated. KARINE HOLLINS let know CM is available if needed for questions re: dc planning. Rishabh MCAARION RN ACM
[2019-05-20] MEDS: Propofol 10MG/Ml 1,000 MG/100 ML Bottle 8.2 MG IV (10:08)
[2019-05-20] MEDS: Aspirin 81 MG TAB.CHEW GT (10:48)
[2019-05-20] MEDS: Chlorhexidine 15 ML PO ×2 (10:49→21:32)
[2019-05-20] MEDS: Lansoprazole 15 MG Capsule.DR 30 MG GT (10:53)
[2019-05-20] MEDS: Clopidogrel Bisulfate 75 MG Tablet GT (10:53)
[2019-05-20] MEDS: Senna/Docusate Sodium 1 Tablet 2 TABLET GT ×2 (10:55→21:33)
[2019-05-20] MEDS: Polyethylene Glycol 3350 17 GM PACKET GT (11:19)
[2019-05-20 12:46] LABS: Bedside Glucose 142 mg/dL (70-110)
[2019-05-20] MEDS: Vital AF 1.2 Cal Liquid 1,000 ML 60 ML GT (14:43)
[2019-05-20] MEDS: fentaNYL drip 100 ML 10 MCG IV (15:47)
[2019-05-20] MEDS: Furosemide 40 MG/4 ML Vial IV (16:28)
[2019-05-20] MEDS: predniSONE 20 MG Tablet 40 MG NG (18:00)
[2019-05-20 18:31] LABS: Bedside Glucose 117 mg/dL (70-110)
[2019-05-20] MEDS: Propofol 10MG/Ml 1,000 MG/100 ML Bottle 8.3 MG IV (18:44)
[2019-05-20] MEDS: levoFLOXacin IV 750 MG/150 ML BAG 100 MG IV (21:32)
[2019-05-20 23:40] LABS: Bedside Glucose 150 mg/dL (70-110)
[2019-05-20] MEDS: Insulin Lispro 100 UNIT/ML INSULN.PEN SC (23:45)
[2019-05-21] VITALS (34 sets, daily range): BP systolic 110–174; BP diastolic 58–82; PULSE 53–93; RESP 12–35; TEMP 37–37.7; O2SAT 86–99
[2019-05-21] MEDS: Ipratropium/Albuterol Sulfate 3 ML AMPUL.NEB INHALATION ×4 (01:30→18:45)
[2019-05-21] MEDS: fentaNYL drip 100 ML 10 MCG IV (02:00)
[2019-05-21] MEDS: CHLORHEXIDINE GLUC 2% CLOTH 1 EACH TOWELETTE TOPICAL (02:17)
[2019-05-21] MEDS: guaiFENesin 10 ML UDC (200MG/10ML) 20 ML GT (02:35)
[2019-05-21 04:26] LABS: Hematocrit 31.3 % (40-54); Hemoglobin 9.5 g/dL (13.0-16.5); Mean Corp Hgb Conc 30.4 g/dL (32-36); Mean Corpuscular Hgb 25.7 pg (27.0-32.0); Mean Corpuscular Volume 84.6 fL (80-94); Mean Platelet Vol. 10.3 fl (6.2-12.0); Platelet Count 333 K/mm3 (150-450); RBC Distribution Width CV 18.7 % (11.6-14.6); RBC Distribution Width SD 57.3 fl (35.1-43.9); White Blood Count 10.4 K/mm3 (4.4-11.0)
[2019-05-21 04:35] LABS: ALB/GLOB Ratio 0.5 RATIO (0.9-2.4); AST(SGOT) 47 U/L (15-37); Alanine Aminotransfer ALT/SGPT 26 U/L (16-61); Albumin, Serum 2.3 g/dL (3.2-5.0); Alkaline Phosphatase 65 U/L (45-117); Anion Gap 4 (5-15); BUN 38 mg/dL (7-18); BUN/Creat Ratio 44.4 RATIO (10-20); Calcium,Total 8.1 mg/dL (8.5-10.1); Chloride 105 mmol/L (98-107); Creatinine, Serum 0.86 mg/dL (0.70-1.30); EST Glomerular Filtration Rate 93 mL/min (>60); Est Glom Filt Rate - Afr Amer 112 mL/min (>60); Estimated Creatinine Clearance 69.03 ml/min; Globulin 4.6 g/dL (2.2-4.2); Glucose 116 mg/dL (74-106); Magnesium 2.8 mg/dL (1.6-2.6); Potassium 4.7 mmol/L (3.5-5.1); Protein, Total 6.9 g/dL (6.4-8.2); Sodium Level 144 mmol/L (136-145)
[2019-05-21] MEDS: Albuterol 2.5 MG/3 ML VIAL.NEB. INHALATION (04:50)
[2019-05-21 05:45] LABS: Bedside Glucose 100 mg/dL (70-110)
[2019-05-21] MEDS: TITRATION PARAMETER CHANGE 1 EACH IV (06:10)
--- NOTE | 2019-05-21 06:25 | PN_ITS ---
Subjective: The patient was seen and examined at the bedside this morning. Events from the last 24 hours have been reviewed. The patient continues to have a low-grade fever but remains hemodynamically stable. FiO2 requirement remains stable at 45%. The patient was transfused 2 units of packed red blood cells yesterday, with subsequent improvement in his hemoglobin to 9.5 g/dL this morning. Secretions continue to be an issue for the patient. The patient is currently doing well on his spontaneous breathing trial. The patient is currently documented to be overall net +3 L for the admission. He did receive a one-time dose of IV Lasix last evening. Creatinine is stable. Objective: The patient's most recent lab work, culture data and imaging studies have all been personally reviewed. Surface echocardiogram revealed evidence of stage I diastolic dysfunction with an ejection fraction of 65%. The RV was mildly dilated with normal systolic function. Right ventricular systolic pressure was estimated to be 42 mmHg. Strep and urine Legionella antigens were both negative. Blood, urine and sputum cultures have not shown any growth to date. Repeat sputum Gram stain and culture, dated May 20, is currently pending. General: Alert, Cooperative, - - Remains intubated and mechanically ventilated. HEENT: Atraumatic, PERRLA, Normocephalic Oral: No Gingival or Mucosal Lesions/ Ulcerations, - - Endotracheal and OG tubes remain in place Neck: Supple, No Nodes, Trachea Midline Lungs: Diminished, - - Faint rales present in the posterior lung bases Cardiovascular: Regular rate, Regular Rhythm, Normal S1, Normal S2, Murmur Abdomen: Bowel Sounds Present, Soft, Non Tender Extremities: No clubbing, No cyanosis Skin: No breakdown Musculoskeletal: No Tenderness to Palpation of Joints or Extremities Lymphatic: No Cervical, Supraclavicular, or Inguinal Adenopathy Neurological: Neuro grossly intact, - - The patient is alert and able to follow commands appropriately. Vital Signs Temp Pulse Resp BP Pulse Ox 99.6 F H 73 25 H 141/78 H 93 05/21/19 06:00 05/21/19 06:00 05/21/19 06:00 05/21/19 06:00 05/21/19 06:00 Oxygen Flow Rate (L/min) 100 Oxygen Delivery Method Mechanical Ventilator Weight: 200 lb 9.93 oz Body Mass Index (BMI) 32.1 Intake and Output for Last 24 Hours 05/19/19 05/20/19 05/21/19 23:59 23:59 23:59 Intake Total 3162.43 / 3642.63 3998.47 / 3998.47 520.84 / 520.84 Output Total 1450 / 1950 4350 / 4350 550 / 550 Balance 1712.43 / 1692.63 -351.53 / -351.53 -29.16 / -29.16 Labs (Last 48 Hours) 05/19/19 05/19/19 05/19/19 11:14 17:11 23:18 WBC RBC Hgb Hct MCV MCH MCHC RDW Std Deviation RDW Coeff of Rossy Plt Count MPV Immature Gran % (Auto) Neut % (Auto) Lymph % (Auto) Kaufman % (Auto) Eos % (Auto) Baso % (Auto) Absolute Neuts (auto) Absolute Lymphs (auto) Nucleated RBC % PT INR Sodium Potassium Chloride Carbon Dioxide Anion Gap BUN Creatinine Estim Creat Clear Calc Est GFR (MDRD) Af Amer Est GFR (MDRD) Non-Af BUN/Creatinine Ratio Glucose Calcium Phosphorus Magnesium Total Bilirubin AST ALT Alkaline Phosphatase Total Protein Albumin Globulin Albumin/Globulin Ratio POC Glucose 152 H 157 H 145 H Blood Type Antibody Screen Crossmatch 05/20/19 05/20/19 05/20/19 04:10 04:10 04:10 WBC 10.2 RBC 2.98 L Hgb 7.3 L Hct 25.1 L MCV 84.2 MCH 24.5 L MCHC 29.1 L RDW Std Deviation 58.6 H RDW Coeff of Rossy 19.1 H Plt Count 311 MPV 9.8 Immature Gran % (Auto) 0.900 Neut % (Auto) 85.2 H Lymph % (Auto) 8.7 L Kaufman % (Auto) 5.2 Eos % (Auto) 0.0 Baso % (Auto) 0.0 Absolute Neuts (auto) 8.7 H Absolute Lymphs (auto) 0.89 Nucleated RBC % 0.5 PT 20.4 H INR 1.8 Sodium 143 Potassium 5.3 H Chloride 109 H Carbon Dioxide 30.0 Anion Gap 4 L BUN 46 H Creatinine 0.96 Estim Creat Clear Calc 61.84 Est GFR (MDRD) Af Amer 99 Est GFR (MDRD) Non-Af 82 BUN/Creatinine Ratio 48.1 H Glucose 155 H Calcium 8.1 L Phosphorus Magnesium Total Bilirubin AST ALT Alkaline Phosphatase Total Protein Albumin Globulin Albumin/Globulin Ratio POC Glucose Blood Type Antibody Screen Crossmatch 05/20/19 05/20/19 05/20/19 05:35 09:25 12:35 WBC RBC Hgb Hct MCV MCH MCHC RDW Std Deviation RDW Coeff of Rossy Plt Count MPV Immature Gran % (Auto) Neut % (Auto) Lymph % (Auto) Kaufman % (Auto) Eos % (Auto) Baso % (Auto) Absolute Neuts (auto) Absolute Lymphs (auto) Nucleated RBC % PT INR Sodium Potassium Chloride Carbon Dioxide Anion Gap BUN Creatinine Estim Creat Clear Calc Est GFR (MDRD) Af Amer Est GFR (MDRD) Non-Af BUN/Creatinine Ratio Glucose Calcium Phosphorus Magnesium Total Bilirubin AST ALT Alkaline Phosphatase Total Protein Albumin Globulin Albumin/Globulin Ratio POC Glucose 133 H 142 H Blood Type O POSITIVE Antibody Screen NEGATIVE Crossmatch See Detail 05/20/19 05/20/19 05/21/19 17:59 23:35 04:10 WBC 10.4 RBC 3.70 L Hgb 9.5 L Hct 31.3 L MCV 84.6 MCH 25.7 L MCHC 30.4 L RDW Std Deviation 57.3 H RDW Coeff of Rossy 18.7 H Plt Count 333 MPV 10.3 Immature Gran % (Auto) Neut % (Auto) Lymph % (Auto) Kaufman % (Auto) Eos % (Auto) Baso % (Auto) Absolute Neuts (auto) Absolute Lymphs (auto) Nucleated RBC % PT INR Sodium Potassium Chloride Carbon Dioxide Anion Gap BUN Creatinine Estim Creat Clear Calc Est GFR (MDRD) Af Amer Est GFR (MDRD) Non-Af BUN/Creatinine Ratio Glucose Calcium Phosphorus Magnesium Total Bilirubin AST ALT Alkaline Phosphatase Total Protein Albumin Globulin Albumin/Globulin Ratio POC Glucose 117 H 150 H Blood Type Antibody Screen Crossmatch 05/21/19 05/21/19 04:10 05:36 WBC RBC Hgb Hct MCV MCH MCHC RDW Std Deviation RDW Coeff of Rossy Plt Count MPV Immature Gran % (Auto) Neut % (Auto) Lymph % (Auto) Kaufman % (Auto) Eos % (Auto) Baso % (Auto) Absolute Neuts (auto) Absolute Lymphs (auto) Nucleated RBC % PT INR Sodium 144 Potassium 4.7 Chloride 105 Carbon Dioxide 35.0 H Anion Gap 4 L BUN 38 H Creatinine 0.86 Estim Creat Clear Calc 69.03 Est GFR (MDRD) Af Amer 112 Est GFR (MDRD) Non-Af 93 BUN/Creatinine Ratio 44.4 H Glucose 116 H Calcium 8.1 L Phosphorus 2.0 L Magnesium 2.8 H Total Bilirubin 0.40 AST 47 H ALT 26 Alkaline Phosphatase 65 Total Protein 6.9 Albumin 2.3 L Globulin 4.6 H Albumin/Globulin Ratio 0.5 L POC Glucose 100 Blood Type Antibody Screen Crossmatch Microbiology 05/17/19 11:20 Sputum, Expectorated/Coughed Gram Stain - Final 05/17/19 11:20 Sputum, Expectorated/Coughed Respiratory Culture - Final Mixed normal respiratory leigh. No Streptococcus pneumoniae, beta-hemolytic Streptococcus or Staphylococcus aureus isolated. 05/17/19 00:45 Urine Catheter - Guzmán Urine Culture - Final Culture exhibits no growth. 05/17/19 00:25 Blood Culture (Wb) - Right Hand Blood Culture - Preliminary No growth in 48 hours. 05/17/19 00:45 Blood Culture (Wb) - Left Hand Blood Culture - Preliminary No growth in 48 hours. Clinical Impression(s) from Imaging Studies Brain CT 05/17/19 00:23 IMPRESSION: No acute intracranial pathology. Chronic changes as discussed similar to prior study Individualized dose optimization techniques were used for this CT. at 0122 Reported and signed by: Marina Castillo DO Electronically Signed: Marina Castillo DO at 1:21 EDT Tel , Service support , Chest X-Ray 05/17/19 00:45 IMPRESSION: Bilateral pulmonary infiltrates. These have increased in the lung apices when compared to the prior study at 0118 Reported and signed by: Marina Castillo DO Electronically Signed: Marina Castillo DO at 1:17 EDT Tel , Service support , Chest X-Ray 05/17/19 13:56 IMPRESSION: Stable bilateral patchy airspace disease. The tip of the endotracheal tube is at 3.9 cm proximal to the marly. The tip of the orogastric tube is within the fundal portion of the stomach. Electronically Signed: Raphael Roman, at 14:37 EDT , Service support , Chest X-Ray 05/18/19 05:00 IMPRESSION: Left PICC line tip in right atrium without pneumothorax. Stable diffuse alveolar disease. Electronically Signed: Gerson Porter MD at 5:21 EDT Tel , Service support , Chest X-Ray 05/18/19 09:28 IMPRESSION: Endotracheal tube in satisfactory position. Left-sided PICC line tip in the atriocaval junction/right atrium. NG tube in satisfactory position. Diffuse infiltrates consider diffuse pulmonary edema and/or pneumonia. Status post sternotomy. Electronically Signed: Marina Manning MD at 10:23 EDT Tel , Service support , Medical Necessity - Tobacco Use Smoking Status: Former smoker Assessment/Plan All Active Problems (Last Reviewed 05/17/19 @ 03:55 by Tristan Clancy MD) Acute respiratory failure with hypoxia (Acute) Community acquired pneumonia, bilateral (Acute) Severe sepsis (Acute) Anticoagulated on Coumadin (Acute) Sinus tachycardia by electrocardiogram (Acute) HCAP (healthcare-associated pneumonia) (Acute) Community acquired bacterial pneumonia (Acute) Acute hypoxemic respiratory failure (Resolved) Acute respiratory insufficiency (Resolved) Chest pain (Resolved) Supratherapeutic INR (Resolved) Unstable angina (Resolved) RECOMMENDATIONS: 1. Proceed with a trial of extubation directly to BiPAP 12/6 centimeters of water. 2. Maintain patient on BiPAP for at least 2 hours, after which time, he can be transitioned to nasal cannula supplemental oxygen. 3. Continue antibiotics to complete 7-day treatment course. 4. Wean prednisone. 5. Once extubated and able to maintain oxygen saturations on nasal cannula, perform bedside swallow evaluation and advance diet. 6. Continue bronchopulmonary hygiene. 7. Continue bronchodilators. IMPRESSIONS: 1. Acute on chronic hypoxemic respiratory failure/personal history of idiopathic pulmonary fibrosis Likely secondary to underlying interstitial lung disease compounded by healthcare associated pneumonia. The patient remains on antimicrobial therapy, with plans to complete a full treatment course, despite negative cultures. Continue to wean FiO2 and PEEP. The patient passed his spontaneous breathing trial this morning. We will plan to extubate the patient directly to BiPAP. If the patient does well on BiPAP after several hours he can be transitioned to nasal cannula supplemental oxygen. Continue aggressive bronchopulmonary hygiene. Continue bronchodilators and prednisone. We will plan to continue to wean steroids as tolerated. 2. Anemia/personal history of hematochromatosis Hemoglobin has slowly trended down since May 17 to a karthikeyan of 7.3 g/dL. Given the patient's history of coronary artery disease, the patient was t ransfused 2 units of packed red blood cells with subsequent improvement in his hemoglobin. Continue to monitor blood counts daily. There is no indication for additional transfusion of blood products at the current time. 3. Coronary artery disease Continue outpatient medication regimen. 4. History of venous thrombi embolic disease INR was initially supratherapeutic on presentation to the hospital. Coumadin has been on hold since that time with subsequent improvement in the patient's coagulopathy. Given that the patient's INR is now less than 2, we will plan to start him on treatment dose Lovenox with plans to restart and bridge him back to his Coumadin. 5. Hypertension/hyperlipidemia/obstructive sleep apnea/paroxysmal atrial fibrillation/obesity Complicates care, management, recovery and prognosis. Continue home medications as indicated. Physical therapy to work with the patient. TIME: 40 minutes of critical care time, independent of procedures, was spent addressing the patient's acute on chronic hypoxemic respiratory failure, history of idiopathic pulmonary fibrosis, anemia, coronary artery disease, review of all data and collaboration with the care team. ([id number]) Code Visit 9xxxx: [id number] Critical care first hour
--- NOTE | 2019-05-21 07:32 | RAD_ITS ---
STUDY: X-RAY CHEST REASON FOR EXAM: Male, 73 years old. Shortness of breath. Dyspnea. TECHNIQUE: Single AP portable view of the chest. COMPARISON: May 18, 2019. FINDINGS: Endotracheal tube in position. NG tube tip at the left upper quadrant. Left PICC line in unchanged position. Median sternotomy. CABG. Cardiomegaly. Prominent pulmonary vascularity. Diffuse hazy airspace disease. Trace pleural effusions. No pneumothorax. Osseous structures demineralized. Normal upper abdomen. RAD/Chest 1 View (Portable) IMPRESSION: Lines and tubes in unchanged position Mild CHF/fluid overload with trace effusions Airspace disease presumed edema Cardiomegaly Electronically Signed: Scot Alcala DO at 8:04 EDT Tel , Service support ,
--- NOTE | 2019-05-21 08:09 | PCM.PROGNOTE ---
Patient Problems: Active and Suspected Problems (Last Reviewed 05/17/19 @ 03:55 by Tristan Clancy MD) Acute respiratory failure with hypoxia (Acute) Community acquired pneumonia, bilateral (Acute) Severe sepsis (Acute) Anticoagulated on Coumadin (Acute) Sinus tachycardia by electrocardiogram (Acute) HCAP (healthcare-associated pneumonia) (Acute) Community acquired bacterial pneumonia (Acute) Subjective: Day #5 ventilator -extubated 05/21/2019 and transition to BiPAP Day #7 Levaquin, day #5 Aztreonam All events of the past 24 hours of been reviewed. All lab, cultures and radiology has been reviewed personally. Remains afebrile. Blood pressure and heart rate are stable. Pulse ox is 93 to 94% today on mechanical ventilation with a 45% FiO2. Fluid balance for 05/20/2019 was -351. Fluid balance since admission is +3 L. Urine output on 05/20/2019 was 4350 cc Hemoglobin is 9.5 today, up from 7.3 on 05/20/2019 following transfusion of 2 units of packed red blood cells. Platelets are within normal limits. Serum bicarb is increased at 35 today. Potassium is 4.7. Phosphorus is low at 2.0. Magnesium is 2.8. LFTs are unremarkable. No bowel movement since 05/15/2019. CXR is essentially unchanged Denies chest pain, abdominal pain, nausea, vomiting, palpitations. Nods yes when I ask him if he feels he is getting enough air. - Physical Exam General: Alert, Cooperative, No apparent distress, Well developed, Well nourished HEENT: PERRLA, EOMI Oral: No Gingival or Mucosal Lesions/ Ulcerations, Dry Mucosa Neck: Supple, No Nodes, Trachea Midline Lungs: Rales - coarse on the left side anterior lateral. No wheezing. Not tachypneic on BiPAP. No accessory muscle use. Cardiovascular: Regular rate, Regular Rhythm, Normal S1, Normal S2, No murmurs, No Gallop Abdomen: Bowel Sounds Present, Soft, Non Tender, Non-Distended Extremities: No edema Skin: No rashes, No breakdown Neurological: Cranial nerves II-XII grossly intact, Neuro grossly intact Psych/Mental Status: Appropriate Vital Signs Temp Pulse Resp BP Pulse Ox 99.6 F H 73 25 H 141/78 H 93 05/21/19 06:00 05/21/19 06:00 05/21/19 06:00 05/21/19 06:00 05/21/19 06:00 Oxygen Flow Rate (L/min) 100 Oxygen Delivery Method Mechanical Ventilator Weight: 200 lb 9.93 oz Body Mass Index (BMI) 32.1 Intake and Output for Last 24 Hours 05/19/19 05/20/19 05/21/19 23:59 23:59 23:59 Intake Total 3162.43 / 3642.63 3998.47 / 3998.47 520.84 / 520.84 Output Total 1450 / 1950 4350 / 4350 550 / 550 Balance 1712.43 / 1692.63 -351.53 / -351.53 -29.16 / -29.16 Microbiology Past 72 Hours 05/17/19 11:20 Gram Stain - Final Sputum, Expectorated/Coughed Respiratory Culture - Final Mixed normal respiratory leigh. No Streptococcus pneumoniae, beta-hemolytic Streptococcus or Staphylococcus aureus isolated. 05/17/19 00:45 Urine Culture - Final Urine Catheter - Guzmán Culture exhibits no growth. 05/17/19 00:25 Blood Culture - Preliminary Blood Culture (Wb) - Right Hand No growth in 48 hours. 05/17/19 00:45 Blood Culture - Preliminary Blood Culture (Wb) - Left Hand No growth in 48 hours. Laboratory Tests Past 24 Hrs 05/20/19 05/21/19 05/21/19 09:25 04:10 04:10 WBC 10.4 RBC 3.70 L Hgb 9.5 L Hct 31.3 L MCV 84.6 MCH 25.7 L MCHC 30.4 L RDW Std Deviation 57.3 H RDW Coeff of Rossy 18.7 H Plt Count 333 MPV 10.3 Sodium 144 Potassium 4.7 Chloride 105 Carbon Dioxide 35.0 H Anion Gap 4 L BUN 38 H Creatinine 0.86 Estim Creat Clear Calc 69.03 Est GFR (MDRD) Af Amer 112 Est GFR (MDRD) Non-Af 93 BUN/Creatinine Ratio 44.4 H Glucose 116 H Calcium 8.1 L Phosphorus 2.0 L Magnesium 2.8 H Total Bilirubin 0.40 AST 47 H ALT 26 Alkaline Phosphatase 65 Total Protein 6.9 Albumin 2.3 L Globulin 4.6 H Albumin/Globulin Ratio 0.5 L Blood Type O POSITIVE Antibody Screen NEGATIVE Crossmatch See Detail POC Glucose 05/21/19 05/20/19 05/20/19 05:36 23:35 17:59 POC Glucose 100 150 H 117 H 05/20/19 12:35 POC Glucose 142 H Medical Necessity - Tobacco Use Smoking Status: Former smoker Assessment/Plan All Active Problems (Last Reviewed 05/17/19 @ 03:55 by Tristan Clancy MD) Acute respiratory failure with hypoxia (Acute) Community acquired pneumonia, bilateral (Acute) Severe sepsis (Acute) Anticoagulated on Coumadin (Acute) Sinus tachycardia by electrocardiogram (Acute) HCAP (healthcare-associated pneumonia) (Acute) Community acquired bacterial pneumonia (Acute) Acute hypoxemic respiratory failure (Resolved) Acute respiratory insufficiency (Resolved) Chest pain (Resolved) Supratherapeutic INR (Resolved) Unstable angina (Resolved) Impressions 1. Severe sepsis with acute on chronic respiratory failure with hypoxemia secondary to HCAP 2. HCAP - all cultures are negative but, he had 2 days of Levaquin prior to admission and this is day 6 of Levaquin and Day 4 of Aztreonam. 3. acute on chronic respiratory failure with hypoxemia -extubated 05/21/2019 4. ARF - resolved 5. acute on chronic anemia - INR was supratherapeutic and he had hemoptysis and epistaxis. Known hx of hemochromatosis and ferritin in April was 9 with a HGB of 10. His last phlebotomy was approximately 1 month ago. Recently had 2 stents placed and [facility] and he has significant Interstitial fibrosis 6. CAD with 2 stents at [facility] 2 weeks prior to admission. Has had 2 stents in the past after a 1 vessel bypass in the s 7. 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 Hyperkalemia-resolved 9. Hemochromatosis 9. Hyperglycemia due to sepsis/stress and TF's. 10. HLD - not adequately controlled in April with a LDL of 120 11. HTN 12. ALFRED - on CPAP 13. PAF - in SR since admission 14. chronic anticoagulation with warfarin - supratherapeutic at admission, possibly due to the addition of Levaquin to his drug regimen. 15. chronic steroid use -recently has undergone a steroid taper. Currently weaning steroids. 16. obesity 17. Interstitial pulmonary fibrosis Discussed on ICU rounds with the ICU team. Maintain in the ICU today. Trial later today of a NC with high flow oxygen. recheck the lab in the AM Code Visit Inpatient E&M: [id number] Subs Hosp L3
--- NOTE | 2019-05-21 09:31 | CPS ---
extubated to bipap at 0800, pt desaturated when extubated due to some oral secretions. He recovered on the bipap, tolerating well. Will give breaks off bipap as tolerated on high flow nasal cannula.
[2019-05-21] MEDS: 0.9% NaCl Peripheral Flush Adult/Peds IV ×2 (13:03→21:06)
[2019-05-21] MEDS: Aspirin 81 MG TAB.CHEW PO (13:03)
[2019-05-21] MEDS: Polyethylene Glycol 3350 17 GM PACKET PO (13:03)
[2019-05-21] MEDS: predniSONE 20 MG Tablet 40 MG PO (13:04)
[2019-05-21] MEDS: Clopidogrel Bisulfate 75 MG Tablet PO (13:04)
[2019-05-21] MEDS: Senna/Docusate Sodium 1 Tablet 2 TABLET PO (13:05)
[2019-05-21] MEDS: Pantoprazole Sodium 40 MG Tablet PO (13:05)
--- NOTE | 2019-05-21 13:05 | CASEMGMT ---
RN CM Note: Pt on Bipap earlier today- now 6L NC. Pt wear 2L NC continuous @ home. Reviewed PT/OT notes. Pt is max assist for transfers, fatigues quickly. Max A for sitting. Anticipate pt may benefit from SNF on discharge. SW referral placed and message left for PALLAVI Rivera. Pt continues to be monitored in ICU today. Rishabh MACARION RN ACM
[2019-05-21] MEDS: Enoxaparin 100 MG/ML Syringe 90 MG SC ×2 (13:32→21:02)
[2019-05-21] MEDS: Bisacodyl 5 MG Tablet PO (13:32)
[2019-05-21 13:40] LABS: Bedside Glucose 94 mg/dL (70-110)
[2019-05-21 18:30] LABS: Bedside Glucose 129 mg/dL (70-110)
[2019-05-21] MEDS: levoFLOXacin IV 750 MG/150 ML BAG 100 MG IV (21:01)
[2019-05-21 23:00] LABS: Bedside Glucose 118 mg/dL (70-110)
[2019-05-22] VITALS (34 sets, daily range): BP systolic 99–132; BP diastolic 32–82; PULSE 58–88; RESP 12–30; TEMP 36.1–37.9; O2SAT 87–97
[2019-05-22 04:10] LABS: Absolute Lymphocyte Count 1.69 X10^3/uL (0.83-4.51); Absolute Neutrophil Count 8.5 X10^3/uL (2.0-7.7); Basophil# 0.01 X10^3/uL; Basophil% 0.1 % (0-1); Eosinophils% 0.9 % (0-5); Hematocrit 43.5 % (40-54); Lymphocyte # 1.69 X10^3/ul (4.0); Lymphocyte % 15.3 % (19-41); Mean Corp Hgb Conc 29.9 g/dL (32-36); Mean Corpuscular Hgb 25.1 pg (27.0-32.0); Mean Corpuscular Volume 84.1 fL (80-94); Mean Platelet Vol. 9.7 fl (6.2-12.0); Monocyte% 5.4 % (0-10); NRBC Flagged by Analyzer 0.2 % (0-5); Neutrophil # 8.52 X10^3/uL (2.7-7.7); Neutrophil % 77.4 % (47-70); Platelet Count 288 K/mm3 (150-450); RBC Distribution Width CV 19.9 % (11.6-14.6); RBC Distribution Width SD 59.2 fl (35.1-43.9); Red Blood Count 5.17 M/mm3 (4.6-6.2)
[2019-05-22 04:18] LABS: International Normalized Ratio 1.2; Prothrombin Time (Protime)PT. 15.2 SECONDS (11.7-14.9)
[2019-05-22 04:22] LABS: Anion Gap 5 (5-15); BUN 26 mg/dL (7-18); BUN/Creat Ratio 38.9 RATIO (10-20); Calcium,Total 8.4 mg/dL (8.5-10.1); Chloride 104 mmol/L (98-107); Creatinine, Serum 0.67 mg/dL (0.70-1.30); EST Glomerular Filtration Rate 124 mL/min (>60); Est Glom Filt Rate - Afr Amer 150 mL/min (>60); Estimated Creatinine Clearance 59.37 ml/min; Glucose 98 mg/dL (74-106); Sodium Level 143 mmol/L (136-145)
[2019-05-22] MEDS: Albuterol 2.5 MG/3 ML VIAL.NEB. INHALATION (05:22)
--- NOTE | 2019-05-22 06:42 | PCM.PN.INT ---
Subjective: The patient was seen and examined at the bedside this morning. Events from the last 24 hours have been reviewed. The patient remains hemodynamically stable. He wore BiPAP most of the evening with an FiO2 requirement of 50%. He has currently been weaned to 10 L high flow nasal cannula supplemental O2. The patient continues to have a significant amount of mucus production. Objective: The patient's most recent lab work, culture data and imaging studies have all been personally reviewed. Surface echocardiogram revealed evidence of stage I diastolic dysfunction with an ejection fraction of 65%. The RV was mildly dilated with normal systolic function. Right ventricular systolic pressure was estimated to be 42 mmHg. Strep and urine Legionella antigens were both negative. Blood, urine and sputum cultures have not shown any growth to date. Repeat sputum Gram stain and culture, dated May 20, is not currently showing any growth. INR was noted to be 1.2 this morning. General: Alert, Cooperative, - - Still a bit drowsy this morning. HEENT: Atraumatic, PERRLA, Normocephalic Oral: Dry Mucosa Neck: Supple, No Nodes, Trachea Midline Lungs: Diminished, Rales - Bibasilar Cardiovascular: Regular rate, Regular Rhythm, Normal S1, Normal S2, Murmur Abdomen: Bowel Sounds Present, Soft, Non Tender Extremities: No clubbing, No cyanosis Skin: No breakdown Musculoskeletal: No Tenderness to Palpation of Joints or Extremities Lymphatic: No Cervical, Supraclavicular, or Inguinal Adenopathy Neurological: Neuro grossly intact Vital Signs Temp Pulse Resp BP Pulse Ox 99.4 F H 71 27 H 116/74 90 05/22/19 06:00 05/22/19 06:00 05/22/19 06:00 05/22/19 06:00 05/22/19 06:00 Oxygen Flow Rate (L/min) 9 Oxygen Delivery Method Bi-pap Weight: 200 lb 9.93 oz Body Mass Index (BMI) 32.1 Intake and Output for Last 24 Hours 05/20/19 05/21/19 05/22/19 23:59 23:59 23:59 Intake Total 3998.47 / 3998.47 1100.84 / 1100.84 Output Total 4350 / 4350 2250 / 2250 500 / 500 Balance -351.53 / -351.53 -1149.16 / -1149.16 -500 / -500 Labs (Last 48 Hours) 05/20/19 05/20/19 05/20/19 09:25 12:35 17:59 WBC RBC Hgb Hct MCV MCH MCHC RDW Std Deviation RDW Coeff of Rossy Plt Count MPV Immature Gran % (Auto) Neut % (Auto) Lymph % (Auto) [place] % (Auto) Eos % (Auto) Baso % (Auto) Absolute Neuts (auto) Absolute Lymphs (auto) Nucleated RBC % PT INR Sodium Potassium Chloride Carbon Dioxide Anion Gap BUN Creatinine Estim Creat Clear Calc Est GFR (MDRD) Af Amer Est GFR (MDRD) Non-Af BUN/Creatinine Ratio Glucose Calcium Phosphorus Magnesium Total Bilirubin AST ALT Alkaline Phosphatase Total Protein Albumin Globulin Albumin/Globulin Ratio POC Glucose 142 H 117 H Blood Type O POSITIVE Antibody Screen NEGATIVE Crossmatch See Detail 05/20/19 05/21/19 05/21/19 23:35 04:10 04:10 WBC 10.4 RBC 3.70 L Hgb 9.5 L Hct 31.3 L MCV 84.6 MCH 25.7 L MCHC 30.4 L RDW Std Deviation 57.3 H RDW Coeff of Rossy 18.7 H Plt Count 333 MPV 10.3 Immature Gran % (Auto) Neut % (Auto) Lymph % (Auto) [place] % (Auto) Eos % (Auto) Baso % (Auto) Absolute Neuts (auto) Absolute Lymphs (auto) Nucleated RBC % PT INR Sodium 144 Potassium 4.7 Chloride 105 Carbon Dioxide 35.0 H Anion Gap 4 L BUN 38 H Creatinine 0.86 Estim Creat Clear Calc 69.03 Est GFR (MDRD) Af Amer 112 Est GFR (MDRD) Non-Af 93 BUN/Creatinine Ratio 44.4 H Glucose 116 H Calcium 8.1 L Phosphorus 2.0 L Magnesium 2.8 H Total Bilirubin 0.40 AST 47 H ALT 26 Alkaline Phosphatase 65 Total Protein 6.9 Albumin 2.3 L Globulin 4.6 H Albumin/Globulin Ratio 0.5 L POC Glucose 150 H Blood Type Antibody Screen Crossmatch 05/21/19 05/21/19 05/21/19 05:36 13:22 18:23 WBC RBC Hgb Hct MCV MCH MCHC RDW Std Deviation RDW Coeff of Rossy Plt Count MPV Immature Gran % (Auto) Neut % (Auto) Lymph % (Auto) [place]ner % (Auto) Eos % (Auto) Baso % (Auto) Absolute Neuts (auto) Absolute Lymphs (auto) Nucleated RBC % PT INR Sodium Potassium Chloride Carbon Dioxide Anion Gap BUN Creatinine Estim Creat Clear Calc Est GFR (MDRD) Af Amer Est GFR (MDRD) Non-Af BUN/Creatinine Ratio Glucose Calcium Phosphorus Magnesium Total Bilirubin AST ALT Alkaline Phosphatase Total Protein Albumin Globulin Albumin/Globulin Ratio POC Glucose 100 94 129 H Blood Type Antibody Screen Crossmatch 05/21/19 05/22/19 05/22/19 22:57 04:05 04:05 WBC 11.0 RBC 5.17 Hgb 13.0 Hct 43.5 MCV 84.1 MCH 25.1 L MCHC 29.9 L RDW Std Deviation 59.2 H RDW Coeff of Rossy 19.9 H Plt Count 288 MPV 9.7 Immature Gran % (Auto) 0.900 Neut % (Auto) 77.4 H Lymph % (Auto) 15.3 L [place]ulk[place] % (Auto) 5.4 Eos % (Auto) 0.9 Baso % (Auto) 0.1 Absolute Neuts (auto) 8.5 H Absolute Lymphs (auto) 1.69 Nucleated RBC % 0.2 PT 15.2 H INR 1.2 Sodium Potassium Chloride Carbon Dioxide Anion Gap BUN Creatinine Estim Creat Clear Calc Est GFR (MDRD) Af Amer Est GFR (MDRD) Non-Af BUN/Creatinine Ratio Glucose Calcium Phosphorus Magnesium Total Bilirubin AST ALT Alkaline Phosphatase Total Protein Albumin Globulin Albumin/Globulin Ratio POC Glucose 118 H Blood Type Antibody Screen Crossmatch 05/22/19 04:05 WBC RBC Hgb Hct MCV MCH MCHC RDW Std Deviation RDW Coeff of Rossy Plt Count MPV Immature Gran % (Auto) Neut % (Auto) Lymph % (Auto) [place] % (Auto) Eos % (Auto) Baso % (Auto) Absolute Neuts (auto) Absolute Lymphs (auto) Nucleated RBC % PT INR Sodium 143 Potassium 4.0 Chloride 104 Carbon Dioxide 34.0 H Anion Gap 5 BUN 26 H Creatinine 0.67 L Estim Creat Clear Calc 59.37 Est GFR (MDRD) Af Amer 150 Est GFR (MDRD) Non-Af 124 BUN/Creatinine Ratio 38.9 H Glucose 98 Calcium 8.4 L Phosphorus Magnesium Total Bilirubin AST ALT Alkaline Phosphatase Total Protein Albumin Globulin Albumin/Globulin Ratio POC Glucose Blood Type Antibody Screen Crossmatch Microbiology 05/20/19 12:15 Sputum, Induced/Lukens Gram Stain - Final 05/20/19 12:15 Sputum, Induced/Lukens Respiratory Culture - Preliminary Culture exhibits no growth. 05/17/19 11:20 Sputum, Expectorated/Coughed Gram Stain - Final 05/17/19 11:20 Sputum, Expectorated/Coughed Respiratory Culture - Final Mixed normal respiratory leigh. No Streptococcus pneumoniae, beta-hemolytic Streptococcus or Staphylococcus aureus isolated. Clinical Impression(s) from Imaging Studies Brain CT 05/17/19 00:23 IMPRESSION: No acute intracranial pathology. Chronic changes as discussed similar to prior study Individualized dose optimization techniques were used for this CT. at 0122 Reported and signed by: Marina Castillo DO Electronically Signed: Marina Castillo DO at 1:21 EDT Tel , Service support , Chest X-Ray 05/17/19 00:45 IMPRESSION: Bilateral pulmonary infiltrates. These have increased in the lung apices when compared to the prior study at 0118 Reported and signed by: Marina Castillo DO Electronically Signed: Marina Castillo DO at 1:17 EDT Tel , Service support , Chest X-Ray 05/17/19 13:56 IMPRESSION: Stable bilateral patchy airspace disease. The tip of the endotracheal tube is at 3.9 cm proximal to the marly. The tip of the orogastric tube is within the fundal portion of the stomach. Electronically Signed: Raphael Roman, at 14:37 EDT , Service support , Chest X-Ray 05/18/19 05:00 IMPRESSION: Left PICC line tip in right atrium without pneumothorax. Stable diffuse alveolar disease. Electronically Signed: Gerson Porter MD at 5:21 EDT Tel , Service support , Chest X-Ray 05/18/19 09:28 IMPRESSION: Endotracheal tube in satisfactory position. Left-sided PICC line tip in the atriocaval junction/right atrium. NG tube in satisfactory position. Diffuse infiltrates consider diffuse pulmonary edema and/or pneumonia. Status post sternotomy. Electronically Signed: Marina Manning MD at 10:23 EDT Tel , Service support , Chest X-Ray 05/21/19 07:32 IMPRESSION: Lines and tubes in unchanged position Mild CHF/fluid overload with trace effusions Airspace disease presumed edema Cardiomegaly Electronically Signed: Scot Alcala DO at 8:04 EDT Tel , Service support , Medical Necessity - Tobacco Use Smoking Status: Former smoker Assessment/Plan All Active Problems (Last Reviewed 05/17/19 @ 03:55 by Tristan Clancy MD) Acute respiratory failure with hypoxia (Acute) Community acquired pneumonia, bilateral (Acute) Severe sepsis (Acute) Anticoagulated on Coumadin (Acute) Sinus tachycardia by electrocardiogram (Acute) HCAP (healthcare-associated pneumonia) (Acute) Community acquired bacterial pneumonia (Acute) Acute hypoxemic respiratory failure (Resolved) Acute respiratory insufficiency (Resolved) Chest pain (Resolved) Supratherapeutic INR (Resolved) Unstable angina (Resolved) RECOMMENDATIONS: 1. Continue BiPAP with naps and nightly. 2. Continue to wean prednisone. 3. Wean supplemental oxygen to maintain saturations at or above 88%. 4. Continue aggressive bronchopulmonary hygiene. 5. Continue bronchodilators. 6. Physical therapy to work with the patient. 7. Continue Lovenox and restart Coumadin. Check INR daily. 8. Okay to restart home nintedanib. IMPRESSIONS: 1. Acute on chronic hypoxemic respiratory failure/personal history of idiopathic pulmonary fibrosis Likely secondary to underlying interstitial lung disease compounded by healthcare associated pneumonia. The patient has completed a full treatment course of antibiotics, despite negative cultures. He is currently doing well on high flow nasal cannula supplemental oxygen. I do strongly suspect that he will have a new supplemental oxygen requirement, which will be higher than what he was previously prescribed. The patient will be continued on bronchodilators and prednisone. His corticosteroids will be weaned accordingly. Continue aggressive bronchopulmonary hygiene and wean supplemental oxygen to maintain saturations at or above 88%. Okay to resume home nintedanib. 2. Anemia/personal history of hematochromatosis Hemoglobin has slowly trended down since May 17 to a karthikeyan of 7.3 g/dL. Given the patient's history of coronary artery disease, the patient was transfused 2 units of packed red blood cells with subsequent improvement in his hemoglobin. Continue to monitor blood counts daily. There is no indication for additional transfusion of blood products at the current time. 3. Coronary artery disease Continue outpatient medication regimen. 4. History of venous thrombi embolic disease INR was initially supratherapeutic on presentation to the hospital. Coumadin has been on hold since that time with subsequent improvement in the patient's coagulopathy. Given that the patient's INR is now less than 2, we will plan to continue him on treatment dose Lovenox, with plans to resume Coumadin. Check INR daily. 5. Hypertension/hyperlipidemia/obstructive sleep apnea/paroxysmal atrial fibrillation/obesity Complicates care, management, recovery and prognosis. Continue home medications as indicated. Physical therapy to work with the patient. This note was generated with [employer] dictation software. It may contain incorrect words, spelling, and punctuation that were not noted in checking the note before signing. Code Visit Inpatient E&M: [id number] [facility] L3
[2019-05-22] MEDS: Ipratropium/Albuterol Sulfate 3 ML AMPUL.NEB INHALATION ×3 (07:01→19:11)
--- NOTE | 2019-05-22 07:13 | PN_ITS ---
Patient Problems: Active and Suspected Problems (Last Reviewed 05/17/19 @ 03:55 by Tristan Clancy MD) Acute respiratory failure with hypoxia (Acute) Community acquired pneumonia, bilateral (Acute) Severe sepsis (Acute) Anticoagulated on Coumadin (Acute) Sinus tachycardia by electrocardiogram (Acute) HCAP (healthcare-associated pneumonia) (Acute) Community acquired bacterial pneumonia (Acute) Subjective: Extubated on 05/21/2019 All events of the past 24 hours of been reviewed. He is afebrile. Vital signs are stable. Oxygen saturation is 90 to 92% on BiPAP with a 50% FiO2. He was able to maintain a saturation of 91% on a 9 L nasal cannula at times. Fluid balance on 05/21/2019 was -1149. Fluid balance since admission is +1376. All lab was personally reviewed. Hemoglobin today is 13 following diuresis. He has had 2 units of packed red blood cells since admission. Creatinine has improved with diuresis and today is 0.67 with a BUN of 26, down from 38 yesterday. Sputum from 05/20/2019 has no growth to date. Sputum from 05/17/2019 had mixed normal respiratory leigh. He looks more alert and energetic today. Continues to c/o anterior CP with deep breathing and coughing but the Tramadol is effective. Denies abdominal pain, nausea, vomiting, diarrhea, sores in his mouth. He does have a sore throat and he has Cepacol lozenges ordered. He got up in the bedside chair today and his appetite is better today. Warfarin has been restarted and will continue the Lovenox to bridge until the INR is > 2.0. He met with Palliative care /hospice today and decided he is not ready for this at this time. Still requiring high flow oxygen to maintain and appropriate oxygen saturation. - Physical Exam General: Alert, Oriented x3, Cooperative, No apparent distress - when lying in bed or sitting in the recliner HEENT: Atraumatic, PERRLA, EOMI, Normocephalic Oral: Moist Mucosa, No Gingival or Mucosal Lesions/ Ulcerations Neck: Supple, No Nodes, Trachea Midline Lungs: Diminished, Rales - coarse - BL, worst in the lower portions of the lungs. Cardiovascular: Regular rate, Regular Rhythm, Normal S1, Normal S2, No murmurs, No Gallop Abdomen: Bowel Sounds Present, Soft, Non Tender, Non-Distended Extremities: No cyanosis, No edema Neurological: Cranial nerves II-XII grossly intact, Neuro grossly intact Psych/Mental Status: - - he is tearful. He was diagnosed with IPF 3 years ago and knows this is a progressive illness and the average life expectancy after diagnosis is 3-5 years. He was also told by Dr. Miller that he likely will need high flow oxygen from now on and will never go back to his baseline prior to admission and intubation Vital Signs Temp Pulse Resp BP Pulse Ox 99.4 F H 71 27 H 116/74 90 05/22/19 06:00 05/22/19 06:00 05/22/19 06:00 05/22/19 06:00 05/22/19 06:00 Oxygen Flow Rate (L/min) 9 Oxygen Delivery Method Bi-pap Weight: 200 lb 9.93 oz Body Mass Index (BMI) 32.1 Intake and Output for Last 24 Hours 05/20/19 05/21/19 05/22/19 23:59 23:59 23:59 Intake Total 3998.47 / 3998.47 1100.84 / 1100.84 Output Total 4350 / 4350 2250 / 2250 500 / 500 Balance -351.53 / -351.53 -1149.16 / -1149.16 -500 / -500 Microbiology Past 72 Hours 05/20/19 12:15 Gram Stain - Final Sputum, Induced/Lukens Respiratory Culture - Preliminary Culture exhibits no growth. 05/17/19 11:20 Gram Stain - Final Sputum, Expectorated/Coughed Respiratory Culture - Final Mixed normal respiratory leigh. No Streptococcus pneumoniae, beta-hemolytic Streptococcus or Staphylococcus aureus isolated. 05/17/19 00:45 Urine Culture - Final Urine Catheter - Guzmán Culture exhibits no growth. 05/17/19 00:25 Blood Culture - Preliminary Blood Culture (Wb) - Right Hand No growth in 48 hours. 05/17/19 00:45 Blood Culture - Preliminary Blood Culture (Wb) - Left Hand No growth in 48 hours. Laboratory Tests Past 24 Hrs 05/22/19 05/22/19 05/22/19 04:05 04:05 04:05 WBC 11.0 RBC 5.17 Hgb 13.0 Hct 43.5 MCV 84.1 MCH 25.1 L MCHC 29.9 L RDW Std Deviation 59.2 H RDW Coeff of Rossy 19.9 H Plt Count 288 MPV 9.7 Immature Gran % (Auto) 0.900 Neut % (Auto) 77.4 H Lymph % (Auto) 15.3 L [place] % (Auto) 5.4 Eos % (Auto) 0.9 Baso % (Auto) 0.1 Absolute Neuts (auto) 8.5 H Absolute Lymphs (auto) 1.69 Nucleated RBC % 0.2 PT 15.2 H INR 1.2 Sodium 143 Potassium 4.0 Chloride 104 Carbon Dioxide 34.0 H Anion Gap 5 BUN 26 H Creatinine 0.67 L Estim Creat Clear Calc 59.37 Est GFR (MDRD) Af Amer 150 Est GFR (MDRD) Non-Af 124 BUN/Creatinine Ratio 38.9 H Glucose 98 Calcium 8.4 L POC Glucose 05/21/19 05/21/19 05/21/19 22:57 18:23 13:22 POC Glucose 118 H 129 H 94 Medical Necessity - Tobacco Use Smoking Status: Former smoker Assessment/Plan All Active Problems (Last Reviewed 05/17/19 @ 03:55 by Tristan Clancy MD) Acute respiratory failure with hypoxia (Acute) Community acquired pneumonia, bilateral (Acute) Severe sepsis (Acute) Anticoagulated on Coumadin (Acute) Sinus tachycardia by electrocardiogram (Acute) HCAP (healthcare-associated pneumonia) (Acute) Community acquired bacterial pneumonia (Acute) Acute hypoxemic respiratory failure (Resolved) Acute respiratory insufficiency (Resolved) Chest pain (Resolved) Supratherapeutic INR (Resolved) Unstable angina (Resolved) Impressions 1. Severe sepsis with acute on chronic respiratory failure with hypoxemia secondary to HCAP 2. HCAP - all cultures are negative but, he had 2 days of Levaquin prior to ad mission and this is day 6 of Levaquin and Day 4 of Aztreonam. High-resolution CT scan of the chest on 05/23/19 continues to show diffuse ground glass areas in both lungs. There is also evidence of underlying interstitial fibrosis and bronchiectasis. 3. acute on chronic respiratory failure with hypoxemia -extubated 05/21/2019. Remains on high flow oxygen at 10 LPM. 4. ARF - resolved 5. acute on chronic anemia - INR was supratherapeutic and he had hemoptysis and epistaxis. Known hx of hemochromatosis and ferritin in April was 9 with a HGB of 10. His last phlebotomy was approximately 1 month ago. Recently had 2 stents placed and [facility] and he has significant Interstitial fibrosis. He was transfused with 2 units of PRBS's and the HGB is stable. HGB is 10.8 today. 6. CAD with 2 stents at [facility] 2 weeks prior to admission. Has had 2 stents in the past after a 1 vessel bypass in the 7. 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 Hyperkalemia-resolved 9. Hemochromatosis 9. Hyperglycemia due to sepsis/stress and TF's. 10. HLD - not adequately controlled in April with a LDL of 120 11. HTN 12. ALFRED - on CPAP at home and BIPAP in the hospital 13. PAF - in SR since admission 14. chronic anticoagulation with warfarin - supratherapeutic at admission, possibly due to the addition of Levaquin to his drug regimen. Restarted on warf hilda and using a Lovenox bridge until the INR is > 2. Will check a hemoccult stool today 15. chronic steroid use -recently has undergone a steroid taper. Currently weaning steroids off 16. obesity 17. Interstitial pulmonary fibrosis Discussed on ICU rounds with the ICU team. Maintain in the ICU today. Met with hospice today. We discussed advanced directives and whether or not he would want intubated again and he is thinking about this SW is working on scheduling a family meeting for tomorrow to discuss diagnoses and plans for moving forward. He does not want to go to a NH, he wants to go home. Continue PT and OT Code Visit Inpatient E&M: [id number] [facility] L3
[2019-05-22] MEDS: predniSONE 20 MG Tablet 40 MG PO (08:42)
[2019-05-22] MEDS: Aspirin 81 MG TAB.CHEW PO (08:42)
--- NOTE | 2019-05-22 09:13 | EKG12_ITS ---
Test Reason : CP Blood Pressure : / mmHG Vent. Rate : 074 BPM Atrial Rate : 074 BPM P-R Int : 126 ms QRS Dur : 086 ms QT Int : 368 ms P-R-T Axes : 019 036 042 degrees QTc Int : 408 ms Normal sinus rhythm Normal ECG When compared with ECG of 17-MAY-2019 00:22, T wave inversion no longer evident in Anterior leads Confirmed by PIERRE BLACKMON, RANJEET ([id number]), movie editor AMI KUMAR ([id number] on 05/27/2019 3:54:53 PM Referred By: Andrea Almonte Confirmed By:NATALIIA JAY MD
[2019-05-22] MEDS: Bisacodyl 5 MG Tablet PO (09:49)
[2019-05-22] MEDS: Enoxaparin 100 MG/ML Syringe 90 MG SC ×2 (09:50→21:00)
[2019-05-22] MEDS: Polyethylene Glycol 3350 17 GM PACKET PO (09:50)
[2019-05-22] MEDS: Senna/Docusate Sodium 1 Tablet 2 TABLET PO (09:51)
[2019-05-22] MEDS: traMADol 50 MG Tablet PO (09:51)
[2019-05-22] MEDS: Pantoprazole Sodium 40 MG Tablet PO (09:51)
[2019-05-22] MEDS: Clopidogrel Bisulfate 75 MG Tablet PO (09:51)
[2019-05-22] MEDS: CHLORHEXIDINE GLUC 2% CLOTH 1 EACH TOWELETTE TOPICAL (10:00)
--- NOTE | 2019-05-22 11:18 | CASEMGMT ---
SW participated in ICU rounds this morning. It is anticipated mcc level of care will be needed, due to pt's weakness and high oxygen needs. SW will bring pt a list of nursing homes that take his insurance later today, as pt is now asleep. SW also asked RN to let SW know if his comes to visit. STACY Lopez
--- NOTE | 2019-05-22 13:46 | CASEMGMT ---
Addendum entered by Angelia Deleon 05/22/19 14:07: SW assisted pt in completing POA form. Pt chose not to initial the living will provision in the POA form. SW explained will return tomorrow to review the LW form and see if he would like to complete it. SW gave pt's the original and copies of the form, and a copy was placed in the paper chart. STACY Lopez Original Note: SW met w/pt, , daughter in room. SW reviewed discharge options w/pt and family, explained that given his weakness and oxygen needs, a intermediate may be appropriate for rehab initially. SW gave a list of nursing homes in the area that take pt's insurance. SW explained that if intermediate is needed, we will need to see which ones are able to manage pt's respiratory needs. SW explained can call any of the facilities for pt. Daughter explained about home nursing, and that going home would be preferred if possible. If pt were to go home, daughter also states pt would need a hospital bed, and explained that he would need a C-Pap that O2 can be bled into, as the one he has now does not do this. Pt gets O2 and Cpap from [place]. SW explained that we can look into all of this and getting a larger concentrator at home as well, as pt will likely need more O2 when home. SW explained if pt goes home from here, we can assist with all of this. SW explained if pt goes to a intermediate however, this would all be set up from there. Family and pt state understanding. also asked about power of transactional attorney to get the tags for pt's car, SW explained will look for the forms online for her. Family also asked about completing LW/POA forms. SW explained we can assist with that here. SW gave the forms for the [employer], and will start working w/pt on LW/POA shortly. STACY Lopez
[2019-05-22] MEDS: NINTEDANIB ESYLATE 100 MG CAPSULE PO (21:00)
[2019-05-23] VITALS (35 sets, daily range): BP systolic 100–123; BP diastolic 54–96; PULSE 73–99; RESP 12–36; TEMP 36.1–36.7; O2SAT 85–98
[2019-05-23 04:29] LABS: Absolute Lymphocyte Count 2.42 X10^3/uL (0.83-4.51); Absolute Neutrophil Count 9.8 X10^3/uL (2.0-7.7); Basophil# 0.02 X10^3/uL; Basophil% 0.1 % (0-1); Eosinophil# 0.55 X10^3/uL; Hematocrit 35.6 % (40-54); Hemoglobin 10.8 g/dL (13.0-16.5); Lymphocyte # 2.42 X10^3/ul (4.0); Lymphocyte % 17.7 % (19-41); Mean Corp Hgb Conc 30.3 g/dL (32-36); Mean Corpuscular Hgb 25.5 pg (27.0-32.0); Mean Corpuscular Volume 84.2 fL (80-94); Mean Platelet Vol. 9.9 fl (6.2-12.0); Monocyte# 0.68 X10^3/uL; NRBC Flagged by Analyzer 0 % (0-5); Neutrophil # 9.81 X10^3/uL (2.7-7.7); Neutrophil % 71.9 % (47-70); Platelet Count 340 K/mm3 (150-450); RBC Distribution Width CV 19.9 % (11.6-14.6); Red Blood Count 4.23 M/mm3 (4.6-6.2); White Blood Count 13.7 K/mm3 (4.4-11.0)
[2019-05-23 04:43] LABS: Anion Gap 5 (5-15); BUN 26 mg/dL (7-18); BUN/Creat Ratio 34.3 RATIO (10-20); Calcium,Total 8.6 mg/dL (8.5-10.1); Chloride 104 mmol/L (98-107); Creatinine, Serum 0.76 mg/dL (0.70-1.30); EST Glomerular Filtration Rate 107 mL/min (>60); Est Glom Filt Rate - Afr Amer 130 mL/min (>60); Estimated Creatinine Clearance 59.37 ml/min; Glucose 104 mg/dL (74-106); Potassium 3.8 mmol/L (3.5-5.1); Sodium Level 142 mmol/L (136-145)
[2019-05-23] MEDS: 0.9% NaCl Peripheral Flush Adult/Peds IV ×2 (05:07→12:39)
[2019-05-23 05:08] LABS: International Normalized Ratio 1.2; Prothrombin Time (Protime)PT. 14.7 SECONDS (11.7-14.9)
--- NOTE | 2019-05-23 06:30 | PCM.PN.INT ---
Subjective: The patient was seen and examined at the bedside this morning. Events from the last 24 hours have been reviewed. The patient is currently afebrile, hemodynamically stable and maintaining appropriate oxygen saturations on 10 L/min high flow nasal cannula. The patient was once again compliant with the use of BiPAP overnight. The patient's hemoglobin appears to have decreased from 13 g/dL yesterday to 10.8 g/dL this morning. His INR this morning was noted to be 1.2. He remains on therapeutic dose Lovenox. Creatinine is stable. He is currently documented to be overall net +1.3 L for the admission. Objective: The patient's most recent lab work, culture data and imaging studies have all been personally reviewed. Surface echocardiogram revealed evidence of stage I diastolic dysfunction with an ejection fraction of 65%. The RV was mildly dilated with normal systolic function. Right ventricular systolic pressure was estimated to be 42 mmHg. Strep and urine Legionella antigens were both negative. Blood, urine and sputum cultures have not shown any growth to date. Repeat sputum Gram stain and culture, dated May 20, is not currently showing any growth. General: Alert, Cooperative, No apparent distress HEENT: Atraumatic, PERRLA, Normocephalic Oral: No Gingival or Mucosal Lesions/ Ulcerations Neck: Supple, No Nodes, Trachea Midline Lungs: Diminished, Rales, Short of Breath Cardiovascular: Regular rate, Regular Rhythm, Normal S1, Normal S2, Murmur Abdomen: Bowel Sounds Present, Soft, Non Tender Extremities: No clubbing, No cyanosis Skin: No breakdown Musculoskeletal: No Tenderness to Palpation of Joints or Extremities Lymphatic: No Cervical, Supraclavicular, or Inguinal Adenopathy Neurological: Neuro grossly intact Psych/Mental Status: Normal Affect, Appropriate Vital Signs Temp Pulse Resp BP Pulse Ox 97.4 F L 83 17 100/64 88 05/23/19 04:00 05/23/19 06:00 05/23/19 06:00 05/23/19 06:00 05/23/19 06:00 Oxygen Flow Rate (L/min) 11 Oxygen Delivery Method Nasal Cannula Weight: 193 lb 12.581 oz Body Mass Index (BMI) 32.1 Intake and Output for Last 24 Hours 05/21/19 05/22/19 05/23/19 23:59 23:59 23:59 Intake Total 1100.84 / 1100.84 780 / 780 120 / 120 Output Total 2250 / 2250 850 / 850 575 / 575 Balance -1149.16 / -1149.16 -70 / -70 -455 / -455 Labs (Last 48 Hours) 05/21/19 05/21/19 05/21/19 13:22 18:23 22:57 WBC RBC Hgb Hct MCV MCH MCHC RDW Std Deviation RDW Coeff of Rossy Plt Count MPV Immature Gran % (Auto) Neut % (Auto) Lymph % (Auto) [place] % (Auto) Eos % (Auto) Baso % (Auto) Absolute Neuts (auto) Absolute Lymphs (auto) Nucleated RBC % PT INR Sodium Potassium Chloride Carbon Dioxide Anion Gap BUN Creatinine Estim Creat Clear Calc Est GFR (MDRD) Af Amer Est GFR (MDRD) Non-Af BUN/Creatinine Ratio Glucose Calcium POC Glucose 94 129 H 118 H 05/22/19 05/22/19 05/22/19 04:05 04:05 04:05 WBC 11.0 RBC 5.17 Hgb 13.0 Hct 43.5 MCV 84.1 MCH 25.1 L MCHC 29.9 L RDW Std Deviation 59.2 H RDW Coeff of Rossy 19.9 H Plt Count 288 MPV 9.7 Immature Gran % (Auto) 0.900 Neut % (Auto) 77.4 H Lymph % (Auto) 15.3 L [place] % (Auto) 5.4 Eos % (Auto) 0.9 Baso % (Auto) 0.1 Absolute Neuts (auto) 8.5 H Absolute Lymphs (auto) 1.69 Nucleated RBC % 0.2 PT 15.2 H INR 1.2 Sodium 143 Potassium 4.0 Chloride 104 Carbon Dioxide 34.0 H Anion Gap 5 BUN 26 H Creatinine 0.67 L Estim Creat Clear Calc 59.37 Est GFR (MDRD) Af Amer 150 Est GFR (MDRD) Non-Af 124 BUN/Creatinine Ratio 38.9 H Glucose 98 Calcium 8.4 L POC Glucose 05/23/19 05/23/19 05/23/19 04:20 04:20 04:20 WBC 13.7 H RBC 4.23 L Hgb 10.8 L Hct 35.6 L MCV 84.2 MCH 25.5 L MCHC 30.3 L RDW Std Deviation 60.0 H RDW Coeff of Rossy 19.9 H Plt Count 340 MPV 9.9 Immature Gran % (Auto) 1.300 H Neut % (Auto) 71.9 H Lymph % (Auto) 17.7 L [place] % (Auto) 5.0 Eos % (Auto) 4.0 Baso % (Auto) 0.1 Absolute Neuts (auto) 9.8 H Absolute Lymphs (auto) 2.42 Nucleated RBC % 0 PT 14.7 INR 1.2 Sodium 142 Potassium 3.8 Chloride 104 Carbon Dioxide 33.0 H Anion Gap 5 BUN 26 H Creatinine 0.76 Estim Creat Clear Calc 59.37 Est GFR (MDRD) Af Amer 130 Est GFR (MDRD) Non-Af 107 BUN/Creatinine Ratio 34.3 H Glucose 104 Calcium 8.6 POC Glucose Microbiology 05/20/19 12:15 Sputum, Induced/Lukens Gram Stain - Final 05/20/19 12:15 Sputum, Induced/Lukens Respiratory Culture - Final Strep not Strep pneumo 05/17/19 00:45 Blood Culture (Wb) - Left Hand Blood Culture - Final No growth in 5 days. 05/17/19 00:25 Blood Culture (Wb) - Right Hand Blood Culture - Final No growth in 5 days. Clinical Impression(s) from Imaging Studies Brain CT 05/17/19 00:23 IMPRESSION: No acute intracranial pathology. Chronic changes as discussed similar to prior study Individualized dose optimization techniques were used for this CT. at 0122 Reported and signed by: Marina Castillo DO Electronically Signed: Marina Castillo DO at 1:21 EDT Tel , Service support , Chest X-Ray 05/17/19 00:45 IMPRESSION: Bilateral pulmonary infiltrates. These have increased in the lung apices when compared to the prior study at 0118 Reported and signed by: Marina Castillo DO Electronically Signed: Marina Castillo DO at 1:17 EDT Tel , Service support , Chest X-Ray 05/17/19 13:56 IMPRESSION: Stable bilateral patchy airspace disease. The tip of the endotracheal tube is at 3.9 cm proximal to the marly. The tip of the orogastric tube is within the fundal portion of the stomach. Electronically Signed: Raphael Roman, at 14:37 EDT , Service support , Chest X-Ray 05/18/19 05:00 IMPRESSION: Left PICC line tip in right atrium without pneumothorax. Stable diffuse alveolar disease. Electronically Signed: Gerson Porter MD at 5:21 EDT Tel , Service support , Chest X-Ray 05/18/19 09:28 IMPRESSION: Endotracheal tube in satisfactory position. Left-sided PICC line tip in the atriocaval junction/right atrium. NG tube in satisfactory position. Diffuse infiltrates consider diffuse pulmonary edema and/or pneumonia. Status post sternotomy. Electronically Signed: Marina Manning MD at 10:23 EDT Tel , Service support , Chest X-Ray 05/21/19 07:32 IMPRESSION: Lines and tubes in unchanged position Mild CHF/fluid overload with trace effusions Airspace disease presumed edema Cardiomegaly Electronically Signed: Scot Alcala DO at 8:04 EDT Tel , Service support , Medical Necessity - Tobacco Use Smoking Status: Former smoker Assessment/Plan All Active Problems (Last Reviewed 05/17/19 @ 03:55 by Tristan Clancy MD) Acute respiratory failure with hypoxia (Acute) Community acquired pneumonia, bilateral (Acute) Severe sepsis (Acute) Anticoagulated on Coumadin (Acute) Sinus tachycardia by electrocardiogram (Acute) HCAP (healthcare-associated pneumonia) (Acute) Community acquired bacterial pneumonia (Acute) Acute hypoxemic respiratory failure (Resolved) Acute respiratory insufficiency (Resolved) Chest pain (Resolved) Supratherapeutic INR (Resolved) Unstable angina (Resolved) RECOMMENDATIONS: 1. Continue BiPAP with naps and nightly. 2. Continue to wean prednisone. Dose was decreased to 30 mg daily today. 3. Obtain high-resolution chest CT to evaluate for interval disease progression. 4. Wean supplemental oxygen to maintain saturations at or above 88%. 5. Continue aggressive bronchopulmonary hygiene. 6. Continue bronchodilators. 7. Physical therapy to work with the patient. 8. Continue Lovenox and Coumadin. Check INR daily. 9. Continue home nintedanib. IMPRESSIONS: 1. Acute on chronic hypoxemic respiratory failure/personal history of idiopathic pulmonary fibrosis Likely secondary to underlying interstitial lung disease compounded by healthcare associated pneumonia. The patient has completed a full treatment course of antibiotics, despite negative cultures. Despite this, the patient continues to have a high supplemental oxygen demand. Given that we have attempted to address all potential reversible causes for the patient's ongoing hypoxemia, I would recommend obtaining a repeat high-resolution chest CT to evaluate for interval disease progression of the patient's interstitial lung disease. Continue to wean supplemental oxygen as tolerated. Prednisone will be weaned to 30 mg today. Continue bronchodilators. Continue home nintedanib. 2. Anemia/personal history of hematochromatosis Hemoglobin has slowly trended down since May 17 to a karthikeyan of 7.3 g/dL. Given the patient's history of coronary artery disease, the patient was transfused 2 units of packed red blood cells with subsequent improvement in his hemoglobin. Continue to monitor blood counts daily. There is no indication for additional transfusion of blood products at the current time. 3. Coronary artery disease Continue outpatient medication regimen. 4. History of venous thrombi embolic disease INR was initially supratherapeutic on presentation to the hospital. Coumadin has been on hold since that time with subsequent improvement in the patient's coagulopathy. Given that the patient's INR remains less than 2, we will plan to continue him on treatment dose Lovenox, with plans to continue Coumadin. Check INR daily. 5. Hypertension/hyperlipidemia/obstructive sleep apnea/paroxysmal atrial fibrillation/obesity Complicates care, management, recovery and prognosis. Continue home medications as indicated. Physical therapy to work with the patient. This note was generated with [employer] software. It may contain incorrect words, spelling, and punctuation that were not noted in checking the note before signing. Code Visit Inpatient E&M: 67045 Subs Hosp L3
[2019-05-23] MEDS: Ipratropium/Albuterol Sulfate 3 ML AMPUL.NEB INHALATION ×2 (06:56→19:01)
[2019-05-23] MEDS: traMADol 50 MG Tablet PO (08:03)
[2019-05-23] MEDS: predniSONE 20 MG Tablet 40 MG PO (08:04)
[2019-05-23] MEDS: Aspirin 81 MG TAB.CHEW PO (08:04)
--- NOTE | 2019-05-23 09:23 | CT_ITS ---
STUDY: CT CHEST WITHOUT CONTRAST REASON FOR EXAM: Male, 73 years old. Interstitial pulmonary fibrosis. Sepsis. RADIATION DOSAGE (If Supplied By Facility): CTDIvol = ( 22.78 ) mGy, DLP = ( 691.16 ) mGycm TECHNIQUE: Transaxial imaging was performed without the administration of intravenous contrast material. Multiplanar coronal and sagittal images were reformatted. Individualized dose optimization techniques were used for this CT. COMPARISON: Comparison is made with prior study dated April 25, 2019. FINDINGS: There now is evidence of diffuse airspace/groundglass appearance involving both lungs. There is also evidence of underlying interstitial fibrosis and bronchiectasis with subpleural blebs in the lower lobes. There is no demonstrated pleural abnormality. Sternal cerclage wires and vascular clips are present from a prior sternotomy and coronary artery bypass graft procedure (CABG). There are calcifications of the coronary arteries. A dual-chamber pacemaker is seen. There are multiple small lymph nodes within the mediastinum, which are normal in size and morphology most compatible with reactive lymph hyperplasia. Normal hilar regions. There is prominence of the pulmonary hilar arteries without peripheral pulmonary vascular congestion, suggesting pulmonary hypertension. There is atherosclerotic calcification of the aortic arch. There are multi-level degenerative changes of the thoracic spine. Stable loss of height of mid dorsal vertebrae. There is no demonstrated abnormality of the visualized upper abdomen. CT/Chest without Contrast IMPRESSION: Progressive appearance of the groundglass appearance/airspace disease in both lungs superimposed on chronic interstitial fibrosis in the lower lobes with underlying bronchiectasis and subpleural blebs. Electronically Signed: Raphael Roman, at 11:36 EDT , Service support ,
[2019-05-23] MEDS: NINTEDANIB ESYLATE 100 MG CAPSULE PO ×2 (09:38→21:45)
--- NOTE | 2019-05-23 09:39 | CASEMGMT ---
Addendum entered by Angelia Deleon 05/23/19 09:53: SW called P[facility]AVI Nazario at the [facility]. She states pt may qualify for help at home, would need to complete a GEC and send her this with an H&P. Pt is 30% service connected. If hospice were needed, the room and board would be covered for pt at [facility] by the [facility]. Completing the LW was deferred at this time, SW explained to pt if he would like to complete this SW remains available. STACY Lopez Original Note: SW participated in ICU rounds, spoke w/pt after rounds. SW introduced palliative care to pt, pt is not certain if he would like a referral. SW spoke w/pt about completing a living will. Pt states, well, I know I am dying. Pt explained that when he was diagnosed with this disease, he has understood from the beginning it is progressive and would not get better. Pt states he does not think that his family understands the progression of the disease and how sick he is. Pt explains that he has three children, his one son is a manager administrative and his other son is the SUPERVISOR [employer] of [employer]. He does not think his understands how sick he is either, or his daughter. Pt is asking if the physicians may be able to explain it to his family. SW will speak w/physician in regard to this. Pt also spoke about the medication he is on that costs $15,000. He states he gets help from the government for this through the [facility]. Pt states he has been going to [facility] for years, they diagnosed him w/heart disease. Pt states he thinks this lung problem is from [place] but it can't be proven. SW asked if they have ever explored getting assist [facility]. He states was told he did not qualify. SW explained can call the [facility] also, pt agreeable to this. Pt states would like to stay at home as long as possible. Pt tearful, appropriate to the situation. SW offered support to pt. SW will continue to follow, will call [facility] and speak w/the physician. STACY Lopez,
[2019-05-23] MEDS: Enoxaparin 100 MG/ML Syringe 90 MG SC ×2 (09:40→21:45)
[2019-05-23] MEDS: Pantoprazole Sodium 40 MG Tablet PO (09:40)
[2019-05-23] MEDS: CHLORHEXIDINE GLUC 2% CLOTH 1 EACH TOWELETTE TOPICAL (09:40)
[2019-05-23] MEDS: Clopidogrel Bisulfate 75 MG Tablet PO (09:40)
--- NOTE | 2019-05-23 10:03 | CASEMGMT ---
Addendum entered by Angelia Deleon 05/23/19 11:06: Referral faxed to [facility], will call to set up a time for a meeting with them once arrives. STACY Lopez Addendum entered by Angelia Deleon 05/23/19 10:53: SW spoke jeremias/Cherry at [facility], they do feel they could manage pt's oxygen needs. SW received a message back from [facility], they may be able to take pt, would need to look at referral. SW also received a call back from Terri at [facility], the highest level of O2 both they and [facility] cannot take a patient over 10 LPM. SW spoke w/physician, she spoke w/pt and pt would like to speak w/palliative and hospice once his gets here. SW offered to pt to call , he states she will be here shortly. SW also did let pt know called son and left a message, so can speak w/ about setting up family meeting tomorrow. Pt agreeable to having SW speak w/ about this. SW asked RN To let SW know when is here. STACY Lopez Addendum entered by Angelai Deleon 05/23/19 10:22: SW also did call the closer nursing homes to see who may be able to manage pt's respiratory needs, and had indicated yesterday if halfway is needed she would like a more local facility. SW called [facility], message left. SW called Cherry ISAAC at [facility] to let this SW know. SW called [facility], they can review referral. SW called [facility], spoke w/Terri, 10 LPM continuous O2 may be their limit, as well as [place], she will let SW know. SW called [facility], 10 LPM for O2 is their limit. SW will continue to follow. STACY Lopez Original Note: SW spoke w/physician about setting up a family meeting, she is available tomorrow afternoon. SW spoke w/pt, explained to him that the physician is available tomorrow afternoon for a family meeting. SW inquired who to call in the family to help coordinate this. He states his son Ryne would be the person to call. SW called Ryne, message left to call this SW back. SW will continue to follow. STACY Lopez
[2019-05-23 10:10] LABS: Bacteria 0 SEEN /hpf (None Seen); Mucous, Urine 0 SEEN /hpf (<or=2+)
[2019-05-23 10:17] LABS: Color, Urine Yellow (Yellow); Glucose, Dipstick Normal (Normal); Ketone-Dipstick Negative (Negative); Leukocyte Esterase-Dipstick 25 /ul (Negative); Nitrite-Dipstick Negative (Negative); Occult Blood-Urine 250 /ul (Negative); Protein-Dipstick 30 mg/dl (Negative); Specific Gravity, Urine 1.015 (1.002-1.030); Urine Bilirubin Dipstick Negative (Negative); Urine Clarity Clear (Clear); Urine Urobilinogen 1 mg/dl (Normal)
[2019-05-23 10:43] LABS: Red Blood Cells-Urine > 100 SEEN /hpf (0-5); Squamous Epithelial Cells - UA 0-5 SEEN /hpf (0-5); White Blood Cells 0-5 SEEN /hpf (0-5)
--- NOTE | 2019-05-23 11:51 | CASEMGMT ---
Addendum entered by Angelia Deleon 05/23/19 12:07: Pt's daughter here now. SW spoke w/her in the room, let her know we are trying to set up a meeting w/the family tomorrow and that SW spoke w/son Ryne and he is reaching out to son Jack. Daughter states she is not available after 2pm. SW asked daughter to reach out to her brother to come up w/a time and that Ryne can leave SW a message with a time. STACY Lopez Original Note: Pt's son Ryne called back. SW explained the physician and pt would like to set up a family meeting to go over what is going on w/pt medically, and that physician would be available tomorrow afternoon. SW explained to Ryne that pt thought he would be the best one to coordinate a family meeting. Ryne asked if it was bad news. SW explained that the disease is progressing, and this is why the doctor wanted to meet, to explain to family altogether what is going on. Ryne said he would reach out to his brother Jack and see if he can come up with a time. SW explained will speak w/pt's should she be here when SW is still here, to let her know as well. SW let son know this SW is leaving early, but that he can leave a message for SW with a time and SW can relay it to the physician in the morning. SW will continue to follow, will still speak w/ when she comes in today. STACY Lopez
[2019-05-23] MEDS: Furosemide 40 MG/4 ML Vial IV (12:39)
--- NOTE | 2019-05-23 14:00 | CHAPLAIN ---
Type of Pastoral Visit _x__ Initial Visit ___ Follow-up Visit ___ On-call Visit ___ General Patient Visit ___ Spiritual Assessment ___ Family Conference ___ Bereavement ___ Rapid Response ___ Code Blue ___ Other (describe below) Pastoral Care Referral From _x__ Patient ___ Family _x__ Nurse ___ Physician ___ Perfusionist ___ Real Estate Office Manager ___ Other (describe below) Sacrament/Intervention _x__ Active listening ___ Anointing ___ Taoism ___ Bereavement ___ Communion ___ Rebeca exploration ___ _x__ Life review _x__ Prayer ___ Reconciliation ___ Sacrament of Sick _x__ Supportive presence ___ Wedding ___ Other (describe below) Pastoral Comments
--- NOTE | 2019-05-23 14:20 | CASEMGMT ---
PALLAVI spoke with patient and his . SW discussed Palliative/Hospice Care. Both were open to talking with [facility]. PALLAVI called Michelle at [facility] and she was aware of the referral. She said they should be able to come out today. She said they will call the . PALLAVI went to patient's room and patient's just got off the phone with [facility] and they will be coming at 3p today. PALLAVI notified RN. Brenda OLIVO MSW
--- NOTE | 2019-05-23 16:17 | CASEMGMT ---
PALLAVI spoke with Peggy from [facility]. She said patient and his are not ready for Hospice. He is not ready to stop one of his breathing medications that is aggressive and expensive (AFVE?). [facility] and would likely stop paying if he would go Hospice. Hospice would not pay for this medication. Patient's insurance does not pay for Palliative Care. They are interested in home health. PALLAVI will pass this information along to the RN GURVINDER and PALLAVI for ICU. Brenda OLIVO DIRECTOR INTERNATIONAL
[2019-05-24] VITALS (35 sets, daily range): BP systolic 95–125; BP diastolic 59–94; PULSE 71–97; RESP 11–33; TEMP 36.2–36.8; O2SAT 78–99
[2019-05-24] MEDS: Ipratropium/Albuterol Sulfate 3 ML AMPUL.NEB INHALATION ×4 (00:29→18:55)
[2019-05-24 04:06] LABS: Absolute Neutrophil Count 9.4 X10^3/uL (2.0-7.7); Basophil# 0.01 X10^3/uL; Basophil% 0.1 % (0-1); Eosinophil# 0.51 X10^3/uL; Eosinophils% 3.9 % (0-5); Hematocrit 32.7 % (40-54); Hemoglobin 10.2 g/dL (13.0-16.5); Lymphocyte % 17.8 % (19-41); Mean Corp Hgb Conc 31.2 g/dL (32-36); Mean Corpuscular Volume 83.2 fL (80-94); Mean Platelet Vol. 10.2 fl (6.2-12.0); Monocyte# 0.54 X10^3/uL; Monocyte% 4.2 % (0-10); NRBC Flagged by Analyzer 0 % (0-5); Neutrophil # 9.38 X10^3/uL (2.7-7.7); Neutrophil % 72.4 % (47-70); Platelet Count 340 K/mm3 (150-450); RBC Distribution Width CV 19.9 % (11.6-14.6); RBC Distribution Width SD 60.1 fl (35.1-43.9); Red Blood Count 3.93 M/mm3 (4.6-6.2)
[2019-05-24 04:16] LABS: International Normalized Ratio 1.1; Prothrombin Time (Protime)PT. 13.9 SECONDS (11.7-14.9)
[2019-05-24 04:20] LABS: Anion Gap 6 (5-15); BUN 30 mg/dL (7-18); BUN/Creat Ratio 34.2 RATIO (10-20); Calcium,Total 8.8 mg/dL (8.5-10.1); Chloride 102 mmol/L (98-107); Creatinine, Serum 0.88 mg/dL (0.70-1.30); EST Glomerular Filtration Rate 90 mL/min (>60); Est Glom Filt Rate - Afr Amer 109 mL/min (>60); Estimated Creatinine Clearance 67.47 ml/min; Glucose 113 mg/dL (74-106); Potassium 3.6 mmol/L (3.5-5.1); Sodium Level 141 mmol/L (136-145)
--- NOTE | 2019-05-24 07:17 | PN_ITS ---
Subjective: The patient was seen and examined at the bedside this morning. Events from the last 24 hours have been reviewed. The patient is currently afebrile, hemodynamically stable and maintaining appropriate oxygen saturations on high flow nasal cannula at 10 L/min. The patient was given a one-time dose of IV Lasix yesterday with appropriate diuresis. Creatinine is stable. High- resolution chest CT completed yesterday revealed interval worsening of the patient's interstitial lung disease. Social work met with the patient and his yesterday who apparently were not ready to do endorse the idea of hospice care initiation. Their insurance apparently does not cover palliative care medicine. The patient was also noted to have positive stool occult blood last evening. Hemoglobin remained stable at 10.2 g/dL. He remains on Lovenox and Coumadin with an INR noted to be 1.1 this morning. Objective: The patient's most recent lab work, culture data and imaging studies have all been personally reviewed. Surface echocardiogram revealed evidence of stage I diastolic dysfunction with an ejection fraction of 65%. The RV was mildly dilated with normal systolic function. Right ventricular systolic pressure was estimated to be 42 mmHg. Strep and urine Legionella antigens were both negative. Blood, urine and sputum cultures have not shown any growth to date. Repeat sputum Gram stain and culture, dated May 20, is not currently showing any growth. General: Alert, Cooperative, No apparent distress HEENT: Atraumatic, PERRLA, Normocephalic Oral: No Gingival or Mucosal Lesions/ Ulcerations Neck: Supple, No Nodes, Trachea Midline Lungs: Diminished, Rales, - - Mild conversational dyspnea Cardiovascular: Regular rate, Regular Rhythm, Normal S1, Normal S2, Murmur Abdomen: Bowel Sounds Present, Soft, Non Tender Extremities: No clubbing, No cyanosis, No edema Skin: No breakdown Musculoskeletal: No Tenderness to Palpation of Joints or Extremities Lymphatic: No Cervical, Supraclavicular, or Inguinal Adenopathy Neurological: Cranial nerves II-XII grossly intact, Neuro grossly intact Psych/Mental Status: Normal Affect, Appropriate Vital Signs Temp Pulse Resp BP Pulse Ox 97.9 F 88 22 H 119/73 90 05/24/19 04:00 05/24/19 07:00 05/24/19 07:00 05/24/19 07:00 05/24/19 07:00 Oxygen Flow Rate (L/min) 10 Oxygen Delivery Method Nasal Cannula Weight: 190 lb 0.615 oz Body Mass Index (BMI) 32.1 Intake and Output for Last 24 Hours 05/22/19 05/23/19 05/24/19 23:59 23:59 23:59 Intake Total 780 / 780 1140 / 1140 90 / 90 Output Total 850 / 850 2725 / 2725 450 / 450 Balance -70 / -70 -1585 / -1585 -360 / -360 Labs (Last 48 Hours) 05/23/19 05/23/19 05/23/19 04:20 04:20 04:20 WBC 13.7 H RBC 4.23 L Hgb 10.8 L Hct 35.6 L MCV 84.2 MCH 25.5 L MCHC 30.3 L RDW Std Deviation 60.0 H RDW Coeff of Rossy 19.9 H Plt Count 340 MPV 9.9 Immature Gran % (Auto) 1.300 H Neut % (Auto) 71.9 H Lymph % (Auto) 17.7 L [place] % (Auto) 5.0 Eos % (Auto) 4.0 Baso % (Auto) 0.1 Absolute Neuts (auto) 9.8 H Absolute Lymphs (auto) 2.42 Nucleated RBC % 0 PT 14.7 INR 1.2 Sodium 142 Potassium 3.8 Chloride 104 Carbon Dioxide 33.0 H Anion Gap 5 BUN 26 H Creatinine 0.76 Estim Creat Clear Calc 59.37 Est GFR (MDRD) Af Amer 130 Est GFR (MDRD) Non-Af 107 BUN/Creatinine Ratio 34.3 H Glucose 104 Calcium 8.6 Urine Color Urine Clarity Urine pH Ur Specific [place] Urine Protein Urine Glucose (UA) Urine Ketones Urine Occult Blood Urine Nitrite Urine Bilirubin Urine Urobilinogen Ur Leukocyte Esterase Urine RBC Urine WBC Ur Squamous Epith Cells Urine Bacteria Urine Mucus 05/23/19 05/24/19 05/24/19 09:50 03:50 03:50 WBC 13.0 H RBC 3.93 L Hgb 10.2 L Hct 32.7 L MCV 83.2 MCH 26.0 L MCHC 31.2 L RDW Std Deviation 60.1 H RDW Coeff of Rossy 19.9 H Plt Count 340 MPV 10.2 Immature Gran % (Auto) 1.600 H Neut % (Auto) 72.4 H Lymph % (Auto) 17.8 L [place] % (Auto) 4.2 Eos % (Auto) 3.9 Baso % (Auto) 0.1 Absolute Neuts (auto) 9.4 H Absolute Lymphs (auto) 2.30 Nucleated RBC % 0 PT 13.9 INR 1.1 Sodium Potassium Chloride Carbon Dioxide Anion Gap BUN Creatinine Estim Creat Clear Calc Est GFR (MDRD) Af Amer Est GFR (MDRD) Non-Af BUN/Creatinine Ratio Glucose Calcium Urine Color Yellow Urine Clarity Clear Urine pH 6.0 Ur Specific [place] 1.015 Urine Protein 30 H Urine Glucose (UA) Normal Urine Ketones Negative Urine Occult Blood 250 H Urine Nitrite Negative Urine Bilirubin Negative Urine Urobilinogen 1 H Ur Leukocyte Esterase 25 H Urine RBC > 100 SEEN Urine WBC 0-5 SEEN Ur Squamous Epith Cells 0-5 SEEN Urine Bacteria 0 SEEN Urine Mucus 0 SEEN 05/24/19 03:50 WBC RBC Hgb Hct MCV MCH MCHC RDW Std Deviation RDW Coeff of Rossy Plt Count MPV Immature Gran % (Auto) Neut % (Auto) Lymph % (Auto) [place] % (Auto) Eos % (Auto) Baso % (Auto) Absolute Neuts (auto) Absolute Lymphs (auto) Nucleated RBC % PT INR Sodium 141 Potassium 3.6 Chloride 102 Carbon Dioxide 33.0 H Anion Gap 6 BUN 30 H Creatinine 0.88 Estim Creat Clear Calc 67.47 Est GFR (MDRD) Af Amer 109 Est GFR (MDRD) Non-Af 90 BUN/Creatinine Ratio 34.2 H Glucose 113 H Calcium 8.8 Urine Color Urine Clarity Urine pH Ur Specific [place] Urine Protein Urine Glucose (UA) Urine Ketones Urine Occult Blood Urine Nitrite Urine Bilirubin Urine Urobilinogen Ur Leukocyte Esterase Urine RBC Urine WBC Ur Squamous Epith Cells Urine Bacteria Urine Mucus Microbiology 05/23/19 20:40 Stool Stool Occult Blood (ARYA) - Final Occult Blood Positive 05/20/19 12:15 Sputum, Induced/Lukens Gram Stain - Final 05/20/19 12:15 Sputum, Induced/Lukens Respiratory Culture - Final Strep not Strep pneumo 05/17/19 00:45 Blood Culture (Wb) - Left Hand Blood Culture - Final No growth in 5 days. 05/17/19 00:25 Blood Culture (Wb) - Right Hand Blood Culture - Final No growth in 5 days. Clinical Impression(s) from Imaging Studies Brain CT 05/17/19 00:23 IMPRESSION: No acute intracranial pathology. Chronic changes as discussed similar to prior study Individualized dose optimization techniques were used for this CT. at 0122 Reported and signed by: Marina Castillo DO Electronically Signed: Marina Castillo DO at 1:21 EDT Tel , Service support , Chest X-Ray 05/17/19 00:45 IMPRESSION: Bilateral pulmonary infiltrates. These have increased in the lung apices when compared to the prior study at 0118 Reported and signed by: Marina Castillo DO Electronically Signed: Marina Castillo DO at 1:17 EDT Tel , Service support , Chest X-Ray 05/17/19 13:56 IMPRESSION: Stable bilateral patchy airspace disease. The tip of the endotracheal tube is at 3.9 cm proximal to the marly. The tip of the orogastric tube is within the fundal portion of the stomach. Electronically Signed: Raphael Roman, at 14:37 EDT , Service support , Chest X-Ray 05/18/19 05:00 IMPRESSION: Left PICC line tip in right atrium without pneumothorax. Stable diffuse alveolar disease. Electronically Signed: Gerson Porter MD at 5:21 EDT Tel , Service support , Chest X-Ray 05/18/19 09:28 IMPRESSION: Endotracheal tube in satisfactory position. Left-sided PICC line tip in the atriocaval junction/right atrium. NG tube in satisfactory position. Diffuse infiltrates consider diffuse pulmonary edema and/or pneumonia. Status post sternotomy. Electronically Signed: Marina Manning MD at 10:23 EDT Tel , Service support , Chest X-Ray 05/21/19 07:32 IMPRESSION: Lines and tubes in unchanged position Mild CHF/fluid overload with trace effusions Airspace disease presumed edema Cardiomegaly Electronically Signed: Scot Alcala, DO at 8:04 EDT Tel , Service support , Chest CT 05/23/19 09:23 IMPRESSION: Progressive appearance of the groundglass appearance/airspace disease in both lungs superimposed on chronic interstitial fibrosis in the lower lobes with underlying bronchiectasis and subpleural blebs. Electronically Signed: Raphael Roman, at 11:36 EDT , Service support , Medical Necessity - Tobacco Use Smoking Status: Former smoker Assessment/Plan All Active Problems (Last Reviewed 05/17/19 @ 03:55 by Tristan Clancy MD) Acute respiratory failure with hypoxia (Acute) Community acquired pneumonia, bilateral (Acute) Severe sepsis (Acute) Anticoagulated on Coumadin (Acute) Sinus tachycardia by electrocardiogram (Acute) HCAP (healthcare-associated pneumonia) (Acute) Community acquired bacterial pneumonia (Acute) Acute hypoxemic respiratory failure (Resolved) Acute respiratory insufficiency (Resolved) Chest pain (Resolved) Supratherapeutic INR (Resolved) Unstable angina (Resolved) RECOMMENDATIONS: 1. Continue BiPAP with naps and nightly. 2. Continue to wean prednisone. We will plan to decrease dose again tomorrow. 3. Wean supplemental oxygen to maintain saturations at or above 88%. 4. Continue aggressive bronchopulmonary hygiene. 5. Continue bronchodilators. 6. Physical therapy to work with the patient. 7. Continue Lovenox. Coumadin was once again placed on hold due to stool for occult blood positive. 8. Continue home nintedanib. IMPRESSIONS: 1. Acute on chronic hypoxemic respiratory failure/personal history of idiopathic pulmonary fibrosis Likely secondary to underlying interstitial lung disease compounded by hea lthcare associated pneumonia. The patient has completed a full treatment course of antibiotics, despite negative cultures. Despite this, the patient continues to have a high supplemental oxygen demand. Given that we have attempted to address all potential reversible causes for the patient's ongoing hypoxemia, a repeat high-resolution chest CT was obtained. There did appear to be interval disease progression when compared to prior chest CT from April 2019. At this time, we will plan to continue current supportive measures including prednisone, bronchodilators and home nintedanib. There are plans for a goals of care discussion with the patient and his family later this afternoon. 2. Anemia/personal history of hematochromatosis Hemoglobin has slowly trended down since May 17 to a karthikeyan of 7.3 g/dL. Given the patient's history of coronary artery disease, the patient was transfused 2 units of packed red blood cells with subsequent improvement in his hemoglobin. Continue to monitor blood counts daily. There is no indication for additional transfusion of blood products at the current time. 3. Coronary artery disease Continue outpatient medication regimen. 4. History of venous thrombi embolic disease INR was initially supratherapeutic on presentation to the hospital. Coumadin has been on hold since that time with subsequent improvement in the patient's coagulopathy. Continue therapeutic dose Lovenox for now. 5. Hypertension/hyperlipidemia/obstructive sleep apnea/paroxysmal atrial fibrillation/obesity Complicates care, management, recovery and prognosis. Continue home medications as indicated. Physical therapy to work with the patient. This note was generated with [facility] dictation software. It may contain incorrect words, spelling, and punctuation that were not noted in checking the note before signing. Code Visit Inpatient E&M: 56150 Subs Hosp L3
[2019-05-24] MEDS: predniSONE 20 MG Tablet 30 MG PO (07:59)
[2019-05-24] MEDS: Aspirin 81 MG TAB.CHEW PO (07:59)
--- NOTE | 2019-05-24 08:28 | PCM.PROGNOTE ---
Patient Problems: Active and Suspected Problems (Last Reviewed 05/17/19 @ 03:55 by Tristan Clancy MD) Acute respiratory failure with hypoxia (Acute) Community acquired pneumonia, bilateral (Acute) Severe sepsis (Acute) Anticoagulated on Coumadin (Acute) Sinus tachycardia by electrocardiogram (Acute) HCAP (healthcare-associated pneumonia) (Acute) Community acquired bacterial pneumonia (Acute) Subjective: All events of the past 24 hours of been reviewed. He is afebrile. He is maintaining an appropriate oxygen saturation on a 10 L high flow nasal cannula. When the oxygen delivery was decreased to 9 L he became hypoxic with an oxygen saturation of 78%. Heart rate and blood pressure are stable. Fluid balance on 05/23/2019 was -1585 and he had 2725 and urine after 1 dose of Lasix 40 mg IV. All lab was personally reviewed. White blood cell count is 13. He is currently on a prednisone taper. Hemoglobin is 10.2 and platelets are within normal limits. He has been restarted on Coumadin but has only received 1 dose of the INR today is 1.1. Serum bicarb is mildly increased to 33 but stable. BUN today is 30 with a creatinine of 0.88. UA on 05/23/2019 showed greater than 100 RBCs per high-power field but only 0-5 WBCs and there was no bacteria seen. Stool was Hemoccult positive. High-resolution CT of the chest showed interval progression of his interstitial fibrosis. He and his met with hospice and they are not ready for hospice at this time. Family meeting scheduled for today. [place] will pay for the [facility] even if he goes hospice. He is requiring 15 L of high flow oxygen with any exertion. Minimal assist of 2 to walk 30 ft with FWW yesterday. He admits to being anxious. When Dr. Miller was talking to him today about the interval progression of the IPF on the CT yesterday his RR increased, he begain to purse lip breath and he was using his abdominal muscles to breath. - Physical Exam General: Alert, Oriented x3, Cooperative, - - emotionally labile and tearful. He is anxious HEENT: Atraumatic, Normocephalic Oral: Moist Mucosa Neck: Supple, No Nodes, Trachea Midline Lungs: Diminished, Rales, Tachypneic, Using Accessory Muscles, - - some pursed lip breathing when he gets anxious Cardiovascular: Regular rate, Regular Rhythm, Normal S1, Normal S2, No murmurs, No Gallop Abdomen: Bowel Sounds Present, Soft, Non Tender, Non-Distended Extremities: No edema Neurological: Cranial nerves II-XII grossly intact, Neuro grossly intact Psych/Mental Status: Anxious, - - tearful and emotionally labile Vital Signs Temp Pulse Resp BP Pulse Ox 97.9 F 80 22 H 119/73 78 05/24/19 04:00 05/24/19 07:41 05/24/19 07:00 05/24/19 07:00 05/24/19 07:50 Oxygen Flow Rate (L/min) 9 Oxygen Delivery Method Nasal Cannula Weight: 190 lb 0.615 oz Body Mass Index (BMI) 32.1 Intake and Output for Last 24 Hours 05/22/19 05/23/19 05/24/19 23:59 23:59 23:59 Intake Total 780 / 780 1140 / 1140 90 / 90 Output Total 850 / 850 2725 / 2725 450 / 450 Balance -70 / -70 -1585 / -1585 -360 / -360 Microbiology Past 72 Hours 05/23/19 20:40 Stool Occult Blood (ARYA) - Final Stool Occult Blood Positive 05/20/19 12:15 Gram Stain - Final Sputum, Induced/Lukens Respiratory Culture - Final Strep not Strep pneumo 05/17/19 00:45 Blood Culture - Final Blood Culture (Wb) - Left Hand No growth in 5 days. 05/17/19 00:25 Blood Culture - Final Blood Culture (Wb) - Right Hand No growth in 5 days. Laboratory Tests Past 24 Hrs 05/23/19 05/24/19 05/24/19 09:50 03:50 03:50 WBC 13.0 H RBC 3.93 L Hgb 10.2 L Hct 32.7 L MCV 83.2 MCH 26.0 L MCHC 31.2 L RDW Std Deviation 60.1 H RDW Coeff of Rossy 19.9 H Plt Count 340 MPV 10.2 Immature Gran % (Auto) 1.600 H Neut % (Auto) 72.4 H Lymph % (Auto) 17.8 L [place] % (Auto) 4.2 Eos % (Auto) 3.9 Baso % (Auto) 0.1 Absolute Neuts (auto) 9.4 H Absolute Lymphs (auto) 2.30 Nucleated RBC % 0 PT 13.9 INR 1.1 Sodium Potassium Chloride Carbon Dioxide Anion Gap BUN Creatinine Estim Creat Clear Calc Est GFR (MDRD) Af Amer Est GFR (MDRD) Non-Af BUN/Creatinine Ratio Glucose Calcium Urine Color Yellow Urine Clarity Clear Urine pH 6.0 Ur Specific [place] 1.015 Urine Protein 30 H Urine Glucose (UA) Normal Urine Ketones Negative Urine Occult Blood 250 H Urine Nitrite Negative Urine Bilirubin Negative Urine Urobilinogen 1 H Ur Leukocyte Esterase 25 H Urine RBC > 100 SEEN Urine WBC 0-5 SEEN Ur Squamous Epith Cells 0-5 SEEN Urine Bacteria 0 SEEN Urine Mucus 0 SEEN 05/24/19 03:50 WBC RBC Hgb Hct MCV MCH MCHC RDW Std Deviation RDW Coeff of Rossy Plt Count MPV Immature Gran % (Auto) Neut % (Auto) Lymph % (Auto) [place] % (Auto) Eos % (Auto) Baso % (Auto) Absolute Neuts (auto) Absolute Lymphs (auto) Nucleated RBC % PT INR Sodium 141 Potassium 3.6 Chloride 102 Carbon Dioxide 33.0 H Anion Gap 6 BUN 30 H Creatinine 0.88 Estim Creat Clear Calc 67.47 Est GFR (MDRD) Af Amer 109 Est GFR (MDRD) Non-Af 90 BUN/Creatinine Ratio 34.2 H Glucose 113 H Calcium 8.8 Urine Color Urine Clarity Urine pH Ur Specific [place] Urine Protein Urine Glucose (UA) Urine Ketones Urine Occult Blood Urine Nitrite Urine Bilirubin Urine Urobilinogen Ur Leukocyte Esterase Urine RBC Urine WBC Ur Squamous Epith Cells Urine Bacteria Urine Mucus Medical Necessity - Tobacco Use Smoking Status: Former smoker Assessment/Plan All Active Problems (Last Reviewed 05/17/19 @ 03:55 by Tristan Clancy MD) Acute respiratory failure with hypoxia (Acute) Community acquired pneumonia, bilateral (Acute) Severe sepsis (Acute) Anticoagulated on Coumadin (Acute) Sinus tachycardia by electrocardiogram (Acute) HCAP (healthcare-associated pneumonia) (Acute) Community acquired bacterial pneumonia (Acute) Acute hypoxemic respiratory failure (Resolved) Acute respiratory insufficiency (Resolved) Chest pain (Resolved) Supratherapeutic INR (Resolved) Unstable angina (Resolved) Impressions 1. Severe sepsis with acute on chronic respiratory failure with hypoxemia secondary to HCAP 2. HCAP - all cultures are negative but, he had 2 days of Levaquin prior to admission and this is day 6 of Levaquin and Day 4 of Aztreonam. High-resolution CT scan of the chest on 05/23/19 continues to show diffuse ground glass areas in both lungs. There is also evidence of underlying interstitial fibrosis and bronchiectasis. 3. acute on chronic respiratory failure with hypoxemia -extubated 05/21/2019. Remains on high flow oxygen at 10 LPM. 4. ARF - resolved 5. acute on chronic anemia - INR was supratherapeutic and he had hemoptysis and epistaxis. Known hx of hemochromatosis and ferritin in April was 9 with a HGB of 10. His last phlebotomy was approximately 1 month ago. Recently had 2 stents placed and [facility] and he has significant Interstitial fibrosis. He was transfused with 2 units of PRBS's and the HGB is stable. HGB is 10.8 today. 6. CAD with 2 stents at [facility] 2 weeks prior to admission. Has had 2 stents in the past after a 1 vessel bypass in the 7. 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 Hyperkalemia-resolved 9. Hemochromatosis 9. Hyperglycemia due to sepsis/stress and TF's. 10. HLD - not adequately controlled in April with a LDL of 120 11. HTN 12. ALFRED - on CPAP at home and BIPAP in the hospital 13. PAF - in SR since admission 14. chronic anticoagulation with warfarin - supratherapeutic at admission, possibly due to the addition of Levaquin to his drug regimen. Restarted on warfarin and using a Lovenox bridge until the INR is > 2. Will check a hemoccult stool today 15. chronic steroid use -recently has undergone a steroid taper. Currently weaning steroids off 16. obesity 17. Interstitial pulmonary fibrosis 18. Increasing anxiety with realization that the disease is progressing rather quickly now and he is not a candidate for transplant. Knows this is terminal and there is nothing else we can do at this time to make him better. Started on Buspar. 19. Hemoccult positive stool - pt is on anticoagulation and has heme + stool. OFEV can cause heme + stool and GI bleeding. He had to be transfused with 2 units of PRBC's this admission. He has a IVC filter......may need to DC the Warfarin going forward. will continue the Lovenox for now and continue to monitor the HH. Met with the pt and his family this afternoon. Dr. Miller and Tyesha () were also present. They have decided to go home with [facility]. He will need a hospital bed so that he can rapidly change position to > 30 degrees when he is short of breath. He will also need a BSC, shower bench and a FWW at [place]. HE will need a oxygen concentrator that can provide 15 LPM of high flow oxygen. It will take a few days to arrange all this and he will remain in the ICU. Code Visit Inpatient E&M: 93640 Subs Hosp L3
--- NOTE | 2019-05-24 08:44 | CASEMGMT ---
Addendum entered by Angelia Deleon 05/24/19 10:05: SW spoke w/pt, he confirmed that is aware of meeting time today, and he anticipates she told pt's daughter as well. SW offered support to pt. SW will continue to follow. STACY Lopez Addendum entered by Angelia Deleon 05/24/19 09:34: SW called the [facility], spoke w/Jeremy Nuñez, the SW there. She explains that generally speaking, if the pt is on hospice, [facility] the [facility] of meds that hospice will not cover. So if hospice is okay w/pt continuing on the Ofev, they will likely continue to cover the cost. SW participated in ICU rounds, plan continues to be for meeting at 2pm w/pt's sons, and daughter and too if available. SW called [facility], spoke w/Michelle. She states that it was explained to pt and that there are no guarantees the [facility] will continue to pay for Ofev. If they will however, pt can continue to take it. SW explained that [place] states they will pay for meds that hospice will not cover, as long as hospice is okay w/pt being on the med. Michelle states that yes, pt can be on the med and that the family can just continue to get the medication from the [facility]. SW will continue to follow. STACY Lopez Addendum entered by Angelia Deleon 05/24/19 08:47: Though this SW aware that pt would prefer to return home if possible, he is requiring the assist of two people at this time, and is requiring a lot of oxygen. SW will continue to work w/pt and family to determine the most appropriate discharge plan. STACY Lopez Original Note: Pt's son Ryne left SW a message stating he and pt's other son will be here at 1pm to meet with the physician. Ryne stated he has not yet reached his sister but will continue to try to reach her. SW called [facility], message left inquiring again about whether or not they can manage a pt needing 15L O2 while ambulating, as this is what pt is requiring. SW called the [facility], message left for PALLAVI Nuñez inquiring if the [facility] will continue to help with the cost of Ofev even if pt is on hospice. Plan is yet to be determined. SW will continue to follow, physician is aware that pt's sons will be here at 1pm. STACY Lopez
--- NOTE | 2019-05-24 09:29 | CASEMGMT ---
RN CM Note: participated in ICU rounds. Physician spoke with pt re: CT scan and disease progression. Pt is requiring 10L NC and Bipap at night. Family meeting is set up for 1pm re: plan of care. DC plan undetermined until after family meeting. Rishabh MACARION RN ACM
[2019-05-24] MEDS: NINTEDANIB ESYLATE 100 MG CAPSULE PO ×2 (09:56→22:08)
[2019-05-24] MEDS: CHLORHEXIDINE GLUC 2% CLOTH 1 EACH TOWELETTE TOPICAL (09:56)
[2019-05-24] MEDS: Clopidogrel Bisulfate 75 MG Tablet PO (09:57)
[2019-05-24] MEDS: Enoxaparin 100 MG/ML Syringe 90 MG SC ×2 (09:57→22:08)
[2019-05-24] MEDS: Pantoprazole Sodium 40 MG Tablet PO (09:57)
[2019-05-24] MEDS: 0.9% NaCl Peripheral Flush Adult/Peds IV (10:00)
[2019-05-24] MEDS: BENZOCAINE/MENTHOL 1 LOZENGE 2 LOZENGE MUCOUS MEM ×2 (11:49→19:28)
[2019-05-24] MEDS: busPIRone 5 MG Tablet PO ×2 (11:49→22:08)
--- NOTE | 2019-05-24 13:19 | CASEMGMT ---
Addendum entered by Angelia Deleon 05/24/19 13:49: SW spoke w/pt and family. At this time they would like pt to return home w/home health. List of home health agencies given, they would like a referral sent to S. SW did explain to family that we will need to see if pt's O2 needs can be met at home. Pt and family state if the O2 needs cannot be met at home with home health, then they would be agreeable to hospice. SW did explain to pt and family that pt will be here through te weekend, but that we will start working on getting pt what he needs for home now. SW did let CM know the pt and family's decision, she is looking into home health and DME. STACY Lopez Original Note: SW spoke w/Cherry at [facility], they may be able to take pt even on 15L O2 while ambulating, would need more information however. SW will send over information if this is what pt and family would like. Dr. Faustin, Dr. Miller, SW met w/pt, , sons Jack and his , Mike, daughter and her in room. Dr. Miller reviewed clinically what is going on w/pt at present, in regard to the pulmonary fibrosis. We reviewed options for pt after this hospitalization, including hospice, home w/home care, or prison facility. Physician did speak about quality of life. SW did explain to pt and family that in regard to the med Ofev, [facility], if hospice is okay with pt being on the Ofev, then [facility] said [facility] any meds that hospice does not cover. And hospice is okay w/pt being on this med. SW did also explain that the nursing homes where pt can go would be limited, due to pt's high oxygenization needs. SW explained that SW called local facilities, [facility] may be able to take pt. Otherwise, we may be looking at facilities with vent capabilities. Pt and son Ryne both are indicating that they would want pt home. Pt did move better with therapy, walked 180 feet with contact guard of two. SW explained if pt goes home, it can be with home care or on hospice. SW explained that if pt were to go home with home care we need to see if pt's oxygen needs can be met at home. Family to speak with pt and let SW, physicians know how they would like to proceed. As per physician pt will likely be here through the weekend. If pt and family do decide to proceed with hospice, however, they can be called any time. STACY Lopez
--- NOTE | 2019-05-24 14:43 | CASEMGMT ---
Addendum entered by Jeremy Travis 05/24/19 15:57: -Call received from [facility]. They are able to accept pt for Home Health. RNCM to notify Monday am of anticipated dc date and fax dc instructions and summary. -script for DME (hospital bed, BSC, tub bench, wheeled walker) faxed to [facility] @ [phone]. Call to [facility]-fax has been received and they will work on order. Original Note: KARINE HOLLINS Note: After meeting with physicians, SW, pt and his family has decided he would like to return home with [facility]. Oxygen and DME will need to be ordered prior to dc. Call to Fidelina @ [facility] x [phone]. They cannot provide oxygen greater than 10L and recommend CM contact [facility]. -Call to [facility] . They are able to provide concentrators (two piggybacked) to provide up to 15L NC. [facility] is [facility] with [email or web address] per website and per [facility] staff. -Intro role of CM to patient and his family in room. KARINE HOLLINS had lengthy discussion re: pt's plan to return home with Home Health through [facility] (list had been given by and pt had given first choice). Discussed anticipated oxygen needs at home of 10-15L. KARINE HOLLINS let family know [facility] was not able provide oxygen greater than 10L, but [facility] is able. Pt/ are agreeable to have [facility] provide oxygen. -Discussed DME needs @ home. Anticipate pt will need: Hospital bed, BSC, Wheeled Walker, extended shower bench. Family inquired re: Lift chair. After contact with [facility], only motorized portion of chair may be covered by insurance. Family will consider this after dc. -Per [facility], DME may be covered under insurance. Face to Face requested for DME and script sent to physician to be signed. -Oxygen testing will need to be completed within 24 hours of dc. Script and face to face completed by physician for oxygen need to be faxed then to [facility] for home set up. -Call to [facility] . Per rep, they accept [email or web address] and referral can be faxed. Referral faxed to . -DC PLAN: Home w/oxygen and DME equipment-anticipate Monday before home is set up with needed DME. Rishabh MACARION RN ACM
[2019-05-24] MEDS: Mirtazapine 15 MG Tablet PO (22:08)
[2019-05-25] VITALS (34 sets, daily range): BP systolic 88–130; BP diastolic 59–99; PULSE 74–96; RESP 12–38; TEMP 36.4–36.7; O2SAT 89–99
[2019-05-25] MEDS: Ipratropium/Albuterol Sulfate 3 ML AMPUL.NEB INHALATION ×4 (01:05→18:53)
[2019-05-25 04:28] LABS: Absolute Lymphocyte Count 2.68 X10^3/uL (0.83-4.51); Absolute Neutrophil Count 8.7 X10^3/uL (2.0-7.7); Basophil# 0.02 X10^3/uL; Basophil% 0.2 % (0-1); Eosinophil# 0.48 X10^3/uL; Eosinophils% 3.8 % (0-5); Hematocrit 34.9 % (40-54); Hemoglobin 10.6 g/dL (13.0-16.5); Lymphocyte # 2.68 X10^3/ul (4.0); Mean Corp Hgb Conc 30.4 g/dL (32-36); Mean Corpuscular Hgb 25.5 pg (27.0-32.0); Mean Corpuscular Volume 84.1 fL (80-94); Mean Platelet Vol. 9.7 fl (6.2-12.0); Monocyte# 0.66 X10^3/uL; Monocyte% 5.2 % (0-10); NRBC Flagged by Analyzer 0 % (0-5); Neutrophil # 8.65 X10^3/uL (2.7-7.7); Neutrophil % 67.5 % (47-70); Platelet Count 340 K/mm3 (150-450); RBC Distribution Width CV 19.9 % (11.6-14.6); RBC Distribution Width SD 60.6 fl (35.1-43.9); Red Blood Count 4.15 M/mm3 (4.6-6.2); White Blood Count 12.8 K/mm3 (4.4-11.0)
[2019-05-25 04:39] LABS: Anion Gap 5 (5-15); BUN 25 mg/dL (7-18); BUN/Creat Ratio 32.1 RATIO (10-20); Calcium,Total 8.7 mg/dL (8.5-10.1); Chloride 104 mmol/L (98-107); Creatinine, Serum 0.78 mg/dL (0.70-1.30); EST Glomerular Filtration Rate 103 mL/min (>60); Est Glom Filt Rate - Afr Amer 125 mL/min (>60); Estimated Creatinine Clearance 59.37 ml/min; Glucose 103 mg/dL (74-106); Potassium 3.6 mmol/L (3.5-5.1); Sodium Level 141 mmol/L (136-145)
[2019-05-25] MEDS: busPIRone 5 MG Tablet PO ×3 (06:13→22:49)
[2019-05-25] MEDS: 0.9% NaCl Peripheral Flush Adult/Peds IV ×2 (06:16→14:02)
--- NOTE | 2019-05-25 06:17 | PN_ITS ---
Subjective: The patient was seen and examined at the bedside this morning. Events from the last 24 hours have been reviewed. The patient is currently afebrile, hemodynamically stable and maintaining appropriate oxygen saturations on 10 L/min high flow nasal cannula. Due to anxiety, the patient was started on low- dose BuSpar yesterday. Following a discussion yesterday at the bedside with the patient and his family regarding goals of care, they have elected to pursue home health care services as opposed to hospice care. [facility] is able to provide concentrators that can go up to 15 L nasal cannula. The patient's blood counts remain stable. Objective: The patient's most recent lab work, culture data and imaging studies have all been personally reviewed. Surface echocardiogram revealed evidence of stage I diastolic dysfunction with an ejection fraction of 65%. The RV was mildly dilated with normal systolic function. Right ventricular systolic pressure was estimated to be 42 mmHg. Strep and urine Legionella antigens were both negative. Blood, urine and sputum cultures have not shown any growth to date. Repeat sputum Gram stain and culture, dated May 20, is not currently showing any growth. Respiratory viral panel was negative. General: Alert, Cooperative, No apparent distress HEENT: Atraumatic, PERRLA, Normocephalic Oral: No Gingival or Mucosal Lesions/ Ulcerations Neck: Supple, No Nodes, Trachea Midline Lungs: Diminished, Rales Cardiovascular: Regular rate, Regular Rhythm, Normal S1, Normal S2, Murmur Abdomen: Bowel Sounds Present, Soft, Non Tender Extremities: No clubbing, No cyanosis, No edema Skin: No breakdown Musculoskeletal: No Tenderness to Palpation of Joints or Extremities Lymphatic: No Cervical, Supraclavicular, or Inguinal Adenopathy Neurological: Cranial nerves II-XII grossly intact, Neuro grossly intact Psych/Mental Status: Normal Affect, Appropriate, - - Anxious at times. Vital Signs Temp Pulse Resp BP Pulse Ox 97.8 F 79 35 H 121/70 H 90 05/25/19 04:00 05/25/19 06:00 05/25/19 06:00 05/25/19 06:00 05/25/19 06:00 Oxygen Flow Rate (L/min) 10 Oxygen Delivery Method Nasal Cannula Weight: 189 lb 13.088 oz Body Mass Index (BMI) 32.1 Intake and Output for Last 24 Hours 05/23/19 05/24/19 05/25/19 23:59 23:59 23:59 Intake Total 1140 / 1140 1050 / 1170 240 / 240 Output Total 2725 / 2725 750 / 750 Balance -1585 / -1585 300 / 420 240 / 240 Labs (Last 48 Hours) 05/23/19 05/24/19 05/24/19 09:50 03:50 03:50 WBC 13.0 H RBC 3.93 L Hgb 10.2 L Hct 32.7 L MCV 83.2 MCH 26.0 L MCHC 31.2 L RDW Std Deviation 60.1 H RDW Coeff of Rossy 19.9 H Plt Count 340 MPV 10.2 Immature Gran % (Auto) 1.600 H Neut % (Auto) 72.4 H Lymph % (Auto) 17.[address] [facility] % (Auto) 4.2 Eos % (Auto) 3.9 Baso % (Auto) 0.1 Absolute Neuts (auto) 9.4 H Absolute Lymphs (auto) 2.30 Nucleated RBC % 0 PT 13.9 INR 1.1 Sodium Potassium Chloride Carbon Dioxide Anion Gap BUN Creatinine Estim Creat Clear Calc Est GFR (MDRD) Af Amer Est GFR (MDRD) Non-Af BUN/Creatinine Ratio Glucose Calcium Urine Color Yellow Urine Clarity Clear Urine pH 6.0 Ur Specific [place] 1.015 Urine Protein 30 H Urine Glucose (UA) Normal Urine Ketones Negative Urine Occult Blood 250 H Urine Nitrite Negative Urine Bilirubin Negative Urine Urobilinogen 1 H Ur Leukocyte Esterase 25 H Urine RBC > 100 SEEN Urine WBC 0-5 SEEN Ur Squamous Epith Cells 0-5 SEEN Urine Bacteria 0 SEEN Urine Mucus 0 SEEN 05/24/19 05/25/19 05/25/19 03:50 04:15 04:15 WBC 12.8 H RBC 4.15 L Hgb 10.6 L Hct 34.9 L MCV 84.1 MCH 25.5 L MCHC 30.4 L RDW Std Deviation 60.6 H RDW Coeff of Rossy 19.9 H Plt Count 340 MPV 9.7 Immature Gran % (Auto) 2.300 H Neut % (Auto) 67.5 Lymph % (Auto) 21.0 [facility] % (Auto) 5.2 Eos % (Auto) 3.8 Baso % (Auto) 0.2 Absolute Neuts (auto) 8.7 H Absolute Lymphs (auto) 2.68 Nucleated RBC % 0 PT INR Sodium 141 141 Potassium 3.6 3.6 Chloride 102 104 Carbon Dioxide 33.0 H 32.0 Anion Gap 6 5 BUN 30 H 25 H Creatinine 0.88 0.78 Estim Creat Clear Calc 67.47 59.37 Est GFR (MDRD) Af Amer 109 125 Est GFR (MDRD) Non-Af 90 103 BUN/Creatinine Ratio 34.2 H 32.1 H Glucose 113 H 103 Calcium 8.8 8.7 Urine Color Urine Clarity Urine pH Ur Specific [place] Urine Protein Urine Glucose (UA) Urine Ketones Urine Occult Blood Urine Nitrite Urine Bilirubin Urine Urobilinogen Ur Leukocyte Esterase Urine RBC Urine WBC Ur Squamous Epith Cells Urine Bacteria Urine Mucus Microbiology 05/24/19 07:45 Mucosa - Nose Respiratory Panel (PCR) - Final 05/23/19 20:40 Stool Stool Occult Blood (ARYA) - Final Occult Blood Positive Clinical Impression(s) from Imaging Studies Brain CT 05/17/19 00:23 IMPRESSION: No acute intracranial pathology. Chronic changes as discussed similar to prior study Individualized dose optimization techniques were used for this CT. at 0122 Reported and signed by: Marina Castillo DO Electronically Signed: Marina Castillo DO at 1:21 EDT Tel , Service support , Chest X-Ray 05/17/19 00:45 IMPRESSION: Bilateral pulmonary infiltrates. These have increased in the lung apices when compared to the prior study at 0118 Reported and signed by: Marina Castillo DO Electronically Signed: Marina Castillo DO at 1:17 EDT Tel , Service support , Chest X-Ray 05/17/19 13:56 IMPRESSION: Stable bilateral patchy airspace disease. The tip of the endotracheal tube is at 3.9 cm proximal to the marly. The tip of the orogastric tube is within the fundal portion of the stomach. Electronically Signed: Raphael Roman, at 14:37 EDT , Service support , Chest X-Ray 05/18/19 05:00 IMPRESSION: Left PICC line tip in right atrium without pneumothorax. Stable diffuse alveolar disease. Electronically Signed: Gerson Porter MD at 5:21 EDT Tel , Service support , Chest X-Ray 05/18/19 09:28 IMPRESSION: Endotracheal tube in satisfactory position. Left-sided PICC line tip in the atriocaval junction/right atrium. NG tube in satisfactory position. Diffuse infiltrates consider diffuse pulmonary edema and/or pneumonia. Status post sternotomy. Electronically Signed: Marina Manning MD at 10:23 EDT Tel , Service support , Chest X-Ray 05/21/19 07:32 IMPRESSION: Lines and tubes in unchanged position Mild CHF/fluid overload with trace effusions Airspace disease presumed edema Cardiomegaly Electronically Signed: Scot Alcala DO at 8:04 EDT Tel , Service support , Chest CT 05/23/19 09:23 IMPRESSION: Progressive appearance of the groundglass appearance/airspace disease in both lungs superimposed on chronic interstitial fibrosis in the lower lobes with underlying bronchiectasis and subpleural blebs. Electronically Signed: Raphael Roman, at 11:36 EDT , Service support , Medical Necessity - Tobacco Use Smoking Status: Former smoker Assessment/Plan All Active Problems (Last Reviewed 05/17/19 @ 03:55 by Tristan Clancy MD) Acute respiratory failure with hypoxia (Acute) Community acquired pneumonia, bilateral (Acute) Severe sepsis (Acute) Anticoagulated on Coumadin (Acute) Sinus tachycardia by electrocardiogram (Acute) HCAP (healthcare-associated pneumonia) (Acute) Community acquired bacterial pneumonia (Acute) Acute hypoxemic respiratory failure (Resolved) Acute respiratory insufficiency (Resolved) Chest pain (Resolved) Supratherapeutic INR (Resolved) Unstable angina (Resolved) RECOMMENDATIONS: 1. Continue BiPAP with naps and nightly. 2. Continue to wean prednisone. Dose decreased to 20 mg this morning. 3. Wean supplemental oxygen to maintain saturations at or above 88%. 4. Continue aggressive bronchopulmonary hygiene. 5. Continue bronchodilators. 6. Physical therapy to work with the patient. 7. Continue Lovenox. Coumadin was once again placed on hold due to stool for occult blood positive. 8. Continue home nintedanib. IMPRESSIONS: 1. Acute on chronic hypoxemic respiratory failure/personal history of idiopathic pulmonary fibrosis Likely secondary to underlying interstitial lung disease compounded by healthcare associated pneumonia. The patient has completed a full treatment course of antibiotics, despite negative cultures. Despite this, the patient continued to have a high supplemental oxygen demand. Given that we have attempted to address all potential reversible causes for the patient's ongoing hypoxemia, a repeat high-resolution chest CT was obtained. There did appear to be interval disease progression when compared to prior chest CT from April 2019. At this time, we will plan to continue current supportive measures including prednisone, bronchodilators and home nintedanib. Following a goals of care discussion with the patient and his family, the patient has elected to pursue home health services as opposed to hospice care. Disposition planning is currently underway. 2. Anemia/personal history of hematochromatosis Hemoglobin has slowly trended down since May 17 to a karthikeyan of 7.3 g/dL. Given the patient's history of coronary artery disease, the patient was transfused 2 units of packed red blood cells with subsequent improvement in his hemoglobin. Continue to monitor blood counts daily. There is no indication for additional transfusion of blood products at the current time. 3. Coronary artery disease Continue outpatient medication regimen. 4. History of venous thrombi embolic disease INR was initially supratherapeutic on presentation to the hospital. Coumadin has been on hold since that time with subsequent improvement in the patient's coagulopathy. Continue therapeutic dose Lovenox for now. 5. Hypertension/hyperlipidemia/obstructive sleep apnea/paroxysmal atrial fibrillation/obesity Complicates care, management, recovery and prognosis. Continue home medications as indicated. Physical therapy to work with the patient. This note was generated with [employer] software. It may contain incorrect words, spelling, and punctuation that were not noted in checking the note before signing. Code Visit Inpatient E&M: 94796 Subs Hosp L2
--- NOTE | 2019-05-25 08:03 | PN_ITS ---
Patient Problems: Active and Suspected Problems (Last Reviewed 05/17/19 @ 03:55 by Tristan Clancy MD) Acute respiratory failure with hypoxia (Acute) Community acquired pneumonia, bilateral (Acute) Severe sepsis (Acute) Anticoagulated on Coumadin (Acute) Sinus tachycardia by electrocardiogram (Acute) HCAP (healthcare-associated pneumonia) (Acute) Community acquired bacterial pneumonia (Acute) Subjective: All events in the past 24 hours been reviewed. All lab, cultures and radiology has been reviewed. The patient and his family were able to decide that he wants to go home with home health care at discharge. A few days will be needed to make arrangements for high flow oxygen at home, hospital bed and other accessories needed to adequately care for him at home. Remains afebrile. Oxygen saturation today is 95% on an 11 L high flow nasal cannula with a respiratory rate of 26-38. Fluid balance on 05/24/2019 was +300. He had 750 cc of urine output. White blood cell count today is 12.8 and this is likely due to steroids. Hemoglobin is stable at 10.6 and the platelets are within normal limits. The serum bicarb has come down to 32. Creatinine is stable at 0.78. Respiratory panel was negative. He is sitting up in the recliner at the bedside looking out the window. He tells me the chest pain has improved. Breathing is status quo. He is having adequate bowel function. Tolerated the Remeron last night that was started for depression. His only complaint today is a sore dry throat from the high flow oxygen. Objective: PHYSICAL EXAM: GENERAL: alert, oriented X 3, Cooperative, NAD ORAL: moist mucosa, no mucosal lesions NECK: No JVD, supple, trachea midline LUNGS: scattered coarse crackles unchanged, symmetric chest expansion, no wheezing HEART: RRR, Normal S1 and S2, no rub, no gallop, no murmur ABDOMEN: soft, NT, ND, BS present, no guarding with palpation EXTREMITIES: no edema, no cyanosis, no calf tenderness SKIN: No rashes, no breakdown NEUROLOGIC: no focal neurologic deficits PSYCH: appropriate, flat affect, pleasant, seems less emotionally labile since he made the decision to go home with [facility]. - Physical Exam Vital Signs Temp Pulse Resp BP Pulse Ox 97.8 F 87 38 H 111/75 95 05/25/19 04:00 05/25/19 07:16 05/25/19 07:00 05/25/19 07:00 05/25/19 07:00 Oxygen Flow Rate (L/min) 11 Oxygen Delivery Method Nasal Cannula Weight: 189 lb 13.088 oz Body Mass Index (BMI) 32.1 Intake and Output for Last 24 Hours 05/23/19 05/24/19 05/25/19 23:59 23:59 23:59 Intake Total 1140 / 1140 1050 / 1170 240 / 240 Output Total 2725 / 2725 750 / 750 Balance -1585 / -1585 300 / 420 240 / 240 Microbiology Past 72 Hours 05/24/19 07:45 Respiratory Panel (PCR) - Final Mucosa - Nose 05/23/19 20:40 Stool Occult Blood (ARYA) - Final Stool Occult Blood Positive 05/20/19 12:15 Gram Stain - Final Sputum, Induced/Lukens Respiratory Culture - Final Strep not Strep pneumo 05/17/19 00:45 Blood Culture - Final Blood Culture (Wb) - Left Hand No growth in 5 days. 05/17/19 00:25 Blood Culture - Final Blood Culture (Wb) - Right Hand No growth in 5 days. Laboratory Tests Past 24 Hrs 05/25/19 05/25/19 04:15 04:15 WBC 12.8 H RBC 4.15 L Hgb 10.6 L Hct 34.9 L MCV 84.1 MCH 25.5 L MCHC 30.4 L RDW Std Deviation 60.6 H RDW Coeff of Rossy 19.9 H Plt Count 340 MPV 9.7 Immature Gran % (Auto) 2.300 H Neut % (Auto) 67.5 Lymph % (Auto) 21.0 [place] % (Auto) 5.2 Eos % (Auto) 3.8 Baso % (Auto) 0.2 Absolute Neuts (auto) 8.7 H Absolute Lymphs (auto) 2.68 Nucleated RBC % 0 Sodium 141 Potassium 3.6 Chloride 104 Carbon Dioxide 32.0 Anion Gap 5 BUN 25 H Creatinine 0.78 Estim Creat Clear Calc 59.37 Est GFR (MDRD) Af Amer 125 Est GFR (MDRD) Non-Af 103 BUN/Creatinine Ratio 32.1 H Glucose 103 Calcium 8.7 Medical Necessity - Tobacco Use Smoking Status: Former smoker Assessment/Plan All Active Problems (Last Reviewed 05/17/19 @ 03:55 by Tristan Clancy MD) Acute respiratory failure with hypoxia (Acute) Community acquired pneumonia, bilateral (Acute) Severe sepsis (Acute) Anticoagulated on Coumadin (Acute) Sinus tachycardia by electrocardiogram (Acute) HCAP (healthcare-associated pneumonia) (Acute) Community acquired bacterial pneumonia (Acute) Acute hypoxemic respiratory failure (Resolved) Acute respiratory insufficiency (Resolved) Chest pain (Resolved) Supratherapeutic INR (Resolved) Unstable angina (Resolved) Impressions 1. Severe sepsis with acute on chronic respiratory failure with hypoxemia secondary to HCAP - resolved 2. HCAP - all cultures are negative but, he had 2 days of Levaquin prior to admission. finished 7 days of Levaquin. High-resolution CT scan of the chest on 05/23/19 continues to show diffuse ground glass areas in both lungs and interval worsening of the IPF since early April 3. acute on chronic respiratory failure with hypoxemia -extubated 05/21/2019. Requiring high flow oxygen at 10-11 LPM at rest and 15 LPM with any exertion 4. ARF - resolved 5. acute on chronic anemia - INR was supratherapeutic and he had hemoptysis and epistaxis. Known hx of hemochromatosis and ferritin in April was 9 with a HGB of 10. His last phlebotomy was approximately 1 month ago. Recently had 2 stents placed at [facility] and he has significant Interstitial fibrosis. He was transfused with 2 units of PRBS's and the HGB is stable. He has heme positive stools. Ofev can cause GI blood loss and he is on chronic anticoagulation. 6. CAD with 2 stents at [facility] 2 weeks prior to admission. Has had 2 stents in the past after a 1 vessel bypass in the 7. 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 Hyperkalemia-resolved 9. Hemochromatosis 9. Hyperglycemia due to sepsis/stress and TF's - not requiring any insulin coverage 10. HLD - not adequately controlled in April with a LDL of 120 11. HTN 12. ALFRED - on CPAP at home and BIPAP in the hospital.......will need BIPAP at home. 13. PAF - in SR since admission 14. chronic anticoagulation with warfarin - supratherapeutic at admission, possibly due to the addition of Levaquin to his drug regimen. Restarted on warfarin but this was discontinued when the stools were heme positive.......remains on full dose Lovenox 15. chronic steroid use -recently has undergone a steroid taper. Currently weaning steroids off 16. obesity 17. Interstitial pulmonary fibrosis - continue OFEV 18. Increasing anxiety/depression with realization that the disease is progressing rather quickly now and he is not a candidate for transplant. Knows this is terminal and there is nothing else we can do at this time to make him better. Started on Buspar for anxiety and he is tolerating with no GI distress. Also started Remeron at HS and he is tolerating this as well. 19. Hemoccult positive stool - pt is on anticoagulation and has heme + stool. OFEV can cause heme + stool and GI bleeding. He had to be transfused with 2 units of PRBC's this admission. He has a IVC filter......may need to DC the Warfarin going forward. will continue the Lovenox for now and continue to monitor the HH. I spoke to his on the phone and asked that she slate picker Biotene spray and/or mouthwash and bring it to the hospital to PRN for dry mouth/throat. Downgrade to PCU status but, will keep in the ICU unless pressed for ICU beds Continue PT/OT Hope to get him home early next week with HHC. Wants intubated if necessary so will keep full code status Code Visit Inpatient E&M: 87751 Subs Hosp L3
[2019-05-25] MEDS: BENZOCAINE/MENTHOL 1 LOZENGE 2 LOZENGE MUCOUS MEM (08:05)
[2019-05-25] MEDS: predniSONE 20 MG Tablet 30 MG PO (08:05)
[2019-05-25] MEDS: Aspirin 81 MG TAB.CHEW PO (08:05)
[2019-05-25] MEDS: Enoxaparin 100 MG/ML Syringe 90 MG SC ×2 (09:32→22:49)
[2019-05-25] MEDS: Pantoprazole Sodium 40 MG Tablet PO (09:32)
[2019-05-25] MEDS: Clopidogrel Bisulfate 75 MG Tablet PO (09:32)
[2019-05-25] MEDS: NINTEDANIB ESYLATE 100 MG CAPSULE PO ×2 (09:32→22:49)
--- NOTE | 2019-05-25 15:30 | CM.UR ---
Met face to face with patient and his spouse. Asked if ok to fax clinical to provider at [facility] for continuity of care. He was agreeable. Discussed all the items already set up. Instructed to not hesitate to check for [facility] for things covered. Explained a lot of DME that is not usually covered can be obtained via [facility] free of charge. They said the one thing they wanted that was not covered was an over the bed table for the hospital bed. Explained that the [facility] will supply one of them. Explained I'll fax a request to his provider at the [facility] along with the clinical. Faxed to [facility] at [phone] ATTN: Val Bush NP at this time. Shankar Lima RN, CCM.
[2019-05-25] MEDS: Mirtazapine 15 MG Tablet PO (22:49)
[2019-05-26] VITALS (35 sets, daily range): BP systolic 100–141; BP diastolic 58–75; PULSE 69–95; RESP 12–37; TEMP 36.3–36.6; O2SAT 88–97
[2019-05-26] MEDS: Ipratropium/Albuterol Sulfate 3 ML AMPUL.NEB INHALATION ×4 (01:07→19:13)
[2019-05-26] MEDS: 0.9% NaCl Peripheral Flush Adult/Peds IV (05:11)
[2019-05-26] MEDS: busPIRone 5 MG Tablet PO ×3 (05:11→21:02)
[2019-05-26 05:24] LABS: Absolute Lymphocyte Count 2.86 X10^3/uL (0.83-4.51); Absolute Neutrophil Count 9.2 X10^3/uL (2.0-7.7); Basophil# 0.04 X10^3/uL; Basophil% 0.3 % (0-1); Eosinophil# 0.54 X10^3/uL; Eosinophils% 3.9 % (0-5); Hematocrit 34.7 % (40-54); Hemoglobin 10.4 g/dL (13.0-16.5); Lymphocyte # 2.86 X10^3/ul (4.0); Lymphocyte % 20.9 % (19-41); Mean Corpuscular Hgb 25.6 pg (27.0-32.0); Mean Corpuscular Volume 85.3 fL (80-94); Monocyte# 0.73 X10^3/uL; Monocyte% 5.3 % (0-10); NRBC Flagged by Analyzer 0 % (0-5); Neutrophil # 9.22 X10^3/uL (2.7-7.7); Neutrophil % 67.5 % (47-70); POSITIVE MORPHOLOGY YES; Platelet Count 353 K/mm3 (150-450); RBC Distribution Width CV 20.2 % (11.6-14.6); RBC Distribution Width SD 62.8 fl (35.1-43.9); Red Blood Count 4.07 M/mm3 (4.6-6.2); White Blood Count 13.7 K/mm3 (4.4-11.0)
[2019-05-26 05:32] LABS: Differential Indicated SCAN CRITERIA MET
[2019-05-26 05:41] LABS: Anion Gap 6 (5-15); BUN 24 mg/dL (7-18); BUN/Creat Ratio 29.6 RATIO (10-20); Calcium,Total 8.6 mg/dL (8.5-10.1); Chloride 105 mmol/L (98-107); Creatinine, Serum 0.81 mg/dL (0.70-1.30); EST Glomerular Filtration Rate 99 mL/min (>60); Est Glom Filt Rate - Afr Amer 120 mL/min (>60); Glucose 94 mg/dL (74-106); Potassium 3.7 mmol/L (3.5-5.1); Sodium Level 143 mmol/L (136-145)
[2019-05-26 05:58] LABS: Anisocytosis 1+; Differential Comment SCANNED
--- NOTE | 2019-05-26 06:09 | PCM.PN.INT ---
Subjective: The patient was seen and examined at the bedside this morning. Events from the last 24 hours have been reviewed. The patient is currently afebrile, hemodynamically stable and maintaining appropriate oxygen saturations on 10 L/min high flow nasal cannula. He reports that he coughed up a bit this morning, but that has since resolved. He is without other complaints this morning. Objective: The patient's most recent lab work, culture data and imaging studies have all been personally reviewed. Surface echocardiogram revealed evidence of stage I diastolic dysfunction with an ejection fraction of 65%. The RV was mildly dilated with normal systolic function. Right ventricular systolic pressure was estimated to be 42 mmHg. Strep and urine Legionella antigens were both negative. Blood, urine and sputum cultures have not shown any growth to date. Repeat sputum Gram stain and culture, dated May 20, is not currently showing any growth. Respiratory viral panel was negative. General: Alert, Oriented x3, Cooperative, No apparent distress HEENT: Atraumatic, PERRLA, Normocephalic Oral: No Gingival or Mucosal Lesions/ Ulcerations Neck: Supple, No Nodes, Trachea Midline Lungs: Diminished, Rales Cardiovascular: Regular rate, Regular Rhythm, Normal S1, Normal S2, Murmur Abdomen: Bowel Sounds Present, Soft, Non Tender Extremities: No clubbing, No cyanosis, No edema Skin: - - No significant change from previous Musculoskeletal: No Tenderness to Palpation of Joints or Extremities Lymphatic: No Cervical, Supraclavicular, or Inguinal Adenopathy Neurological: Cranial nerves II-XII grossly intact, Neuro grossly intact Psych/Mental Status: Normal Affect, Appropriate Vital Signs Temp Pulse Resp BP Pulse Ox 97.9 F 77 25 H 104/75 91 05/26/19 04:00 05/26/19 05:00 05/26/19 05:00 05/26/19 05:00 05/26/19 05:00 Oxygen Flow Rate (L/min) 11 Oxygen Delivery Method Bi-pap Weight: 192 lb 3.889 oz Body Mass Index (BMI) 32.1 Intake and Output for Last 24 Hours 05/24/19 05/25/19 05/26/19 23:59 23:59 23:59 Intake Total 1050 / 1170 1060 / 1060 Output Total 750 / 750 Balance 300 / 420 1060 / 1060 Labs (Last 48 Hours) 05/25/19 05/25/1919 04:15 04:15 05:10 WBC 12.8 H 13.7 H RBC 4.15 L 4.07 L Hgb 10.6 L 10.4 L Hct 34.9 L 34.7 L MCV 84.1 85.3 MCH 25.5 L 25.6 L MCHC 30.4 L 30.0 L RDW Std Deviation 60.6 H 62.8 H RDW Coeff of Rossy 19.9 H 20.2 H Plt Count 340 353 MPV 9.7 10.0 Immature Gran % (Auto) 2.300 H 2.100 H Neut % (Auto) 67.5 67.5 Lymph % (Auto) 21.0 20.9 [place] % (Auto) 5.2 5.3 Eos % (Auto) 3.8 3.9 Baso % (Auto) 0.2 0.3 Absolute Neuts (auto) 8.7 H 9.2 H Absolute Lymphs (auto) 2.68 2.86 Nucleated RBC % 0 0 Differential Comment SCANNED Anisocytosis 1+ Sodium 141 Potassium 3.6 Chloride 104 Carbon Dioxide 32.0 Anion Gap 5 BUN 25 H Creatinine 0.78 Estim Creat Clear Calc 59.37 Est GFR (MDRD) Af Amer 125 Est GFR (MDRD) Non-Af 103 BUN/Creatinine Ratio 32.1 H Glucose 103 Calcium 8.7 05/26/19 05:10 WBC RBC Hgb Hct MCV MCH MCHC RDW Std Deviation RDW Coeff of Rossy Plt Count MPV Immature Gran % (Auto) Neut % (Auto) Lymph % (Auto) [place] % (Auto) Eos % (Auto) Baso % (Auto) Absolute Neuts (auto) Absolute Lymphs (auto) Nucleated RBC % Differential Comment Anisocytosis Sodium 143 Potassium 3.7 Chloride 105 Carbon Dioxide 32.0 Anion Gap 6 BUN 24 H Creatinine 0.81 Estim Creat Clear Calc 73.30 Est GFR (MDRD) Af Amer 120 Est GFR (MDRD) Non-Af 99 BUN/Creatinine Ratio 29.6 H Glucose 94 Calcium 8.6 Microbiology 05/23/19 09:50 Urine, Catheterized Urine Culture - Final Culture exhibits no growth. 05/24/19 07:45 Mucosa - Nose Respiratory Panel (PCR) - Final Clinical Impression(s) from Imaging Studies Brain CT 05/17/19 00:23 IMPRESSION: No acute intracranial pathology. Chronic changes as discussed similar to prior study Individualized dose optimization techniques were used for this CT. at 0122 Reported and signed by: Marina Castillo DO Electronically Signed: Marina Castillo DO at 1:21 EDT Tel , Service support , Chest X-Ray 05/17/19 00:45 IMPRESSION: Bilateral pulmonary infiltrates. These have increased in the lung apices when compared to the prior study at 0118 Reported and signed by: Marina Castillo DO Electronically Signed: Marina Castillo DO at 1:17 EDT Tel , Service support , Chest X-Ray 05/17/19 13:56 IMPRESSION: Stable bilateral patchy airspace disease. The tip of the endotracheal tube is at 3.9 cm proximal to the marly. The tip of the orogastric tube is within the fundal portion of the stomach. Electronically Signed: Raphael Roman, at 14:37 EDT , Service support , Chest X-Ray 05/18/19 05:00 IMPRESSION: Left PICC line tip in right atrium without pneumothorax. Stable diffuse alveolar disease. Electronically Signed: Gerson Porter MD at 5:21 EDT Tel , Service support , Chest X-Ray 05/18/19 09:28 IMPRESSION: Endotracheal tube in satisfactory position. Left-sided PICC line tip in the atriocaval junction/right atrium. NG tube in satisfactory position. Diffuse infiltrates consider diffuse pulmonary edema and/or pneumonia. Status post sternotomy. Electronically Signed: Marina Manning MD at 10:23 EDT Tel , Service support , Chest X-Ray 05/21/19 07:32 IMPRESSION: Lines and tubes in unchanged position Mild CHF/fluid overload with trace effusions Airspace disease presumed edema Cardiomegaly Electronically Signed: Scot Alcala DO at 8:04 EDT Tel , Service support , Chest CT 05/23/19 09:23 IMPRESSION: Progressive appearance of the groundglass appearance/airspace disease in both lungs superimposed on chronic interstitial fibrosis in the lower lobes with underlying bronchiectasis and subpleural blebs. Electronically Signed: Raphael Roman, at 11:36 EDT , Service support , Medical Necessity - Tobacco Use Smoking Status: Former smoker Assessment/Plan All Active Problems (Last Reviewed 05/17/19 @ 03:55 by Tristan Clancy MD) Acute respiratory failure with hypoxia (Acute) Community acquired pneumonia, bilateral (Acute) Severe sepsis (Acute) Anticoagulated on Coumadin (Acute) Sinus tachycardia by electrocardiogram (Acute) HCAP (healthcare-associated pneumonia) (Acute) Community acquired bacterial pneumonia (Acute) Acute hypoxemic respiratory failure (Resolved) Acute respiratory insufficiency (Resolved) Chest pain (Resolved) Supratherapeutic INR (Resolved) Unstable angina (Resolved) RECOMMENDATIONS: 1. Continue BiPAP with naps and nightly. 2. Continue to wean prednisone. 3. Wean supplemental oxygen to maintain saturations at or above 88%. 4. Continue aggressive bronchopulmonary hygiene. 5. Continue bronchodilators. 6. Physical therapy to work with the patient. 7. Continue nintedanib. IMPRESSIONS: 1. Acute on chronic hypoxemic respiratory failure/personal history of idiopathic pulmonary fibrosis Likely secondary to underlying interstitial lung disease compounded by healthcare associated pneumonia. The patient has completed a full treatment course of antibiotics, despite negative cultures. Despite this, the patient continued to have a high supplemental oxygen demand. Given that we have attempted to address all potential reversible causes for the patient's ongoing hypoxemia, a repeat high-resolution chest CT was obtained. There did appear to be interval disease progression when compared to prior chest CT from April 2019. At this time, we will plan to continue current supportive measures including prednisone, bronchodilators and home nintedanib. Following a goals of care discussion with the patient and his family, the patient has elected to pursue home health services as opposed to hospice care. Disposition planning is currently underway. 2. Anemia/personal history of hematochromatosis Hemoglobin has slowly trended down since May 17 to a karthikeyan of 7.3 g/dL. Given the patient's history of coronary artery disease, the patient was transfused 2 units of packed red blood cells with subsequent improvement in his hemoglobin. Continue to monitor blood counts daily. There is no indication for additional transfusion of blood products at the current time. 3. Coronary artery disease Continue outpatient medication regimen. 4. History of venous thrombi embolic disease INR was initially supratherapeutic on presentation to the hospital. Coumadin has been on hold since that time with subsequent improvement in the patient's coagulopathy. Continue therapeutic dose Lovenox for now. 5. Hypertension/hyperlipidemia/obstructive sleep apnea/paroxysmal atrial fibrillation/obesity Complicates care, management, recovery and prognosis. Continue home medications as indicated. Physical therapy to work with the patient. This note was generated with [employer] dictation software. It may contain incorrect words, spelling, and punctuation that were not noted in checking the note before signing. Code Visit Inpatient E&M: 73122 Subs Hosp L2
--- NOTE | 2019-05-26 07:27 | PN_ITS ---
Patient Problems: Active and Suspected Problems (Last Reviewed 05/17/19 @ 03:55 by Tristan Clancy MD) Acute respiratory failure with hypoxia (Acute) Community acquired pneumonia, bilateral (Acute) Severe sepsis (Acute) Anticoagulated on Coumadin (Acute) Sinus tachycardia by electrocardiogram (Acute) HCAP (healthcare-associated pneumonia) (Acute) Community acquired bacterial pneumonia (Acute) Subjective: All events of the past 24 hours of been reviewed. Remains afebrile since 05/22/2019 at noon. Hemodynamically stable. Maintaining an oxygen saturation of 88 to 92% on 11 L high flow oxygen nasal cannula All lab was personally reviewed. White blood cell count today is 13.7 with 67% neutrophils. Hemoglobin is stable at 10.4 and platelets are within normal limits. BMP is remarkable for a BUN of 24 with creatinine of 0.81 which is stable. All culture data was reviewed. Blood cultures at admission had no growth. Legionella and streptococcal antigens in the urine were negative. Urine culture had no growth. Sputum culture had mixed normal respiratory leigh. Respiratory panel was negative. He is feeling less fatigued today. He tells me that the cleaning products being used to clean his room cause increased SOB and burning in his chest. Otherwise the chest pain is well controlled. He did get Biotene spray yesterday and it is helping with the dry mouth and the sore throat. Minimal cough. Up in the recliner when I visited him today. No N/V/D. He thinks the Buspar is helping with anxiety and he is sleeping better at night with Remeron. He did not ambulate yesterday due to extreme fatigue. He did participate in seated exercises with PT. - Physical Exam General: Alert, Oriented x3, Cooperative, No apparent distress, - - looks fatigued HEENT: Atraumatic, PERRLA, EOMI, Normocephalic Oral: Moist Mucosa, No Gingival or Mucosal Lesions/ Ulcerations Neck: Supple, No Nodes, Trachea Midline Lungs: Rales - throughout both lungs - unchanged. No wheezing. No conversational dyspnea. No accessory muscle use. Cardiovascular: Regular rate, Regular Rhythm, Normal S1, Normal S2, No murmurs, No Gallop, - - Telemetry shows normal sinus rhythm with sinus tachycardia with exertion and no significant atrial or ventricular ectopy. Abdomen: Bowel Sounds Present, Soft, Non Tender, Non-Distended Extremities: No cyanosis, No edema, No Calf Tenderness Skin: No rashes, No breakdown Neurological: Cranial nerves II-XII grossly intact, Neuro grossly intact Psych/Mental Status: Flat Affect - less anxious and no longer tearful when talking with me Vital Signs Temp Pulse Resp BP Pulse Ox 97.9 F 90 26 H 107/74 92 05/26/19 04:00 05/26/19 06:48 05/26/19 06:48 05/26/19 06:00 05/26/19 06:48 Oxygen Flow Rate (L/min) 11 Oxygen Delivery Method Nasal Cannula Weight: 192 lb 3.889 oz Body Mass Index (BMI) 32.1 Intake and Output for Last 24 Hours 05/24/19 05/25/19 05/26/19 23:59 23:59 23:59 Intake Total 1050 / 1170 1060 / 1060 120 / 120 Output Total 750 / 750 250 / 250 Balance 300 / 420 1060 / 1060 -130 / -130 Microbiology Past 72 Hours 05/23/19 09:50 Urine Culture - Final Urine, Catheterized Culture exhibits no growth. 05/24/19 07:45 Respiratory Panel (PCR) - Final Mucosa - Nose 05/23/19 20:40 Stool Occult Blood (ARYA) - Final Stool Occult Blood Positive Laboratory Tests Past 24 Hrs 05/26/19 05/26/19 05:10 05:10 WBC 13.7 H RBC 4.07 L Hgb 10.4 L Hct 34.7 L MCV 85.3 MCH 25.6 L MCHC 30.0 L RDW Std Deviation 62.8 H RDW Coeff of Rossy 20.2 H Plt Count 353 MPV 10.0 Immature Gran % (Auto) 2.100 H Neut % (Auto) 67.5 Lymph % (Auto) 20.9 [place] % (Auto) 5.3 Eos % (Auto) 3.9 Baso % (Auto) 0.3 Absolute Neuts (auto) 9.2 H Absolute Lymphs (auto) 2.86 Nucleated RBC % 0 Differential Comment SCANNED Anisocytosis 1+ Sodium 143 Potassium 3.7 Chloride 105 Carbon Dioxide 32.0 Anion Gap 6 BUN 24 H Creatinine 0.81 Estim Creat Clear Calc 73.30 Est GFR (MDRD) Af Amer 120 Est GFR (MDRD) Non-Af 99 BUN/Creatinine Ratio 29.6 H Glucose 94 Calcium 8.6 Medical Necessity - Tobacco Use Smoking Status: Former smoker Assessment/Plan All Active Problems (Last Reviewed 05/17/19 @ 03:55 by Tristan Clancy MD) Acute respiratory failure with hypoxia (Acute) Community acquired pneumonia, bilateral (Acute) Severe sepsis (Acute) Anticoagulated on Coumadin (Acute) Sinus tachycardia by electrocardiogram (Acute) HCAP (healthcare-associated pneumonia) (Acute) Community acquired bacterial pneumonia (Acute) Acute hypoxemic respiratory failure (Resolved) Acute respiratory insufficiency (Resolved) Chest pain (Resolved) Supratherapeutic INR (Resolved) Unstable angina (Resolved) 73 YO M with severe IPF and also with CAD with recent stents at [facility] admitted on 05/17 to the hospital with CAP and intubated. Had 7 days Levaquin. Extubated 05/21. Oxygen requirements have increased and he is now requiring high flow oxygen at 10-15 LPM. Weaning steroids. Possible DC 05/27 IF the arrangements for the hospital bed, high flow oxygen, BSC, FWW and shower bench are in place. Wants to remain a full code. Started on Buspar and Remeron for anxiety/depression and thes should be continued at DC because they are helping. Impressions 1. Severe sepsis with acute on chronic respiratory failure with hypoxemia secondary to HCAP - resolved. Finished 7 days of Levaquin. 2. HCAP - all cultures are negative but, he had 2 days of Levaquin prior to admission. finished 7 days of Levaquin. High-resolution CT scan of the chest on 05/23/19 continues to show diffuse ground glass areas in both lungs and interval worsening of the IPF since early April 3. acute on chronic respiratory failure with hypoxemia -extubated 05/21/2019. Requiring high flow oxygen at 10-11 LPM at rest and 15 LPM with any exertion. will need high flow O2 at home. 4. ARF - due to sepsis and dehydration, resolved 5. acute on chronic anemia - INR was supratherapeutic and he had hemoptysis and epistaxis. Known hx of hemochromatosis and ferritin in April was 9 with a HGB of 10. His last phlebotomy was approximately 1 month ago. He was transfused with 2 units of PRBC's this admission and the HGB is stable in the 10-10.8 range. He has heme positive stools. Ofev can cause GI blood loss and he is on chronic anticoagulation as well. He is currently on Lovenox 90 mg BID and the HGB is stable. Restart the Warfarin today and continue the Lovenox until the INR is > 2.0 6. CAD with 2 stents at [facility] 2 weeks prior to admission. Has had 2 stents in the past after a 1 vessel bypass in the . 7. 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 Hyperkalemia-resolved 9. Hemochromatosis - ferritin is low at 9 recently. Will give a dose of iron sucrose today 9. Hyperglycemia due to sepsis/stress and TF's - not requiring any insulin coverage 10. HLD - not adequately controlled in April with a LDL of 120. Does not tolerate statins due to joint and muscle pain. 11. HTN - well controlled. continue the current drug regimen 12. AFLRED - on CPAP at home and BIPAP in the hospital.......will need BIPAP at home. 13. PAF - in SR since admission 14. chronic anticoagulation with warfarin - supratherapeutic at admission, possibly due to the addition of Levaquin to his drug regimen. Tolerating full dose Lovenox with no significant change in the HGB so will restart coumad today. 15. chronic steroid use -recently has undergone a steroid taper. Currently weaning steroids off. 16. obesity 17. Interstitial pulmonary fibrosis - continue OFEV. The high resolution CT scan done this admission shows interval progression of the IPF since the last CT on 04/06/2017. 18. Increasing anxiety/depression with realization that the disease is progressing rather quickly now and he is not a candidate for transplant. Knows this is terminal and there is nothing else we can do at this time to make him better. Started on Buspar for anxiety and he is tolerating with no GI distress and he thinks it is helping. Also started Remeron at HS and he is tolerating this as well and sleeping better. 19. Hemoccult positive stool - with a stable HGB after 2 units of PRBC's The plan at [place] will be to go home with [facility]. Has spoken with hospice and he is n ot ready at this time. DC planning is arranging for high flow oxygen, hospital bed, BSC and a shower bench and FWW. He will follow up with Dr. Miller in the pulmonary clinic rather than Dr. Anaya. He will continue to follow up with Dr. Almonte and with Dr. Salazar. Possible DC in the AM. Code Visit Inpatient E&M: 02288 Subs Hosp L2
[2019-05-26] MEDS: Aspirin 81 MG TAB.CHEW PO (08:04)
[2019-05-26] MEDS: predniSONE 20 MG Tablet PO (08:04)
[2019-05-26] MEDS: Enoxaparin 100 MG/ML Syringe 90 MG SC ×2 (09:09→21:02)
[2019-05-26] MEDS: Pantoprazole Sodium 40 MG Tablet PO (09:09)
[2019-05-26] MEDS: Clopidogrel Bisulfate 75 MG Tablet PO (09:09)
[2019-05-26] MEDS: NINTEDANIB ESYLATE 100 MG CAPSULE PO ×2 (09:11→21:02)
[2019-05-26 10:08] LABS: International Normalized Ratio 1.1; Prothrombin Time (Protime)PT. 14.1 SECONDS (11.7-14.9)
[2019-05-26] MEDS: Mirtazapine 15 MG Tablet PO (21:02)
[2019-05-27] VITALS (33 sets, daily range): BP systolic 93–142; BP diastolic 48–77; PULSE 74–92; RESP 12–41; TEMP 36.5–36.6; O2SAT 85–99
[2019-05-27] MEDS: Ipratropium/Albuterol Sulfate 3 ML AMPUL.NEB INHALATION ×4 (01:37→18:45)
[2019-05-27 04:49] LABS: Hemoglobin 10.2 g/dL (13.0-16.5)
[2019-05-27 05:08] LABS: International Normalized Ratio 1.3; Prothrombin Time (Protime)PT. 15.5 SECONDS (11.7-14.9)
[2019-05-27] MEDS: busPIRone 5 MG Tablet PO ×3 (05:11→21:39)
--- NOTE | 2019-05-27 07:06 | PN_ITS ---
Subjective: Patient did okay overnight. Patient did have some coughing episodes overnight with desaturation, but these have improved this morning. Still requiring 10 to 11 L to maintain appropriate saturations. Patient denies any chest pain, nausea or vomiting. Patient did report some concerns that DME supplies will need to be at home before he is discharged. General: Alert, Oriented x3, Cooperative, No apparent distress, - - No conversational dyspnea. HEENT: Atraumatic, PERRLA, EOMI, Normocephalic, - - No scleral icterus or injection noted. Oral: Moist Mucosa, No Gingival or Mucosal Lesions/ Ulcerations Neck: Supple, No JVD, No Nodes, Trachea Midline Lungs: No rhonchi, No wheeze, Diminished, Rales, - - Symmetric expansion. No dullness to percussion. Cardiovascular: Regular rate, Regular Rhythm, Normal S1, Normal S2, Murmur, No rub noted, No Gallop Abdomen: Bowel Sounds Present, Soft, Non Tender, Non-Distended Extremities: No clubbing, No cyanosis, No edema Skin: No rashes, No breakdown Musculoskeletal: No Tenderness to Palpation of Joints or Extremities Lymphatic: No Cervical, Supraclavicular, or Inguinal Adenopathy Neurological: Cranial nerves II-XII grossly intact, Neuro grossly intact, Motor Exam 5/5 strength throughout Psych/Mental Status: Alert and oriented to time, place, person, mood and affect Vital Signs Temp Pulse Resp BP Pulse Ox 36.6 C 76 31 H 114/69 95 05/27/19 04:00 05/27/19 06:00 05/27/19 06:00 05/27/19 06:00 05/27/19 06:00 Oxygen Flow Rate (L/min) 11 Oxygen Delivery Method Nasal Cannula Weight: 87.2 kg Body Mass Index (BMI) 32.1 Intake and Output for Last 24 Hours 05/25/19 05/26/19 05/27/19 23:59 23:59 23:59 Intake Total 1060 / 1060 890 / 1010 240 / 240 Output Total 250 / 250 Balance 1060 / 1060 640 / 760 240 / 240 Labs (Last 48 Hours) 05/26/19 05/26/19 05/26/19 05:10 05:10 09:50 WBC 13.7 H RBC 4.07 L Hgb 10.4 L Hct 34.7 L MCV 85.3 MCH 25.6 L MCHC 30.0 L RDW Std Deviation 62.8 H RDW Coeff of Rossy 20.2 H Plt Count 353 MPV 10.0 Immature Gran % (Auto) 2.100 H Neut % (Auto) 67.5 Lymph % (Auto) 20.9 [place] % (Auto) 5.3 Eos % (Auto) 3.9 Baso % (Auto) 0.3 Absolute Neuts (auto) 9.2 H Absolute Lymphs (auto) 2.86 Nucleated RBC % 0 Differential Comment SCANNED Anisocytosis 1+ PT 14.1 INR 1.1 Sodium 143 Potassium 3.7 Chloride 105 Carbon Dioxide 32.0 Anion Gap 6 BUN 24 H Creatinine 0.81 Estim Creat Clear Calc 73.30 Est GFR (MDRD) Af Amer 120 Est GFR (MDRD) Non-Af 99 BUN/Creatinine Ratio 29.6 H Glucose 94 Calcium 8.6 05/27/19 05/27/19 04:30 04:30 WBC RBC Hgb 10.2 L Hct 34.0 L MCV MCH MCHC RDW Std Deviation RDW Coeff of Rossy Plt Count MPV Immature Gran % (Auto) Neut % (Auto) Lymph % (Auto) [place] % (Auto) Eos % (Auto) Baso % (Auto) Absolute Neuts (auto) Absolute Lymphs (auto) Nucleated RBC % Differential Comment Anisocytosis PT 15.5 H INR 1.3 Sodium Potassium Chloride Carbon Dioxide Anion Gap BUN Creatinine Estim Creat Clear Calc Est GFR (MDRD) Af Amer Est GFR (MDRD) Non-Af BUN/Creatinine Ratio Glucose Calcium Microbiology 05/23/19 09:50 Urine, Catheterized Urine Culture - Final Culture exhibits no growth. Medical Necessity - Tobacco Use Smoking Status: Former smoker Assessment/Plan All Active Problems (Last Reviewed 05/17/19 @ 03:55 by Tristan Clancy MD) Acute respiratory failure with hypoxia (Acute) Community acquired pneumonia, bilateral (Acute) Severe sepsis (Acute) Anticoagulated on Coumadin (Acute) Sinus tachycardia by electrocardiogram (Acute) HCAP (healthcare-associated pneumonia) (Acute) Community acquired bacterial pneumonia (Acute) Acute hypoxemic respiratory failure (Resolved) Acute respiratory insufficiency (Resolved) Chest pain (Resolved) Supratherapeutic INR (Resolved) Unstable angina (Resolved) RECOMMENDATIONS: 1. Continue BiPAP with naps and nightly. 2. Continue to wean prednisone per described regimen. 3. Wean supplemental oxygen to maintain saturations at or above 88%. 4. Continue aggressive bronchopulmonary hygiene. 5. Continue bronchodilators. 6. Physical therapy to work with the patient. 7. Continue nintedanib. 8. Discussed with case management/social work on discharge needs IMPRESSIONS: 1. Acute on chronic hypoxemic respiratory failure/personal history of idiopathic pulmonary fibrosis Likely secondary to underlying interstitial lung disease compounded by healthcare associated pneumonia. The patient has completed a full treatment course of antibiotics, despite negative cultures. Despite this, the patient continued to have a high supplemental oxygen demand. At this time, we will plan to continue current supportive measures including prednisone, bronchodilators and home nintedanib. Following a goals of care discussion with the patient and his family, the patient has elected to pursue home health services as opposed to hospice care. Will discuss with case management/social work that services are available at home prior to discharge. Anticipate patient will stay in the intensive care unit until discharge given FiO2 requirements. 2. Anemia/personal history of hematochromatosis Hemoglobin has slowly trended down since May 17 to a karthikeyan of 7.3 g/dL. Given the patient's history of coronary artery disease, the patient was transfused 2 units of packed red blood cells with subsequent improvement in his hemoglobin. Continue to monitor blood counts daily. There is no indication for additional transfusion of blood products at the current time. 3. Coronary artery disease Continue outpatient medication regimen. 4. History of venous thrombi embolic disease INR was initially supratherapeutic on presentation to the hospital. Coumadin has been on hold since that time with subsequent improvement in the patient's coagulopathy. Continue therapeutic dose Lovenox for now. 5. Hypertension/hyperlipidemia/obstructive sleep apnea/paroxysmal atrial fibrillation/obesity Complicates care, management, recovery and prognosis. Continue home medications as indicated. Physical therapy to work with the patient. Code Visit Inpatient E&M: 82048 Subs Hosp L2
--- NOTE | 2019-05-27 07:28 | PCM.PN.HOSP ---
Patient Problems: Active and Suspected Problems (Last Reviewed 05/17/19 @ 03:55 by Tristan Clancy MD) Acute respiratory failure with hypoxia (Acute) Community acquired pneumonia, bilateral (Acute) Severe sepsis (Acute) Anticoagulated on Coumadin (Acute) Sinus tachycardia by electrocardiogram (Acute) HCAP (healthcare-associated pneumonia) (Acute) Community acquired bacterial pneumonia (Acute) Subjective: Patient was seen and examined. He feels improved. No acute events overnight. On 11L oxygen. Denies worsening SOB. Oxygen saturations are in the low 80s. Vitals/I&O's: Vital Signs Temp Pulse Resp BP Pulse Ox 97.9 F 76 13 114/69 96 05/27/19 04:00 05/27/19 07:11 05/27/19 07:11 05/27/19 06:00 05/27/19 07:11 Oxygen Flow Rate (L/min) 11 Oxygen Delivery Method Nasal Cannula Weight: 87.2 kg Body Mass Index (BMI) 32.1 Intake and Output for Last 24 Hours 05/25/19 05/26/19 05/27/19 23:59 23:59 23:59 Intake Total 1060 / 1060 890 / 1010 240 / 240 Output Total 250 / 250 Balance 1060 / 1060 640 / 760 240 / 240 General: Alert, Oriented x3, Cooperative, No apparent distress, - - on 11L high flow oxygen, appears comfortable HEENT: Atraumatic, PERRLA, EOMI, Normocephalic Oral: Moist Mucosa Neck: Supple Lungs: No wheeze, No rales, Diminished Cardiovascular: Regular rate, Regular Rhythm, Normal S1, Normal S2, Murmur - 2/6 holosystolic murmur heard at the left sternal border Abdomen: Bowel Sounds Present, Soft, Non Tender, Non-Distended, No Hepato-splenomegaly Extremities: No edema Skin: No rashes Musculoskeletal: No Tenderness to Palpation of Joints or Extremities Lymphatic: No Cervical, Supraclavicular, or Inguinal Adenopathy Neurological: Cranial nerves II-XII grossly intact, Neuro grossly intact Psych/Mental Status: Normal Affect, Appropriate Microbiology Past 72 Hours 05/23/19 09:50 Urine, Catheterized Urine Culture - Final Culture exhibits no growth. 05/24/19 07:45 Mucosa - Nose Respiratory Panel (PCR) - Final Laboratory Results 05/26/19 09:50: PT 14.1, INR 1.1 05/27/19 04:30: Hgb 10.2 L, Hct 34.0 L 05/27/19 04:30: PT 15.5 H, INR 1.3 Current Medications Acetaminophen (Tylenol) 650 mg PO Q6H PRN PRN PRN Reason: Mild Pain (1-3)/Temp > 100.7 F Albuterol Sulfate (Ventolin Aerosols) 2.5 mg INHALATION Q2H PRN PRN PRN Reason: SOB/Wheezing Last Admin: 05/22/19 05:22 Dose: 2.5 mg Documented by: Albuterol/Ipratropium (Duoneb) 3 ml INHALATION Q6H.RT ON LICENSE OF [facility] Last Admin: 05/27/19 07:11 Dose: 3 ml Documented by: Aspirin (Aspirin, Baby) 81 mg PO DAILY@0800 ON LICENSE OF [facility] Last Admin: 05/26/19 08:04 Dose: 81 mg Documented by: Bisacodyl (Dulcolax) 5 mg PO DAILY PRN PRN Reason: CONSTIPATION Buspirone HCl (Buspar) 5 mg PO TID ON LICENSE OF [facility] Last Admin: 05/27/19 05:11 Dose: 5 mg Documented by: Clopidogrel Bisulfate (Plavix) 75 mg PO DAILY ON LICENSE OF [facility] Last Admin: 05/26/19 09:09 Dose: 75 mg Documented by: Enoxaparin Sodium (Lovenox) 90 mg SC BID ON LICENSE OF [facility] Last Admin: 05/26/19 21:02 Dose: 90 mg Documented by: Sodium Chloride () 250 mls @ 15 mls/hr IV .[id number] PRN PRN Reason: SALINE FLUSH Last Infusion: 05/21/19 22:49 Dose: Infused Documented by: Mirtazapine (Remeron) 15 mg PO QHS ON LICENSE OF [facility] Last Admin: 05/26/19 21:02 Dose: 15 mg Documented by: Nutritional Formula (Lactose Free) (Ensure Enlive) 120 ml PO 4X/DAY ON LICENSE OF [facility] Last Admin: 05/26/19 21:02 Dose: 120 ml Documented by: Ondansetron HCl (Zofran) 4 mg IV Q8H PRN PRN PRN Reason: NAUSEA/VOMITING Pantoprazole Sodium (Protonix) 40 mg PO DAILY ON LICENSE OF [facility] Last Admin: 05/26/19 09:09 Dose: 40 mg Documented by: Polyethylene Glycol (Miralax) 17 gm PO DAILY PRN PRN Reason: CONSTIPATION Prednisone () 20 mg PO DAILY@0800 ON LICENSE OF [facility] Last Admin: 05/26/19 08:04 Dose: 20 mg Documented by: Senna/Docusate Sodium (Senokot-S, Margo-Colace) 2 tablet PO BID PRN PRN Reason: CONSTIPATION Sodium Chloride () 10 - 40 ml IV UD PRN PRN Reason: SALINE FLUSH Last Admin: 05/26/19 05:11 Dose: 20 ml Documented by: Throat Lozenges (Cepacol Sore Throat Lozenge) 2 lozenge MUCOUS MEM Q2H PRN PRN PRN Reason: SORE THROAT Last Admin: 05/25/19 08:05 Dose: 2 lozenge Documented by: Tramadol HCl (Ultram) 50 mg PO Q6H PRN PRN PRN Reason: MODERATE PAIN (4-5/10) Last Admin: 05/23/19 08:03 Dose: 50 mg Documented by: Warfarin Sodium (Coumadin (Pbkc)) 7.5 mg PO DAILY@1700 ON LICENSE OF [facility] Medical Necessity - Tobacco Use Smoking Status: Former smoker Assessment/Plan All Active Problems (Last Reviewed 05/17/19 @ 03:55 by Tristan Clancy MD) Acute respiratory failure with hypoxia (Acute) Community acquired pneumonia, bilateral (Acute) Severe sepsis (Acute) Anticoagulated on Coumadin (Acute) Sinus tachycardia by electrocardiogram (Acute) HCAP (healthcare-associated pneumonia) (Acute) Community acquired bacterial pneumonia (Acute) Acute hypoxemic respiratory failure (Resolved) Acute respiratory insufficiency (Resolved) Chest pain (Resolved) Supratherapeutic INR (Resolved) Unstable angina (Resolved) 73-year-old male with past medical history of severe IPF, history of CAD status post stents, admitted on 05/17/19 with progressive shortness of breath and was subsequently intubated. Patient has completed antibiotics course in the hospital. He was extubated on 05/21/19. Patient remains on 11 L of oxygen. He declined hospice. The plan ,as discussed with family, is discharge with [facility] with hospital bed, high flow oxygen etc. 1. Acute on chronic hypoxic respiratory failure, and history of interstitial pulmonary fibrosis remains on 11 L of oxygen, completed treatment for pneumonia, Discussed with case management, patient's high flow oxygen and other equipment may not be ready to be delivered to his house today. We will continue to monitor until all equipment already at home for discharge. 2. Severe sepsis secondary to pneumonia, (recently had stents placed in another facility), improved Completed antibiotics, will continue to monitor 3. Streptococcus not pneumoniae Pneumonia, ?Hospital acquired, (recently had stents placed in another facility), completed treatment 4. VAN, pre-renal, secondary to sepsis/dehydration, resolved 5. H/o VTE, on lifelong anticoagulation, s/p IVC filter, on therapeutic lovenox and warfarin, INR is subtherapeutic at 1.3 Will continue on Lovenox and warfarin, INR in am 6. CAD s/p 2 stents at [facility] 2 weeks prior to admission, on aspirin and plavix 7. Hemoccult stools, in a patient on aspirin, Plavix, Lovenox, Coumadin, He is at risk for bleeding, needs the current meds to prevent adverse effects from possible in-stent stenosis and acute VTE Stable hemoglobin, continue on PPI daily, labs in am 8. Hemochromatosis/hypertension/hyperlipidemia/ALFRED/PAF/obesity/ 9. Chronic steroid use, undergoing tapering off 10. DVT PPx-on therapeutic Lovenox, Coumadin 11. Disposition: Pending arrangements for safe discharge home with [facility] Code Visit Inpatient E&M: 49113 Subs Hosp L3
[2019-05-27] MEDS: Aspirin 81 MG TAB.CHEW PO (08:39)
[2019-05-27] MEDS: Enoxaparin 100 MG/ML Syringe 90 MG SC ×2 (08:40→21:39)
[2019-05-27] MEDS: Pantoprazole Sodium 40 MG Tablet PO (08:40)
[2019-05-27] MEDS: Clopidogrel Bisulfate 75 MG Tablet PO (08:40)
[2019-05-27] MEDS: predniSONE 20 MG Tablet PO (08:41)
[2019-05-27] MEDS: NINTEDANIB ESYLATE 100 MG CAPSULE PO ×2 (08:43→21:40)
--- NOTE | 2019-05-27 09:53 | CASEMGMT ---
KARINE HOLLINS Note: Call to [facility], equipment is ready to be delivered, however pt may not dc today. [facility] ordered a concentrator for high flow oxygen on Monday, it is being delivered but they do not anticipate delivery today. Meka @ [facility] said they are calling other [facility] suppliers to see if one would be available sooner and will let CM know. KARINE HOLLINS let Meka know that oxygen will need to be delivered prior to dc as pt will likely need ambulance for dc home and oxygen will need to be available immediately. Per Meka, they will help coordinate timing to be sure O2 is @ home. -Per Meka, portability can go to 15L but there are safety concerns as tanks would not last long (E tank only lasts 2 hours with 6L continuous use) - Pt and updated re: above. They are agreeable to ambulance ride home ([facility]). -Home oxygen testing to be completed within 24 hours of dc. Oxygen set up in Home needs to be complete prior to discharge. Rishabh MACARION RN ACM
--- NOTE | 2019-05-27 11:30 | CASEMGMT ---
Addendum entered by Jeremy Travis 05/27/19 13:26: KARINE HOLLINS spoke with Meka from [facility]. They are requesting Oxygen script today. KARINE HOLLINS let KARINE Sandoval know to complete Home oxygen testing and KARINE HOLLINS will contact Dr. Jarvis to complete script. Luca PETERSON Original Note: Call to Mkea @ [facility] re: equipment will not be arranged for today as they may not have oxygen concentrator for home today. Spoke with Dr. Ulloa re: possible transfer to floor. Pt is PCU status, no transfer from ICU planned at this time. Meka from [facility] to contact CM with any new information re: home O2 set up. Luca PETERSON
--- NOTE | 2019-05-27 14:53 | CASEMGMT ---
KARINE CM Note: Script for Home oxygen 10-15L faxed to [facility] with supporting documentation. Rishabh WALSH RN ACM
[2019-05-27] MEDS: Mirtazapine 15 MG Tablet PO (21:39)
[2019-05-28] VITALS (37 sets, daily range): BP systolic 87–129; BP diastolic 48–78; PULSE 71–96; RESP 12–94; TEMP 36.4–36.9; O2SAT 88–96
[2019-05-28] MEDS: Ipratropium/Albuterol Sulfate 3 ML AMPUL.NEB INHALATION ×4 (00:50→18:39)
[2019-05-28 04:50] LABS: Absolute Lymphocyte Count 3.03 X10^3/uL (0.83-4.51); Absolute Neutrophil Count 10.9 X10^3/uL (2.0-7.7); Albumin, Serum 2.4 g/dL (3.2-5.0); BUN 21 mg/dL (7-18); BUN/Creat Ratio 22.7 RATIO (10-20); Basophil# 0.06 X10^3/uL; Basophil% 0.4 % (0-1); Calcium,Total 8.7 mg/dL (8.5-10.1); Chloride 105 mmol/L (98-107); Creatinine, Serum 0.93 mg/dL (0.70-1.30); EST Glomerular Filtration Rate 85 mL/min (>60); Eosinophil# 0.41 X10^3/uL; Eosinophils% 2.6 % (0-5); Est Glom Filt Rate - Afr Amer 103 mL/min (>60); Estimated Creatinine Clearance 63.84 ml/min; Glucose 104 mg/dL (74-106); Hematocrit 33.6 % (40-54); Hemoglobin 10.1 g/dL (13.0-16.5); Lymphocyte # 3.03 X10^3/ul (4.0); Lymphocyte % 19.5 % (19-41); Mean Corp Hgb Conc 30.1 g/dL (32-36); Mean Corpuscular Volume 86.4 fL (80-94); Mean Platelet Vol. 10.1 fl (6.2-12.0); Monocyte# 0.79 X10^3/uL; Monocyte% 5.1 % (0-10); NRBC Flagged by Analyzer 0.3 % (0-5); Neutrophil # 10.87 X10^3/uL (2.7-7.7); POSITIVE MORPHOLOGY YES; Phosphorus 2.9 mg/dL (2.5-4.9); Platelet Count 364 K/mm3 (150-450); Potassium 3.6 mmol/L (3.5-5.1); RBC Distribution Width CV 20.9 % (11.6-14.6); RBC Distribution Width SD 63.7 fl (35.1-43.9); Red Blood Count 3.89 M/mm3 (4.6-6.2); Sodium Level 144 mmol/L (136-145); White Blood Count 15.5 K/mm3 (4.4-11.0)
[2019-05-28 04:53] LABS: International Normalized Ratio 1.2; Prothrombin Time (Protime)PT. 15.4 SECONDS (11.7-14.9)
[2019-05-28 04:57] LABS: Differential Indicated SCAN CRITERIA MET
[2019-05-28] MEDS: busPIRone 5 MG Tablet PO ×3 (05:53→20:56)
--- NOTE | 2019-05-28 06:33 | PCM.PN.INT ---
Subjective: The patient was seen and examined at the bedside this morning. Events from the last 24 hours have been reviewed. The patient is currently afebrile, hemodynamically stable and maintaining appropriate oxygen saturations on 10 L/min high flow nasal cannula. The patient is still awaiting arrangements to be made for his DME equipment. Tentatively, it appears that his equipment will likely be ready on . Objective: The patient's most recent lab work, culture data and imaging studies have all been personally reviewed. Surface echocardiogram revealed evidence of stage I diastolic dysfunction with an ejection fraction of 65%. The RV was mildly dilated with normal systolic function. Right ventricular systolic pressure was estimated to be 42 mmHg. Strep and urine Legionella antigens were both negative. Blood, urine and sputum cultures have not shown any growth to date. Repeat sputum Gram stain and culture, dated May 20, is not currently showing any growth. Respiratory viral panel was negative. General: Alert, Cooperative, No apparent distress HEENT: Atraumatic, PERRLA, Normocephalic Oral: Moist Mucosa, No Gingival or Mucosal Lesions/ Ulcerations Neck: Supple, No Nodes, Trachea Midline Lungs: Diminished, Rales Cardiovascular: Regular rate, Regular Rhythm, Normal S1, Normal S2, Murmur Abdomen: Bowel Sounds Present, Soft, Non Tender Extremities: No clubbing, No cyanosis, No edema Skin: No breakdown Musculoskeletal: No Tenderness to Palpation of Joints or Extremities Lymphatic: No Cervical, Supraclavicular, or Inguinal Adenopathy Neurological: Cranial nerves II-XII grossly intact, Neuro grossly intact Psych/Mental Status: Normal Affect, Appropriate Vital Signs Temp Pulse Resp BP Pulse Ox 97.6 F L 74 30 H 104/62 93 05/28/19 01:22 05/28/19 06:00 05/28/19 06:00 05/28/19 06:00 05/28/19 06:00 Oxygen Flow Rate (L/min) 10 Oxygen Delivery Method Nasal Cannula Weight: 192 lb 3.889 oz Body Mass Index (BMI) 32.1 Intake and Output for Last 24 Hours 05/26/19 05/27/19 05/28/19 23:59 23:59 23:59 Intake Total 890 / 1010 960 / 960 200 / 200 Output Total 250 / 250 200 / 200 Balance 640 / 760 760 / 760 200 / 200 Labs (Last 48 Hours) 05/26/19 05/27/19 05/27/19 09:50 04:30 04:30 WBC RBC Hgb 10.2 L Hct 34.0 L MCV MCH MCHC RDW Std Deviation RDW Coeff of Rossy Plt Count MPV Immature Gran % (Auto) Neut % (Auto) Lymph % (Auto) [place] % (Auto) Eos % (Auto) Baso % (Auto) Absolute Neuts (auto) Absolute Lymphs (auto) Nucleated RBC % PT 14.1 15.5 H INR 1.1 1.3 Sodium Potassium Chloride Carbon Dioxide BUN Creatinine Estim Creat Clear Calc Est GFR (MDRD) Af Amer Est GFR (MDRD) Non-Af BUN/Creatinine Ratio Glucose Calcium Phosphorus Albumin 05/28/19 05/28/19 05/28/19 04:25 04:25 04:25 WBC 15.5 H RBC 3.89 L Hgb 10.1 L Hct 33.6 L MCV 86.4 MCH 26.0 L MCHC 30.1 L RDW Std Deviation 63.7 H RDW Coeff of Rossy 20.9 H Plt Count 364 MPV 10.1 Immature Gran % (Auto) 2.400 H Neut % (Auto) 70.0 Lymph % (Auto) 19.5 [place] % (Auto) 5.1 Eos % (Auto) 2.6 Baso % (Auto) 0.4 Absolute Neuts (auto) 10.9 H Absolute Lymphs (auto) 3.03 Nucleated RBC % 0.3 PT 15.4 H INR 1.2 Sodium 144 Potassium 3.6 Chloride 105 Carbon Dioxide 32.0 BUN 21 H Creatinine 0.93 Estim Creat Clear Calc 63.84 Est GFR (MDRD) Af Amer 103 Est GFR (MDRD) Non-Af 85 BUN/Creatinine Ratio 22.7 H Glucose 104 Calcium 8.7 Phosphorus 2.9 Albumin 2.4 L Clinical Impression(s) from Imaging Studies Brain CT 05/17/19 00:23 IMPRESSION: No acute intracranial pathology. Chronic changes as discussed similar to prior study Individualized dose optimization techniques were used for this CT. at 0122 Reported and signed by: Marina Castillo DO Electronically Signed: Marina Castillo DO at 1:21 EDT Tel , Service support , Chest X-Ray 05/17/19 00:45 IMPRESSION: Bilateral pulmonary infiltrates. These have increased in the lung apices when compared to the prior study at 0118 Reported and signed by: Marina Castillo DO Electronically Signed: Marina Castillo DO at 1:17 EDT Tel , Service support , Chest X-Ray 05/17/19 13:56 IMPRESSION: Stable bilateral patchy airspace disease. The tip of the endotracheal tube is at 3.9 cm proximal to the marly. The tip of the orogastric tube is within the fundal portion of the stomach. Electronically Signed: Raphael Roman, at 14:37 EDT , Service support , Chest X-Ray 05/18/19 05:00 IMPRESSION: Left PICC line tip in right atrium without pneumothorax. Stable diffuse alveolar disease. Electronically Signed: Gerson Porter MD at 5:21 EDT Tel , Service support , Chest X-Ray 05/18/19 09:28 IMPRESSION: Endotracheal tube in satisfactory position. Left-sided PICC line tip in the atriocaval junction/right atrium. NG tube in satisfactory position. Diffuse infiltrates consider diffuse pulmonary edema and/or pneumonia. Status post sternotomy. Electronically Signed: Marina Manning MD at 10:23 EDT Tel , Service support , Chest X-Ray 05/21/19 07:32 IMPRESSION: Lines and tubes in unchanged position Mild CHF/fluid overload with trace effusions Airspace disease presumed edema Cardiomegaly Electronically Signed: Scot Fredrick, DO at 8:04 EDT Tel , Service support , Chest CT 05/23/19 09:23 IMPRESSION: Progressive appearance of the groundglass appearance/airspace disease in both lungs superimposed on chronic interstitial fibrosis in the lower lobes with underlying bronchiectasis and subpleural blebs. Electronically Signed: Raphael Finneydavide, at 11:36 EDT , Service support , Medical Necessity - Tobacco Use Smoking Status: Former smoker Assessment/Plan All Active Problems (Last Reviewed 05/17/19 @ 03:55 by Tristan Clancy MD) Acute respiratory failure with hypoxia (Acute) Community acquired pneumonia, bilateral (Acute) Severe sepsis (Acute) Anticoagulated on Coumadin (Acute) Sinus tachycardia by electrocardiogram (Acute) HCAP (healthcare-associated pneumonia) (Acute) Community acquired bacterial pneumonia (Acute) Acute hypoxemic respiratory failure (Resolved) Acute respiratory insufficiency (Resolved) Chest pain (Resolved) Supratherapeutic INR (Resolved) Unstable angina (Resolved) RECOMMENDATIONS: 1. Continue BiPAP with naps and nightly. 2. Continue to wean prednisone. 3. Wean supplemental oxygen to maintain saturations at or above 88%. 4. Continue aggressive bronchopulmonary hygiene. 5. Continue bronchodilators. 6. Physical therapy to work with the patient. 7. Continue nintedanib. IMPRESSIONS: 1. Acute on chronic hypoxemic respiratory failure/personal history of idiopathic pulmonary fibrosis Likely secondary to underlying interstitial lung disease compounded by healthcare associated pneumonia. The patient has completed a full treatment course of antibiotics, despite negative cultures. Despite this, the patient continued to have a high supplemental oxygen demand. Given that we have attempted to address all potential reversible causes for the patient's ongoing hypoxemia, a repeat high-resolution chest CT was obtained. There did appear to be interval disease progression when compared to prior chest CT from April 2019. At this time, we will plan to continue current supportive measures including prednisone, bronchodilators and home nintedanib. Following a goals of care discussion with the patient and his family, the patient has elected to pursue home health services as opposed to hospice care. Disposition planning is currently underway. 2. Anemia/personal history of hematochromatosis Hemoglobin has slowly trended down since May 17 to a karthikeyan of 7.3 g/dL. Given the patient's history of coronary artery disease, the patient was transfused 2 units of packed red blood cells with subsequent improvement in his hemoglobin. Continue to monitor blood counts daily. There is no indication for additional transfusion of blood products at the current time. 3. Coronary artery disease Continue outpatient medication regimen. 4. History of venous thrombi embolic disease INR was initially supratherapeutic on presentation to the hospital. Coumadin has been on hold since that time with subsequent improvement in the patient's coagulopathy. Continue therapeutic dose Lovenox for now. 5. Hypertension/hyperlipidemia/obstructive sleep apnea/paroxysmal atrial fibrillation/obesity Complicates care, management, recovery and prognosis. Continue home medications as indicated. Physical therapy to work with the patient. This note was generated with dotCloud dictation software. It may contain incorrect words, spelling, and punctuation that were not noted in checking the note before signing. Code Visit Inpatient E&M: 41370 Subs Hosp L2
[2019-05-28 06:41] LABS: Differential Comment SCANNED; Macrocytosis 1+; Microcytosis 2+
--- NOTE | 2019-05-28 07:18 | PN_ITS ---
Patient Problems: Active and Suspected Problems (Last Reviewed 05/17/19 @ 03:55 by Tristan Clancy MD) Acute respiratory failure with hypoxia (Acute) Community acquired pneumonia, bilateral (Acute) Severe sepsis (Acute) Anticoagulated on Coumadin (Acute) Sinus tachycardia by electrocardiogram (Acute) HCAP (healthcare-associated pneumonia) (Acute) Community acquired bacterial pneumonia (Acute) Subjective: Patient was seen and examined. No acute events overnight. Remains on 8-10 L of oxygen. Oxygen can be conveniently arranged to be delivered at home on . No fever or chills. Patient desaturates very easily. Objective: Physical exam: General: Alert, Oriented x3, Cooperative, No apparent distress, - - on 11L high flow oxygen, appears comfortable HEENT: Atraumatic, PERRLA, EOMI, Normocephalic Oral: Moist Mucosa Neck: Supple Lungs: No wheeze, No rales, Diminished Cardiovascular: Regular rate, Regular Rhythm, Normal S1, Normal S2, Murmur - 2/6 holosystolic murmur heard at the left sternal border Abdomen: Bowel Sounds Present, Soft, Non Tender, Non-Distended, No Hepato- splenomegaly Extremities: No edema Skin: No rashes Musculoskeletal: No Tenderness to Palpation of Joints or Extremities Lymphatic: No Cervical, Supraclavicular, or Inguinal Adenopathy Neurological: Cranial nerves II-XII grossly intact, Neuro grossly intact Psych/Mental Status: Normal Affect, Appropriate Vitals/I&O's: Vital Signs Temp Pulse Resp BP Pulse Ox 97.6 F L 77 26 H 109/61 89 05/28/19 01:22 05/28/19 07:00 05/28/19 07:00 05/28/19 07:00 05/28/19 07:00 Oxygen Flow Rate (L/min) 10 Oxygen Delivery Method Nasal Cannula Weight: 87.2 kg Body Mass Index (BMI) 32.1 Intake and Output for Last 24 Hours 05/26/19 05/27/19 05/28/19 23:59 23:59 23:59 Intake Total 890 / 1010 960 / 960 200 / 200 Output Total 250 / 250 200 / 200 Balance 640 / 760 760 / 760 200 / 200 Microbiology Past 72 Hours 05/23/19 09:50 Urine, Catheterized Urine Culture - Final Culture exhibits no growth. Laboratory Results 05/28/19 04:25: PT 15.4 H, INR 1.2 05/28/19 04:25: WBC 15.5 H, RBC 3.89 L, Hgb 10.1 L, Hct 33.6 L, MCV 86.4, MCH 26.0 L, MCHC 30.1 L, RDW Std Deviation 63.7 H, RDW Coeff of Rossy 20.9 H, Plt Count 364, MPV 10.1, Immature Gran % (Auto) 2.400 H, Neut % (Auto) 70.0, Lymph % (Auto) 19.5, [place] % (Auto) 5.1, Eos % (Auto) 2.6, Baso % (Auto) 0.4, Absolute Neuts (auto) 10.9 H, Absolute Lymphs (auto) 3.03, Nucleated RBC % 0.3, Differential Comment SCANNED, Microcytosis 2+, Macrocytosis 1+ 05/28/19 04:25: Sodium 144, Potassium 3.6, Chloride 105, Carbon Dioxide 32.0, BUN 21 H, Creatinine 0.93, Estim Creat Clear Calc 63.84, Est GFR (MDRD) Af Amer 103, Est GFR (MDRD) Non-Af 85, BUN/Creatinine Ratio 22.7 H, Glucose 104, Calcium 8.7, Phosphorus 2.9, Albumin 2.4 L Current Medications Acetaminophen (Tylenol) 650 mg PO Q6H PRN PRN PRN Reason: Mild Pain (1-3)/Temp > 100.7 F Albuterol Sulfate (Ventolin Aerosols) 2.5 mg INHALATION Q2H PRN PRN PRN Reason: SOB/Wheezing Last Admin: 05/22/19 05:22 Dose: 2.5 mg Documented by: Albuterol/Ipratropium (Duoneb) 3 ml INHALATION Q6H.RT [facility] Last Admin: 05/28/19 06:34 Dose: 3 ml Documented by: Aspirin (Aspirin, Baby) 81 mg PO DAILY@0800 [facility] Last Admin: 05/27/19 08:39 Dose: 81 mg Documented by: Bisacodyl (Dulcolax) 5 mg PO DAILY PRN PRN Reason: CONSTIPATION Buspirone HCl (Buspar) 5 mg PO TID [facility] Last Admin: 05/28/19 05:53 Dose: 5 mg Documented by: Clopidogrel Bisulfate (Plavix) 75 mg PO DAILY [facility] Last Admin: 05/27/19 08:40 Dose: 75 mg Documented by: Enoxaparin Sodium (Lovenox) 90 mg SC BID [facility] Last Admin: 05/27/19 21:39 Dose: 90 mg Documented by: Sodium Chloride () 250 mls @ 15 mls/hr IV .[id number] PRN PRN Reason: SALINE FLUSH Last Infusion: 05/21/19 22:49 Dose: Infused Documented by: Mirtazapine (Remeron) 15 mg PO QHS [facility] Last Admin: 05/27/19 21:39 Dose: 15 mg Documented by: Nutritional Formula (Lactose Free) (Ensure Enlive) 120 ml PO 4X/DAY [facility] Last Admin: 05/27/19 21:39 Dose: 120 ml Documented by: Ondansetron HCl (Zofran) 4 mg IV Q8H PRN PRN PRN Reason: NAUSEA/VOMITING Pantoprazole Sodium (Protonix) 40 mg PO DAILY [facility] Last Admin: 05/27/19 08:40 Dose: 40 mg Documented by: Polyethylene Glycol (Miralax) 17 gm PO DAILY PRN PRN Reason: CONSTIPATION Prednisone () 20 mg PO DAILY@0800 [facility] Last Admin: 05/27/19 08:41 Dose: 20 mg Documented by: Senna/Docusate Sodium (Senokot-S, Margo-Colace) 2 tablet PO BID PRN PRN Reason: CONSTIPATION Sodium Chloride () 10 - 40 ml IV UD PRN PRN Reason: SALINE FLUSH Last Admin: 05/26/19 05:11 Dose: 20 ml Documented by: Throat Lozenges (Cepacol Sore Throat Lozenge) 2 lozenge MUCOUS MEM Q2H PRN PRN PRN Reason: SORE THROAT Last Admin: 05/25/19 08:05 Dose: 2 lozenge Documented by: Tramadol HCl (Ultram) 50 mg PO Q6H PRN PRN PRN Reason: MODERATE PAIN (4-5/10) Last Admin: 05/23/19 08:03 Dose: 50 mg Documented by: Warfarin Sodium (Coumadin (Pbkc)) 10 mg PO X1 ONE Stop: 05/28/19 07:17 Warfarin Sodium (Coumadin (Pbkc)) 7.5 mg PO DAILY@1700 [facility] Medical Necessity - Tobacco Use Smoking Status: Former smoker Assessment/Plan All Active Problems (Last Reviewed 05/17/19 @ 03:55 by Tristan Clancy MD) Acute respiratory failure with hypoxia (Acute) Community acquired pneumonia, bilateral (Acute) Severe sepsis (Acute) Anticoagulated on Coumadin (Acute) Sinus tachycardia by electrocardiogram (Acute) HCAP (healthcare-associated pneumonia) (Acute) Community acquired bacterial pneumonia (Acute) Acute hypoxemic respiratory failure (Resolved) Acute respiratory insufficiency (Resolved) Chest pain (Resolved) Supratherapeutic INR (Resolved) Unstable angina (Resolved) 73-year-old male with past medical history of severe IPF, history of CAD status post stents, admitted on 05/17/19 with progressive shortness of breath and was subsequently intubated. Patient has completed antibiotics course in the hospital. He was extubated on 05/21/19. Patient remains on 11 L of oxygen. He declined hospice. The plan, as discussed with family, is discharge with [facility] with hospital bed, high flow oxygen etc. 1. Acute on chronic hypoxic respiratory failure, history of interstitial pul monary fibrosis, 8-10 L of oxygen, completed treatment for pneumonia, Will be discharged on high flow oxygen; arrangements in the work. 2. Severe sepsis secondary to pneumonia, (recently had stents placed in another facility), improved, completed antibiotics, will continue to monitor 3. Streptococcus not pneumoniae pneumonia, ?Hospital acquired, (recently had stents placed in another facility), completed treatment 4. VAN, pre-renal, secondary to sepsis/dehydration, resolved 5. H/o VTE, on lifelong anticoagulation, s/p IVC filter, on therapeutic lovenox and warfarin, INR is subtherapeutic at 1.2 Will continue on Lovenox and warfarin, INR in am 6. CAD s/p 2 stents at [facility] 2 weeks prior to admission, on aspirin and plavix 7. Hemoccult stools, in a patient on aspirin, Plavix, Lovenox, Coumadin, He is at risk for bleeding, needs the current meds to prevent adverse effects from possible in-stent stenosis and acute VTE Stable hemoglobin, continue on PPI daily, labs in am 8. Hemochromatosis/hypertension/hyperlipidemia/ALFRED/PAF/obesity 9. Chronic steroid use, undergoing tapering off 10. DVT PPx-on therapeutic Lovenox, Coumadin 11. Disposition: Pending arrangements for safe discharge home with [facility] Code Visit Inpatient E&M: 02330 Subs Hosp L2
[2019-05-28] MEDS: Enoxaparin 100 MG/ML Syringe 90 MG SC ×2 (08:25→20:57)
[2019-05-28] MEDS: Aspirin 81 MG TAB.CHEW PO (08:25)
[2019-05-28] MEDS: predniSONE 20 MG Tablet PO (08:25)
[2019-05-28] MEDS: NINTEDANIB ESYLATE 100 MG CAPSULE PO (08:26)
[2019-05-28] MEDS: Clopidogrel Bisulfate 75 MG Tablet PO (08:29)
[2019-05-28] MEDS: Pantoprazole Sodium 40 MG Tablet PO (08:32)
--- NOTE | 2019-05-28 09:50 | CASEMGMT ---
KARINE HOLLINS Note: Call to Meka @ [facility]. They were able to find one 10L concentrator, but two are needed. Delivery will likely be @ 10 am and then home set up can occur. Discussed at length re: Having home set up for hospital bed, oxygen and other equipment prior to pt's discharge. They will assist in coordinating a safe dc to home. Call back information given for Heavenly Gonsales RN, CM for Monday contact. -Pt updated that dc will likely be . Pt is emotional and discouraged with having to stay. Emotional support offered. - CPAP: per resp. therapy @ [facility], most Cpap devices will accommodate a higher flow oxygen. Requested bring Cpap into hospital to have Resp Therapist evaluate for higher flow oxygen bleed in. [facility] states they have equipment for bleed in to Cpap. -Call to [facility] spoke with Goldie- update that dc would not be today. Anticipate dc . Goldie states they cannot find order and clinical paperwork that was faxed Monday. RNGURVINDER let them know fax was verified with them and KARINE HOLLINS had called yesterday to update. Pt was in their file @ that time. Clinicals and order refaxed to Conchita @ with request to verify acceptance. -Brochure for [facility] Today Care (TeleHealth) given to patient and discussed. Also discussed with pt that Jossy would evaluate his needs for portability once @ home as most tanks would not last very long with high flow O2. Rishabh PLUMMERM
--- NOTE | 2019-05-28 15:17 | CASEMGMT ---
Addendum entered by Jeremy Travis 05/28/19 16:22: Call received from Chasidy @ [facility]. They can accept pt and anticipated dc date is . Direct # to their intake is Original Note: RN CM Note: brought Cpap in for patient. Make/Model is [employer] airsense 10 Auto. Call to [facility], information given to Meliza so they can be sure to have proper fitting for bleed in when Home O2 is delivered. Rishabh MACARION RN ACM
[2019-05-28] MEDS: Mirtazapine 15 MG Tablet PO (20:57)
[2019-05-29] VITALS (35 sets, daily range): BP systolic 91–135; BP diastolic 49–86; PULSE 32–96; RESP 12–36; TEMP 36.3–36.9; O2SAT 81–96
[2019-05-29] MEDS: Ipratropium/Albuterol Sulfate 3 ML AMPUL.NEB INHALATION ×3 (00:42→18:47)
[2019-05-29 04:10] LABS: Absolute Lymphocyte Count 2.88 X10^3/uL (0.83-4.51); Absolute Neutrophil Count 10.5 X10^3/uL (2.0-7.7); Basophil# 0.06 X10^3/uL; Basophil% 0.4 % (0-1); Eosinophil# 0.38 X10^3/uL; Eosinophils% 2.5 % (0-5); Hematocrit 33.6 % (40-54); Hemoglobin 9.9 g/dL (13.0-16.5); Lymphocyte # 2.88 X10^3/ul (4.0); Lymphocyte % 19.2 % (19-41); Mean Corp Hgb Conc 29.5 g/dL (32-36); Mean Corpuscular Hgb 25.5 pg (27.0-32.0); Mean Corpuscular Volume 86.6 fL (80-94); Mean Platelet Vol. 10.3 fl (6.2-12.0); Monocyte# 0.79 X10^3/uL; Monocyte% 5.3 % (0-10); NRBC Flagged by Analyzer 0.2 % (0-5); Neutrophil # 10.51 X10^3/uL (2.7-7.7); Neutrophil % 70.2 % (47-70); POSITIVE MORPHOLOGY YES; Platelet Count 353 K/mm3 (150-450); RBC Distribution Width CV 21.1 % (11.6-14.6); RBC Distribution Width SD 64.3 fl (35.1-43.9); Red Blood Count 3.88 M/mm3 (4.6-6.2)
[2019-05-29 04:16] LABS: Differential Indicated SCAN CRITERIA MET
[2019-05-29 04:18] LABS: International Normalized Ratio 1.5; Prothrombin Time (Protime)PT. 17.8 SECONDS (11.7-14.9)
[2019-05-29 04:29] LABS: Anion Gap 6 (5-15); BUN 19 mg/dL (7-18); BUN/Creat Ratio 23.5 RATIO (10-20); Calcium,Total 8.6 mg/dL (8.5-10.1); Chloride 106 mmol/L (98-107); Creatinine, Serum 0.81 mg/dL (0.70-1.30); EST Glomerular Filtration Rate 99 mL/min (>60); Est Glom Filt Rate - Afr Amer 120 mL/min (>60); Glucose 101 mg/dL (74-106); Potassium 3.6 mmol/L (3.5-5.1); Sodium Level 142 mmol/L (136-145)
[2019-05-29 04:33] LABS: Anisocytosis 2+; Differential Comment SCANNED
[2019-05-29] MEDS: busPIRone 5 MG Tablet PO ×3 (05:07→22:55)
--- NOTE | 2019-05-29 06:55 | PN_ITS ---
Subjective: The patient was seen and examined at the bedside this morning. Events from the last 24 hours have been reviewed. The patient is currently afebrile, hemodynamically stable and maintaining appropriate oxygen saturations on 8 to 10 L of high flow nasal cannula. No overnight events were noted by the nursing staff. The patient is currently sitting in his bedside recliner. He reports that his breathing quality is stable. He did become significantly winded with showering this morning. Objective: The patient's most recent lab work, culture data and imaging studies have all been personally reviewed. Surface echocardiogram revealed evidence of stage I diastolic dysfunction with an ejection fraction of 65%. The RV was mildly dilated with normal systolic function. Right ventricular systolic pressure was estimated to be 42 mmHg. Strep and urine Legionella antigens were both negative. Blood, urine and sputum cultures have not shown any growth to date. Repeat sputum Gram stain and culture, dated May 20, is not currently showing any growth. Respiratory viral panel was negative. General: Alert, Cooperative, No apparent distress HEENT: Atraumatic, PERRLA, Normocephalic Oral: No Gingival or Mucosal Lesions/ Ulcerations Neck: Supple, No Nodes, Trachea Midline Lungs: No rhonchi, No wheeze, Diminished, Rales Cardiovascular: Regular rate, Regular Rhythm, Normal S1, Normal S2, Murmur Abdomen: Bowel Sounds Present, Soft, Non Tender Extremities: No clubbing, No cyanosis, No edema Skin: No breakdown Musculoskeletal: No Tenderness to Palpation of Joints or Extremities, No Muscle Wasting Lymphatic: No Cervical, Supraclavicular, or Inguinal Adenopathy Neurological: Cranial nerves II-XII grossly intact, Neuro grossly intact Psych/Mental Status: Normal Affect, Appropriate Vital Signs Temp Pulse Resp BP Pulse Ox 98.5 F 77 26 H 108/67 90 05/29/19 00:00 05/29/19 06:41 05/29/19 06:41 05/29/19 06:00 05/29/19 06:41 Oxygen Flow Rate (L/min) 8 Oxygen Delivery Method Nasal Cannula Weight: 192 lb 3.889 oz Body Mass Index (BMI) 32.1 Intake and Output for Last 24 Hours 05/27/19 05/28/19 05/29/19 23:59 23:59 23:59 Intake Total 960 / 960 1300 / 1300 100 / 100 Output Total 200 / 200 Balance 760 / 760 1300 / 1300 100 / 100 Labs (Last 48 Hours) 05/28/19 05/28/19 05/28/19 04:25 04:25 04:25 WBC 15.5 H RBC 3.89 L Hgb 10.1 L Hct 33.6 L MCV 86.4 MCH 26.0 L MCHC 30.1 L RDW Std Deviation 63.7 H RDW Coeff of Rossy 20.9 H Plt Count 364 MPV 10.1 Immature Gran % (Auto) 2.400 H Neut % (Auto) 70.0 Lymph % (Auto) 19.5 [place] % (Auto) 5.1 Eos % (Auto) 2.6 Baso % (Auto) 0.4 Absolute Neuts (auto) 10.9 H Absolute Lymphs (auto) 3.03 Nucleated RBC % 0.3 Differential Comment SCANNED Anisocytosis Microcytosis 2+ Macrocytosis 1+ PT 15.4 H INR 1.2 Sodium 144 Potassium 3.6 Chloride 105 Carbon Dioxide 32.0 Anion Gap BUN 21 H Creatinine 0.93 Estim Creat Clear Calc 63.84 Est GFR (MDRD) Af Amer 103 Est GFR (MDRD) Non-Af 85 BUN/Creatinine Ratio 22.7 H Glucose 104 Calcium 8.7 Phosphorus 2.9 Albumin 2.4 L 05/29/19 05/29/19 05/29/19 04:00 04:00 04:00 WBC 15.0 H RBC 3.88 L Hgb 9.9 L Hct 33.6 L MCV 86.6 MCH 25.5 L MCHC 29.5 L RDW Std Deviation 64.3 H RDW Coeff of Rossy 21.1 H Plt Count 353 MPV 10.3 Immature Gran % (Auto) 2.400 H Neut % (Auto) 70.2 H Lymph % (Auto) 19.2 [place] % (Auto) 5.3 Eos % (Auto) 2.5 Baso % (Auto) 0.4 Absolute Neuts (auto) 10.5 H Absolute Lymphs (auto) 2.88 Nucleated RBC % 0.2 Differential Comment SCANNED Anisocytosis 2+ Microcytosis Macrocytosis PT 17.8 H INR 1.5 Sodium 142 Potassium 3.6 Chloride 106 Carbon Dioxide 30.0 Anion Gap 6 BUN 19 H Creatinine 0.81 Estim Creat Clear Calc 72.20 Est GFR (MDRD) Af Amer 120 Est GFR (MDRD) Non-Af 99 BUN/Creatinine Ratio 23.5 H Glucose 101 Calcium 8.6 Phosphorus Albumin Clinical Impression(s) from Imaging Studies Brain CT 05/17/19 00:23 IMPRESSION: No acute intracranial pathology. Chronic changes as discussed similar to prior study Individualized dose optimization techniques were used for this CT. at 0122 Reported and signed by: Marina Castillo DO Electronically Signed: Marina Castillo DO at 1:21 EDT Tel , Service support , Chest X-Ray 05/17/19 00:45 IMPRESSION: Bilateral pulmonary infiltrates. These have increased in the lung apices when compared to the prior study at 0118 Reported and signed by: Marina Castillo DO Electronically Signed: Marina Castillo DO at 1:17 EDT Tel , Service support , Chest X-Ray 05/17/19 13:56 IMPRESSION: Stable bilateral patchy airspace disease. The tip of the endotracheal tube is at 3.9 cm proximal to the marly. The tip of the orogastric tube is within the fundal portion of the stomach. Electronically Signed: Raphael Roamn, at 14:37 EDT , Service support , Chest X-Ray 05/18/19 05:00 IMPRESSION: Left PICC line tip in right atrium without pneumothorax. Stable diffuse alveolar disease. Electronically Signed: Gerson Porter MD at 5:21 EDT Tel , Service support , Chest X-Ray 05/18/19 09:28 IMPRESSION: Endotracheal tube in satisfactory position. Left-sided PICC line tip in the atriocaval junction/right atrium. NG tube in satisfactory position. Diffuse infiltrates consider diffuse pulmonary edema and/or pneumonia. Status post sternotomy. Electronically Signed: Marina Manning MD at 10:23 EDT Tel , Service support , Chest X-Ray 05/21/19 07:32 IMPRESSION: Lines and tubes in unchanged position Mild CHF/fluid overload with trace effusions Airspace disease presumed edema Cardiomegaly Electronically Signed: Scot Alcala DO at 8:04 EDT Tel , Service support , Chest CT 05/23/19 09:23 IMPRESSION: Progressive appearance of the groundglass appearance/airspace disease in both lungs superimposed on chronic interstitial fibrosis in the lower lobes with underlying bronchiectasis and subpleural blebs. Electronically Signed: Raphael Roman, at 11:36 EDT , Service support , Medical Necessity - Tobacco Use Smoking Status: Former smoker Assessment/Plan All Active Problems (Last Reviewed 05/17/19 @ 03:55 by Tristan Clancy MD) Acute respiratory failure with hypoxia (Acute) Community acquired pneumonia, bilateral (Acute) Severe sepsis (Acute) Anticoagulated on Coumadin (Acute) Sinus tachycardia by electrocardiogram (Acute) HCAP (healthcare-associated pneumonia) (Acute) Community acquired bacterial pneumonia (Acute) Acute hypoxemic respiratory failure (Resolved) Acute respiratory insufficiency (Resolved) Chest pain (Resolved) Supratherapeutic INR (Resolved) Unstable angina (Resolved) RECOMMENDATIONS: 1. Continue BiPAP with naps and nightly. 2. Continue to wean prednisone. 3. Wean supplemental oxygen to maintain saturations at or above 88%. 4. Continue aggressive bronchopulmonary hygiene. 5. Continue bronchodilators. 6. Physical therapy to work with the patient. 7. Continue nintedanib. IMPRESSIONS: 1. Acute on chronic hypoxemic respiratory failure/personal history of idiopathic pulmonary fibrosis Likely secondary to underlying interstitial lung disease compounded by healthcare associated pneumonia. The patient has completed a full treatment course of antibiotics, despite negative cultures. Despite this, the patient continued to have a high supplemental oxygen demand. Given that we have attempted to address all potential reversible causes for the patient's ongoing hypoxemia, a repeat high-resolution chest CT was obtained. There did appear to be interval disease progression when compared to prior chest CT from April 2019. At this time, we will plan to continue current supportive measures including prednisone, bronchodilators and home nintedanib. Following a goals of care discussion with the patient and his family, the patient has elected to pursue home health services as opposed to hospice care. Disposition planning is currently underway. 2. Anemia/personal history of hematochromatosis Hemoglobin has slowly trended down since May 17 to a karthikeyan of 7.3 g/dL. Given the patient's history of coronary artery disease, the patient was transfused 2 units of packed red blood cells with subsequent improvement in his hemoglobin. Continue to monitor blood counts daily. There is no indication for additional transfusion of blood products at the current time. 3. Coronary artery disease Continue outpatient medication regimen. 4. History of venous thrombi embolic disease INR was initially supratherapeutic on presentation to the hospital. Coumadin has been on hold since that time with subsequent improvement in the patient's coagulopathy. Continue therapeutic dose Lovenox for now. 5. Hypertension/hyperlipidemia/obstructive sleep apnea/paroxysmal atrial fibrillation/obesity Complicates care, management, recovery and prognosis. Continue home medications as indicated. Physical therapy to work with the patient. This note was generated with Kerlink dictation software. It may contain incorrect words, spelling, and punctuation that were not noted in checking the note before signing. Code Visit Inpatient E&M: 37863 Subs Hosp L2
--- NOTE | 2019-05-29 07:15 | PCM.PN.HOSP ---
Patient Problems: Active and Suspected Problems (Last Reviewed 05/17/19 @ 03:55 by Tristan Clancy MD) Acute respiratory failure with hypoxia (Acute) Community acquired pneumonia, bilateral (Acute) Severe sepsis (Acute) Anticoagulated on Coumadin (Acute) Sinus tachycardia by electrocardiogram (Acute) HCAP (healthcare-associated pneumonia) (Acute) Community acquired bacterial pneumonia (Acute) Subjective: Patient was seen and examined. Denied any new complaints. Still very short of breath with minimal exertion. No acute events overnight Objective: Physical exam: General: Alert, Oriented x3, Cooperative, No apparent distress, - - on 11L high flow oxygen, appears comfortable HEENT: Atraumatic, PERRLA, EOMI, Normocephalic Oral: Moist Mucosa Neck: Supple Lungs: No wheeze, No rales, Diminished Cardiovascular: Regular rate, Regular Rhythm, Normal S1, Normal S2, Murmur - 2/6 holosystolic murmur heard at the left sternal border Abdomen: Bowel Sounds Present, Soft, Non Tender, Non-Distended, No Hepato-splenomegaly Extremities: No edema Skin: No rashes Musculoskeletal: No Tenderness to Palpation of Joints or Extremities Lymphatic: No Cervical, Supraclavicular, or Inguinal Adenopathy Neurological: Cranial nerves II-XII grossly intact, Neuro grossly intact Psych/Mental Status: Normal Affect, Appropriate Vitals/I&O's: Vital Signs Temp Pulse Resp BP Pulse Ox 98.5 F 77 26 H 108/67 90 05/29/19 00:00 05/29/19 06:41 05/29/19 06:41 05/29/19 06:00 05/29/19 06:41 Oxygen Flow Rate (L/min) 8 Oxygen Delivery Method Nasal Cannula Weight: 87.2 kg Body Mass Index (BMI) 32.1 Intake and Output for Last 24 Hours 05/27/19 05/28/19 05/29/19 23:59 23:59 23:59 Intake Total 960 / 960 1300 / 1300 100 / 100 Output Total 200 / 200 Balance 760 / 760 1300 / 1300 100 / 100 Laboratory Results 05/29/19 04:00: PT 17.8 H, INR 1.5 05/29/19 04:00: WBC 15.0 H, RBC 3.88 L, Hgb 9.9 L, Hct 33.6 L, MCV 86.6, MCH 25.5 L, MCHC 29.5 L, RDW Std Deviation 64.3 H, RDW Coeff of Rossy 21.1 H, Plt Count 353, MPV 10.3, Immature Gran % (Auto) 2.400 H, Neut % (Auto) 70.2 H, Lymph % (Auto) 19.2, [place] % (Auto) 5.3, Eos % (Auto) 2.5, Baso % (Auto) 0.4, Absolute Neuts (auto) 10.5 H, Absolute Lymphs (auto) 2.88, Nucleated RBC % 0.2, Differential Comment SCANNED, Anisocytosis 2+ 05/29/19 04:00: Sodium 142, Potassium 3.6, Chloride 106, Carbon Dioxide 30.0, Anion Gap 6, BUN 19 H, Creatinine 0.81, Estim Creat Clear Calc 72.20, Est GFR (MDRD) Af Amer 120, Est GFR (MDRD) Non-Af 99, BUN/Creatinine Ratio 23.5 H, Glucose 101, Calcium 8.6 Current Medications Acetaminophen (Tylenol) 650 mg PO Q6H PRN PRN PRN Reason: Mild Pain (1-3)/Temp > 100.7 F Albuterol Sulfate (Ventolin Aerosols) 2.5 mg INHALATION Q2H PRN PRN PRN Reason: SOB/Wheezing Last Admin: 05/22/19 05:22 Dose: 2.5 mg Documented by: Albuterol/Ipratropium (Duoneb) 3 ml INHALATION Q6H.RT [facility] Last Admin: 05/29/19 06:41 Dose: 3 ml Documented by: Aspirin (Aspirin, Baby) 81 mg PO DAILY@0800 [facility] Last Admin: 05/28/19 08:25 Dose: 81 mg Documented by: Bisacodyl (Dulcolax) 5 mg PO DAILY PRN PRN Reason: CONSTIPATION Buspirone HCl (Buspar) 5 mg PO TID [facility] Last Admin: 05/29/19 05:07 Dose: 5 mg Documented by: Clopidogrel Bisulfate (Plavix) 75 mg PO DAILY [facility] Last Admin: 05/28/19 08:29 Dose: 75 mg Documented by: Enoxaparin Sodium (Lovenox) 90 mg SC BID [facility] Last Admin: 05/28/19 20:57 Dose: 90 mg Documented by: Sodium Chloride () 250 mls @ 15 mls/hr IV .[id number] PRN PRN Reason: SALINE FLUSH Last Infusion: 05/21/19 22:49 Dose: Infused Documented by: Mirtazapine (Remeron) 15 mg PO QHS [facility] Last Admin: 05/28/19 20:57 Dose: 15 mg Documented by: Nutritional Formula (Lactose Free) (Ensure Enlive) 120 ml PO 4X/DAY [facility] Last Admin: 05/28/19 20:52 Dose: Not Given Documented by: Ondansetron HCl (Zofran) 4 mg IV Q8H PRN PRN PRN Reason: NAUSEA/VOMITING Pantoprazole Sodium (Protonix) 40 mg PO DAILY [facility] Last Admin: 05/28/19 08:32 Dose: 40 mg Documented by: Polyethylene Glycol (Miralax) 17 gm PO DAILY PRN PRN Reason: CONSTIPATION Prednisone () 10 mg PO DAILY@0800 [facility] Senna/Docusate Sodium (Senokot-S, Margo-Colace) 2 tablet PO BID PRN PRN Reason: CONSTIPATION Sodium Chloride () 10 - 40 ml IV UD PRN PRN Reason: SALINE FLUSH Last Admin: 05/26/19 05:11 Dose: 20 ml Documented by: Throat Lozenges (Cepacol Sore Throat Lozenge) 2 lozenge MUCOUS MEM Q2H PRN PRN PRN Reason: SORE THROAT Last Admin: 05/25/19 08:05 Dose: 2 lozenge Documented by: Tramadol HCl (Ultram) 50 mg PO Q6H PRN PRN PRN Reason: MODERATE PAIN (4-5/10) Last Admin: 05/23/19 08:03 Dose: 50 mg Documented by: Warfarin Sodium (Coumadin (Pbkc)) 7.5 mg PO DAILY@1700 [facility] Medical Necessity - Tobacco Use Smoking Status: Former smoker Assessment/Plan All Active Problems (Last Reviewed 05/17/19 @ 03:55 by Tristan Clancy MD) Acute respiratory failure with hypoxia (Acute) Community acquired pneumonia, bilateral (Acute) Severe sepsis (Acute) Anticoagulated on Coumadin (Acute) Sinus tachycardia by electrocardiogram (Acute) HCAP (healthcare-associated pneumonia) (Acute) Community acquired bacterial pneumonia (Acute) Acute hypoxemic respiratory failure (Resolved) Acute respiratory insufficiency (Resolved) Chest pain (Resolved) Supratherapeutic INR (Resolved) Unstable angina (Resolved) 73-year-old male with past medical history of severe IPF, history of CAD status post stents, admitted on 05/17/19 with progressive shortness of breath and was subsequently intubated. Patient has completed antibiotics course in the hospital. He was extubated on 05/21/19. Patient remains on 11 L of oxygen. He declined hospice. The plan, as discussed with family, is discharge with [facility] with hospital bed, high flow oxygen etc. 1. Acute on chronic hypoxic respiratory failure, history of interstitial pulmonary fibrosis, 8-10 L of oxygen, completed treatment for pneumonia, Will be discharged on high flow oxygen; arrangements in the works. 2. Severe sepsis secondary to pneumonia, (recently had stents placed in another facility), improved, completed antibiotics, will continue to monitor 3. Streptococcus not pneumoniae pneumonia, ?Hospital acquired, (recently had stents placed in another facility), completed treatment 4. VAN, pre-renal, secondary to sepsis/dehydration, resolved 5. H/o VTE, on lifelong anticoagulation, s/p IVC filter, on therapeutic lovenox and warfarin, INR is subtherapeutic at 1.5 Will continue on Lovenox and warfarin, INR in am, m 6. CAD s/p 2 stents at [facility] 2 weeks prior to admission, on aspirin and plavix 7. Hemoccult stools, in a patient on aspirin, Plavix, Lovenox, Coumadin, He is at risk for bleeding, needs the current meds to prevent adverse effects from possible in-stent stenosis and acute VTE Stable hemoglobin, continue on PPI daily, labs in am 8. Hemochromatosis/hypertension/hyperlipidemia/ALFRED/PAF/obesity 9. Chronic steroid use, undergoing tapering off 10. DVT PPx-on therapeutic Lovenox, Coumadin 11. Disposition: Pending arrangements for safe discharge home with [facility] Code Visit Inpatient E&M: 25066 Subs Hosp L2
[2019-05-29] MEDS: Aspirin 81 MG TAB.CHEW PO (08:06)
[2019-05-29] MEDS: predniSONE 10 MG Tablet PO (08:06)
[2019-05-29] MEDS: Enoxaparin 100 MG/ML Syringe 90 MG SC ×2 (09:23→22:54)
[2019-05-29] MEDS: Pantoprazole Sodium 40 MG Tablet PO (09:24)
[2019-05-29] MEDS: Clopidogrel Bisulfate 75 MG Tablet PO (09:25)
--- NOTE | 2019-05-29 09:47 | CASEMGMT ---
Addendum entered by Heavenly Swain 05/29/19 10:43: Call to [facility] for Lovenox turner check: Lovenox BID x 3 days [id number] cost is $100 total for 3 days/6 doses. Pt made aware and he is agreeable to paying this. Dr Perrin made aware. Original Note: KARINE HOLLINS NOTE: Call received from Dr Perrin who stated pt may need to go home on Lovenox SQ BID for a couple of days, depending upon what his INR is tomorrow 05/30. To room to talk with pt re: pt's preferred pharmacy and prescription coverage. Pt does have [facility] Part D/Prescription coverage and states he does go to [facility] for short-term prescriptions [facility] effective to get prescriptions from the [place]. Informed pt that he may need to go home on Lovenox SQ for [address] Perrin and that turner check at [facility] could be completed prior to discharge. Pt voiced understanding and states he may be agreeable to getting it there, depending on the cost. Dr Perrin made aware and states she will e-scribe for Lovenox now. KARINE HOLLINS to get turner check on Lovenox and discuss this with pt once it is available. Johanna WALSH RN RM
--- NOTE | 2019-05-29 14:00 | CASEMGMT ---
PALLAVI left message for SW at [facility], Jeremy Nuñez, to let her know that discharge plan for pt is to return home w/home health care tomorrow. STACY Lopez
[2019-05-29] MEDS: 0.9% NaCl Peripheral Flush Adult/Peds IV (17:10)
[2019-05-29] MEDS: Mirtazapine 15 MG Tablet PO (22:55)
[2019-05-30] VITALS (19 sets, daily range): BP systolic 98–116; BP diastolic 55–79; PULSE 81–91; RESP 12–37; TEMP 36.5–36.9; O2SAT 83–96
[2019-05-30] MEDS: Ipratropium/Albuterol Sulfate 3 ML AMPUL.NEB INHALATION ×2 (00:46→07:12)
[2019-05-30 04:00] LABS: International Normalized Ratio 1.7; Prothrombin Time (Protime)PT. 20.2 SECONDS (11.7-14.9)
[2019-05-30] MEDS: busPIRone 5 MG Tablet PO ×2 (05:46→13:54)
--- NOTE | 2019-05-30 07:00 | PN_ITS ---
Subjective: The patient was seen and examined at the bedside this morning. Events from the last 24 hours have been reviewed. The patient is currently afebrile, hemodynamically stable and maintaining appropriate oxygen saturations on 10 to 11 L high flow nasal cannula supplemental oxygen. Last evening, the patient became extremely short of breath when ambulating to the bathroom. He had to be placed back in bed. The patient's BiPAP was transitioned to AVAPS. With time, the patient's dyspnea and hypoxemia improved. At the present time, he is breathing quality is stable and baseline. He remains anxious to go home. Objective: The patient's most recent lab work, culture data and imaging studies have all been personally reviewed. Surface echocardiogram revealed evidence of stage I diastolic dysfunction with an ejection fraction of 65%. The RV was mildly dilated with normal systolic function. Right ventricular systolic pressure was estimated to be 42 mmHg. Strep and urine Legionella antigens were both negative. Blood, urine and sputum cultures have not shown any growth to date. Repeat sputum Gram stain and culture, dated May 20, is not currently showing any growth. Respiratory viral panel was negative. General: Alert, Cooperative, No apparent distress HEENT: Atraumatic, PERRLA, Normocephalic Oral: No Gingival or Mucosal Lesions/ Ulcerations Neck: Supple, No Nodes, Trachea Midline Lungs: No rhonchi, No wheeze, Diminished, Rales Cardiovascular: Regular rate, Regular Rhythm, Normal S1, Normal S2, Murmur Abdomen: Bowel Sounds Present, Soft, Non Tender Extremities: No clubbing, No cyanosis, No edema Skin: No breakdown Musculoskeletal: No Tenderness to Palpation of Joints or Extremities Lymphatic: No Cervical, Supraclavicular, or Inguinal Adenopathy Neurological: Cranial nerves II-XII grossly intact, Neuro grossly intact Psych/Mental Status: Normal Affect, Appropriate Vital Signs Temp Pulse Resp BP Pulse Ox 98.5 F 84 36 H 106/68 93 05/30/19 00:00 05/30/19 06:00 05/30/19 06:00 05/30/19 06:00 05/30/19 06:00 Oxygen Flow Rate (L/min) 11 Oxygen Delivery Method Nasal Cannula Weight: 192 lb 3.889 oz Body Mass Index (BMI) 32.1 Intake and Output for Last 24 Hours 05/28/19 05/29/19 05/30/19 23:59 23:59 23:59 Intake Total 1300 / 1300 850 / 850 100 / 100 Balance 1300 / 1300 850 / 850 100 / 100 Labs (Last 48 Hours) 05/29/19 05/29/19 05/29/19 04:00 04:00 04:00 WBC 15.0 H RBC 3.88 L Hgb 9.9 L Hct 33.6 L MCV 86.6 MCH 25.5 L MCHC 29.5 L RDW Std Deviation 64.3 H RDW Coeff of Rossy 21.1 H Plt Count 353 MPV 10.3 Immature Gran % (Auto) 2.400 H Neut % (Auto) 70.2 H Lymph % (Auto) 19.2 [place] % (Auto) 5.3 Eos % (Auto) 2.5 Baso % (Auto) 0.4 Absolute Neuts (auto) 10.5 H Absolute Lymphs (auto) 2.88 Nucleated RBC % 0.2 Differential Comment SCANNED Anisocytosis 2+ PT 17.8 H INR 1.5 Sodium 142 Potassium 3.6 Chloride 106 Carbon Dioxide 30.0 Anion Gap 6 BUN 19 H Creatinine 0.81 Estim Creat Clear Calc 72.20 Est GFR (MDRD) Af Amer 120 Est GFR (MDRD) Non-Af 99 BUN/Creatinine Ratio 23.5 H Glucose 101 Calcium 8.6 05/30/19 03:45 WBC RBC Hgb Hct MCV MCH MCHC RDW Std Deviation RDW Coeff of Rossy Plt Count MPV Immature Gran % (Auto) Neut % (Auto) Lymph % (Auto) [place] % (Auto) Eos % (Auto) Baso % (Auto) Absolute Neuts (auto) Absolute Lymphs (auto) Nucleated RBC % Differential Comment Anisocytosis PT 20.2 H INR 1.7 Sodium Potassium Chloride Carbon Dioxide Anion Gap BUN Creatinine Estim Creat Clear Calc Est GFR (MDRD) Af Amer Est GFR (MDRD) Non-Af BUN/Creatinine Ratio Glucose Calcium Clinical Impression(s) from Imaging Studies Brain CT 05/17/19 00:23 IMPRESSION: No acute intracranial pathology. Chronic changes as discussed similar to prior study Individualized dose optimization techniques were used for this CT. at 0122 Reported and signed by: Marina Castillo DO Electronically Signed: Marina Castillo DO at 1:21 EDT Tel , Service support , Chest X-Ray 05/17/19 00:45 IMPRESSION: Bilateral pulmonary infiltrates. These have increased in the lung apices when compared to the prior study at 0118 Reported and signed by: Marina Castillo DO Electronically Signed: Marina Castillo DO at 1:17 EDT Tel , Service support , Chest X-Ray 05/17/19 13:56 IMPRESSION: Stable bilateral patchy airspace disease. The tip of the endotracheal tube is at 3.9 cm proximal to the marly. The tip of the orogastric tube is within the fundal portion of the stomach. Electronically Signed: Raphael Roman, at 14:37 EDT , Service support , Chest X-Ray 05/18/19 05:00 IMPRESSION: Left PICC line tip in right atrium without pneumothorax. Stable diffuse alveolar disease. Electronically Signed: Gerson Porter MD at 5:21 EDT Tel , Service support , Chest X-Ray 05/18/19 09:28 IMPRESSION: Endotracheal tube in satisfactory position. Left-sided PICC line tip in the atriocaval junction/right atrium. NG tube in satisfactory position. Diffuse infiltrates consider diffuse pulmonary edema and/or pneumonia. Status post sternotomy. Electronically Signed: Marina Manning MD at 10:23 EDT Tel , Service support , Chest X-Ray 05/21/19 07:32 IMPRESSION: Lines and tubes in unchanged position Mild CHF/fluid overload with trace effusions Airspace disease presumed edema Cardiomegaly Electronically Signed: Scot Alcala, at 8:04 EDT Tel , Service support , Chest CT 05/23/19 09:23 IMPRESSION: Progressive appearance of the groundglass appearance/airspace disease in both lungs superimposed on chronic interstitial fibrosis in the lower lobes with underlying bronchiectasis and subpleural blebs. Electronically Signed: Raphael Jessie, at 11:36 EDT , Service support , Medical Necessity - Tobacco Use Smoking Status: Former smoker Assessment/Plan All Active Problems (Last Reviewed 05/17/19 @ 03:55 by Tristan Clancy MD) Acute respiratory failure with hypoxia (Acute) Community acquired pneumonia, bilateral (Acute) Severe sepsis (Acute) Anticoagulated on Coumadin (Acute) Sinus tachycardia by electrocardiogram (Acute) HCAP (healthcare-associated pneumonia) (Acute) Community acquired bacterial pneumonia (Acute) Acute hypoxemic respiratory failure (Resolved) Acute respiratory insufficiency (Resolved) Chest pain (Resolved) Supratherapeutic INR (Resolved) Unstable angina (Resolved) RECOMMENDATIONS: 1. Continue BiPAP with naps and nightly. 2. Continue to wean prednisone. 3. Wean supplemental oxygen to maintain saturations at or above 88%. 4. Continue aggressive bronchopulmonary hygiene. 5. Continue bronchodilators. 6. Physical therapy to work with the patient. 7. Continue nintedanib. IMPRESSIONS: 1. Acute on chronic hypoxemic respiratory failure/personal history of idiopathic pulmonary fibrosis Likely secondary to underlying interstitial lung disease compounded by healthcare associated pneumonia. The patient has completed a full treatment course of antibiotics, despite negative cultures. Despite this, the patient continued to have a high supplemental oxygen demand. Given that we have attempted to address all potential reversible causes for the patient's ongoing hypoxemia, a repeat high-resolution chest CT was obtained. There did appear to be interval disease progression when compared to prior chest CT from April 2019. At this time, we will plan to continue current supportive measures including prednisone, bronchodilators and home nintedanib. Following a goals of care discussion with the patient and his family, the patient has elected to pursue home health services as opposed to hospice care. Disposition planning is currently underway. 2. Anemia/personal history of hematochromatosis Hemoglobin has slowly trended down since May 17 to a karthikeyan of 7.3 g/dL. Given the patient's history of coronary artery disease, the patient was transfused 2 units of packed red blood cells with subsequent improvement in his hemoglobin. Continue to monitor blood counts daily. There is no indication for additional transfusion of blood products at the current time. 3. Coronary artery disease Continue outpatient medication regimen. 4. History of venous thrombi embolic disease INR was initially supratherapeutic on presentation to the hospital. Coumadin has been on hold since that time with subsequent improvement in the patient's coagulopathy. Continue therapeutic dose Lovenox for now. 5. Hypertension/hyperlipidemia/obstructive sleep apnea/paroxysmal atrial fibrillation/obesity Complicates care, management, recovery and prognosis. Continue home medications as indicated. Physical therapy to work with the patient. This note was generated with [employer] dictation software. It may contain incorrect words, spelling, and punctuation that were not noted in checking the note before signing. Code Visit Inpatient E&M: 42954 Subs Hosp L2
[2019-05-30] MEDS: predniSONE 10 MG Tablet PO (08:01)
[2019-05-30] MEDS: Aspirin 81 MG TAB.CHEW PO (08:01)
--- NOTE | 2019-05-30 08:28 | DCINST_ITS ---
- Discharge Diagnoses Current Active Problems: Current Active and Chronic Problems (Last Reviewed 05/17/19 @ 03:55 by Tristan Clancy MD) Acute respiratory failure with hypoxia (Acute) Community acquired pneumonia, bilateral (Acute) Severe sepsis (Acute) Anticoagulated on Coumadin (Acute) Sinus tachycardia by electrocardiogram (Acute) HCAP (healthcare-associated pneumonia) (Acute) Community acquired bacterial pneumonia (Acute) Reason(s) for Visit for Discharge Instructions: Shortness of breath You will use the following diet at home:: Cardiac Your food should be the consistency of: Regular Your liquids should be the consistency of: Regular/Thin Discharge Activity: Return to Normal Activity Additional Instructions: Continue to use your oxygen all the time. You are being discharged with Lovenox injection to be given twice a day for the next 2 days until your INR is therapeutic. You should have your INR checked in 3 days. You will be discharged with home health Allergies/Adverse Reactions: Allergies Penicillins Allergy (Verified 05/17/19 00:27) Hives celecoxib [From Celebrex] Adverse Reaction (Verified 05/17/19 00:27) Chest tightness nitroglycerin [From Nitrostat] Adverse Reaction (Verified 05/17/19 00:27) severe migraine Sxkiibi-Lao-Frs Reductase Inhibitor Adverse Reaction (Verified 05/17/19 00:27) Pain in joints Medications to take at Discharge Ascorbic Acid 500 mg PO DAILY 11/19/18 Aspirin [Aspirin, Baby] 81 mg PO DAILY@0800 11/19/18 Benzonatate 100 mg PO TID PRN 11/19/18 Fish Oil/Borage/Flax/Om3,6,9 1 [[place] 3-6-9 1,200 mg Softgel] 1,200 mg PO DAILY 11/19/18 Multivitamin with Minerals [Multiple Vitamin] 1 tab PO DAILY 11/19/18 Pantoprazole Sodium [Protonix] 40 mg PO DAILY 11/19/18 Magnesium 250 mg PO DAILY 12/30/18 Nitroglycerin 0.4 mg SL PRN PRN 12/30/18 Albuterol Aerosols [Ventolin Aerosols] 2.5 mg INHALATION 4X/DAY 04/24/19 Nintedanib Esylate [Ofev] 100 mg PO BID 04/24/19 Warfarin [Coumadin] 7.5 mg PO SUWETHFRSA 04/24/19 Warfarin [Coumadin] 10 mg PO MOTU 04/24/19 Clopidogrel Bisulfate [Plavix] 75 mg PO DAILY tab 04/26/19 Oxygen, Home [Home Oxygen] 2 - 4 lpm NASAL PRN 05/09/19 calcium carbonate 600 mg(1,500 mg)-vitamin D3 800 unit chewable tablet 1 tab PO BID 05/10/19 prednisone 10 mg tablet 5 mg PO Q OTHER DAY tab 05/10/19 levofloxacin 750 mg tablet 750 mg PO DAILY #5 tab 05/15/19 Acetaminophen [Tylenol Tablet] 650 mg PO Q6H PRN PRN tab 05/30/19 Enoxaparin Sodium [Lovenox] 90 mg SQ BID 2 Days #4 syringe 05/30/19 Ensure Enlive 120 ml PO 4X/DAY 30 Days #120 liquid 05/30/19 Mirtazapine [Remeron] 15 mg PO QHS 30 Days #30 tab 05/30/19 busPIRone [Buspar] 5 mg PO TID 30 Days #90 tab 05/30/19 The following prescriptions were given: busPIRone [Buspar] 5 mg PO TID 30 Days #90 tab Transmission Status: Pending to [facility] Ensure Enlive 120 ml PO 4X/DAY 30 Days #120 liquid Transmission Status: Pending to [facility] Enoxaparin Sodium [Lovenox] 90 mg SQ BID 2 Days #4 syringe Transmission Status: Pending to [facility] Mirtazapine [Remeron] 15 mg PO QHS 30 Days #30 tab Transmission Status: Pending to [facility] Primary Care Physician: Maria Mccoy MD [Primary Care Provider] - Please follow up with your Primary Care Physician in: within 1-2 weeks Test Results: Test results from this visit will be discussed in further detail at your follow- up appointment, if applicable. Please Follow Up With: Asim Miller DO When: within 1-2 weeks Proposed Discharge Date: 05/30/19
--- NOTE | 2019-05-30 08:31 | DS.PCM_ITS ---
Discharge Date and Diagnosis Date of Admission: 05/17/19 Date of Discharge: 05/30/19 - Primary Discharge Diagnosis Active and Suspected Problems (Last Reviewed 05/17/19 @ 03:55 by Tristan Clancy MD) 1. Acute on chronic hypoxic respiratory failure, 2. Severe sepsis secondary to pneumonia, 3. Streptococcus not pneumoniae pneumonia, ?Hospital acquired 4. VAN, pre-renal, secondary to sepsis/dehydration 5. Possible GI bleed - Secondary Discharge Diagnosis Chronic Problems (Last Reviewed 05/17/19 @ 03:55 by Tristan Clancy MD) On anticoagulant therapy (Chronic) Benign essential hypertension (Chronic) History of DVT of lower extremity (Chronic) Hemochromatosis (Chronic) History of pulmonary embolism (Chronic) Idiopathic pulmonary fibrosis (Chronic) Chronic respiratory failure with hypoxia (Chronic) History of left heart catheterization (Chronic) 04/26/2019 per SAHRA @ [facility], tsfer to Dr. Vitale @ [facility]. 03/27/2015 @ [facility] per Dr. Joby Arreguin; 10/24/[address] Marshall Knight @ [facility]; 08/09/[address] Jude Espana [facility] Atherosclerosis of coronary artery without angina pectoris (Chronic) S/P CABG x 1 (Chronic ~1994) [address] 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 Radial artery graft to the RCA. Stented coronary artery (Chronic 04/26/19) 12/23/2008: 3.5 X 15 mm vision BMS so mid LAD pr Dr. Rodríguez Hemphill, [facility]. 04/26/2019: Per Dr. Vitale @ [facility] ( after transferred from [facility] per Dr. Almonte): 5.0 X 16 Synergy stent from left main into the LAD ; a second 5.0 X 12 mm Synergy stent from left main into LCX and kissing balloon angioplasty performed. IVUS revealed 70-80% ostial LAD and 60% ostial CX stenosis with severe eccentric calcified disease in the distal left main. Hyperlipidemia (Chronic) Obstructive sleep apnea (Chronic) Hospital Course and Treatment Imaging Results: Clinical Impression(s) from Imaging Studies Brain CT 05/17/19 00:23 IMPRESSION: No acute intracranial pathology. Chronic changes as discussed similar to prior study Individualized dose optimization techniques were used for this CT. at 0122 Reported and signed by: Marina Castillo DO Electronically Signed: Marina Castillo DO at 1:21 EDT Tel , Service support , Chest X-Ray 05/17/19 00:45 IMPRESSION: Bilateral pulmonary infiltrates. These have increased in the lung apices when compared to the prior study at 0118 Reported and signed by: Marina Castillo DO Electronically Signed: Marina Castillo DO at 1:17 EDT Tel , Service support , Chest X-Ray 05/17/19 13:56 IMPRESSION: Stable bilateral patchy airspace disease. The tip of the endotracheal tube is at 3.9 cm proximal to the marly. The tip of the orogastric tube is within the fundal portion of the stomach. Electronically Signed: Raphael Roman at 14:37 EDT , Service support , Chest X-Ray 05/18/19 05:00 IMPRESSION: Left PICC line tip in right atrium without pneumothorax. Stable diffuse alveolar disease. Electronically Signed: Gerson Porter MD at 5:21 EDT Tel , Service support , Chest X-Ray 05/18/19 09:28 IMPRESSION: Endotracheal tube in satisfactory position. Left-sided PICC line tip in the atriocaval junction/right atrium. NG tube in satisfactory position. Diffuse infiltrates consider diffuse pulmonary edema and/or pneumonia. Status post sternotomy. Electronically Signed: Marina Manning MD at 10:23 EDT Tel , Service support , Chest X-Ray 05/21/19 07:32 IMPRESSION: Lines and tubes in unchanged position Mild CHF/fluid overload with trace effusions Airspace disease presumed edema Cardiomegaly Electronically Signed: Scot Fredrick, DO at 8:04 EDT Tel , Service support , Chest CT 05/23/19 09:23 IMPRESSION: Progressive appearance of the groundglass appearance/airspace disease in both lungs superimposed on chronic interstitial fibrosis in the lower lobes with underlying bronchiectasis and subpleural blebs. Electronically Signed: Raphael Roman, at 11:36 EDT , Service support , Bullet Charging Machine Operator Operations: None Procedures: 2-D Echocardiogram Summary of Care Provided: 73-year-old male with past medical history of severe IPF, history of CAD status post stents, admitted on 05/17/19 with progressive shortness of breath and was subsequently intubated. Patient has completed antibiotics course in the hospital. He was extubated on 05/21/19. Patient has a history of interstitial pulmonary fibrosis, severe and was managed on breathing treatments, steroids, and home nintedanib. He does have history of anemia with history of hematochromatosis, his hemoglobin trended down to 7.3, received 2 units of packed RBC. Patient's initial INR was supratherapeutic on admission, his Coumadin was on hold. He has a history of venous thromboembolic disease. His INR was subtherapeutic at the time of discharge. He was discharged on Coumadin and Lovenox overlap. He will need his INR repeated in 3 days. It was discussed with the patient several times over the course of his stay in the ICU that he was appropriate for hospice. Patient and his family declined to go home with hospice. He preferred to go home with home health. His hospital stay was prolonged because he remained on 11 L of oxygen which had to be arranged. He was finally discharged in a stable state. He is at high risk for readmissions based on his overall status, including the need for high flow oxygen as well as dyspnea with mild exertion. Subjective: On the day of discharge, patient was seen and examined. No new complaints. Objective: Physical exam: General: Alert, Oriented x3, Cooperative, No apparent distress, - - on 11L high flow oxygen, appears comfortable HEENT: Atraumatic, PERRLA, EOMI, Normocephalic Oral: Moist Mucosa Neck: Supple Lungs: No wheeze, No rales, Diminished Cardiovascular: Regular rate, Regular Rhythm, Normal S1, Normal S2, Murmur - 2/6 holosystolic murmur heard at the left sternal border Abdomen: Bowel Sounds Present, Soft, Non Tender, Non-Distended, No Hepato- splenomegaly Extremities: No edema Skin: No rashes Musculoskeletal: No Tenderness to Palpation of Joints or Extremities Lymphatic: No Cervical, Supraclavicular, or Inguinal Adenopathy Neurological: Cranial nerves II-XII grossly intact, Neuro grossly intact Psych/Mental Status: Normal Affect, Appropriate - Physical Exam Vital Signs Temp Pulse Resp BP Pulse Ox 98.5 F 82 16 106/66 93 05/30/19 00:00 05/30/19 07:12 05/30/19 07:12 05/30/19 07:00 05/30/19 07:12 Oxygen Flow Rate (L/min) 11 Oxygen Delivery Method Nasal Cannula Weight: 87.2 kg Body Mass Index (BMI) 32.1 Intake and Output for Last 24 Hours 05/28/19 05/29/19 05/30/19 23:59 23:59 23:59 Intake Total 1300 / 1300 850 / 850 100 / 100 Balance 1300 / 1300 850 / 850 100 / 100 Laboratory Tests Past 24 Hrs 05/30/19 03:45 PT 20.2 H INR 1.7 Discharge Diet: No Restrictions Discharge Activity: Return to Normal Activity Home Medications: Medications to take at Discharge Ascorbic Acid 500 mg PO DAILY 11/19/18 Aspirin [Aspirin, Baby] 81 mg PO DAILY@0800 11/19/18 Benzonatate 100 mg PO TID PRN 11/19/18 Fish Oil/Borage/Flax/Om3,6,9 1 [[place] 3-6-9 1,200 mg Softgel] 1,200 mg PO DAILY 11/19/18 Multivitamin with Minerals [Multiple Vitamin] 1 tab PO DAILY 11/19/18 Pantoprazole Sodium [Protonix] 40 mg PO DAILY 11/19/18 Magnesium 250 mg PO DAILY 12/30/18 Nitroglycerin 0.4 mg SL PRN PRN 12/30/18 Albuterol Aerosols [Ventolin Aerosols] 2.5 mg INHALATION 4X/DAY 04/24/19 Nintedanib Esylate [Ofev] 100 mg PO BID 04/24/19 Warfarin [Coumadin] 7.5 mg PO SUWETHFRSA 04/24/19 Warfarin [Coumadin] 10 mg PO MOTU 04/24/19 Clopidogrel Bisulfate [Plavix] 75 mg PO DAILY tab 04/26/19 Oxygen, Home [Home Oxygen] 2 - 4 lpm NASAL PRN 05/09/19 calcium carbonate 600 mg(1,500 mg)-vitamin D3 800 unit chewable tablet 1 tab PO BID 05/10/19 prednisone 10 mg tablet 5 mg PO Q OTHER DAY tab 05/10/19 levofloxacin 750 mg tablet 750 mg PO DAILY #5 tab 05/15/19 Acetaminophen [Tylenol Tablet] 650 mg PO Q6H PRN PRN tab 05/30/19 Enoxaparin Sodium [Lovenox] 90 mg SQ BID 2 Days #4 syringe 05/30/19 Ensure Enlive 120 ml PO 4X/DAY 30 Days #120 liquid 05/30/19 Mirtazapine [Remeron] 15 mg PO QHS 30 Days #30 tab 05/30/19 busPIRone [Buspar] 5 mg PO TID 30 Days #90 tab 05/30/19 Following Prescrptions Were Given to Patient: busPIRone [Buspar] 5 mg PO TID 30 Days #90 tab Transmission Status: Received by [facility] Ensure Enlive 120 ml PO 4X/DAY 30 Days #120 liquid Transmission Status: Received by [facility] Enoxaparin Sodium [Lovenox] 90 mg SQ BID 2 Days #4 syringe Transmission Status: Received by [facility] Mirtazapine [Remeron] 15 mg PO QHS 30 Days #30 tab Transmission Status: Received by [facility] Primary Care Physician: Maria Mccoy MD [Primary Care Provider] - Please follow up with your Primary Care Physician in: within 1-2 weeks Please Follow Up With: Asim Miller, DO When: within 1-2 weeks Disposition: Home with Home Health Minutes spent on discharge:: 55 - Coordinating discharge medications and oxygen Patient Condition:: Guarded Medical Necessity - Tobacco Use Smoking Status: Former smoker Tobacco Use: Non-smoker Meaningful Use Info Meaningful Use Diagnoses (Choose all that apply): None applicable Code Visit Inpatient E&M: 96537 Disch Hosp
--- NOTE | 2019-05-30 09:57 | CASEMGMT ---
KARINE HOLLINS Note: Call to Ruperto @ [facility]. She states concentrator will arrive to their facility around 10:30 and she will be contacting for delivery of high flow oxygen concentrators, hospital bed, wheeled walker and tub bench. When this is set up,she will contact KARINE HOLLINS and dc can occurr. Per Ruperto, their portable tank will not be sufficient for transferring home due to high oxygen liter flow, and larger tanks are not safe for car transport. For safety and pt's respiratory status, pt will need ambulance to return home. -KARINE HOLLINS let nursing know pt will need ambulance for transport, recommend set up for around 2 pm to allow for home set up of equipment and oxygen. -[facility] was contacted- spoke with Yara to notify pt will be dc'd today. DC instructions and summary faxed to . Included was script for INR to be drawn by [facility] nurse in 3 days. -[facility]- call to pharmacy. Lovenox cost is $100 for 3 syringes. Per pharmacist cost does not change if only 2 are picked up. -Call to Debbie Goldberg. Reviewed plan for dc today. She has heard from [facility] re: delivery (within next 2 hours). KARINE HOLLINS discussed S [facility] has been notified of discharge, information sent and requested home health nurse draw INR due in 3 days. Updated that [facility] has Lovenox and other prescriptions and Lovenox cost is $100. states this is fine and she will have someone cook pickled meat medications. Ambulance will be set up for around 2 pm and nurse will update her with actual time when scheduled. KARINE HOLLINS call back number given if questions or concerns arise. [facility] was ambulance of choice. JULIAN BSN RN ACM
[2019-05-30] MEDS: Pantoprazole Sodium 40 MG Tablet PO (10:27)
[2019-05-30] MEDS: Clopidogrel Bisulfate 75 MG Tablet PO (10:27)
[2019-05-30] MEDS: Enoxaparin 100 MG/ML Syringe 90 MG SC (10:27)
--- NOTE | 2019-05-30 10:56 | CASEMGMT ---
RN CM Note. Discussed dc plan with pt. He is excited to return home. Ambulance set up through [facility] for 2 pm. Reviewed dc appointment with Dr. Miller, SINTIA phone # will be on appointment sheet and home health nurse requested to draw INR in 3 days. Pt has telehealth brochure if needed. Ambulance form for [facility] is for 90 days as pt will likely require ambulance for f/u appointments. Rishabh WALSH RN ACM
--- NOTE | 2019-05-30 10:57 | CASEMGMT ---
SW spoke w/the SW from the IN, Jeremy Nuñez. SW let her know that pt is going home today, SW let her know pt will have [facility] for home care. The GEC can still be completed and pt can be assessed for additional aide services. She asked if pt would like this to send it along w/PT notes. SW spoke w/pt, he is agreeable to SW sending in the GEC to assess for additional services at home. Pt mentioned the clinical product manager on the weekend spoke about a life alert button. SW explained will follow up w/the SW at the IN. We also spoke about how pt has been doing clinically, support given. PALLAVI faxed the GEC along with the most recent therapy notes to PALLAVI Luna at the IN. SW left her a message letting her know this is being faxed. SW also asked her to check on pt getting a life alert button, and information sent by weekend watch case polisher to pt's nurse at the IN to get a bedside table. SW left in message to follow up w/pt. SW let pt know message left for Jeremy at the IN, and gave him her contact information to follow up w/her. No further needs from social media editor at this time. STACY Lopez
--- NOTE | 2019-05-30 12:55 | CHAPLAIN ---
Type of Pastoral Visit ___ Initial Visit _x__ Follow-up Visit ___ On-call Visit ___ General Patient Visit ___ Spiritual Assessment ___ Family Conference ___ Bereavement ___ Rapid Response ___ Code Blue ___ Other (describe below) Pastoral Care Referral From _x__ Patient ___ Family ___ Nurse ___ Physician ___ Senior Gl Accountant ___ Tube Washer ___ Other (describe below) Sacrament/Intervention _x__ Active listening ___ Anointing ___ Islam ___ Bereavement ___ Communion _x__ Rebeca exploration ___ ___ Life review _x__ Prayer ___ Reconciliation ___ Sacrament of Sick _x__ Supportive presence ___ Wedding ___ Other (describe below) Pastoral Comments
--- NOTE | 2019-05-30 13:08 | CASEMGMT ---
RN CM Note: Per Ruperto @ [facility], equipment oxygen is delivered and pt is set to come home. Nurse updated and machine operator picker time for Ambulance will be 2 pm. Rishabh RawlsN RN ACM
--- NOTE | 2019-05-30 14:29 | CASEMGMT ---
RN CM Note: called to update that pt has been picked up by ambulance and is on his way home. states, we're ready. No further questions. Rishabh MACARION RN ACM
--- NOTE | 2019-05-31 15:04 | CASEMGMT ---
KARINE CM DC Note. DC DATE: 05/31/19 DC DISPOSITION: HOME w/ [facility] Home oxygen DC Diagnosis: Resp failure/Pulmonary Fibrosis Intro role of CM to patient's . She states pt is doing well, using oxygen as prescribed. Pt or his daughter are able to give Lovenox shot. [facility] has contacted and will call again with appointment. Phone number for [facility] given to again. No further questions per , no care improvement suggestions given. Rishabh MACARION RN ACM
== END 2019-05-30 14:25 | disposition home health service (06) | DRG 871 ==
LOC: ED 01:38 → ICU 02:16
PROVIDERS: Family Medicine; Internal Medicine; Internal Medicine Critical Care Medicine; Admitting Provider Hospitalist; Emergency Provider Emergency Medicine; Family Provider Internal Medicine; PCP Internal Medicine; Visit Provider Internal Medicine
DX: A41.9 Sepsis, unspecified organism (principal); J96.21 Acute and chronic respiratory failure with hypoxia; J15.4 Pneumonia due to other streptococci; N17.9 Acute kidney failure, unspecified; E87.1 Hypo-osmolality and hyponatremia; K92.2 Gastrointestinal hemorrhage, unspecified; R04.2 Hemoptysis; R65.20 Severe sepsis without septic shock; I25.10 Atherosclerotic heart disease of native coronary artery without angina pectoris; E86.0 Dehydration; Z99.81 Dependence on supplemental oxygen; G47.33 Obstructive sleep apnea (adult) (pediatric); J84.112 Idiopathic pulmonary fibrosis; W18.30XA Fall on same level, unspecified, initial encounter; D64.9 Anemia, unspecified; Y92.019 Unspecified place in single-family (private) house as the place of occurrence of the external cause; E83.119 Hemochromatosis, unspecified; E78.5 Hyperlipidemia, unspecified; Y95 Nosocomial condition; I10 Essential (primary) hypertension; E66.9 Obesity, unspecified; Z79.01 Long term (current) use of anticoagulants; Z95.1 Presence of aortocoronary bypass graft; Z95.5 Presence of coronary angioplasty implant and graft; Z87.891 Personal history of nicotine dependence; Z86.718 Personal history of other venous thrombosis and embolism; Z68.32 Body mass index [BMI] 32.0-32.9, adult; Z95.828 Presence of other vascular implants and grafts; S00.03XA Contusion of scalp, initial encounter
CPT/HCPCS: 31500; 31720; 36569; 36600; 51702; 70450; 71045; 71250; 80048; 80053; 80069; 81001; 82274; 82550; 82803; 82962; 83605; 83735; 84100; 84478; 84484; 85014; 85018; 85025; 85027; 85610; 85730; 86850; 86900; 86901; 86920; 86922; 87040; 87070; 87086; 87205; 87449; 87633; 87641; 93005; 93306; 93798; 94002; 94003; 94640; 94660; 95831; 97110; 97116; 97163; 97167; 97530; 97802; 99251; 99285; J1756; J7030; J7050; P9016; P9017; Q9957; A4216; C8929; G0463; J1940

== ENCOUNTER 2019-05-31 23:42 | Emergency (ER) | payer MEDICARE, SELFPAY ==
[2019-05-30 08:37] VITALS: BMI 32.1
[2019-05-31] VITALS (10 sets, daily range): BP systolic 113–197; BP diastolic 58–84; PULSE 12–145; RESP 30–58; TEMP 37.6–39.3; O2SAT 13–93; BMI 29.5
[2019-05-31] MEDS: 0.9% Normal Saline 1,000 ML 999 ML IV (23:46)
[2019-05-31] MEDS: Succinylcholine Chloride 200 MG/10 ML Vial 100 MG IV (23:47)
[2019-05-31] MEDS: Etomidate 20 MG/10 ML Vial IV (23:47)
[2019-05-31] MEDS: Midazolam 5 MG/ML Syringe 4 MG IV (23:56)
--- NOTE | 2019-05-31 23:57 | RAD_ITS ---
HISTORY: ETT PLACEMENT/BEST POSSIBLE IMAGES DUE TO PATIENT'S STATUS EXAM: XR Chest 1 View: COMPARISON: Chest x-ray from May 21, 2019. Chest CT from May 23, 2019 FINDINGS: # of images incl. paperwork: 1 Diffuse airspace disease is more severe. It is more severe especially in the upper lungs, left greater than right. The endotracheal tube terminates superimposed over the trachea, at the level of the clavicular heads, and above the marly. Dragon esophagogastric Heart is not enlarged. Thoracic spondylosis persists. Vertebroplasty has been performed at L1 Pulmonary vascularity is indistinct. No effusions. RAD/Chest 1 View (Portable) IMPRESSION: Adequate position of endotracheal tube terminates the level of the clavicular heads. at 0024 Reported and signed by: Sarthak Martino MD Electronically Signed: Sarthak Martino MD at 0:23 EDT Tel , Service support ,
--- NOTE | 2019-05-31 23:57 | EKG12_ITS ---
Test Reason : DYSRHYTHMIA Blood Pressure : / mmHG Vent. Rate : 125 BPM Atrial Rate : 125 BPM P-R Int : 138 ms QRS Dur : 088 ms QT Int : 296 ms P-R-T Axes : 041 076 053 degrees QTc Int : 427 ms Sinus tachycardia Nonspecific ST abnormality Abnormal ECG Confirmed by DANO BLACKMON, CARLEE ([id number]), manuscript editor BLAYNE BRICE ([id number]) on 06/03/2019 9:18:56 AM Referred By: Andrea Almonte Confirmed By:CARLEE MATSON MD
[2019-05-31] MEDS: Propofol 10MG/Ml 1,000 MG/100 ML Bottle 5.3 MG CONT INF (23:58)
[2019-06-01] VITALS (36 sets, daily range): BP systolic 62–195; BP diastolic 33–114; PULSE 105–129; RESP 24–36; TEMP 39.2–39.8; O2SAT 54–963
[2019-06-01] MEDS: fentaNYL 100 MCG/2 ML Ampul 50 MCG IV (00:08)
--- NOTE | 2019-06-01 00:10 | ED.VIS.GEN ---
History of Present Illness Chief Complaint: Shortness of Breath Narrative: Patient is a 74-year-old male who presents in respiratory distress. He was recently admitted to the hospital for pneumonia. He was intubated. He was just discharged. He was tired all day today. He was on oxygen by nasal cannula at 2 L but developed worsening hypoxia and was up to 15 L at home. He was placed on CPAP by EMS but presented with a pulse ox of only 60 to 70% in obvious distress. Family denies any other illness today such as fevers vomiting diarrhea. History limited due to the patient's illness severity. Past Medical History - Allergies and Home Meds Allergies/Adverse Reactions: Allergies Penicillins Allergy (Verified 05/17/19 00:27) Hives celecoxib [From Celebrex] Adverse Reaction (Verified 05/17/19 00:27) Chest tightness nitroglycerin [From Nitrostat] Adverse Reaction (Verified 05/17/19 00:27) severe migraine Mrsyvde-Wcw-Uyl Reductase Inhibitor Adverse Reaction (Verified 05/17/19 00:27) Pain in joints Primary Care Physician: Maria Mccoy MD [Primary Care Provider] - Past Medical History: - - Coronary artery disease, hypertension, hyperlipidemia Surgical History: coronary bypass surgery, - Smoking Status: Former smoker - Family History Maternal Family History: Reports: Diabetes, Heart Disease Paternal Family History: Reports: Diabetes, Heart Disease Review of Systems ROS: Unable to Obtain Physical Exam Vital Signs/Narrative: Vital Signs Temp Pulse Resp Pulse Ox 05/31/19 23:43 99.7 F H 134 H 43 H 50 Inital Vital Signs reviewed: Yes General: Acute Distress Eyes: EOMI ENT: Moist mucous membranes Neck: Supple Cardiovascular: - - Heart is regular tachycardia no murmur, gallop, rub Respiratory: - - Diffuse wheezing severe respiratory distress retractions Abdomen: Soft, Nontender, - - Abdominal ecchymosis I suspect related to injections while hospitalized Back: Normal Inspection Skin: Cyanosis Neurological: - - Lethargic Diagnostic/Tx/Re-eval 05/31/19 23:57 Chest 1 View (Portable) [RAD] Stat 06/01/19 01:17 CXR [Chest 1 View (Portable)] [RAD] Stat Laboratory Results 06/01/19 06/01/19 06/01/19 00:10 00:10 00:10 WBC 21.0 H RBC 3.99 L Hgb 10.3 L Hct 35.3 L MCV 88.5 MCH 25.8 L MCHC 29.2 L RDW Std Deviation 71.5 H RDW Coeff of Rossy 22.5 H Plt Count 365 MPV 9.8 Immature Gran % (Auto) 1.300 H Neut % (Auto) 79.4 H Lymph % (Auto) 12.4 L [place] % (Auto) 4.7 Eos % (Auto) 1.8 Baso % (Auto) 0.4 Absolute Neuts (auto) 16.7 H Absolute Lymphs (auto) 2.59 Nucleated RBC % 0 Platelet Estimate ADEQUATE Polychromasia RARE Hypochromasia 1+ Anisocytosis 1+ Specimen Type Sample Site pH Bicarbonate Actual POC Total CO2 Base Excess O2 Saturation O2 % ABG pCO2 ABG pO2 Rakan Test Respiration Rate O2 Delivery Device Minute Volume Vent Mode Tidal Volume POC PEEP Blood Gas Notified Whom Blood Gas Notified Time Sodium 141 Potassium 4.5 Chloride 107 Carbon Dioxide 27.0 Anion Gap 7 BUN 16 Creatinine 1.09 Estim Creat Clear Calc 57.52 Est GFR (MDRD) Af Amer 85 Est GFR (MDRD) Non-Af 70 BUN/Creatinine Ratio 14.7 Glucose 178 H Lactic Acid 3.5 H Calcium 7.9 L Total Bilirubin 0.60 AST 33 ALT 28 Alkaline Phosphatase 93 Troponin I 0.046 H Total Protein 7.0 Albumin 2.3 L Globulin 4.7 H Albumin/Globulin Ratio 0.5 L 06/01/19 00:54 WBC RBC Hgb Hct MCV MCH MCHC RDW Std Deviation RDW Coeff of Rossy Plt Count MPV Immature Gran % (Auto) Neut % (Auto) Lymph % (Auto) [place] % (Auto) Eos % (Auto) Baso % (Auto) Absolute Neuts (auto) Absolute Lymphs (auto) Nucleated RBC % Platelet Estimate Polychromasia Hypochromasia Anisocytosis Specimen Type ART Sample Site R Brachial pH 7.37 Bicarbonate Actual 23.8 POC Total CO2 25 Base Excess -2 O2 Saturation 92 L O2 % 100 ABG pCO2 41.1 ABG pO2 67 L Rakan Test POS Respiration Rate 14 O2 Delivery Device Vent Minute Volume 16.00 Vent Mode A-C Tidal Volume 500 POC PEEP 8 Blood Gas Notified Whom ED Blood Gas Notified Time 45 Sodium Potassium Chloride Carbon Dioxide Anion Gap BUN Creatinine Estim Creat Clear Calc Est GFR (MDRD) Af Amer Est GFR (MDRD) Non-Af BUN/Creatinine Ratio Glucose Lactic Acid Calcium Total Bilirubin AST ALT Alkaline Phosphatase Troponin I Total Protein Albumin Globulin Albumin/Globulin Ratio Impressions Chest X-Ray 06/01/19 01:48 IMPRESSION: Persistent right IJ catheter terminating within the right atrium. at 0205 Reported and signed by: Sarthak Martino MD Electronically Signed: Sarthak Martino MD at 2:04 EDT Tel , Service support , 05/31/19 23:57 Chest 1 View (Portable) [RAD] Stat 06/01/19 01:17 CXR [Chest 1 View (Portable)] [RAD] Stat 06/01/19 01:48 CXR [Chest 1 View (Portable)] [RAD] Stat Laboratory Results 06/01/19 06/01/19 06/01/19 00:10 00:10 00:10 WBC 21.0 H RBC 3.99 L Hgb 10.3 L Hct 35.3 L MCV 88.5 MCH 25.8 L MCHC 29.2 L RDW Std Deviation 71.5 H RDW Coeff of Rossy 22.5 H Plt Count 365 MPV 9.8 Immature Gran % (Auto) 1.300 H Neut % (Auto) 79.4 H Lymph % (Auto) 12.4 L [place] % (Auto) 4.7 Eos % (Auto) 1.8 Baso % (Auto) 0.4 Absolute Neuts (auto) 16.7 H Absolute Lymphs (auto) 2.59 Nucleated RBC % 0 Platelet Estimate ADEQUATE Polychromasia RARE Hypochromasia 1+ Anisocytosis 1+ Specimen Type Sample Site pH Bicarbonate Actual POC Total CO2 Base Excess O2 Saturation O2 % ABG pCO2 ABG pO2 Rakan Test Respiration Rate O2 Delivery Device Minute Volume Vent Mode Tidal Volume POC PEEP Blood Gas Notified Whom Blood Gas Notified Time Sodium 141 Potassium 4.5 Chloride 107 Carbon Dioxide 27.0 Anion Gap 7 BUN 16 Creatinine 1.09 Estim Creat Clear Calc 57.52 Est GFR (MDRD) Af Amer 85 Est GFR (MDRD) Non-Af 70 BUN/Creatinine Ratio 14.7 Glucose 178 H Lactic Acid 3.5 H Calcium 7.9 L Total Bilirubin 0.60 AST 33 ALT 28 Alkaline Phosphatase 93 Troponin I 0.046 H Total Protein 7.0 Albumin 2.3 L Globulin 4.7 H Albumin/Globulin Ratio 0.5 L 06/01/19 00:54 WBC RBC Hgb Hct MCV MCH MCHC RDW Std Deviation RDW Coeff of Rossy Plt Count MPV Immature Gran % (Auto) Neut % (Auto) Lymph % (Auto) [place] % (Auto) Eos % (Auto) Baso % (Auto) Absolute Neuts (auto) Absolute Lymphs (auto) Nucleated RBC % Platelet Estimate Polychromasia Hypochromasia Anisocytosis Specimen Type ART Sample Site R Brachial pH 7.37 Bicarbonate Actual 23.8 POC Total CO2 25 Base Excess -2 O2 Saturation 92 L O2 % 100 ABG pCO2 41.1 ABG pO2 67 L Rakan Test POS Respiration Rate 14 O2 Delivery Device Vent Minute Volume 16.00 Vent Mode A-C Tidal Volume 500 POC PEEP 8 Blood Gas Notified Whom ED MD Blood Gas Notified Time 45 Sodium Potassium Chloride Carbon Dioxide Anion Gap BUN Creatinine Estim Creat Clear Calc Est GFR (MDRD) Af Amer Est GFR (MDRD) Non-Af BUN/Creatinine Ratio Glucose Lactic Acid Calcium Total Bilirubin AST ALT Alkaline Phosphatase Troponin I Total Protein Albumin Globulin Albumin/Globulin Ratio - Medical Decision Making Patient presented in severe distress. He was continued on CPAP and then transition to [id number]. He underwent RSI with 20 mg of etomidate and 100 mg of succinylcholine. I initially attempted endotracheal intubation via video laryngoscopy. There was poor visualization. Initial attempt unsuccessful. Patient had desaturated to 20%. We at this point stop to bag valve mask however he remained severely hypoxic without significant change in his pulse oximetry. T I then transition to direct laryngoscopy. Second attempt was an esophageal intubation. At this point attempted to direct endotracheal intubation and was successful on his first attempt with a 7.0 endotracheal tube. He did note edema. there was change in color capnography and bilateral breath sounds with bagging. Patient was given Versed for sedation and started on a propofol infusion. He still had some agitation was given IV fentanyl. Patient developed hypotension. Initially this was attributed to propofol infusion and this was decreased and eventually stopped. He remained hypotensive. Dr. Lima established a right internal jugular central venous catheter as per his note. Chest x-ray following does not show pneumothorax it does show the tip in the inferior vena cava. Patient was started on levo fed infusion. He continued to develop worsening hypoxia despite FiO2 of 100%. I am very concerned that this is adult respiratory distress syndrome. His PEEP was increased to 8 and eventually to 10. Peak pressures were as high as 65. Currently peak pressures are in the 40s and his pulse oximetry has improved to 92%. Given complex ventilator management and critical illness I attempted to contact pulmonology here but not heard back. I felt the patient needed to be in an ICU setting where pulmonology and critical care immediately available and preferably in house. I spoke to family. The patient is previously been at [facility]. Therefore we contacted them and he was accepted to their ICU. We will transfer via medical helicopter if available. - Critical Care Time Critical care time (excluding procedures): 30-74 minutes, Arranging Admission or Transfer - Interpretation of labs and review of imaging., Performing Direct Patient Care at Bedside ED Disposition - Plan for ED Patient: Disposition: [facility] Diagnosis: ARDS (adult respiratory distress syndrome), HCAP (healthcare-associated pneumonia), Septic shock Referrals: Maria Mccoy MD [Primary Care Provider] -
[2019-06-01 00:20] LABS: Absolute Lymphocyte Count 2.59 X10^3/uL (0.83-4.51); Absolute Neutrophil Count 16.7 X10^3/uL (2.0-7.7); Basophil# 0.09 X10^3/uL; Basophil% 0.4 % (0-1); Eosinophil# 0.38 X10^3/uL; Eosinophils% 1.8 % (0-5); Hematocrit 35.3 % (40-54); Hemoglobin 10.3 g/dL (13.0-16.5); Lymphocyte # 2.59 X10^3/ul (4.0); Lymphocyte % 12.4 % (19-41); Mean Corp Hgb Conc 29.2 g/dL (32-36); Mean Corpuscular Hgb 25.8 pg (27.0-32.0); Mean Corpuscular Volume 88.5 fL (80-94); Mean Platelet Vol. 9.8 fl (6.2-12.0); Monocyte# 0.99 X10^3/uL; Monocyte% 4.7 % (0-10); NRBC Flagged by Analyzer 0 % (0-5); Neutrophil # 16.65 X10^3/uL (2.7-7.7); Neutrophil % 79.4 % (47-70); POSITIVE MORPHOLOGY YES; Platelet Count 365 K/mm3 (150-450); RBC Distribution Width CV 22.5 % (11.6-14.6); RBC Distribution Width SD 71.5 fl (35.1-43.9); Red Blood Count 3.99 M/mm3 (4.6-6.2)
[2019-06-01 00:21] LABS: Differential Indicated SCAN CRITERIA MET
--- NOTE | 2019-06-01 00:35 | ED.RN ---
DR FAULKNER AWARE OF BP. ORDERING LEVOPHED GTT
--- NOTE | 2019-06-01 00:36 | ED.RN ---
Addendum entered by Brenda Osborn 06/01/19 03:45: 2346 - HR 132 Original Note: 2345 - BP 113/58 HR 1325 RESP 58 PULSE OX 54% CPAP 2346 - ETOMIDATE 20 MG IV PUSH GIVEN BY ANASTASIA MILTON, SUCC 100MG IV PUSH GIVEN BY ANASTASIA MILTON 2348 - UNSUCCESSFUL INTUBATION ATTEMPT BY DR FAULKNER. STARTED BAGGING PT AGAIN 235 - CORE TEMP GODFREY INSERTED BY ANASTASIA MILTON 2350 - UNSUCCESSFUL INTUBATION ATTEMPT BY DR FAULKNER. HR 902 PULSE OX 13%. STARTED BAGGING PT AGAIN 235 - HR 59 UNABLE TO OBTAIN PULSE OX 2352 - PT INTUBATED BY DR DELACRUZ. FOG NOTED IN ET TUBE. SIZE 7 TUBE 21 AT THE GUMS. HR 1471 PULSE OX 14% 2353 - HR 145 RESP 30 PULSE OX 58% 2354 - NG INSERTED IN LEFT NARES BY TRNEA MILTON. BP 197/84 HR 131 RESP 32 PULSE OX 81% 2355 - VERSED 4MG IV PUSH GIVEN BY ANASTASIA MILTON 2356 - SOFT WRIST RESTRAINTS APPLIED TO LEFT AND RIGHT WRISTS 2357 - PROPOFOL STARTED AT 10MCG/KG/MIN IN RIGHT AC 2358 - BP 171/68 HR 128 RESP 30 PULSE OX 93% ON VENT 5 - PROPOFOL INCREASED TO 15MCG/KG/MIN 7 - FENTANYL 50MCG IV PUSH GIVEN BY LB MILTON 5 - PROPOFOL DECREASED TO 10 MCG/KG/MIN BP 69/39
[2019-06-01 00:40] LABS: ALB/GLOB Ratio 0.5 RATIO (0.9-2.4); AST(SGOT) 33 U/L (15-37); Alanine Aminotransfer ALT/SGPT 28 U/L (16-61); Albumin, Serum 2.3 g/dL (3.2-5.0); Alkaline Phosphatase 93 U/L (45-117); Anion Gap 7 (5-15); BUN 16 mg/dL (7-18); BUN/Creat Ratio 14.7 RATIO (10-20); Calcium,Total 7.9 mg/dL (8.5-10.1); Chloride 107 mmol/L (98-107); Creatinine, Serum 1.09 mg/dL (0.70-1.30); EST Glomerular Filtration Rate 70 mL/min (>60); Est Glom Filt Rate - Afr Amer 85 mL/min (>60); Estimated Creatinine Clearance 57.52 ml/min; Globulin 4.7 g/dL (2.2-4.2); Glucose 178 mg/dL (74-106); Potassium 4.5 mmol/L (3.5-5.1); Sodium Level 141 mmol/L (136-145)
[2019-06-01 00:43] LABS: Anisocytosis 1+; Platelet Estimate ADEQUATE (ADEQ)
[2019-06-01 00:44] LABS: Hypochromasia 1+; Polychromasia RARE
[2019-06-01 00:46] LABS: Lactic Acid 3.5 mmol/L (0.4-2.0)
[2019-06-01] MEDS: fentaNYL drip 100 ML 2.5 MCG IV (00:46)
--- NOTE | 2019-06-01 00:49 | ED.RN ---
LAB CALLED WITH CRITICAL VALUE OF 3.[address] FAULKNER NOTIFIED.
[2019-06-01] MEDS: 0.9% Normal Saline 1,000 ML 999 ML IV ×2 (01:00→01:01)
[2019-06-01 01:01] LABS: Allen Test POS; Base Excess -2 mmol/L (-2 to +2); Bicarbonate 23.8 mmol/L (22-26); Blood Gas Specimen Type ART; FI02 100; Mode A-C; O2 Delivery Device Vent; PEEP 8; PO2 67 mmHG (75-100); RR 14; SITE R Brachial; SO2 92 % (95-99); Time Given 45; Total Carbon Dioxide 25 mmol/L; Vt 500; pCO2 41.1 mmHg (35-45); pH 7.37 (7.35-7.45)
--- NOTE | 2019-06-01 01:11 | ED.RN ---
fentanyl increased per dr zambrano
--- NOTE | 2019-06-01 01:15 | ED.DCSUM_ITS ---
- ER Visit Summary Date of Service: 06/01/19 Procedure note: Patient requires central venous access secondary to septic shock. Patient's identification was confirmed, and timeout was performed. Patient's right internal jugular vein was identified under ultrasound. Patient was then cleansed with chlorhexidine, and was draped in a head to toe sterile drape. Sterile technique was utilized. The patient's right internal jugular was again identified using sterile ultrasound with a probe cover. Needle was introduced into the patient's skin, blood flash was obtained, and dark red nonpulsatile blood was noted. Wire was placed, the skin was cut with a scalpel, was dilated, and then a triple-lumen catheter was placed over top of the wire. Initially with placement over top of the wire, I was unable to remove the wire from the triple-lumen catheter, the catheter was completely removed from the skin, the wire was able to be freely moved, so then the catheter was again advanced, and ultimately was able to be successfully advanced with removal of the wire. All 3 of the ports were both withdrawn and flushed, Biopatch was placed on the skin, and the line was sutured in place. Chest x-ray will be performed to confirm placement of the catheter. This note was generated with [employer] dictation software. It may contain incorrect words, spelling, and punctuation that were not noted in review of the chart prior to signing ED Disposition - Plan for ED Patient: Referrals: Maria Mccoy MD [Primary Care Provider] -
--- NOTE | 2019-06-01 01:17 | RAD_ITS ---
We are attempting to reach an attending provider to discuss findings. An addendum with communication details will be sent when the communication is complete. HISTORY: CENTRAL LINE PLACEMENT/BEST POSSIBLE IMAGES DUE TO PATIENT'S STATUS EXAM: XR Chest 1 View: COMPARISON: May 31, 2019, just over an hour earlier FINDINGS: # of images incl. paperwork: 1 Endotracheal tube continues to terminate superimposed over the trachea just barely below the level of the clavicular heads. Esophagogastric tube tip and sidehole continue to terminate below the diaphragm. Newly placed right IJ central venous catheter terminates with its tip superimposed over the anticipated location of the IVC, likely through the lumen of the right atrium. Severe bilateral airspace disease greatest within the upper lungs persists. Sternal wires are unchanged. No pneumothorax is perceived Heart is not enlarged. Thoracic spondylosis is unchanged. Pulmonary vascularity is indistinct. No effusions. RAD/Chest 1 View (Portable) IMPRESSION: Right IJ central venous catheter likely terminates within the IVC having traversed through the lumen of the right atrium. I estimate withdrawal of the catheter by 7 cm for more optimal positioning. Persistent pulmonary hypoexpansion and severe airspace disease. at 0153 Reported and signed by: Sarthak Martino MD Electronically Signed: Sarthak Martino MD at 1:52 EDT Tel , Service support ,
--- NOTE | 2019-06-01 01:28 | ED.RN ---
levophed infusing into central line in right ij proximal port
--- NOTE | 2019-06-01 01:29 | ED.RN ---
propofol running into central line distal port
--- NOTE | 2019-06-01 01:47 | ED.RN ---
FAMILY AND DR DELACRUZ AT THE BEDSIDE. RESPIRATORY THERAPY SUCTIONING PT.
--- NOTE | 2019-06-01 01:48 | RAD_ITS ---
HISTORY: LINE PLACEMENT/BEST POSSIBLE IMAGE DUE TO PATIENT'S STATUS EXAM: XR Chest 1 View: COMPARISON: Previous study from 30 minutes earlier FINDINGS: # of images incl. paperwork: 1 Right IJ central venous catheter likely continues to terminate within the right atrium. Esophagogastric tube Endotracheal tube continues terminates superimposed over the trachea. Severe bilateral airspace disease greatest within the lung apices persists Heart is not enlarged. Bones are normal. Pulmonary vascularity is distinct. No effusions. RAD/Chest 1 View (Portable) IMPRESSION: Persistent right IJ catheter terminating within the right atrium. at 0205 Reported and signed by: Sarthak Martino MD Electronically Signed: Sarthak Martino MD at 2:04 EDT Tel , Service support ,
--- NOTE | 2019-06-01 02:08 | NURSING ---
ACCEPTED TO [facility] BY DR. WILLAMS [id number] SURGICAL ICU [phone] REPORT
[2019-06-01] MEDS: Acetaminophen 650 MG Suppository RECTAL (02:17)
--- NOTE | 2019-06-01 02:32 | ED.RN ---
[facility] AT THE BEDSIDE SPEAKING WITH THE FAMILY AND DR DELACRUZ AND DR FAULKNER
--- NOTE | 2019-06-01 02:33 | ED.RN ---
LEVOPHED INCREASED TO 30MCG/MIN PER [facility]
--- NOTE | 2019-06-01 02:51 | ED.RN ---
VIAL OF ROCURONIUM SENT WITH [employer] CREW PER DR AKHTAR
--- NOTE | 2019-06-01 02:55 | ED.RN ---
PER CRISELDA BLACKMON, 100 MG SOLU-CORTEF SENT WITH CREW
[2019-06-01] MEDS: Hydrocortisone Sod Succinate 100 MG/2 ML Vial IV (03:00)
[2019-06-01 04:16] LABS: Reflex Lactate? Y
--- NOTE | 2019-06-02 23:00 | ED.RN ---
[facility] CALLED AND NOTIFIED OF GRAM POSITIVE COCCI IN [employer].
--- NOTE | 2019-06-14 09:29 | CASEMGMT ---
PALLAVI Nazario from the OR called to check in w/this SW as she was informed by a pharmacist at [facility] that pt called in to the pharmacy, is in the hospital, and needs a vent facility. PALLAVI called Jeremy back, explained it appears from our records pt was in our emergency dept on 06/01 and transferred to [facility]. Jeremy explained the OR is now providing aides for pt at home and was questioning if pt was here since she had not heard from us. She will follow up w/[facility] if needed. STACY Lopez
== END 2019-06-01 03:14 | disposition short-term general hospital (02) ==
PROVIDERS: Emergency Provider Emergency Medicine; Family Provider Internal Medicine; PCP Internal Medicine
DX: J80 Acute respiratory distress syndrome (principal); J18.9 Pneumonia, unspecified organism; Y95 Nosocomial condition; R65.21 Severe sepsis with septic shock; I25.10 Atherosclerotic heart disease of native coronary artery without angina pectoris; I10 Essential (primary) hypertension; E78.5 Hyperlipidemia, unspecified; Z79.02 Long term (current) use of antithrombotics/antiplatelets; Z79.01 Long term (current) use of anticoagulants; Z79.82 Long term (current) use of aspirin; Z79.899 Other long term (current) drug therapy; Z87.891 Personal history of nicotine dependence
CPT/HCPCS: 31500; 31720; 36556; 36600; 51702; 71045; 80053; 82803; 83605; 84484; 85025; 87040; 87149; 93005; 94002; 94640; 99251; 99285; J7030; J7050; A4216; G0463; J0330